=== PATIENT | female | born 1955 | race Caucasian/White ===

== ENCOUNTER 2017-01-15 14:34 | Inpatient (IN) | payer BC ==
[2017-01-15 17:03] VITALS: BMI 29.0
[2017-01-15 17:04] LABS: Glucose,Whole Blood 103 mg/dL (75-99)
[2017-01-15] MEDS ORDERED: ALBUTEROL INHALER 60 PUFF/8 GM INHALER INHALATION PRN (18:15)
[2017-01-15] MEDS ORDERED: IV VANCOMYCIN PER PHARMACY 1 EACH MISC MISCELLANE PRN (18:24)
[2017-01-15] MEDS ORDERED: traMADol 50 MG TAB PO PRN (18:25)
[2017-01-15] MEDS ORDERED: ACETAMINOPHEN TAB 325 MG TAB PO PRN (18:26)
[2017-01-15] MEDS ORDERED: ONDANSETRON 4 MG/2 ML VIAL IVP PRN (18:26)
[2017-01-15 19:26] LABS: Basophils # (A) 0.1 k/uL (0-0.2); Basophils % (A) 1 %; CH 28.9; CHCM 33.4; Eosinophils # (A) 0.3 k/uL (0-0.7); Eosinophils % (A) 2 %; HCT 36.1 % (34.0-46.0); HDW 2.37; HGB 12.5 gm/dL (11.4-16.0); Luc # (Auto) 0.25; Luc % (Auto) 2; Lymphocytes # (A) 2.3 k/uL (1.0-4.8); Lymphocytes % (A) 13 %; MCHC 34.6 g/dL (31.0-37.0); MCV 86.9 fL (80.0-100.0); Mean Platelet Volume 6.7; Monocytes # (A) 0.9 k/uL (0-1.0); Monocytes % (A) 5 %; Neutrophils # (A) 13.4 k/uL (1.3-7.7); Neutrophils % (A) 78 %; RBC 4.15 m/uL (3.80-5.40); RDW 14.3 % (11.5-15.5); WBC 17.2 k/uL (3.8-10.6); WBC (Perox) 16.71
[2017-01-15 19:43] LABS: Calcium 9.7 mg/dL (8.4-10.2); Potassium 3.2 mmol/L (3.5-5.1)
[2017-01-15] MEDS: SODIUM CHLORIDE 0.9% 1,000 ML IV SCH (19:53)
[2017-01-15] MEDS ORDERED: ALPRAZolam 0.5 MG TAB PO STA (20:19)
[2017-01-15] MEDS: PANTOPRAZOLE 40 MG/10 ML VIAL IVP SCH (20:28)
[2017-01-15] MEDS: IPRATROPIUM-ALBUTEROL 3 ML NEB INHALATION SCH (20:50)
[2017-01-15 21:03] LABS: Glucose,Whole Blood 87 mg/dL (75-99)
[2017-01-15] MEDS: MELOXICAM 7.5 MG TAB PO SCH (21:40)
[2017-01-15] MEDS: OXYBUTYNIN XL 5 MG TAB.ER.24 PO SCH (21:41)
[2017-01-15] MEDS: ALPRAZolam 0.5 MG TAB PO SCH (21:41)
[2017-01-15] MEDS: ATORVASTATIN 20 MG TAB PO SCH (21:41)
[2017-01-15] MEDS: PHENYTOIN SODIUM EXTENDED 100 MG CAP PO SCH (21:41)
[2017-01-15] MEDS: QUEtiapine 400 MG TAB PO SCH (21:41)
[2017-01-15] MEDS: lamoTRIgine 100 MG TAB PO SCH (21:41)
[2017-01-15] MEDS: MECLIZINE 25 MG TAB PO SCH (21:41)
[2017-01-15] MEDS: PIPERACILLIN-TAZOBACTAM 3.375 GM in DEXTROSE/WATER 1 50ML.BAG IVPB SCH (23:36)
[2017-01-15] MEDS ORDERED: LORATADINE 10 MG TAB PO PRN (23:43)
[2017-01-15] MEDS ORDERED: HYDROcodone/APAP 5-325MG 1 EACH TAB PO PRN (23:43)
[2017-01-16] MEDS ORDERED: PIPERACILLIN-TAZOBACTAM 3.375 GM in DEXTROSE/WATER 1 50ML.BAG IVPB SCH
--- NOTE | 2017-01-16 00:17 | XR ---
EXAM: XR Chest, 1 View CLINICAL HISTORY: Reason: SOB TECHNIQUE: Frontal view of the chest. COMPARISON: Chest radiograph 01/09/2017 FINDINGS: Lungs: Left lower lobe infiltrate demonstrating mild improvement since 01/09/2017. Lungs are otherwise clear. Pleural space: No evidence of pneumothorax or pleural effusion. Heart: Heart size is within normal limits. Mediastinum: Mediastinal structures are unremarkable. Bones/joints: Imaged bony thorax is unremarkable. Fixation site projects to lower cervical spine. IMPRESSION: Left lower lobe infiltrate suggestive of pneumonia demonstrating mild interval improvement since 01/09/2017. Short-term Radiograph follow-up recommended to confirm clearing.
[2017-01-16] MEDS: IPRATROPIUM-ALBUTEROL 3 ML NEB INHALATION PRN ×2 (01:17→23:15)
[2017-01-16] MEDS: LEVOTHYROXINE 50 MCG TAB PO SCH (06:19)
[2017-01-16 07:21] LABS: Basophils # (A) 0.1 k/uL (0-0.2); Basophils % (A) 0 %; CH 28.9; CHCM 33.4; Eosinophils # (A) 0.3 k/uL (0-0.7); Eosinophils % (A) 2 %; HDW 2.37; HGB 12.1 gm/dL (11.4-16.0); Luc % (Auto) 1; Lymphocytes # (A) 2.2 k/uL (1.0-4.8); Lymphocytes % (A) 15 %; MCH 29.3 pg (25.0-35.0); MCHC 33.7 g/dL (31.0-37.0); MCV 87.1 fL (80.0-100.0); Mean Platelet Volume 6.7; Monocytes % (A) 7 %; Neutrophils # (A) 10.5 k/uL (1.3-7.7); Neutrophils % (A) 74 %; RBC 4.14 m/uL (3.80-5.40); RDW 14.4 % (11.5-15.5); WBC 14.1 k/uL (3.8-10.6)
[2017-01-16 07:32] LABS: Calcium 9.4 mg/dL (8.4-10.2); Potassium 3.5 mmol/L (3.5-5.1)
[2017-01-16 07:47] LABS: Glucose,Whole Blood 100 mg/dL (75-99)
[2017-01-16] MEDS: VANCOMYCIN 1,500 MG in SODIUM CHLORIDE 0.9% 250 ML IVPB SCH (08:35)
[2017-01-16] MEDS: POTASSIUM CHLORIDE ER 20 MEQ TAB.ER PO SCH (08:37)
[2017-01-16] MEDS: PANTOPRAZOLE 40 MG/10 ML VIAL IVP SCH (08:38)
[2017-01-16] MEDS: DULoxetine HCL 60 MG CAPSULE.DR PO SCH (08:38)
[2017-01-16] MEDS: lamoTRIgine 100 MG TAB PO SCH ×2 (08:38→21:44)
[2017-01-16] MEDS: HEPARIN SODIUM,PORCINE 5,000 UNIT/ML 1 ML VIAL SQ SCH ×2 (08:38→21:41)
[2017-01-16] MEDS: QUEtiapine 400 MG TAB PO SCH ×2 (08:39→21:44)
[2017-01-16] MEDS: MECLIZINE 25 MG TAB PO SCH ×3 (08:39→21:44)
[2017-01-16] MEDS: CYCLOBENZAPRINE 10 MG TAB PO SCH (08:39)
[2017-01-16] MEDS: MONTELUKAST 10 MG TAB PO SCH (08:40)
[2017-01-16] MEDS: SPIRONOLACTONE-HCTZ 25-25MG 1 EACH TAB PO SCH (08:40)
[2017-01-16] MEDS: ALPRAZolam 0.5 MG TAB PO SCH ×4 (08:48→21:44)
[2017-01-16] MEDS: AZELASTINE 137MCG/SPRAY INTRANASAL SCH ×2 (08:53→21:42)
[2017-01-16] MEDS: SYMBICORT 160-4.5 MCG INHALER INHALATION SCH ×2 (08:55→20:40)
[2017-01-16] MEDS: IPRATROPIUM-ALBUTEROL 3 ML NEB INHALATION SCH ×4 (08:55→20:40)
[2017-01-16 11:47] LABS: Glucose,Whole Blood 119 mg/dL (75-99)
[2017-01-16] MEDS: PIPERACILLIN-TAZOBACTAM 3.375 GM in DEXTROSE/WATER 1 50ML.BAG IVPB SCH ×2 (12:25→17:45)
[2017-01-16] MEDS: SODIUM CHLORIDE 0.9% 1,000 ML IV SCH (12:27)
--- NOTE | 2017-01-16 13:36 | P.CNPUL ---
History of Present Illness Consult date: 01/16/17 Requesting physician: Nanci Pendleton Reason for consult: pneumonia Chief complaint: Nausea and vomiting History of present illness: This is a 61-year-old female with history of multiple medical problems including COPD, depression, chronic pain syndrome, patient was recently seen in my office for symptoms of COPD exacerbation and left lower lobe pneumonia. Chest x-ray in my office showed an infiltrate in the left lower lobe, hence the patient was placed on antibiotics in the form of Levaquin, and she was also placed on a course of prednisone burst and taper. Advised to continue her bronchodilators including DuoNeb and Symbicort. Patient developed significant GI symptoms including nausea and vomiting, and she could not hold anything down. Hence she was seen in an outside hospital were in patient had a CT of the chest, and it showed a masslike consolidation in the left lower lobe. Hence arrangements were made for the patient to transfer to [facility]. Since admission, her GI symptoms have significantly improved, patient was hydrated, placed on IV antibiotics, and her follow-up chest x-ray actually shows improvement compared to the last chest x-ray done on 01/09/2017. Patient denies any further episodes of GI symptoms at present, no nausea no vomiting no abdominal pain no melena no hematemesis. Denies any headaches no blurred vision no dizziness. Denies any cough wheezing or shortness of breath. Denies any dysuria frequency or urgency. Review of Systems 14 point review of systems were obtained, please refer to pertinent positives and negatives in HPI. Past Medical History Past Medical History: COPD, CVA/TIA, Diabetes Mellitus, Fibromyalgia, GERD/ Reflux, Hyperlipidemia, Hypertension, Osteoarthritis (OA), Pneumonia, Seizure Disorder, Thyroid Disorder Additional Past Medical History / Comment(s): 1996 HAD BRAIN ABCESS, BRAIN BLEED , THUS SEIZURES, DIZZINESS. LEFT SIDED WEAKNESS (USES A WALKER). LAST SEIZURE IN 2014. WHOOPING COUGH. ALLERGIES, NASAL CONGESTION, COUGH. CARPAL TUNNEL. History of Any Multi-Drug Resistant Organisms: None Reported Past Surgical History: Adenoidectomy, Back Surgery, Breast Surgery, Section, Cholecystectomy, Hysterectomy, Tonsillectomy Additional Past Surgical History / Comment(s): RIGHT BLEED FROM BREAST. CERVICAL FUSION. SINUS SURGERY. RIGHT EYELID. Past Anesthesia/Blood Transfusion Reactions: Motion Sickness, Postoperative Nausea & Vomiting (PONV) Additional Past Anesthesia/Blood Transfusion Reaction / Comment(s): TAKES ANIVERT FOR CHRONIC DIZZINESS. Past Psychological History: Anxiety, Bipolar, Panic Disorder Smoking Status: Never smoker - Past Family History Mother Family Medical History: CVA/TIA, Deep Vein Thrombosis (DVT), Myocardial Infarction ([place]) Father Family Medical History: Cancer, Myocardial Infarction ([place]) Medications and Allergies Home Medications Medication Instructions Recorded Confirmed Type ALPRAZolam [Xanax] 1 mg PO QID 01/22/16 01/15/17 History Albuterol Inhaler [Ventolin Hfa 1 puff INHALATION RT-Q4H PRN 01/22/16 01/15/17 History Inhaler] Albuterol Nebulized [Ventolin 2.5 mg INHALATION RT-QID 01/22/16 01/15/17 History Nebulized] Azelastine HCl [Astepro] 2 puff INHALATION RT-BID 01/22/16 01/15/17 History Cetirizine HCl [Zyrtec] 10 mg PO DAILY PRN 01/22/16 01/15/17 History DULoxetine HCL [Cymbalta] 120 mg PO QAM 01/22/16 01/15/17 History Darifenacin Hydrobromide [Enablex] 15 mg PO HS 01/22/16 01/15/17 History Fluticasone/Salmeterol [Advair 1 puff INHALATION RT-BID 01/22/16 01/15/17 History 500-50 Diskus] Levothyroxine Sodium [Synthroid] 50 mcg PO QAM 01/22/16 01/15/17 History Meclizine [Antivert] 25 mg PO TID 01/22/16 01/15/17 History Meloxicam [Mobic] 15 mg PO HS 01/22/16 01/15/17 History Metaxalone [Skelaxin] 800 mg PO QAM 01/22/16 01/15/17 History Montelukast [Singulair] 10 mg PO QAM 01/22/16 01/15/17 History Pantoprazole Sodium [Protonix] 40 mg PO AC-BRKFST 01/22/16 01/15/17 History Phenytoin Sodium Extended 200 mg PO BID 01/22/16 01/15/17 History [Dilantin] Potassium Chloride ER [K-Dur 20] 20 meq PO QAM 01/22/16 01/15/17 History QUEtiapine [SEROquel] 400 mg PO BID 01/22/16 01/15/17 History Ramelteon [Rozerem] 8 mg PO HS PRN 01/22/16 01/15/17 History Simvastatin [Zocor] 40 mg PO HS 01/22/16 01/15/17 History Spironolactone-Hctz 25-25Mg 1 tab PO QAM 01/22/16 01/15/17 History [Aldactazide 25-25 MG] lamoTRIgine [LaMICtal] 100 mg PO QAM 01/22/16 01/15/17 History lamoTRIgine [LaMICtal] 200 mg PO HS 01/22/16 01/15/17 History metFORMIN HCL [Glucophage] 1,000 mg PO BID 01/22/16 01/15/17 History Levofloxacin [Levaquin] 1 tab PO DAILY 01/15/17 01/15/17 History Allergies Allergy/AdvReac Type Severity Reaction Status Date / Time clarithromycin [From Biaxin] Allergy SEIZURES Verified 01/15/17 18:58 Physical Exam Vitals: Vital Signs Temp Pulse Pulse Pulse Resp BP Pulse Ox 01/16/17 12:27 88 01/16/17 12:14 80 01/16/17 09:10 88 01/16/17 08:56 88 93 L 01/16/17 08:00 80 96 20 01/16/17 07:00 97.9 F 80 20 111/71 93 L 01/16/17 01:25 84 01/16/17 01:17 80 01/15/17 22:45 98.6 F 96 20 135/69 93 L 01/15/17 21:03 90 01/15/17 20:50 90 01/15/17 17:46 18 Intake and Output 01/15/17 01/16/17 01/16/17 22:59 06:59 14:59 Intake Total 240 770 Balance 240 770 Intake: IV 530 Piperacillin-Tazobactam 3 50 .375 gm In Dextrose/Water 1 50ml.bag @ 12.5 mls/hr IVPB Q6HR [facility] Rx#: [id number] Sodium Chloride 0.9% 1, 480 000 ml @ 60 mls/hr IV . [id number] [facility] Rx#:[id number] Oral 240 240 Other: Voiding Method Toilet Toilet # Voids 2 2 Weight 76.884 kg Physical Exam: Revealed a 61-year-old female in no distress. HEENT:[Neck is supple.] [No neck masses.] [No thyromegaly.] [No JVD.] Chest: [Diminished breath sounds at the bases, no crackles or rhonchi or wheezes ] Cardiac Exam: [Normal S1 and S2, no S3 gallop, no murmur.] Abdomen: [Soft, nontender, no megaly, no rebound, no guarding, normal bowel sounds.] Extremities: [No clubbing, no edema, no cyanosis.] Neurological Exam: [No focal neurologic deficit.] Results - Laboratory Findings CBC and BMP: 01/16/17 06:57 01/16/17 06:57 Abnormal lab findings: Abnormal Labs 01/15/17 01/15/17 01/15/17 16:54 19:08 19:08 WBC 17.2 H Plt Count Neutrophils # 13.4 H Potassium 3.2 L BUN 29 H Creatinine 1.16 H Glucose 131 H POC Glucose (mg/dL) 103 H 01/16/17 01/16/17 01/16/17 06:57 06:57 07:44 WBC 14.1 H Plt Count 483 H Neutrophils # 10.5 H Potassium BUN 26 H Creatinine 1.22 H Glucose 102 H POC Glucose (mg/dL) 100 H 01/16/17 11:43 WBC Plt Count Neutrophils # Potassium BUN Creatinine Glucose POC Glucose (mg/dL) 119 H - Diagnostic Findings Chest x-ray: image reviewed CT scan - chest: image reviewed (Masslike consolidation in the left lower lobe was noted, differential diagnoses includes pneumonia and or bronchogenic carcinoma.) Assessment and Plan Plan: Impression: 1 acute left lower lobe pneumonia, possibility of malignancy is not entirely ruled out but felt to be less likely. Patient will likely need to have repeat chest x-ray and possibly a CT of the chest in 4 weeks post discharge. No need for bronchoscopy at this point. Patient is clinically improving, and her chest x-ray is actually improving compared to the chest x-ray dated 01/09/2017. 2 history of severe COPD, presently under control. 3 acute dehydration and symptoms of gastritis which have resolved since admission. Patient is presently asymptomatic and she has no active GI symptoms. 4 multiple comorbidities including history of hypothyroidism, chronic pain syndrome, osteoarthritis, history of brain abscess, history of seizure disorder. Recommendation: Continue present treatment plan, consider switching the patient to oral antibiotics in the next couple of days, and discharge the patient home with plans to have outpatient follow-up. Continue bronchodilators and continue steroids. Continued antibiotics. Follow. Time with Patient: Greater than 30
--- NOTE | 2017-01-16 14:30 | XR ---
EXAMINATION TYPE: XR chest 2V DATE OF EXAM: 01/16/2017 COMPARISON: 01/15/2017 TECHNIQUE: PA and lateral views submitted. HISTORY: Shortness of breath FINDINGS: Subsegmental changes involving the left lung are stable. Right lung clear. No pneumothorax. Interstit ium somewhat coarsened. Postsurgical change overlying the cervical spine. IMPRESSION: 1. Left-sided consolidation may represent pneumonia. Follow resolution to exclude underlying neoplasm .
[2017-01-16 17:40] LABS: Glucose,Whole Blood 103 mg/dL (75-99)
[2017-01-16] MEDS: methylPREDNISolone SOD SUCCI 40 MG/ML 1 ML VIAL IV SCH (17:46)
[2017-01-16 21:10] LABS: Glucose,Whole Blood 131 mg/dL (75-99)
[2017-01-16] MEDS: ATORVASTATIN 20 MG TAB PO SCH (21:42)
[2017-01-16] MEDS: MELOXICAM 7.5 MG TAB PO SCH (21:42)
[2017-01-16] MEDS: OXYBUTYNIN XL 5 MG TAB.ER.24 PO SCH (21:44)
[2017-01-16] MEDS: PHENYTOIN SODIUM EXTENDED 100 MG CAP PO SCH (21:49)
[2017-01-17] MEDS: methylPREDNISolone SOD SUCCI 40 MG/ML 1 ML VIAL IV SCH ×4 (00:05→23:27)
[2017-01-17] MEDS: PIPERACILLIN-TAZOBACTAM 3.375 GM in DEXTROSE/WATER 1 50ML.BAG IVPB SCH ×4 (00:05→19:39)
[2017-01-17] MEDS: LEVOTHYROXINE 50 MCG TAB PO SCH (05:58)
[2017-01-17 06:58] LABS: Basophils # (A) 0.1 k/uL (0-0.2); Basophils % (A) 0 %; CH 28.6; CHCM 32.9; Eosinophils # (A) 0.1 k/uL (0-0.7); Eosinophils % (A) 1 %; HCT 37.5 % (34.0-46.0); HGB 12.4 gm/dL (11.4-16.0); Luc # (Auto) 0.23; Luc % (Auto) 2; Lymphocytes % (A) 14 %; MCH 28.9 pg (25.0-35.0); MCHC 33.1 g/dL (31.0-37.0); MCV 87.4 fL (80.0-100.0); Mean Platelet Volume 6.4; Monocytes # (A) 0.7 k/uL (0-1.0); Monocytes % (A) 5 %; Neutrophils # (A) 11.4 k/uL (1.3-7.7); Neutrophils % (A) 79 %; RBC 4.28 m/uL (3.80-5.40); RDW 14.3 % (11.5-15.5); WBC 14.5 k/uL (3.8-10.6); WBC (Perox) 13.59
[2017-01-17] MEDS: SYMBICORT 160-4.5 MCG INHALER INHALATION SCH ×2 (07:04→20:03)
[2017-01-17] MEDS: IPRATROPIUM-ALBUTEROL 3 ML NEB INHALATION SCH ×4 (07:04→20:04)
[2017-01-17 07:17] LABS: Calcium 9.9 mg/dL (8.4-10.2); Potassium 3.8 mmol/L (3.5-5.1)
[2017-01-17 07:34] LABS: Glucose,Whole Blood 118 mg/dL (75-99)
[2017-01-17] MEDS: SODIUM CHLORIDE 0.9% 1,000 ML IV SCH (08:39)
[2017-01-17] MEDS: VANCOMYCIN 1,500 MG in SODIUM CHLORIDE 0.9% 250 ML IVPB SCH ×2 (08:43→23:26)
[2017-01-17] MEDS: ALPRAZolam 0.5 MG TAB PO SCH ×4 (08:43→20:13)
[2017-01-17] MEDS: lamoTRIgine 100 MG TAB PO SCH ×2 (08:45→20:11)
[2017-01-17] MEDS: MECLIZINE 25 MG TAB PO SCH ×3 (08:45→20:10)
[2017-01-17] MEDS: POTASSIUM CHLORIDE ER 20 MEQ TAB.ER PO SCH (08:46)
[2017-01-17] MEDS: AZELASTINE 137MCG/SPRAY INTRANASAL SCH ×2 (08:46→20:09)
[2017-01-17] MEDS: DULoxetine HCL 60 MG CAPSULE.DR PO SCH (08:46)
[2017-01-17] MEDS: PANTOPRAZOLE 40 MG TABLET PO SCH (08:47)
[2017-01-17] MEDS: QUEtiapine 400 MG TAB PO SCH ×2 (08:48→20:09)
[2017-01-17] MEDS: MONTELUKAST 10 MG TAB PO SCH (08:48)
[2017-01-17] MEDS: SPIRONOLACTONE-HCTZ 25-25MG 1 EACH TAB PO SCH (08:48)
[2017-01-17] MEDS: CYCLOBENZAPRINE 10 MG TAB PO SCH (08:56)
[2017-01-17] MEDS: HEPARIN SODIUM,PORCINE 5,000 UNIT/ML 1 ML VIAL SQ SCH ×2 (08:56→20:11)
--- NOTE | 2017-01-17 11:07 | P.PN ---
Subjective This is a 61-year-old female with history of multiple medical problems including COPD, depression, chronic pain syndrome, patient was recently seen in my office for symptoms of COPD exacerbation and left lower lobe pneumonia. Chest x-ray in my office showed an infiltrate in the left lower lobe, hence the patient was placed on antibiotics in the form of Levaquin, and she was also placed on a course of prednisone burst and taper. Advised to continue her bronchodilators including DuoNeb and Symbicort. Patient developed significant GI symptoms including nausea and vomiting, and she could not hold anything down. Hence she was seen in an outside hospital were in patient had a CT of the chest, and it showed a masslike consolidation in the left lower lobe. Hence arrangements were made for the patient to transfer to [facility]. Since admission, her GI symptoms have significantly improved, patient was hydrated, placed on IV antibiotics, and her follow-up chest x-ray actually shows improvement compared to the last chest x-ray done on 01/09/2017. Patient denies any further episodes of GI symptoms at present, no nausea no vomiting no abdominal pain no melena no hematemesis. Denies any headaches no blurred vision no dizziness. Denies any cough wheezing or shortness of breath. Denies any dysuria frequency or urgency. The patient is seen again today 01/17/2017 in follow-up on the regular medical floor. She is awake and alert in no acute distress. She is breathing easier today as compared to yesterday. She still has some congested cough and green mucus. Not quite back to her baseline. She is maintaining good O2 saturations in the mid 90s on room air. She's been afebrile. Hemodynamically stable. She remains on vancomycin and Zosyn. Her left-sided consolidation did improve compared to previous. Objective - Vital Signs Vital signs: Vital Signs Temp 97.4 F L 01/17/17 07:00 Pulse 80 01/17/17 07:19 Resp 20 01/17/17 07:00 BP 118/70 01/17/17 07:00 Pulse Ox 94 L 01/17/17 07:00 Intake & Output 01/16/17 01/17/17 01/17/17 18:59 06:59 18:59 Intake Total 720 Balance 720 Weight 76.884 kg Intake: IV 480 Sodium Chloride 0.9% 1, 480 000 ml @ 60 mls/hr IV . [id number] [facility] Rx#:[id number] Oral 240 Other: Voiding Method Toilet Toilet # Voids 3 2 - Exam GENERAL EXAM: Alert, active, comfortable in no apparent distress. HEAD: Normocephalic. EYES: Normal reaction of pupils, equal size. NOSE: Clear with pink turbinates. THROAT: No erythema or exudates. NECK: No masses, no JVD. CHEST: No chest wall deformity. LUNGS: Equal air entry with crackles in the left lung base. CVS: S1 and S2 normal with no audible murmurs, regular rhythm. ABDOMEN: No hepatosplenomegaly, normal bowel sounds, no guarding or rigidity. SPINE: No scoliosis or deformity SKIN: No rashes CENTRAL NERVOUS SYSTEM: No focal deficits, tone is normal in all 4 extremities. Extremities: There is no significant peripheral edema. No clubbing, no cyanosis. Peripheral pulses are intact. - Labs CBC & Chem 7: 01/17/17 06:37 01/17/17 06:37 Labs: Abnormal Lab Results - Last 24 Hours (Table) 01/16/17 01/16/17 01/16/17 Range/Units 11:43 17:38 21:09 WBC (3.8-10.6) k/uL Plt Count (150-450) k/uL Neutrophils # (1.3-7.7) k/uL Sodium (137-145) mmol/L BUN (7-17) mg/dL Creatinine (0.52-1.04) mg/dL Glucose (74-99) mg/dL POC Glucose (mg/dL) 119 H 103 H 131 H (75-99) mg/dL 01/17/17 01/17/17 01/17/17 Range/Units 06:37 06:37 07:22 WBC 14.5 H (3.8-10.6) k/uL Plt Count 513 H (150-450) k/uL Neutrophils # 11.4 H (1.3-7.7) k/uL Sodium 146 H (137-145) mmol/L BUN 25 H (7-17) mg/dL Creatinine 1.19 H (0.52-1.04) mg/dL Glucose 133 H (74-99) mg/dL POC Glucose (mg/dL) 118 H (75-99) mg/dL Assessment and Plan Plan: Impression: #1 Acute left lower lobe pneumonia. The possibility of malignancy is not entirely excluded and the patient will have a repeat chest x-ray and possibly computed tomography scan in 4 weeks post discharge. #2 Acute exacerbation of chronic obstructive pulmonary disease secondary to acute left lower lobe pneumonia. #3 Acute dehydration secondary to gastritis with nausea and vomiting. Improved. #4 Hypothyroidism. #5 Chronic pain syndrome. #6 Osteoarthritis. #7 History of brain abscess. #8 History of seizure disorder. Plan: The patient was seen and evaluated by Dr. Millan. We'll continue with her current medications. We'll repeat a chest x-ray in the a.m. Plan for possible discharge in the next 24-48 hours. We'll continue to follow.
[2017-01-17] MEDS: guaiFENesin SYRUP 100MG/5ML 200 MG/10 ML CUP PO PRN ×2 (12:02→20:26)
[2017-01-17] MEDS: AZITHROMYCIN 500 MG in SODIUM CHLORIDE 0.9% 250 ML IVPB SCH (12:10)
[2017-01-17 12:38] LABS: Glucose,Whole Blood 116 mg/dL (75-99)
[2017-01-17 17:15] LABS: Glucose,Whole Blood 97 mg/dL (75-99)
[2017-01-17] MEDS: INSULIN LISPRO (humaLOG) 300 UNIT/3 ML VIAL SQ SCH ×2 (17:22→20:25)
[2017-01-17] MEDS: OXYBUTYNIN XL 5 MG TAB.ER.24 PO SCH (20:10)
[2017-01-17] MEDS: PHENYTOIN SODIUM EXTENDED 100 MG CAP PO SCH (20:10)
[2017-01-17] MEDS: MELOXICAM 7.5 MG TAB PO SCH (20:11)
[2017-01-17] MEDS: ATORVASTATIN 20 MG TAB PO SCH (20:12)
[2017-01-17 20:22] LABS: Glucose,Whole Blood 133 mg/dL (75-99)
[2017-01-18] MEDS ORDERED: VANCOMYCIN 1,500 MG in SODIUM CHLORIDE 0.9% 250 ML IVPB SCH ×2
[2017-01-18] MEDS: guaiFENesin SYRUP 100MG/5ML 200 MG/10 ML CUP PO PRN ×4 (01:50→21:40)
[2017-01-18] MEDS: SODIUM CHLORIDE 0.9% 1,000 ML IV SCH ×2 (03:05→13:24)
[2017-01-18] MEDS: PIPERACILLIN-TAZOBACTAM 3.375 GM in DEXTROSE/WATER 1 50ML.BAG IVPB SCH ×3 (03:48→19:39)
[2017-01-18] MEDS: LEVOTHYROXINE 50 MCG TAB PO SCH (05:50)
[2017-01-18 06:37] LABS: Basophils # (A) 0.1 k/uL (0-0.2); Basophils % (A) 1 %; CH 28.4; CHCM 32.3; Eosinophils # (A) 0.3 k/uL (0-0.7); Eosinophils % (A) 2 %; HCT 36.3 % (34.0-46.0); HGB 11.9 gm/dL (11.4-16.0); Luc # (Auto) 0.27; Luc % (Auto) 2; Lymphocytes % (A) 22 %; MCH 28.9 pg (25.0-35.0); MCHC 32.8 g/dL (31.0-37.0); MCV 88.2 fL (80.0-100.0); Mean Platelet Volume 6.4; Monocytes # (A) 0.8 k/uL (0-1.0); Monocytes % (A) 6 %; Neutrophils # (A) 9.3 k/uL (1.3-7.7); Neutrophils % (A) 68 %; RBC 4.12 m/uL (3.80-5.40); RDW 14.3 % (11.5-15.5); WBC 13.8 k/uL (3.8-10.6); WBC (Perox) 14.48
[2017-01-18 06:53] LABS: Calcium 9.4 mg/dL (8.4-10.2); Potassium 3.5 mmol/L (3.5-5.1)
[2017-01-18] MEDS: PANTOPRAZOLE 40 MG TABLET PO SCH (08:01)
[2017-01-18] MEDS: methylPREDNISolone SOD SUCCI 40 MG/ML 1 ML VIAL IV SCH ×3 (08:01→23:52)
[2017-01-18 08:10] LABS: Glucose,Whole Blood 117 mg/dL (75-99)
[2017-01-18] MEDS: INSULIN LISPRO (humaLOG) 300 UNIT/3 ML VIAL SQ SCH ×4 (08:19→21:11)
--- NOTE | 2017-01-18 08:25 | XR ---
EXAMINATION TYPE: XR chest 2V DATE OF EXAM: 01/18/2017 COMPARISON: 01/16/2017 INDICATION: Left lower lobe pneumonia, short of breath TECHNIQUE: Frontal and lateral views of the chest are obtained. FINDINGS: The heart size is normal. The pulmonary vasculature is normal. There is improving infiltrate at the left base. This has minimal residual.. IMPRESSION: 1. Minimal residual left lower lobe infiltrate.
[2017-01-18] MEDS: SYMBICORT 160-4.5 MCG INHALER INHALATION SCH ×2 (08:38→20:55)
[2017-01-18] MEDS: IPRATROPIUM-ALBUTEROL 3 ML NEB INHALATION SCH ×4 (08:38→20:55)
[2017-01-18 09:00] LABS: Hemoglobin A1C 5.9 % (4.2-6.1)
[2017-01-18] MEDS: POTASSIUM CHLORIDE ER 20 MEQ TAB.ER PO SCH (10:09)
[2017-01-18] MEDS: MONTELUKAST 10 MG TAB PO SCH (10:09)
[2017-01-18] MEDS: MECLIZINE 25 MG TAB PO SCH ×3 (10:09→21:10)
[2017-01-18] MEDS: SPIRONOLACTONE-HCTZ 25-25MG 1 EACH TAB PO SCH (10:09)
[2017-01-18] MEDS: DULoxetine HCL 60 MG CAPSULE.DR PO SCH (10:10)
[2017-01-18] MEDS: HEPARIN SODIUM,PORCINE 5,000 UNIT/ML 1 ML VIAL SQ SCH ×2 (10:10→21:11)
[2017-01-18] MEDS: CYCLOBENZAPRINE 10 MG TAB PO SCH (10:10)
[2017-01-18] MEDS: QUEtiapine 400 MG TAB PO SCH ×2 (10:10→21:08)
[2017-01-18] MEDS: ALPRAZolam 0.5 MG TAB PO SCH ×4 (10:10→21:10)
[2017-01-18] MEDS: lamoTRIgine 100 MG TAB PO SCH ×2 (10:10→21:10)
[2017-01-18] MEDS: AZELASTINE 137MCG/SPRAY INTRANASAL SCH ×2 (10:11→21:10)
[2017-01-18] MEDS: AZITHROMYCIN 500 MG in SODIUM CHLORIDE 0.9% 250 ML IVPB SCH (11:12)
[2017-01-18 11:36] LABS: Glucose,Whole Blood 123 mg/dL (75-99)
--- NOTE | 2017-01-18 13:31 | P.PN ---
Subjective This is a 61-year-old female with history of multiple medical problems including COPD, depression, chronic pain syndrome, patient was recently seen in my office for symptoms of COPD exacerbation and left lower lobe pneumonia. Chest x-ray in my office showed an infiltrate in the left lower lobe, hence the patient was placed on antibiotics in the form of Levaquin, and she was also placed on a course of prednisone burst and taper. Advised to continue her bronchodilators including DuoNeb and Symbicort. Patient developed significant GI symptoms including nausea and vomiting, and she could not hold anything down. Hence she was seen in an outside hospital were in patient had a CT of the chest, and it showed a masslike consolidation in the left lower lobe. Hence arrangements were made for the patient to transfer to [facility]. Since admission, her GI symptoms have significantly improved, patient was hydrated, placed on IV antibiotics, and her follow-up chest x-ray actually shows improvement compared to the last chest x-ray done on 01/09/2017. Patient denies any further episodes of GI symptoms at present, no nausea no vomiting no abdominal pain no melena no hematemesis. Denies any headaches no blurred vision no dizziness. Denies any cough wheezing or shortness of breath. Denies any dysuria frequency or urgency. The patient is seen again today 01/17/2017 in follow-up on the regular medical floor. She is awake and alert in no acute distress. She is breathing easier today as compared to yesterday. She still has some congested cough and green mucus. Not quite back to her baseline. She is maintaining good O2 saturations in the mid 90s on room air. She's been afebrile. Hemodynamically stable. She remains on vancomycin and Zosyn. Her left-sided consolidation did improve compared to previous. The patient is seen again today 01/18/2017 in follow-up on the regular medical floor. She is currently sitting up in bed. She is awake and alert in no acute distress. Her cough has subsided. She denies any worsening shortness breath. No chills or night sweats. White count has improved to 13.8. She is afebrile. Maintain O2 saturations in the mid 90s on room air. Her chest x-ray shows minimal residual left lower lobe infiltrate. Hemodynamically stable. Renal function stable at 1.25. Objective - Vital Signs Vital signs: Vital Signs Temp 97.5 F L 01/18/17 07:00 Pulse 80 01/18/17 11:30 Resp 18 01/18/17 08:00 BP 120/68 01/18/17 07:00 Pulse Ox 94 L 01/18/17 07:00 Intake & Output 01/17/17 01/18/17 01/18/17 18:59 06:59 18:59 Intake Total 500 Balance 500 Weight 76.884 kg 76.884 kg Intake: Oral 500 Other: Voiding Method Toilet Toilet Toilet # Voids 1 - Exam GENERAL EXAM: Alert, active, comfortable in no apparent distress. HEAD: Normocephalic. EYES: Normal reaction of pupils, equal size. NOSE: Clear with pink turbinates. THROAT: No erythema or exudates. NECK: No masses, no JVD. CHEST: No chest wall deformity. LUNGS: Equal air entry with faint crackle in the left lung base. CVS: S1 and S2 normal with no audible murmurs, regular rhythm. ABDOMEN: No hepatosplenomegaly, normal bowel sounds, no guarding or rigidity. SPINE: No scoliosis or deformity SKIN: No rashes CENTRAL NERVOUS SYSTEM: No focal deficits, tone is normal in all 4 extremities. Extremities: There is no significant peripheral edema. No clubbing, no cyanosis. Peripheral pulses are intact. - Labs CBC & Chem 7: 01/18/17 05:53 01/18/17 05:53 Labs: Abnormal Lab Results - Last 24 Hours (Table) 01/17/17 01/18/17 01/18/17 Range/Units 20:03 05:53 05:53 WBC 13.8 H (3.8-10.6) k/uL Plt Count 484 H (150-450) k/uL Neutrophils # 9.3 H (1.3-7.7) k/uL BUN 28 H (7-17) mg/dL Creatinine 1.25 H (0.52-1.04) mg/dL POC Glucose (mg/dL) 133 H (75-99) mg/dL 01/18/17 01/18/17 Range/Units 08:09 11:34 WBC (3.8-10.6) k/uL Plt Count (150-450) k/uL Neutrophils # (1.3-7.7) k/uL BUN (7-17) mg/dL Creatinine (0.52-1.04) mg/dL POC Glucose (mg/dL) 117 H 123 H (75-99) mg/dL Assessment and Plan Plan: Impression: #1 Acute left lower lobe pneumonia. The possibility of malignancy is not entirely excluded and today's chest x-ray shows sister residual left lower lobe infiltrate. #2 Acute exacerbation of chronic obstructive pulmonary disease secondary to acute left lower lobe pneumonia. #3 Acute dehydration secondary to gastritis with nausea and vomiting. Improved. #4 Hypothyroidism. #5 Chronic pain syndrome. #6 Osteoarthritis. #7 History of brain abscess. #8 History of seizure disorder. Plan: The patient was seen and evaluated by Dr. Millan. Her chest x-ray and labs were reviewed. The patient is cleared for discharge from the pulmonary standpoint. She'll need to go home on Augmentin. She should follow-up in our office in 3 weeks' time. We'll repeat a chest x-ray then. She is however encouraged to call sooner if any recurrence of symptoms or other questions or concerns.
[2017-01-18 17:15] LABS: Glucose,Whole Blood 113 mg/dL (75-99)
[2017-01-18] MEDS: VANCOMYCIN 1,500 MG in SODIUM CHLORIDE 0.9% 250 ML IVPB SCH (17:22)
[2017-01-18 20:09] LABS: Glucose,Whole Blood 141 mg/dL (75-99)
[2017-01-18] MEDS: MELOXICAM 7.5 MG TAB PO SCH (21:09)
[2017-01-18] MEDS: PHENYTOIN SODIUM EXTENDED 100 MG CAP PO SCH (21:10)
[2017-01-18] MEDS: OXYBUTYNIN XL 5 MG TAB.ER.24 PO SCH (21:10)
[2017-01-18] MEDS: ATORVASTATIN 20 MG TAB PO SCH (21:10)
[2017-01-19] MEDS: PIPERACILLIN-TAZOBACTAM 3.375 GM in DEXTROSE/WATER 1 50ML.BAG IVPB SCH ×2 (04:56→11:45)
[2017-01-19] MEDS: LEVOTHYROXINE 50 MCG TAB PO SCH (06:04)
[2017-01-19] MEDS ORDERED: VANCOMYCIN TROUGH DUE 1 EACH MISC MISCELLANE ONE (07:00)
[2017-01-19] MEDS: SYMBICORT 160-4.5 MCG INHALER INHALATION SCH (07:14)
[2017-01-19] MEDS: IPRATROPIUM-ALBUTEROL 3 ML NEB INHALATION SCH ×2 (07:14→11:33)
[2017-01-19 07:18] LABS: Glucose,Whole Blood 144 mg/dL (75-99)
[2017-01-19 07:22] LABS: Basophils # (A) 0.1 k/uL (0-0.2); Basophils % (A) 1 %; CH 28.5; CHCM 32.7; Eosinophils # (A) 0.1 k/uL (0-0.7); Eosinophils % (A) 1 %; HDW 2.39; HGB 12.4 gm/dL (11.4-16.0); Luc # (Auto) 0.15; Luc % (Auto) 1; Lymphocytes # (A) 2.9 k/uL (1.0-4.8); Lymphocytes % (A) 18 %; MCH 28.7 pg (25.0-35.0); MCHC 32.8 g/dL (31.0-37.0); MCV 87.6 fL (80.0-100.0); Monocytes # (A) 0.7 k/uL (0-1.0); Monocytes % (A) 5 %; Neutrophils # (A) 11.9 k/uL (1.3-7.7); Neutrophils % (A) 76 %; RBC 4.33 m/uL (3.80-5.40); RDW 14.4 % (11.5-15.5); WBC 15.8 k/uL (3.8-10.6)
[2017-01-19] MEDS: methylPREDNISolone SOD SUCCI 40 MG/ML 1 ML VIAL IV SCH (07:35)
[2017-01-19] MEDS: PANTOPRAZOLE 40 MG TABLET PO SCH (07:35)
[2017-01-19 07:36] LABS: Calcium 9.6 mg/dL (8.4-10.2); Potassium 4.2 mmol/L (3.5-5.1)
[2017-01-19] MEDS: INSULIN LISPRO (humaLOG) 300 UNIT/3 ML VIAL SQ SCH ×2 (07:36→12:07)
[2017-01-19] MEDS: SODIUM CHLORIDE 0.9% 1,000 ML IV SCH (07:49)
[2017-01-19 07:56] VITALS: BP 118/72; RESP 18; TEMP 97
[2017-01-19] MEDS: guaiFENesin SYRUP 100MG/5ML 200 MG/10 ML CUP PO PRN (08:44)
[2017-01-19] MEDS: ALPRAZolam 0.5 MG TAB PO SCH ×2 (08:45→13:23)
[2017-01-19] MEDS: MECLIZINE 25 MG TAB PO SCH (08:45)
[2017-01-19] MEDS: SPIRONOLACTONE-HCTZ 25-25MG 1 EACH TAB PO SCH (08:45)
[2017-01-19] MEDS: DULoxetine HCL 60 MG CAPSULE.DR PO SCH (08:45)
[2017-01-19] MEDS: QUEtiapine 400 MG TAB PO SCH (08:45)
[2017-01-19] MEDS: lamoTRIgine 100 MG TAB PO SCH (08:46)
[2017-01-19] MEDS: AZELASTINE 137MCG/SPRAY INTRANASAL SCH (08:46)
[2017-01-19] MEDS: CYCLOBENZAPRINE 10 MG TAB PO SCH (08:46)
[2017-01-19] MEDS: POTASSIUM CHLORIDE ER 20 MEQ TAB.ER PO SCH (08:46)
[2017-01-19] MEDS: MONTELUKAST 10 MG TAB PO SCH (08:46)
[2017-01-19] MEDS: HEPARIN SODIUM,PORCINE 5,000 UNIT/ML 1 ML VIAL SQ SCH (08:48)
[2017-01-19] MEDS: VANCOMYCIN 1,500 MG in SODIUM CHLORIDE 0.9% 250 ML IVPB SCH (09:45)
--- NOTE | 2017-01-19 10:05 | P.PN ---
Subjective Principal diagnosis: Acute left lower lobe pneumonia This is a 61-year-old female with history of multiple medical problems including COPD, depression, chronic pain syndrome, patient was recently seen in my office for symptoms of COPD exacerbation and left lower lobe pneumonia. Chest x-ray in my office showed an infiltrate in the left lower lobe, hence the patient was placed on antibiotics in the form of Levaquin, and she was also placed on a course of prednisone burst and taper. Advised to continue her bronchodilators including DuoNeb and Symbicort. Patient developed significant GI symptoms including nausea and vomiting, and she could not hold anything down. Hence she was seen in an outside hospital were in patient had a CT of the chest, and it showed a masslike consolidation in the left lower lobe. Hence arrangements were made for the patient to transfer to [facility]. Since admission, her GI symptoms have significantly improved, patient was hydrated, placed on IV antibiotics, and her follow-up chest x-ray actually shows improvement compared to the last chest x-ray done on 01/09/2017. Patient denies any further episodes of GI symptoms at present, no nausea no vomiting no abdominal pain no melena no hematemesis. Denies any headaches no blurred vision no dizziness. Denies any cough wheezing or shortness of breath. Denies any dysuria frequency or urgency. The patient is seen again today 01/17/2017 in follow-up on the regular medical floor. She is awake and alert in no acute distress. She is breathing easier today as compared to yesterday. She still has some congested cough and green mucus. Not quite back to her baseline. She is maintaining good O2 saturations in the mid 90s on room air. She's been afebrile. Hemodynamically stable. She remains on vancomycin and Zosyn. Her left-sided consolidation did improve compared to previous. The patient is seen again today 01/18/2017 in follow-up on the regular medical floor. She is currently sitting up in bed. She is awake and alert in no acute distress. Her cough has subsided. She denies any worsening shortness breath. No chills or night sweats. White count has improved to 13.8. She is afebrile. Maintain O2 saturations in the mid 90s on room air. Her chest x-ray shows minimal residual left lower lobe infiltrate. Hemodynamically stable. Renal function stable at 1.25. Patient was reevaluated today on 01/19/2017, she continues to do well, no nausea no vomiting no abdominal pain, no cough no wheezing no shortness of breath. Reviewed chest x-ray from yesterday, showed significant improvement and very minimal residual infiltrate in the left lower lobe. Hence the patient was cleared for discharge today, she could be discharged home on Augmentin, and her usual bronchodilators. Patient will need to have follow-up in my office in 2-3 weeks, and we'll repeat her chest x-ray then. If the pneumonia is not completely cleared then there would be an indication for bronchoscopy. Clinically today the patient is feeling much better. Labs were reviewed, electrodes are normal, WBC count is 15.8. Objective - Vital Signs Vital signs: Vital Signs Temp 97.0 F L 01/19/17 07:00 Pulse 81 01/19/17 09:29 Resp 18 01/19/17 09:29 BP 118/72 01/19/17 07:00 Pulse Ox 95 01/19/17 07:15 Intake & Output 01/18/17 01/19/17 01/19/17 18:59 06:59 18:59 Intake Total 1075 Balance 1075 Weight 76.884 kg Intake: IV 420 Sodium Chloride 0.9% 1, 420 000 ml @ 60 mls/hr IV . [id number] RON Rx#:[id number] Intake, IV Titration 175 Amount Azithromycin 500 mg In 125 Sodium Chloride 0.9% 250 ml @ 125 mls/hr IVPB DAILY@1200 RON Rx#: [id number] Piperacillin-Tazobactam 3 50 .375 gm In Dextrose/Water 1 50ml.bag @ 12.5 mls/hr IVPB Q8H RON Rx#: [id number] Oral 480 Other: Voiding Method Toilet Toilet # Voids 1 1 # Bowel Movements 1 - Exam GENERAL EXAM: Alert, active, comfortable in no apparent distress. HEAD: Normocephalic. EYES: Normal reaction of pupils, equal size. NOSE: Clear with pink turbinates. THROAT: No erythema or exudates. NECK: No masses, no JVD. CHEST: No chest wall deformity. LUNGS: Equal air entry with faint crackle in the left lung base. CVS: S1 and S2 normal with no audible murmurs, regular rhythm. ABDOMEN: No hepatosplenomegaly, normal bowel sounds, no guarding or rigidity. SPINE: No scoliosis or deformity SKIN: No rashes CENTRAL NERVOUS SYSTEM: No focal deficits, tone is normal in all 4 extremities. Extremities: There is no significant peripheral edema. No clubbing, no cyanosis. Peripheral pulses are intact. - Labs CBC & Chem 7: 01/19/17 06:53 01/19/17 06:53 Labs: Abnormal Lab Results - Last 24 Hours (Table) 01/18/17 01/18/17 01/18/17 Range/Units 11:34 17:13 20:08 WBC (3.8-10.6) k/uL Plt Count (150-450) k/uL Neutrophils # (1.3-7.7) k/uL Sodium (137-145) mmol/L Chloride (98-107) mmol/L BUN (7-17) mg/dL Creatinine (0.52-1.04) mg/dL Glucose (74-99) mg/dL POC Glucose (mg/dL) 123 H 113 H 141 H (75-99) mg/dL 01/19/17 01/19/17 01/19/17 Range/Units 06:53 06:53 07:06 WBC 15.8 H (3.8-10.6) k/uL Plt Count 526 H (150-450) k/uL Neutrophils # 11.9 H (1.3-7.7) k/uL Sodium 146 H (137-145) mmol/L Chloride 108 H (98-107) mmol/L BUN 29 H (7-17) mg/dL Creatinine 1.18 H (0.52-1.04) mg/dL Glucose 122 H (74-99) mg/dL POC Glucose (mg/dL) 144 H (75-99) mg/dL Assessment and Plan Plan: Impression: #1 Acute left lower lobe pneumonia. The possibility of malignancy is not entirely excluded and today's chest x-ray shows sister residual left lower lobe infiltrate. #2 Acute exacerbation of chronic obstructive pulmonary disease secondary to acute left lower lobe pneumonia. #3 Acute dehydration secondary to gastritis with nausea and vomiting. Improved. #4 Hypothyroidism. #5 Chronic pain syndrome. #6 Osteoarthritis. #7 History of brain abscess. #8 History of seizure disorder. Recommendation: Consider discharge planning today, patient could be discharged home on Augmentin and her usual bronchodilators, seen in the office in 3 weeks. Time with Patient: Less than 30
[2017-01-19 11:13] LABS: Glucose,Whole Blood 113 mg/dL (75-99)
[2017-01-19 11:37] VITALS: PULSE 80
[2017-01-19] MEDS ORDERED: AZITHROMYCIN 500 MG TAB PO SCH (12:00)
--- NOTE | 2017-01-19 22:32 | HP ---
DATE OF SERVICE: 01/15/2017 CHIEF COMPLAINTS: Shortness of breath and cough. HISTORY OF PRESENT ILLNESS: This 61-year-old woman with a past medical history of multiple medical problems, including COPD, CVA, diabetes, fibromyalgia, GERD , hypertension, hyperlipidemia, seizure disorder, has had a cough with sputum for the past several months, according to her. Recently the patient saw Dr. Millan for possible pneumonia. The patient was started on p.o. antibiotics; however, because of increased symptoms of cough and shortness of breath, the patient went to [facility]. A CT scan was done showing a suspicious mass lesion in the right lower lobe. The patient was directly transferred to [facility] for further evaluation and treatment. Dr. Millan's evaluation is in progress. There is no history of any fever, rigor or chills. No history of headache, loss of consciousness, seizure. PAST MEDICAL HISTORY: 1. COPD. 2. Diabetes mellitus. 3. Fibromyalgia. 4. Hypertension. 5. Hyperlipidemia. 6. Multiple medical problems. HOME MEDICATIONS: 1. Metformin 1000 mg p.o. b.i.d. 2. Lamictal 200 mg at bedtime; 100 mg in the morning. 3. Aldactazide 25/20 one p.o. in the morning. 4. Zocor 40 mg at bedtime. 5. Rozerem 8 mg at bedtime p.r.n. 6. Seroquel 400 mg p.o. b.i.d. 7. K-Dur 20 mEq p.o. in the morning. 8. Dilantin 200 mg p.o. b.i.d. 9. Protonix 40 mg with breakfast. 10. Singulair 10 mg in the morning. 11. Skelaxin 800 mg in the morning. 12. Mobic 15 mg at bedtime. 13. Antivert 25 mg t.i.d. 14. Synthroid 50 mcg p.o. in the morning. 15. Levaquin 1 tablet p.o. daily. 16. Advair 100/50 one puff b.i.d. 17. Enablex 15 mg at bedtime. 18. Cymbalta 120 mg in the morning. 19. Zyrtec 10 mg daily p.r.n. 20. Astepro 2 puffs b.i.d. 21. Xanax 1 mg p.o. q.i.d. 22. Prednisone 10 mg ALLERGIES: BIAXIN. FAMILY HISTORY: History of CVA, TIA in the family. SOCIAL HISTORY: No history of smoking. No history of alcohol. REVIEW OF SYSTEMS: ENT: No diminished hearing. No diminished vision. CARDIOVASCULAR SYSTEM: No angina. RESPIRATORY SYSTEM: As mentioned earlier. GI: No nausea, vomiting. : No dysuria, retention. NERVOUS SYSTEM: No numbness, weakness. ALLERGY/IMMUNOLOGY: No asthma, hayfever. MUSCULOSKELETAL: As mentioned earlier. HEMATOLOGY/ONCOLOGY: No history of anemia. ENDOCRINE: As mentioned earlier. CONSTITUTIONAL: As mentioned earlier. DERMATOLOGIC: Negative. RHEUMATOLOGIC: Negative. PSYCHIATRY: As mentioned earlier. PHYSICAL EXAMINATION: Patient is alert and oriented x3. Pulse is 96, blood pressure 135/69, respirations 20, temperature 98.6, pulse ox 93% on 2 L. HEENT: Conjunctivae normal. NECK: No jugular venous congestion. CARDIAC: S1, S2 muffled. RESPIRATORY: Breath sounds diminished at the bases. Bilateral scattered rhonchi and crackles, left more than the right. ABDOMEN: Soft. Non-tender. Obese. No mass palpable. LEGS: No edema. No swelling. NERVOUS SYSTEM: Higher functions as mentioned earlier. Moves all 4 limbs. No focal motor or sensory deficit. LYMPHATICS: No lymph node palpable in neck, axillae or groin. SKIN: No ulcer, rash or bleeding. LABS: WBC 17.2. Sodium 141, potassium 3.2. Creatinine 1.16. ASSESSMENT: 1. Acute left lower lobe pneumonia with failure of outpatient treatment. 2. Chronic obstructive pulmonary disease, acute exacerbation. 3. Dehydration. 4. Multiple comorbidities. 5. Hypothyroidism. 6. Degenerative joint disease. 7. History of brain abscess. 8. Seizure disorder. RECOMMENDATIONS AND DISCUSSION: In this 61-year-old woman who presented with multiple complex medical issues, we will monitor the patient closely, continue the current medications, continue symptomatic treatment, broad-spectrum antibiotics, continue with the bronchodilators, continue the rest of the medications. Will consult Dr. Millan. The CT scan is of concern. The patient might require further evaluation, including a bronchoscopy or a lung biopsy. Will continue to monitor. Further recommendations to follow. See orders for further details. Discussed with the patient. PRANAV
[2017-01-20] MEDS ORDERED: VANCOMYCIN 1,500 MG in SODIUM CHLORIDE 0.9% 250 ML IVPB SCH (06:00)
--- NOTE | 2017-01-20 07:55 | PN ---
DATE OF SERVICE: 01/17/2017 This 61-year-old woman who was admitted with left sided pneumonia and COPD acute exacerbation has been closely monitored. The patient had incessant cough also. No chest pain or palpitation. No fever. On exam, alert and oriented x3. Pulse is 79, blood pressure 118/70, respirations 20, temperature 97.4, pulse ox 94% on room air. HEENT: Conjunctivae normal. NECK: No jugular venous distention. CARDIOVASCULAR: S1 and S2, muffled. RESPIRATORY: Breath sounds diminished at the bases. A few scattered rhonchi and crackles. ABDOMEN: Soft, nontender. LEGS: No edema, no swelling. NERVOUS SYSTEM: No focal deficits. Labs are reviewed. ASSESSMENT: 1. Acute left lower lobe pneumonia, possibly gram negative. 2. Chronic obstructive pulmonary disease acute exacerbation. 3. Increased WBC. 4. Increased creatinine with mild acute renal failure. RECOMMENDATIONS AND DISCUSSION: Recommend to continue current medications. Continue with monitoring and symptomatic treatment, bronchodilators. Symptomatic treatment of her cough. Guarded prognosis. Further recommendations to follow. [facility]
--- NOTE | 2017-01-20 08:06 | PN ---
DATE OF SERVICE: 01/18/2017 This 61-year-old woman who was admitted with left sided pneumonia, also had COPD. The patient also had significant cough. Also, Dr. Millan is following the patient closely. Bronchoscopy has been deferred at this time. No chest pain or palpitation. No fever. On exam, alert and oriented x3. The pulse is 74, blood pressure is 120/60, respirations 18, temperature 97.4, pulse ox 94% on room air. HEENT: Conjunctivae normal. NECK: No jugular venous distention. CARDIOVASCULAR: S1 and S2 muffled. RESPIRATORY: Breath sounds diminished at bases. Bilateral scattered rhonchi and crackles. Expiratory wheezing also present. ABDOMEN: Soft, nontender. No mass palpable. LEGS: No edema. No swelling. NERVOUS SYSTEM: No focal deficits. LABS: WBC 14.1, hemoglobin 12.1. Creatinine is 1.2. ASSESSMENT: 1. Acute left lower lobe pneumonia, possibly gram negative with chronic obstructive pulmonary disease acute exacerbation. 2. Increased WBC. 3. Increased creatinine with mild acute renal failure, possibly prerenal failure. 4. History of chronic obstructive pulmonary disease. 5. History of cerebrovascular accident. 6. History of diabetes mellitus type 2. 7. History of multiple complex medical issues. RECOMMENDATIONS AND DISCUSSION: Recommend to continue the current medications. Continue with antibiotics. Continue with bronchodilators. Closely follow with Dr. Millan. Further recommendations to follow. MTDD
--- NOTE | 2017-01-20 08:07 | PN ---
DATE OF SERVICE: 01/16/2017 This is a 61-year-old woman who was admitted with features of pneumonia with no improvement in the outpatient setting, is being closely monitored. No chest pain or palpitation, no fever. Dr. Millan is following the patient closely. On exam, alert and oriented x3. The pulse is 80, blood pressure 111/71, respirations 20, temperature is 97.9, pulse ox 92% on room air. HEENT: Conjunctivae normal. NECK: No jugular venous distension. CARDIOVASCULAR SYSTEM: S1, S2, muffled. RESPIRATORY: Breath sounds diminished at the bases, a few scattered rhonchi, no crackles. ABDOMEN: Soft, nontender. LEGS: No edema, no swelling. NERVOUS SYSTEM: No focal deficits. LABS: WBC is 14.1, creatinine 1.22. ASSESSMENT: 1. Acute left lobe pneumonia, possibly gram negative. 2. Chronic obstructive pulmonary disease acute exacerbation. 3. Increased WBC. 4. Increased creatinine. RECOMMENDATION: Recommend to continue with the current medication. Continue with the symptomatic treatment. Continue with the bronchodilators. Guarded prognosis because of multiple complex medical issues. Further recommendations to follow. MTDD
--- NOTE | 2017-01-21 14:59 | DS ---
DATE OF SERVICE: 01/19/2017 FINAL DIAGNOSES: 1. Chronic obstructive pulmonary disease acute exacerbation with acute left lower lobe pneumonia possibly Gram-negative. 2. Diabetes type 2. 3. Gastroesophageal reflux disease. 4. Cerebrovascular accident, transient ischemic attack. 5. Chronic obstructive pulmonary disease.. 6. Acute renal failure, possibly prerenal renal failure. 7. Multiple complex medical issues. HISTORY OF PRESENT ILLNESS: This 61-year-old woman with past medical history of multiple medical problems admitted with pneumonia on the left side. The patient was treated with antibiotics. Dr. Morales saw the patient. The patient was ( ) CT scan abnormality showing concerns for ( ), but Dr. Millan thought it was pneumonia and will need more antibiotics. On exam, vitals are stable. CARDIOVASCULAR: S1, S2. RESPIRATORY: Breath sounds diminished. A few scattered rhonchi. ABDOMEN: Soft. DISCHARGE ADVICE: 1. Diet is cardiac. 2. Activity is limited until follow up. 3. Follow up with Dr. Cordova in 2 to 3 days. 4. Follow with Dr. Millan as advised. The medications will be as follows: 1. Albuterol updrafts q.i.d. and p.r.n. 2. Xanax 1 mg q.i.d. p.r.n. 3. Astepro 2 puffs b.i.d. 4. Zithromax 500 mg p.o. daily for one week. 5. Ceftin 500 mg p.o. b.i.d. for one week. 6. Zyrtec 120 mg p.o. daily. 7. ( ) 15 mg p.o. q.h.s. 8. Cymbalta 120 mg q.a.m. 9. Advair 1 puff b.i.d. 10. Guaifenesin p.r.n. 11. Albuterol and DuoNeb updrafts q.i.d. and p.r.n. 12. Lamictal 100 mg p.o. q.a.m. 13. Lamictal 200 mg p.o. q.h.s. 14. Levaquin 500 mg p.o. daily for 5 days. 15. Levothyroxine 50 mcg q.a.m. 16. Antivert 25 mg p.o. t.i.d. 17. Mobic 15 mg p.o. q.8. 18. Skelaxin 800 mg p.o. q.a.m. 19. Glucophage 1000 mg p.o. b.i.d. 20. Singulair 10 mg q.a.m. 21. Protonix 40 mg daily. 22. Dilantin 200 mg p.o. b.i.d. 23. K-Dur 20 mEq p.o. q.a.m. 24. Prednisone taper that will be 40 mg daily for 3 days, 30 for 3 days, 20 for 3 days, 10 for 3 days, and then stop. 25. Seroquel 400 mg p.o. b.i.d. 26. Remeron 8 mg q.h.s. p.r.n. 27. Zocor 40 mg q.h.s. 28. Aldactazide 20/( ) q.a.m. Once again, the patient is being discharged in stable condition with guarded prognosis. MTDD
== END 2017-01-19 13:51 | disposition home or self-care (01) | DRG 190 ==
LOC: 5MS5E 16:36
PROVIDERS: ADMIT Hospitalist; ATTEND Hospitalist
DX: J44.0 Chronic obstructive pulmonary disease with (acute) lower respiratory infection (principal); J15.6 Pneumonia due to other Gram-negative bacteria; N17.9 Acute kidney failure, unspecified; J44.1 Chronic obstructive pulmonary disease with (acute) exacerbation; E03.9 Hypothyroidism, unspecified; E11.9 Type 2 diabetes mellitus without complications; E78.5 Hyperlipidemia, unspecified; E86.0 Dehydration; F41.0 Panic disorder [episodic paroxysmal anxiety]; G40.909 Epilepsy, unspecified, not intractable, without status epilepticus; G89.4 Chronic pain syndrome; I10 Essential (primary) hypertension; K21.9 Gastro-esophageal reflux disease without esophagitis; K29.70 Gastritis, unspecified, without bleeding; M19.90 Unspecified osteoarthritis, unspecified site; M79.7 Fibromyalgia; F32.9 Major depressive disorder, single episode, unspecified; F41.9 Anxiety disorder, unspecified; Z79.84 Long term (current) use of oral hypoglycemic drugs; Z79.899 Other long term (current) drug therapy; Z88.1 Allergy status to other antibiotic agents; Z82.49 Family history of ischemic heart disease and other diseases of the circulatory system
CPT/HCPCS: 71010; 71020; 80048; 80202; 83036; 85025; 94640; 94760

== ENCOUNTER 2017-01-30 10:35 | Day surgery (SDC) | payer BC ==
[~2017-01-30 10:35] MED LIST: ALBUTEROL NEB (CONC) 2.5 MG/0.5 ML INHALATION ONE; DEXAMETHASONE SOD PHOSPHATE 10 MG/ML 1 ML VIAL IV ONE; HYDROmorphone 1 MG/ML 1 ML SYRINGE IVP PRN; LACTATED RINGERS 1,000 ML IV ONE; LACTATED RINGERS 1,000 ML IV SCH; LIDOCAINE 1% 20 ML VIAL (10MG/ML) FOR IV START INTRADERMA PRN; LIDOCAINE 2% (PF) 20 MG/ML 10ML INHALATION ONE; ONDANSETRON 4 MG/2 ML VIAL IVP ONE; SCOPOLAMINE 1.5MG/72HR PATCH TRANSDERM ONE
[2017-01-30 12:25] LABS: Glucose,Whole Blood 94 mg/dL (75-99)
--- NOTE | 2017-01-30 13:00 | CT ---
EXAMINATION TYPE: CT Chest wo con Veran Protocol DATE OF EXAM: 01/30/2017 COMPARISON: Outside chest CT from January 15, 2017 HISTORY: Nonresolving left lower lobe pneumonia. CT DLP: 561 mGycm Automated exposure control for dose reduction was used. CT scan of chest is performed without contras t under the Veran protocol. FINDINGS: Exam is not for diagnostic purposes but for bronchoscopy planning. Chronic consolidation in the left lower lobe extending to posterior inferior pleura is redemonstrated. There is background mild fibrosi s in both lung bases. Heterogeneous slightly prominent right thyroid gland is redemonstrated. Cholecy stectomy clips are noted. IMPRESSION: ABOVE
[2017-01-30] MEDS ORDERED: MIDAZOLAM 2 MG/2 ML VIAL ONE (13:56)
[2017-01-30] MEDS ORDERED: LIDOCAINE 1% INJ 10MG/ML (20 ML MDV) ONE (13:56)
[2017-01-30] MEDS ORDERED: NEOSTIGMINE 1 MG/ML 10 ML VIAL ONE (13:56)
[2017-01-30] MEDS ORDERED: GLYCOPYRROLATE 0.2 MG/ML 2 ML VIAL ONE (13:56)
[2017-01-30] MEDS ORDERED: fentaNYL (PF) 50 MCG/ML 2 ML AMP ONE (13:56)
[2017-01-30] MEDS ORDERED: SUCCINYLCHOLINE CHLORIDE 100 MG/5 ML SYR IV ONE (13:56)
[2017-01-30] MEDS ORDERED: ROCURONIUM BROMIDE 10 MG/ML 10 ML VIAL IV ONE (13:56)
[2017-01-30] MEDS ORDERED: PROPOFOL 10 MG/ML 20 ML VIAL IV ONE (13:56)
[2017-01-30] MEDS ORDERED: IV FLUID CONTINUATION 1,000 ML IV ONE (14:20)
--- NOTE | 2017-01-30 14:43 | P.PCN ---
Date of Procedure: 01/30/17 Preoperative Diagnosis: LLL nodular consolidation Postoperative Diagnosis: LLL nodular consolidation Procedure(s) Performed: Navigational bronchoscopy, left lower lobe bronchioloalveolar lavage, left lower lobe transbronchial biopsy, left lower lobe transbronchial brushings Implants: Anesthesia: JORGEA Surgeon: Mabel Rutherford Data Report Analyst #1: Arlene Varela Estimated Blood Loss (ml): 5 Pathology: other Condition: stable Disposition: same day Indications for Procedure: Persistent cough, shortness of breath and a nodular left lower lobe pulmonary consolidation/infiltrate Operative Findings: This procedure was done and operating room. This patient was having persistent cough and shortness of breath and she has been having no other pulmonary consolidation of the left lower lobe since October 2016. Based on that, we proceeded with a navigational bronchoscopy, and biopsy of the left lower lobe. The appropriate V pads were applied over the anterior chest. The patient underwent a planning CAT scan of the chest. The CT images were uploaded into the [employer] and area of interest was identified, marked and the navigational path was mapped. Following that, the Plan was uploaded into the main working station. The patient was brought into the operating room. The patient was induced and following that intubated and placed on a mechanical ventilator. This was done by [employer]ON SIGN ERECTOR. Following that, the flexible bronchoscope was inserted into the oral tracheal tube and the procedure was done as the patient was being oxygenated and ventilated. The tip of the aortic and she was seen about 3 cm above the donato. A quick airway inspection was done and the visualized airways included the distal trachea, main donato, bilateral mainstem bronchi, right upper lobe bronchus, right middle lobe bronchus, right lower lobe bronchus, left upper lobe bronchus and left lower lobe bronchus lungs various segments and subsegments. Examination of the right side showed some mild to moderate amount of rest or secretions. However, there was copious amounts of purulent respiratory secretions occupying the left mainstem bronchus and all of these purulent material was emanating and originating from the left lower lobe posterior segment and anterior segments. Therapeutic airway suctioning was done and the secretions were suctioned out. Following that, a bronchial lavage of the left lower lobe was done with a total of 80 mL of fluid was infused in 30 mL was suctioned back. At the end of this, airway inspection was completed and the left lower lobe segments were free of any endobronchial tumor or lesions. There was no evidence of any anatomic distortion. The same was on the right where there was no foreign bodies, endobronchial tumors or polyps or lesions identified. At this point the bronchus was brought back to the main donato and the appropriate calibration using the main donato and the secondary donato on the left as the reference points. Using the navigational guidance, the bronchoscope was directed left lower lobe and transbronchial biopsies of left lower lobe was done and multiple passes were taken. No bleeding was encountered and tomos amount of bleeding was less than 5 mL. Following that, and the bronchial brushings of the left lower lobe was done on the navigational guidance. At the end of the procedure, the airway was cleared again from residual secretions and the bronchoscope was removed. The patient was extubated and she was chest to recovery in stable condition. The chest x-ray will be done to rule out pneumothorax. The samples will be sent for microbial culture and pathology evaluation. Description of Procedure:
[2017-01-30 14:58] VITALS: RESP 16; TEMP 98.8
[2017-01-30 15:05] LABS: Glucose,Whole Blood 116 mg/dL (75-99)
[2017-01-30 15:27] VITALS: PULSE 86
--- NOTE | 2017-01-30 15:35 | XR ---
EXAMINATION TYPE: XR chest 1V portable DATE OF EXAM: 01/30/2017 COMPARISON: Chest CT earlier today HISTORY: Left-sided bronchoscopy. TECHNIQUE: Single AP portable frontal upright view of the chest is obtained. FINDINGS: Overlying monitors are noted. There is chronic parenchymal change with bibasilar atelectasi s and/or fibrosis greater in left lung base where there is additional opacity seen. No sizable pneumo thorax is evident after left sided bronchoscopy with sampling. Cardiac silhouette size is within norm al limits. Anterior fusion plate lower cervical spine is redemonstrated. IMPRESSION: No evidence of sizable pneumothorax after bronchoscopy with left lung sampling.
[2017-01-30 15:44] VITALS: BP 112/69
[2017-01-30 18:29] LABS: RBC, Body Fluid 9300 /uL
== END 2017-01-30 15:54 | disposition home or self-care (01) ==
LOC: ORWHC2ENDO 10:35
PROVIDERS: ATTEND Internal Medicine Critical Care Medicine
DX: J18.1 Lobar pneumonia, unspecified organism (principal); R91.8 Other nonspecific abnormal finding of lung field; E11.9 Type 2 diabetes mellitus without complications; I11.9 Hypertensive heart disease without heart failure; J44.9 Chronic obstructive pulmonary disease, unspecified; M79.7 Fibromyalgia; E07.9 Disorder of thyroid, unspecified; I69.354 Hemiplegia and hemiparesis following cerebral infarction affecting left non-dominant side; K21.9 Gastro-esophageal reflux disease without esophagitis; Z79.84 Long term (current) use of oral hypoglycemic drugs; Z79.51 Long term (current) use of inhaled steroids; Z79.52 Long term (current) use of systemic steroids; Z79.899 Other long term (current) drug therapy; Z88.1 Allergy status to other antibiotic agents
CPT/HCPCS: 87798 ×4; 87496; 87498; 87529 ×2; 88104; 88108; 88305; 89050; 87252; 87502 ×2; 87070; 87205; 87116; 87102; 87077; 87186; 87206; 71010; 71250; 31628; 31623; 31624; 31627; J2250; J1100; J2710; J2405; J2001; J3010; J0330; J2704; 31625

== ENCOUNTER → 2018-03-06 | Outpatient (CLI) | payer BC ==
[2018-03-06 14:50] LABS: HCT 42.6 % (34.0-46.0); HGB 13.1 gm/dL (11.4-16.0); MCH 27.7 pg (25.0-35.0); MCHC 30.7 g/dL (31.0-37.0); MCV 90.2 fL (80.0-100.0); Mean Platelet Volume 6.5; Platelet Count 420 k/uL (150-450); RBC 4.72 m/uL (3.80-5.40); RDW 14.2 % (11.5-15.5); WBC 14.6 k/uL (3.8-10.6)
[2018-03-06 14:58] LABS: Prothrombin Time 10.1 sec (9.0-12.0)
[2018-03-06 14:59] LABS: Albumin 4.5 g/dL (3.5-5.0); Calcium 10.4 mg/dL (8.4-10.2); Magnesium 1.8 mg/dL (1.6-2.3); Phosphorus 5.5 mg/dL (2.5-4.5); Potassium 4.4 mmol/L (3.5-5.1); Total Bilirubin 0.3 mg/dL (0.2-1.3); Total Protein 7.8 g/dL (6.3-8.2)
[2018-03-06 19:09] LABS: Iron Saturation 14.24 (12.00-45.00)
[2018-03-06 19:21] LABS: Vitamin D 25 Hydroxy 16.2 ng/mL (30.0-100.0)
[2018-03-06 19:22] LABS: Folate, Serum >24.0 ng/mL
[2018-03-06 19:40] LABS: Parathyroid Hormone Intact 44.6 pg/mL (14.0-72.0)
[2018-03-06 21:37] LABS: Hemoglobin A1C 5.3 % (4.0-6.0)
[2018-03-07 14:55] LABS: Zinc, Serum 78 ug/dL (60-130)
[2018-03-08 07:44] LABS: Vitamin B1 91 ug/L (38-122)
== END | disposition home or self-care (01) ==
LOC: LABWHC1 14:15
PROVIDERS: ATTEND Surgery Plastic and Reconstructive Surgery
DX: E66.01 Morbid (severe) obesity due to excess calories (principal); E21.1 Secondary hyperparathyroidism, not elsewhere classified; E89.1 Postprocedural hypoinsulinemia; D50.8 Other iron deficiency anemias; K90.89 Other intestinal malabsorption; E55.9 Vitamin D deficiency, unspecified; K74.1 Hepatic sclerosis; N19 Unspecified kidney failure; K50.90 Crohn's disease, unspecified, without complications
CPT/HCPCS: 36415; 80053; 80061; 82306; 82525; 82607; 82728; 82746; 83036; 83540; 83550; 83735; 83970; 84100; 84134; 84255; 84425; 84443; 84590; 84630; 85027; 85610; 85730

== ENCOUNTER 2019-03-27 11:14 | Day surgery (SDC) | payer BC ==
[2019-03-25 15:34] VITALS: BMI 27.4
[~2019-03-27 11:14] MED LIST changes: -DEXAMETHASONE SOD PHOSPHATE 10 MG/ML 1 ML VIAL IV ONE; -HYDROmorphone 1 MG/ML 1 ML SYRINGE IVP PRN; -LACTATED RINGERS 1,000 ML IV ONE; -LACTATED RINGERS 1,000 ML IV SCH; -LIDOCAINE 1% 20 ML VIAL (10MG/ML) FOR IV START INTRADERMA PRN; -LIDOCAINE 2% (PF) 20 MG/ML 10ML INHALATION ONE; +LIDOCAINE 2% (PF) 20 MG/ML 5 ML VIAL INHALATION ONE; +LIDOCAINE VISCOUS 300 MG/15 ML CUP MUCOUS MEM ONE; -ONDANSETRON 4 MG/2 ML VIAL IVP ONE; -SCOPOLAMINE 1.5MG/72HR PATCH TRANSDERM ONE; +SODIUM CHLORIDE 0.9% 1,000 ML IV SCH
[2019-03-27 11:42] VITALS: TEMP 98.7
[2019-03-27] MEDS ORDERED: LACTATED RINGERS 1,000 ML IV ONE (12:01)
[2019-03-27] MEDS ORDERED: LIDOCAINE 1% 20 ML VIAL (10MG/ML) FOR IV START INTRADERMA ONE (12:01)
[2019-03-27] MEDS ORDERED: ONDANSETRON 4 MG/2 ML VIAL IVP ONE (12:24)
[2019-03-27] MEDS ORDERED: HYDROmorphone (PF) 1 MG/ML ONE (12:37)
[2019-03-27] MEDS ORDERED: PROPOFOL 10 MG/ML 20 ML VIAL IV ONE (12:37)
[2019-03-27] MEDS ORDERED: GLYCOPYRROLATE 0.2 MG/ML 2 ML VIAL ONE (12:37)
[2019-03-27] MEDS ORDERED: LIDOCAINE 1% INJ 10MG/ML (20 ML MDV) ONE (12:37)
[2019-03-27] MEDS ORDERED: MIDAZOLAM 2 MG/2 ML VIAL ONE (12:37)
[2019-03-27] MEDS ORDERED: DEXAMETHASONE SOD PHOSPHATE 10 MG/ML 1 ML VIAL IV ONE (13:32)
[2019-03-27 13:38] VITALS: RESP 18
[2019-03-27] MEDS ORDERED: METOCLOPRAMIDE 5 MG/ML 2 ML VIAL IVP ONE (13:52)
[2019-03-27 13:56] VITALS: BP 128/73; PULSE 84
[2019-03-27 16:02] LABS: Appearance,BF Cloudy; Color,BF Pink; Nucleated Cells, Body Fluid 3200 /uL; RBC, Body Fluid 25900 /uL
[2019-03-27 16:15] LABS: Mononuclear WBC,Body Fluid 5 %; Polynuclear WBC,Body Fluid 95 %; Total Cells Counted,Body Fluid 100
--- NOTE | 2019-03-27 23:01 | OP ---
OPERATIVE REPORT OPERATIVE PROCEDURE: Bronchoscopy and bronchoalveolar lavage of the left lower lobe. PREOPERATIVE DIAGNOSIS: Left lower lobe pneumonia and atypical mycobacterial infection. POSTOPERATIVE DIAGNOSIS: Left lower lobe pneumonia and atypical mycobacterial infection. ANESTHESIA USED: IV conscious sedation. PROCEDURE DESCRIPTION: The patient was prepared according to the bronchoscopy protocol. Oxygen was applied via Ventimask over her mouth. We monitored her oxygen saturation continuously. Blood pressure was intermittently monitored and cardiac rhythm was continuously monitored. After adequate IV conscious sedation, the bronchoscope was inserted through the right naris and advanced into the area of the vocal cords. Purulent secretions were noted on the vocal cords. These were suctioned. Lidocaine was applied over the vocal cords. The bronchoscope was advanced further down to the trachea. Thorough examination was done of the trachea, donato, right upper lobe, right middle lobe, right lower lobe, left upper lobe, lingula and left lower lobe. There was evidence of significant purulent secretions noted mostly in the right lower lobe and more so in the left lower lobe. The right lower lobe secretions were suctioned easily. Then the bronchoscope was wedged in the left lower lobe bronchus and bronchoalveolar lavage of the left lower lobe was done until all purulent secretions were cleared. The procedure was well tolerated; no evidence of any immediate complication. Fluid was sent from the lavage for different diagnostic studies. MMODL / IJN: [id number] /
== END 2019-03-27 14:15 | disposition home or self-care (01) ==
LOC: ORWHC2ENDO 11:14
PROVIDERS: ATTEND Internal Medicine
DX: J18.1 Lobar pneumonia, unspecified organism (principal); A31.0 Pulmonary mycobacterial infection; J44.9 Chronic obstructive pulmonary disease, unspecified; I10 Essential (primary) hypertension; M79.7 Fibromyalgia; H35.30 Unspecified macular degeneration; J20.9 Acute bronchitis, unspecified; E11.9 Type 2 diabetes mellitus without complications; E78.5 Hyperlipidemia, unspecified; E07.9 Disorder of thyroid, unspecified; K21.9 Gastro-esophageal reflux disease without esophagitis; I27.9 Pulmonary heart disease, unspecified; Z88.1 Allergy status to other antibiotic agents; Z79.1 Long term (current) use of non-steroidal anti-inflammatories (NSAID); Z79.51 Long term (current) use of inhaled steroids; Z79.890 Hormone replacement therapy; Z79.899 Other long term (current) drug therapy; Z86.73 Personal history of transient ischemic attack (TIA), and cerebral infarction without residual deficits; Z90.710 Acquired absence of both cervix and uterus; Z90.49 Acquired absence of other specified parts of digestive tract; Z90.89 Acquired absence of other organs; Z98.890 Other specified postprocedural states; Z82.49 Family history of ischemic heart disease and other diseases of the circulatory system; Z83.3 Family history of diabetes mellitus
CPT/HCPCS: 94640; 87798 ×3; 87496; 87498; 87529; 88108; 88305; 89050; 87252; 87502; 87634; 87070; 87205; 87116; 87102; 87077; 87186; 87206; 31624; J2250; J1100; J2765; J2405; J2001 ×2; J1170; J2704

== ENCOUNTER 2019-04-05 16:51 | Inpatient (IN) | payer BC ==
[2019-04-05] MEDS ORDERED: IPRATROPIUM-ALBUTEROL 3 ML NEB INHALATION STA (17:37)
[2019-04-05] MEDS ORDERED: methylPREDNISolone SOD SUCCI 125 MG/2 ML VIAL IV STA (17:37)
[2019-04-05] MEDS ORDERED: SODIUM CHLORIDE 0.9% 1,000 ML IV STA (17:37)
--- NOTE | 2019-04-05 17:43 | ED ---
SOB HPI - General Chief Complaint: Shortness of Breath Stated Complaint: Pneumonia Time Seen by Provider: 04/05/19 17:36 Source: patient, RN notes reviewed, old records reviewed Mode of arrival: ambulatory Limitations: no limitations - History of Present Illness Initial Comments: This is a 64-year-old female the ER for evaluation. Patient is history of significant lung disease and MAC. Patient sent in the ER for evaluation by Dr. Millan's group. Worsening pneumonia worsening outpatient treatment. Significant difficulty breathing increased cough and congestion and fevers. Patient states she does not feel that she sleeping all the time cannot get her energy up. MD Complaint: shortness of breath, cough -: month(s) Radiation: back Severity: mild Severity scale (1-10): 3 Quality: aching Consistency: constant Improves With: oxygen, rest Worsens With: exertion, movement Known History Of: COPD, asthma, recurrent pneumonia Context: recent URI Associated Symptoms: cough, sputum production Treatments Prior to Arrival: none - Related Data Home Medications Medication Instructions Recorded Confirmed ALPRAZolam [Xanax] 1 mg PO TID 01/22/16 04/05/19 DULoxetine HCL [Cymbalta] 120 mg PO QAM 01/22/16 04/05/19 Darifenacin Hydrobromide [Enablex] 15 mg PO HS 01/22/16 04/05/19 Fluticasone/Salmeterol [Advair 1 puff INHALATION RT-BID 01/22/16 04/05/19 500-50 Diskus] Levothyroxine Sodium [Synthroid] 50 mcg PO QAM 01/22/16 04/05/19 Meclizine [Antivert] 25 mg PO TID 01/22/16 04/05/19 Meloxicam [Mobic] 15 mg PO HS 01/22/16 04/05/19 Metaxalone [Skelaxin] 800 mg PO QAM 01/22/16 04/05/19 Montelukast [Singulair] 10 mg PO QAM 01/22/16 04/05/19 Pantoprazole Sodium [Protonix] 40 mg PO AC-BRKFST 01/22/16 04/05/19 Phenytoin Sodium Extended 200 mg PO BID 01/22/16 04/05/19 [Dilantin] Potassium Chloride ER [K-Dur 20] 20 meq PO QAM 01/22/16 04/05/19 Simvastatin [Zocor] 40 mg PO HS 01/22/16 04/05/19 Spironolactone-Hctz 25-25Mg 1 tab PO QAM 01/22/16 04/05/19 [Aldactazide 25-25 MG] lamoTRIgine [LaMICtal] 100 mg PO QAM 01/22/16 04/05/19 lamoTRIgine [LaMICtal] 200 mg PO HS 01/22/16 04/05/19 Albuterol Inhaler [Ventolin Hfa 1 - 2 puff INHALATION RT-Q6H PRN 03/21/18 04/05/19 Inhaler] Ethambutol [Myambutol] 1,200 mg PO DAILY 03/21/18 04/05/19 Moxifloxacin HCl [Avelox] 400 mg PO DAILY 03/21/18 04/05/19 Ondansetron [Zofran] 4 mg PO Q8HR PRN 03/21/18 04/05/19 Rifampin [Rifadin] 600 mg PO DAILY 03/21/18 04/05/19 Multivitamin/Iron/Folic Acid 1 tab PO DAILY 10/03/18 04/05/19 [Centrum Complete Multivit Tab] Vit C/E/Zn/Coppr/Lutein/Zeaxan 2 cap PO DAILY 10/03/18 04/05/19 [Preservision Areds 2 Softgel] Astelin Nasal [place] 2 sprays EA NOSTRIL BID 03/25/19 04/05/19 QUEtiapine FUMARATE [SEROquel XR] 400 mg PO BID@1600,2200 03/25/19 04/05/19 Cefuroxime Axetil [Ceftin] 500 mg PO BID 04/05/19 04/05/19 Ciprofloxacin HCl [Cipro] 500 mg PO BID 04/05/19 04/05/19 Previous Rx's Medication Instructions Recorded Ipratropium-Albuterol Nebulize 3 ml INHALATION RT-QID #120 neb 01/19/17 [Duoneb 0.5 mg-3 mg/3 ml Soln] Allergies Allergy/AdvReac Type Severity Reaction Status Date / Time clarithromycin [From Biaxin] AdvReac SEIZURES Verified 04/05/19 17:57 Review of Systems ROS Statement: Those systems with pertinent positive or pertinent negative responses have been documented in the HPI. ROS Other: All systems not noted in ROS Statement are negative. 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 DEGENERATION LT EYE. 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 LEFT SIDED WEAKNESS (USES A WALKER) Unsteady on feet due to dizziness. Current problems with nausea, vomiting and increased heart rate, LAST SEIZURE IN 2014. WHOOPING COUGH - Multiple times. ALLERGIES, NASAL CONGESTION, COUGH. CARPAL TUNNEL. States had pneumonia on and off from Mar 2016 to Oct 2016. States balance nerves in ears damaged, so does not have good balance. Emphysema. ON DIET CONTROL FOR DIABETES AT THIS TIME History of Any Multi-Drug Resistant Organisms: Other MDRO Past Surgical History: Adenoidectomy, Breast Surgery, Section, Cholecystectomy, Hysterectomy, Tonsillectomy Additional Past Surgical History / Comment(s): bronchoscopy,BRONCHIAL KATRINA 01/30/17 RIGHT BLEED FROM BREAST. CERVICAL FUSION. SINUS SURGERY. RIGHT EYELID., EGD Past Anesthesia/Blood Transfusion Reactions: Motion Sickness, Postoperative Nausea & Vomiting (PONV) Additional Past Anesthesia/Blood Transfusion Reaction / Comment(s): TAKES ANTIVERT FOR CHRONIC DIZZINESS. States takes a lot to knock her out and she's slow to wake up. Past Psychological History: Anxiety, Bipolar, Panic Disorder Smoking Status: Never smoker Past Alcohol Use History: None Reported Past Drug Use History: None Reported - Past Family History Mother Family Medical History: Cancer, CVA/TIA, Deep Vein Thrombosis (DVT), Myocardial Infarction ([place]) Additional Family Medical History / Comment(s): Breast and colon cancer Father Family Medical History: Cancer, Myocardial Infarction ([place]) Additional Family Medical History / Comment(s): Lung cancer Sister(s) Family Medical History: Deep Vein Thrombosis (DVT) General Exam Limitations: no limitations General appearance: alert, in no apparent distress Head exam: Present: atraumatic, normocephalic, normal inspection Eye exam: Present: normal appearance, PERRL, EOMI. Absent: scleral icterus, conjunctival injection, periorbital swelling ENT exam: Present: normal exam, mucous membranes moist Neck exam: Present: normal inspection. Absent: tenderness, meningismus, lymphadenopathy Respiratory exam: Present: wheezes, accessory muscle use, decreased breath sounds, prolonged expiratory. Absent: respiratory distress, rales, rhonchi, stridor Cardiovascular Exam: Present: regular rate, normal rhythm, normal heart sounds. Absent: systolic murmur, diastolic murmur, rubs, gallop, clicks GI/Abdominal exam: Present: soft, normal bowel sounds. Absent: distended, tenderness, guarding, rebound, rigid Extremities exam: Present: normal inspection, full ROM, normal capillary refill. Absent: tenderness, pedal edema, joint swelling, calf tenderness Back exam: Present: normal inspection Neurological exam: Present: alert, oriented X3, CN II-XII intact Psychiatric exam: Present: normal affect, normal mood Skin exam: Present: warm, dry, intact, normal color. Absent: rash Course Vital Signs 04/05/19 04/05/19 04/05/19 17:10 18:08 18:28 Temperature 98.3 F Pulse Rate 88 80 82 Respiratory 20 16 19 Rate Blood Pressure 135/81 O2 Sat by Pulse 94 L Oximetry - Reevaluation(s) Reevaluation #1: 04/05/19 18:56 Medical records reviewed Reevaluation #2: 04/05/19 18:56 She'll be admitted for continued antibiotics and infectious disease consult Reevaluation #3: 04/05/19 18:57 A she is not feeling any better currently - Consultations Consultation #1: spoke with Dr Leary regarding admission he is agreeable Medical Decision Making - Medical Decision Making 64 female the ER for evaluation increasing cough and congestion worsening sym ptoms despite treatment of pneumonia. Will admit for infectious disease and pulmonology evaluation - Lab Data Result diagrams: 04/05/19 17:36 04/05/19 17:36 Lab Results 04/05/19 04/05/19 04/05/19 Range/Units 17:36 17:36 17:36 WBC 15.0 H (3.8-10.6) k/uL RBC 4.66 (3.80-5.40) m/uL Hgb 14.4 (11.4-16.0) gm/dL Hct 43.0 (34.0-46.0) % MCV 92.3 (80.0-100.0) fL MCH 30.9 (25.0-35.0) pg MCHC 33.4 (31.0-37.0) g/dL RDW 14.2 (11.5-15.5) % Plt Count 369 (150-450) k/uL Neutrophils % 70 % Lymphocytes % 17 % Monocytes % 7 % Eosinophils % 3 % Basophils % 2 % Neutrophils # 10.5 H (1.3-7.7) k/uL Lymphocytes # 2.6 (1.0-4.8) k/uL Monocytes # 1.1 H (0-1.0) k/uL Eosinophils # 0.4 (0-0.7) k/uL Basophils # 0.3 H (0-0.2) k/uL PT 10.1 (9.0-12.0) sec INR 0.9 (<1.2) APTT 24.5 (22.0-30.0) sec D-Dimer <0.17 (<0.60) mg/L FEU Sodium 142 (137-145) mmol/L Potassium 4.3 (3.5-5.1) mmol/L Chloride 104 (98-107) mmol/L Carbon Dioxide 29 (22-30) mmol/L Anion Gap 9 mmol/L BUN 41 H (7-17) mg/dL Creatinine 1.28 H (0.52-1.04) mg/dL Est GFR (CKD-EPI)AfAm 52 (>60 ml/min/1.73 sqM) Est GFR (CKD-EPI)NonAf 45 (>60 ml/min/1.73 sqM) Glucose 94 (74-99) mg/dL Plasma Lactic Acid Kirit (0.7-2.0) mmol/L Calcium 9.6 (8.4-10.2) mg/dL Magnesium 2.1 (1.6-2.3) mg/dL Total Bilirubin 0.4 (0.2-1.3) mg/dL AST 34 (14-36) U/L ALT 15 (9-52) U/L Alkaline Phosphatase 124 (38-126) U/L Creatine Kinase 54 (30-135) U/L Troponin I (0.000-0.034) ng/mL NT-Pro-B Natriuret Pep pg/mL Total Protein 7.6 (6.3-8.2) g/dL Albumin 4.2 (3.5-5.0) g/dL 04/05/19 04/05/19 04/05/19 Range/Units 17:36 17:36 17:36 WBC (3.8-10.6) k/uL RBC (3.80-5.40) m/uL Hgb (11.4-16.0) gm/dL Hct (34.0-46.0) % MCV (80.0-100.0) fL MCH (25.0-35.0) pg MCHC (31.0-37.0) g/dL RDW (11.5-15.5) % Plt Count (150-450) k/uL Neutrophils % % Lymphocytes % % Monocytes % % Eosinophils % % Basophils % % Neutrophils # (1.3-7.7) k/uL Lymphocytes # (1.0-4.8) k/uL Monocytes # (0-1.0) k/uL Eosinophils # (0-0.7) k/uL Basophils # (0-0.2) k/uL PT (9.0-12.0) sec INR (<1.2) APTT (22.0-30.0) sec D-Dimer (<0.60) mg/L FEU Sodium (137-145) mmol/L Potassium (3.5-5.1) mmol/L Chloride (98-107) mmol/L Carbon Dioxide (22-30) mmol/L Anion Gap mmol/L BUN (7-17) mg/dL Creatinine (0.52-1.04) mg/dL Est GFR (CKD-EPI)AfAm (>60 ml/min/1.73 sqM) Est GFR (CKD-EPI)NonAf (>60 ml/min/1.73 sqM) Glucose (74-99) mg/dL Plasma Lactic Acid Kirit 1.4 (0.7-2.0) mmol/L Calcium (8.4-10.2) mg/dL Magnesium (1.6-2.3) mg/dL Total Bilirubin (0.2-1.3) mg/dL AST (14-36) U/L ALT (9-52) U/L Alkaline Phosphatase (38-126) U/L Creatine Kinase (30-135) U/L Troponin I <0.012 (0.000-0.034) ng/mL NT-Pro-B Natriuret Pep 62 pg/mL Total Protein (6.3-8.2) g/dL Albumin (3.5-5.0) g/dL - EKG Data -: EKG Interpreted by Me (EKG shows NSR rate of 80 NC 166 QRS 86 QTc 449) - Radiology Data Radiology results: report reviewed (Chest x-rays positive pneumonia), image reviewed Disposition Clinical Impression: Pneumonia, Consolidation lung, Community acquired pneumonia, Failure of outpatient treatment, Weakness Disposition: ADMITTED IP TO THIS HOSP Condition: Fair Is patient prescribed a controlled substance at d/c from ED?: No Referrals: Ortiz Cordova MD [Primary Care Provider] - 1-2 days
[2019-04-05 17:56] LABS: Basophils # (A) 0.3 k/uL (0-0.2); Basophils % (A) 2 %; Eosinophils # (A) 0.4 k/uL (0-0.7); Eosinophils % (A) 3 %; HGB 14.4 gm/dL (11.4-16.0); Lymphocytes # (A) 2.6 k/uL (1.0-4.8); Lymphocytes % (A) 17 %; MCH 30.9 pg (25.0-35.0); MCHC 33.4 g/dL (31.0-37.0); MCV 92.3 fL (80.0-100.0); Mean Platelet Volume 6.5; Monocytes # (A) 1.1 k/uL (0-1.0); Monocytes % (A) 7 %; Neutrophils # (A) 10.5 k/uL (1.3-7.7); Neutrophils % (A) 70 %; Platelet Count 369 k/uL (150-450); RBC 4.66 m/uL (3.80-5.40); RDW 14.2 % (11.5-15.5)
[2019-04-05 18:05] LABS: Albumin 4.2 g/dL (3.5-5.0); Calcium 9.6 mg/dL (8.4-10.2); Magnesium 2.1 mg/dL (1.6-2.3); Total Bilirubin 0.4 mg/dL (0.2-1.3); Total Protein 7.6 g/dL (6.3-8.2)
[2019-04-05 18:07] LABS: Potassium 4.3 mmol/L (3.5-5.1)
[2019-04-05 18:09] LABS: D-Dimer <0.17 mg/L FEU (<0.60); INR 0.9 (<1.2); Partial Thromboplastin Time 24.5 sec (22.0-30.0); Prothrombin Time 10.1 sec (9.0-12.0)
[2019-04-05] MEDS ORDERED: LEVOFLOXACIN 750MG-D5W PMX 750 MG in DEXTROSE/WATER 1 150ML.BAG IVPB STA (18:58)
[2019-04-05] MEDS ORDERED: PNEUMONIA PROTOCOL UTILIZED 1 EACH MISC PO PRN (18:58)
[2019-04-05] MEDS ORDERED: PIPERACILLIN-TAZOBACTAM 3.375 GM in SODIUM CHLORIDE 0.9% 100 ML IVPB STA (18:58)
--- NOTE | 2019-04-05 19:05 | XR ---
EXAMINATION TYPE: XR chest 2V DATE OF EXAM: 04/05/2019 COMPARISON: 03/22/2019 HISTORY: Difficulty breathing TECHNIQUE: Frontal and lateral views of the chest are obtained. FINDINGS: There is coarse interstitial infiltrate in both lungs. Heart size is normal. There are no hilar masses. There is cervical spine fusion surgery. There is no pleural effusion. IMPRESSION: Pulmonary interstitial fibrosis. No obvious heart failure. There is improved aeration of the left lung base and some clearing of left lower lobe infiltrate compared to recent exam.
[2019-04-05] MEDS: IPRATROPIUM-ALBUTEROL 3 ML NEB INHALATION SCH (20:01)
[2019-04-05] MEDS ORDERED: IPRATROPIUM-ALBUTEROL 3 ML NEB INHALATION SCH (21:45)
[2019-04-05] MEDS: ALPRAZolam 1 MG TAB PO SCH (22:27)
[2019-04-05] MEDS: SODIUM CHLORIDE 0.9% 1,000 ML IV SCH (22:27)
[2019-04-05] MEDS: QUEtiapine 200 MG TAB PO SCH (22:28)
[2019-04-05] MEDS: ATORVASTATIN 20 MG TAB PO SCH (22:28)
[2019-04-05] MEDS: MECLIZINE 25 MG TAB PO SCH (22:28)
[2019-04-05] MEDS: lamoTRIgine 100 MG TAB PO SCH (22:28)
[2019-04-05] MEDS: TROSPIUM CHLORIDE 20 MG TABLET PO SCH (22:29)
[2019-04-05] MEDS: MELOXICAM 7.5 MG TAB PO SCH (22:35)
[2019-04-06] MEDS: PIPERACILLIN-TAZOBACTAM 3.375 GM in SODIUM CHLORIDE 0.9% 100 ML IVPB SCH ×3 (04:38→21:05)
[2019-04-06] MEDS: SODIUM CHLORIDE 0.9% 1,000 ML IV SCH ×2 (05:50→15:21)
[2019-04-06] MEDS: LEVOTHYROXINE 50 MCG TAB PO SCH (05:50)
--- NOTE | 2019-04-06 06:50 | XR ---
EXAMINATION TYPE: XR chest 2V DATE OF EXAM: 04/06/2019 HISTORY: pneumonia. REFERENCE: Previous study dated 04/05/2019. FINDINGS: There has been a previous ACDF of the lower cervical spine. There is a continuing left lower lobe infiltrate. The right lung is clear. The heart is not enlarged. There is some blunting of the left CP angle. UV difficult to exclude a small effusion. IMPRESSION: 1. CONTINUING LEFT LOWER LOBE INFILTRATE. 2. I CANNOT EXCLUDE A SMALL LEFT-SIDED EFFUSION.
[2019-04-06 07:16] LABS: Glucose,Whole Blood 80 mg/dL (75-99)
[2019-04-06] MEDS: ENOXAPARIN 40 MG/0.4 ML SYRINGE SQ SCH (08:37)
[2019-04-06] MEDS: AZELASTINE 137MCG/SPRAY NASAL SCH ×2 (08:37→21:08)
[2019-04-06] MEDS: DULoxetine HCL 60 MG CAPSULE.DR PO SCH (08:38)
[2019-04-06] MEDS: PANTOPRAZOLE 40 MG TABLET PO SCH (08:38)
[2019-04-06] MEDS: RIFAMPIN 300 MG CAP PO SCH (08:39)
[2019-04-06] MEDS: ALPRAZolam 1 MG TAB PO SCH ×3 (08:39→21:07)
[2019-04-06] MEDS: lamoTRIgine 100 MG TAB PO SCH ×2 (08:39→21:09)
[2019-04-06] MEDS: VIT A,C & E-LUTEIN-MINERALS 1 EACH TAB PO SCH (08:39)
[2019-04-06] MEDS: MECLIZINE 25 MG TAB PO SCH ×3 (08:39→21:08)
[2019-04-06] MEDS: MULTIVITAMINS, THERA 1 EACH TAB PO SCH (08:39)
[2019-04-06] MEDS: CYCLOBENZAPRINE 10 MG TAB PO SCH (08:40)
[2019-04-06] MEDS: TROSPIUM CHLORIDE 20 MG TABLET PO SCH ×2 (08:40→21:09)
[2019-04-06] MEDS: PHENYTOIN SODIUM EXTENDED 100 MG CAP PO SCH ×2 (08:40→21:08)
[2019-04-06] MEDS: ETHAMBUTOL 1200 MG PO SCH (08:47)
[2019-04-06] MEDS: IPRATROPIUM-ALBUTEROL 3 ML NEB INHALATION SCH ×4 (08:53→20:54)
--- NOTE | 2019-04-06 08:58 | P.CNPUL ---
History of Present Illness Consult date: 04/06/19 Requesting physician: Nanci Pendleton Reason for consult: dyspnea, cough Chief complaint: Shortness of breath, cough congestion, failed outpatient treatment History of present illness: This is a very pleasant 64-year-old female patient who follows with Dr. Cordova as her primary care physician. He is a history of macular degeneration, hypertension, fibromyalgia, diabetes, CVA, previous pulmonary Mycobacterium avium complex infection. Previous pulmonary E. coli infections. She follows with Dr. Millan in our office for the same. She has had a history of nodular left lower lobe pulmonary consolidation application of bronchoscopy and biopsies were taken there were negative for malignancy. Her most recent bronchoscopy was 03/27/2019 which was positive for pseudomonas aeruginosa and E. coli. She is a colonizer. She has been on her [place] antibiotics including ethambutol, rifampin and Avelox for almost 2 years now. She follows with Dr. Crarera for the same. She is also been treated recently with Bactrim, Ceftin and Cipro without much improvement. She was in our office yesterday. She is quite frustrated crying and emotional due to her ongoing complex coronary issues. She was still having significant cough and congestion. Positive chills. She was referred for here for IV antibiotics and ID consult. He is seen today in consultation on the regular medical floor. She is doing a bit better. Awake and alert in no acute distress. She is maintaining O2 saturations in the high 90s on 2 L/m per nasal cannula. She's been afebrile. Hemodynamically stable. She has been initiated on Zosyn and Levaquin. Chest x-ray reveals continued left lower lobe infiltrate and small left-sided effusion. White count 15.0. Hemoglobin 14.4. Creatinine 1.28. Review of Systems REVIEW OF SYSTEMS: CONSTITUTIONAL: Denies any recent significant weight loss or weight gain. EYES: Denies change in vision. EARS, NOSE, MOUTH, THROAT: Denies headaches, denies sore throat. CARDIOVASCULAR: Denies chest pain, palpitations or syncopal episodes. RESPIRATORY: Positive for shortness of breath, cough, congestion no hemoptysis. GASTROINTESTINAL: Denies change in appetite, denies abdominal pain GENITOURINARY: Denies hematuria, denies infections. MUSKULOSKELETAL: Generalized weakness. Denies pain, denies swelling. INTEGUMENTARY: Denies rash, denies eczema. NEUROLOGICAL: Denies recent memory loss, no recent seizure activity. PSYCHIATRIC: Positive anxiety and depression HEMATOLOGIC/LYMPHATIC: Denies anemia, denies enlarged lymph nodes. Past Medical History Past Medical History: COPD, CVA/TIA, Diabetes Mellitus, Eye Disorder, Fibromyalgia, GERD/Reflux, Hyperlipidemia, Hypertension, Memory Impairment, Osteoarthritis (OA), Pneumonia, Seizure Disorder, Thyroid Disorder Additional Past Medical History / Comment(s): Bronchoscopy 03/27/2019 revealed Pseudomonas and E. coli. 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 DEGENERATION LT EYE. 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 LEFT SIDED WEAKNESS (USES A WALKER) Unsteady on feet due to dizziness. Current problems with nausea, vomiting and increased heart rate, LAST SEIZURE IN 2014. WHOOPING COUGH - Multiple times. ALLERGIES, NASAL CONGESTION, COUGH. CARPAL TUNNEL. States had pneumonia on and off from Mar 2016 to Oct 2016. States balance nerves in ears damaged, so does not have good balance. Emphysema. ON DIET CONTROL FOR DIABETES AT THIS TIME History of Any Multi-Drug Resistant Organisms: Other MDRO Past Surgical History: Adenoidectomy, Breast Surgery, Section, Cholecystectomy, Hysterectomy, Tonsillectomy Additional Past Surgical History / Comment(s): bronchoscopy,BRONCHIAL KATRINA 01/30/17 RIGHT BLEED FROM BREAST. CERVICAL FUSION. SINUS SURGERY. RIGHT EYELID., EGD Past Anesthesia/Blood Transfusion Reactions: Motion Sickness, Postoperative Nausea & Vomiting (PONV) Additional Past Anesthesia/Blood Transfusion Reaction / Comment(s): TAKES ANTIVERT FOR CHRONIC DIZZINESS. States takes a lot to knock her out and she's slow to wake up. Past Psychological History: Anxiety, Bipolar, Panic Disorder Smoking Status: Never smoker Past Alcohol Use History: None Reported Additional Past Alcohol Use History / Comment(s): COPD (EXPOSURE FROM FATHER'S SMOKING). Past Drug Use History: None Reported - Past Family History Mother Family Medical History: Cancer, CVA/TIA, Deep Vein Thrombosis (DVT), Myocardial Infarction ([place]) Additional Family Medical History / Comment(s): Breast and colon cancer Father Family Medical History: Cancer, Myocardial Infarction ([place]) Additional Family Medical History / Comment(s): Lung cancer Sister(s) Family Medical History: Deep Vein Thrombosis (DVT) Medications and Allergies Home Medications Medication Instructions Recorded Confirmed Type ALPRAZolam [Xanax] 1 mg PO TID 01/22/16 04/05/19 History DULoxetine HCL [Cymbalta] 120 mg PO QAM 01/22/16 04/05/19 History Darifenacin Hydrobromide [Enablex] 15 mg PO HS 01/22/16 04/05/19 History Fluticasone/Salmeterol [Advair 1 puff INHALATION RT-BID 01/22/16 04/05/19 History 500-50 Diskus] Levothyroxine Sodium [Synthroid] 50 mcg PO QAM 01/22/16 04/05/19 History Meclizine [Antivert] 25 mg PO TID 01/22/16 04/05/19 History Meloxicam [Mobic] 15 mg PO HS 01/22/16 04/05/19 History Metaxalone [Skelaxin] 800 mg PO QAM 01/22/16 04/05/19 History Montelukast [Singulair] 10 mg PO QAM 01/22/16 04/05/19 History Pantoprazole Sodium [Protonix] 40 mg PO AC-BRKFST 01/22/16 04/05/19 History Phenytoin Sodium Extended 200 mg PO BID 01/22/16 04/05/19 History [Dilantin] Potassium Chloride ER [K-Dur 20] 20 meq PO QAM 01/22/16 04/05/19 History Simvastatin [Zocor] 40 mg PO HS 01/22/16 04/05/19 History Spironolactone-Hctz 25-25Mg 1 tab PO QAM 01/22/16 04/05/19 History [Aldactazide 25-25 MG] lamoTRIgine [LaMICtal] 100 mg PO QAM 01/22/16 04/05/19 History lamoTRIgine [LaMICtal] 200 mg PO HS 01/22/16 04/05/19 History Ipratropium-Albuterol Nebulize 3 ml INHALATION RT-QID #120 neb 01/19/17 04/05/19 Rx [Duoneb 0.5 mg-3 mg/3 ml Soln] Albuterol Inhaler [Ventolin Hfa 1 - 2 puff INHALATION RT-Q6H PRN 03/21/18 04/05/19 History Inhaler] Ethambutol [Myambutol] 1,200 mg PO DAILY 03/21/18 04/05/19 History Moxifloxacin HCl [Avelox] 400 mg PO DAILY 03/21/18 04/05/19 History Ondansetron [Zofran] 4 mg PO Q8HR PRN 03/21/18 04/05/19 History Rifampin [Rifadin] 600 mg PO DAILY 03/21/18 04/05/19 History Multivitamin/Iron/Folic Acid 1 tab PO DAILY 10/03/18 04/05/19 History [Centrum Complete Multivit Tab] Vit C/E/Zn/Coppr/Lutein/Zeaxan 2 cap PO DAILY 10/03/18 04/05/19 History [Preservision Areds 2 Softgel] Astelin Nasal [place] 2 sprays EA NOSTRIL BID 03/25/19 04/05/19 History QUEtiapine FUMARATE [SEROquel XR] 400 mg PO BID@1600,2200 03/25/19 04/05/19 History Cefuroxime Axetil [Ceftin] 500 mg PO BID 04/05/19 04/05/19 History Ciprofloxacin HCl [Cipro] 500 mg PO BID 04/05/19 04/05/19 History Fluticasone/Salmeterol [Advair 1 puff 04/05/19 History 500-50 Diskus] Allergies Allergy/AdvReac Type Severity Reaction Status Date / Time clarithromycin [From Biaxin] AdvReac SEIZURES Verified 04/05/19 17:57 Physical Exam Vitals: Vital Signs Temp Pulse Pulse Resp BP BP Pulse Ox 04/06/19 07:30 98.2 F 69 18 130/76 97 04/06/19 04:40 15 04/06/19 02:35 97.6 F 75 16 117/70 99 04/06/19 00:15 14 04/05/19 19:37 98.7 F 98 18 140/67 98 04/05/19 19:28 97.8 F 82 18 128/76 96 04/05/19 18:28 82 19 04/05/19 18:08 80 16 04/05/19 17:10 98.3 F 88 20 135/81 94 L Intake and Output 04/05/19 04/06/19 04/06/19 22:59 06:59 14:59 Intake Total 420 1140 Balance 420 1140 Intake: Intake, IV Titration 150 1000 Amount Levofloxacin 750Mg-D5w 150 Pmx 750 mg In Dextrose/ Water 1 150ml.bag @ 100 mls/hr IVPB Q48H RON Rx#: [id number] Piperacillin-Tazobactam 3 100 .375 gm In Sodium Chloride 0.9% 100 ml @ 25 mls/hr IVPB Q8H RON Rx#: [id number] Sodium Chloride 0.9% 1, 900 000 ml @ 100 mls/hr IV . Q10H RON Rx#:[id number] Oral 270 140 Other: Voiding Method Toilet # Voids 1 2 Weight 75.296 kg GENERAL EXAM: Alert, active, comfortable in no apparent distress. 2 L nasal cannula. HEAD: Normocephalic. EYES: Normal reaction of pupils, equal size. NOSE: Clear with pink turbinates. THROAT: No erythema or exudates. NECK: No masses, no JVD. CHEST: No chest wall deformity. LUNGS: Equal air entry with bilateral scattered rhonchi, crackles in the left posterior base. CVS: S1 and S2 normal with no audible murmur, regular rhythm. ABDOMEN: No hepatosplenomegaly, normal bowel sounds, no guarding or rigidity. SPINE: No scoliosis or deformity SKIN: No rashes CENTRAL NERVOUS SYSTEM: No focal deficits, tone is normal in all 4 extremities. EXTREMITIES: There is no peripheral edema. No clubbing, no cyanosis. Peripheral pulses are intact. Results - Laboratory Findings CBC and BMP: 04/05/19 17:36 04/05/19 17:36 PT/INR, D-dimer PT 10.1 sec (9.0-12.0) 04/05/19 17:36 INR 0.9 (<1.2) 04/05/19 17:36 D-Dimer <0.17 mg/L FEU (<0.60) 04/05/19 17:36 Abnormal lab findings: Abnormal Labs 04/05/19 04/05/19 17:36 17:36 WBC 15.0 H Neutrophils # 10.5 H Monocytes # 1.1 H Basophils # 0.3 H BUN 41 H Creatinine 1.28 H - Diagnostic Findings Chest x-ray: image reviewed Assessment and Plan Assessment: Impression: #1 Acute pneumonia more so on the left lower lobe positive for pseudomonas aeruginosa and E. coli on recent bronchoscopy 03/27/2019. #2 Acute hypoxic respiratory failure secondary to above. Currently on 2 L/m per nasal cannula. #3 Previous Pseudomonas pulmonary infections in September 2018. 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 Has been on ethambutol, rifampin and Avelox for almost 2 years now. #5 Fibromyalgia. #6 Macular degeneration. #7 Anxiety/depression. #8 History of chronic obstructive pulmonary disease. #9 Hypothyroidism. #10 Chronic pain syndrome. #11 History of brain abscess. #12 History of seizures. Plan: The patient was seen and evaluated by Dr. Mcelroy. We'll continue with IV Zosyn. Discontinue the Levaquin. Await input from infectious disease. Continue bronchodilators. We will continue to follow and make further recommendations based on her clinical status. I, the cosigning physician, performed a history & physical examination of the patient. Lungs sounds crackles in left base. Maintaining good O2 saturations in the 90s on 2 L/m per nasal cannula. I discussed the assessment and plan of care with my nurse practitioner, Arlene Varela. I attest to the above note as dictated by her.
[2019-04-06] MEDS ORDERED: MONTELUKAST 10 MG TAB PO SCH (09:00)
[2019-04-06 11:52] LABS: Glucose,Whole Blood 67 mg/dL (75-99)
--- NOTE | 2019-04-06 13:19 | P.HPIM ---
History of Present Illness H&P Date: 04/06/19 Chief Complaint: Shortness of breath, cough congestion 64-year-old female patient who follows with Dr. Cordova as her primary care physician. He is a history of macular degeneration, hypertension, fibromyalgia, diabetes, CVA, previous pulmonary Mycobacterium avium complex infection. Previous pulmonary E. coli infections. She follows with Dr. Millan in our office for the same. She has had a history of nodular left lower lobe pulmonary consolidation application of bronchoscopy and biopsies were taken there were negative for malignancy. Her most recent bronchoscopy was 03/27/2019 which was positive for pseudomonas aeruginosa and E. coli. She is a colonizer. She has been on her [facility] antibiotics including ethambutol, rifampin and Avelox for almost 2 years now. She follows with Dr. Carrera for the same. She is also been treated recently with Bactrim, Ceftin and Cipro without much improvement. She was in our office yesterday. She is quite frustrated crying and emotional due to her ongoing complex coronary issues. She was still having significant cough and congestion. Positive chills. She was referred for here for IV antibiotics and ID consult. He is seen today in consultation on the regular medical floor. She is doing a bit better. Awake and alert in no acute distress. She is maintaining O2 saturations in the high 90s on 2 L/m per nasal cannula. She's been afebrile. Hemodynamically stable. She has been initiated on Zosyn and Levaquin. Chest x-ray reveals continued left lower lobe infiltrate and small left-sided effusion. White count 15.0. Hemoglobin 14.4. Creatinine 1.28. Review of Systems CONSTITUTIONAL: Denies any recent significant weight loss or weight gain. EYES: Denies change in vision. EARS, NOSE, MOUTH, THROAT: Denies headaches, denies sore throat. CARDIOVASCULAR: Denies chest pain, palpitations or syncopal episodes. RESPIRATORY: Positive for shortness of breath, cough, congestion no hemoptysis. GASTROINTESTINAL: Denies change in appetite, denies abdominal pain GENITOURINARY: Denies hematuria, denies infections. MUSKULOSKELETAL: Generalized weakness. Denies pain, denies swelling. INTEGUMENTARY: Denies rash, denies eczema. NEUROLOGICAL: Denies recent memory loss, no recent seizure activity. PSYCHIATRIC: Positive anxiety and depression HEMATOLOGIC/LYMPHATIC: Denies anemia, denies enlarged lymph nodes. Past Medical History Past Medical History: COPD, CVA/TIA, Diabetes Mellitus, Eye Disorder, Fibromyalgia, GERD/Reflux, Hyperlipidemia, Hypertension, Memory Impairment, Osteoarthritis (OA), Pneumonia, Seizure Disorder, Thyroid Disorder Additional Past Medical History / Comment(s): Bronchoscopy 03/27/2019 revealed Pseudomonas and E. coli. 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 DEGENERATION LT EYE. 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 LEFT SIDED WEAKNESS (USES A WALKER) Unsteady on feet due to dizziness. Current problems with nausea, vomiting and increased heart rate, LAST SEIZURE IN 2014. WHOOPING COUGH - Multiple times. ALLERGIES, NASAL CONGESTION, COUGH. CARPAL TUNNEL. States had pneumonia on and off from Mar 2016 to Oct 2016. States balance nerves in ears damaged, so does not have good balance. Emphysema. ON DIET CONTROL FOR DIABETES AT THIS TIME History of Any Multi-Drug Resistant Organisms: Other MDRO Past Surgical History: Adenoidectomy, Breast Surgery, Section, Cholecystectomy, Hysterectomy, Tonsillectomy Additional Past Surgical History / Comment(s): bronchoscopy,BRONCHIAL KATRINA 7 RIGHT BLEED FROM BREAST. CERVICAL FUSION. SINUS SURGERY. RIGHT EYELID., EGD Past Anesthesia/Blood Transfusion Reactions: Motion Sickness, Postoperative Nausea & Vomiting (PONV) Additional Past Anesthesia/Blood Transfusion Reaction / Comment(s): TAKES ANTIVERT FOR CHRONIC DIZZINESS. States takes a lot to knock her out and she's slow to wake up. Past Psychological History: Anxiety, Bipolar, Panic Disorder Smoking Status: Never smoker Past Alcohol Use History: None Reported Additional Past Alcohol Use History / Comment(s): COPD (EXPOSURE FROM FATHER'S SMOKING). Past Drug Use History: None Reported - Past Family History Mother Family Medical History: Cancer, CVA/TIA, Deep Vein Thrombosis (DVT), Myocardial Infarction ([place]) Additional Family Medical History / Comment(s): Breast and colon cancer Father Family Medical History: Cancer, Myocardial Infarction ([place]) Additional Family Medical History / Comment(s): Lung cancer Sister(s) Family Medical History: Deep Vein Thrombosis (DVT) Medications and Allergies Home Medications Medication Instructions Recorded Confirmed Type ALPRAZolam [Xanax] 1 mg PO TID 01/22/16 04/05/19 History DULoxetine HCL [Cymbalta] 120 mg PO QAM 01/22/16 04/05/19 History Darifenacin Hydrobromide [Enablex] 15 mg PO HS 01/22/16 04/05/19 History Fluticasone/Salmeterol [Advair 1 puff INHALATION RT-BID 01/22/16 04/05/19 History 500-50 Diskus] Levothyroxine Sodium [Synthroid] 50 mcg PO QAM 01/22/16 04/05/19 History Meclizine [Antivert] 25 mg PO TID 01/22/16 04/05/19 History Meloxicam [Mobic] 15 mg PO HS 01/22/16 04/05/19 History Metaxalone [Skelaxin] 800 mg PO QAM 01/22/16 04/05/19 History Montelukast [Singulair] 10 mg PO QAM 01/22/16 04/05/19 History Pantoprazole Sodium [Protonix] 40 mg PO AC-BRKFST 01/22/16 04/05/19 History Phenytoin Sodium Extended 200 mg PO BID 01/22/16 04/05/19 History [Dilantin] Potassium Chloride ER [K-Dur 20] 20 meq PO QAM 01/22/16 04/05/19 History Simvastatin [Zocor] 40 mg PO HS 01/22/16 04/05/19 History Spironolactone-Hctz 25-25Mg 1 tab PO QAM 01/22/16 04/05/19 History [Aldactazide 25-25 MG] lamoTRIgine [LaMICtal] 100 mg PO QAM 01/22/16 04/05/19 History lamoTRIgine [LaMICtal] 200 mg PO HS 01/22/16 04/05/19 History Ipratropium-Albuterol Nebulize 3 ml INHALATION RT-QID #120 neb 01/19/17 04/05/19 Rx [Duoneb 0.5 mg-3 mg/3 ml Soln] Albuterol Inhaler [Ventolin Hfa 1 - 2 puff INHALATION RT-Q6H PRN 03/21/18 04/05/19 History Inhaler] Ethambutol [Myambutol] 1,200 mg PO DAILY 03/21/18 04/05/19 History Moxifloxacin HCl [Avelox] 400 mg PO DAILY 03/21/18 04/05/19 History Ondansetron [Zofran] 4 mg PO Q8HR PRN 03/21/18 04/05/19 History Rifampin [Rifadin] 600 mg PO DAILY 03/21/18 04/05/19 History Multivitamin/Iron/Folic Acid 1 tab PO DAILY 10/03/18 04/05/19 History [Centrum Complete Multivit Tab] Vit C/E/Zn/Coppr/Lutein/Zeaxan 2 cap PO DAILY 10/03/18 04/05/19 History [Preservision Areds 2 Softgel] Astelin Nasal [place] 2 sprays EA NOSTRIL BID 03/25/19 04/05/19 History QUEtiapine FUMARATE [SEROquel XR] 400 mg PO BID@1600,2200 03/25/19 04/05/19 History Cefuroxime Axetil [Ceftin] 500 mg PO BID 04/05/19 04/05/19 History Ciprofloxacin HCl [Cipro] 500 mg PO BID 04/05/19 04/05/19 History Fluticasone/Salmeterol [Advair 1 puff 04/05/19 History 500-50 Diskus] Allergies Allergy/AdvReac Type Severity Reaction Status Date / Time clarithromycin [From Biaxin] AdvReac SEIZURES Verified 04/05/19 17:57 Physical Exam Vitals: Vital Signs Temp Pulse Pulse Resp BP BP Pulse Ox 04/06/19 09:03 68 04/06/19 08:53 68 99 04/06/19 07:30 98.2 F 69 18 130/76 97 04/06/19 04:40 15 04/06/19 02:35 97.6 F 75 16 117/70 99 04/06/19 00:15 14 04/05/19 19:37 98.7 F 98 18 140/67 98 04/05/19 19:28 97.8 F 82 18 128/76 96 04/05/19 18:28 82 19 04/05/19 18:08 80 16 04/05/19 17:10 98.3 F 88 20 135/81 94 L Intake and Output 04/05/19 04/06/19 04/06/19 22:59 06:59 14:59 Intake Total 420 1140 236 Balance 420 1140 236 Intake: Intake, IV Titration 150 1000 Amount Levofloxacin 750Mg-D5w 150 Pmx 750 mg In Dextrose/ Water 1 150ml.bag @ 100 mls/hr IVPB Q48H RON Rx#: [id number] Piperacillin-Tazobactam 3 100 .375 gm In Sodium Chloride 0.9% 100 ml @ 25 mls/hr IVPB Q8H RON Rx#: [id number] Sodium Chloride 0.9% 1, 900 000 ml @ 100 mls/hr IV . Q10H RON Rx#:[id number] Oral 270 140 236 Other: Voiding Method Toilet # Voids 1 2 Weight 75.296 kg GENERAL EXAM: Alert, active, comfortable in no apparent distress. 2 L nasal cannula. HEAD: Normocephalic. EYES: Normal reaction of pupils, equal size. NOSE: Clear with pink turbinates. THROAT: No erythema or exudates. NECK: No masses, no JVD. CHEST: No chest wall deformity. LUNGS: Equal air entry with bilateral scattered rhonchi, crackles in the left posterior base. CVS: S1 and S2 normal with no audible murmur, regular rhythm. ABDOMEN: No hepatosplenomegaly, normal bowel sounds, no guarding or rigidity. SPINE: No scoliosis or deformity SKIN: No rashes CENTRAL NERVOUS SYSTEM: No focal deficits, tone is normal in all 4 extremities. EXTREMITIES: There is no peripheral edema. No clubbing, no cyanosis. Peripheral pulses are intact. Results CBC & Chem 7: 04/05/19 17:36 04/05/19 17:36 Labs: Abnormal Lab Results - Last 24 Hours (Table) 04/05/19 04/05/19 Range/Units 17:36 17:36 WBC 15.0 H (3.8-10.6) k/uL Neutrophils # 10.5 H (1.3-7.7) k/uL Monocytes # 1.1 H (0-1.0) k/uL Basophils # 0.3 H (0-0.2) k/uL BUN 41 H (7-17) mg/dL Creatinine 1.28 H (0.52-1.04) mg/dL Thrombosis Risk Factor Assmnt - Choose All That Apply Any of the Below Risk Factors Present?: Yes Each Factor Represents 1 point: Age 41-60 years Thrombosis Risk Factor Assessment Total Risk Factor Score: 1 Thrombosis Risk Factor Assessment Level: Low Risk Assessment and Plan Assessment: 1. Acute left lower lobe pneumonia - Patient has a decent bronchoscopy done on 03/27/2019 growing Pseudomonas aeruginosa and E. coli - Continue antibiotic treatment with Levaquin 750 mg IV every 48 hours along with IV Zosyn - Pulmonary is following and we appreciate their input in patient management 2. Acute hypoxic respiratory failure secondary to 1; as above; patient remains on 2 L O2 per nasal cannula 3. Previous MAC pulmonary infection; patient has been on ethambutol, rifampin and Avelox 4. COPD; not in exacerbation 5. Hypothyroidism; levothyroxine 50 MCG daily 6. Seizure disorder; continue with Dilantin 200 mg twice a day and Lamictal 7. Hyperlipidemia; continue home statin therapy 8. DVT prophylaxis; subcu Lovenox CODE STATUS; full code Time with Patient: Greater than 30
--- NOTE | 2019-04-06 15:09 | P.CONS ---
History of Present Illness - Reason for Consult Consult date: 04/06/19 - Chief Complaint Shortness of breath - History of Present Illness 64-year-old woman presents to Hospital with increasing shortness of breath cough weakness malaise and feeling overwhelmed. She has many underlying medical illnesses and has chronic urinary infection with mycobacterial i nfection. On March 27 she underwent bronchoscopy as a follow-up from her prior mycobacterial infection. Goal was to determine End of therapy if she continued to have negative cultures for Mycobacterium. She however started to have increasing amounts of cough shortness of breath sputum production fever and malaise and consequently she was seen by her ceramic plater. Bronchoscopy was performed and this cultures are now come back, she was placed on oral antibiotics but failed and became more short of breath more anxious and felt very ill in counseling has been admitted. No intravenous antibiotic therapy has been instituted and she is feeling slightly better. With oxygen, respiratory tr eatments and antibiotics she is most less anxious. She at this time is denying high-grade fever or chills although felt like she was having some fever at home. Her appetite has been somewhat poor but she's been able to eat without nausea or emesis and denies other new acute symptoms. She over with her illnesses been feeling weak and relates that she's had a fall, however her dog knocked her over. Review of Systems HEENT:Denies headache or acute visual change. Denies sinus or mouth discomforts. Denies neck stiffness or pain. Denies significant oral cavity pain. Denies difficulty on swallowing. Lungs: As per the HPI stubbing and shortness of breath cough sputum production but no hemoptysis Cardiovascular: Denies chest pain, chest wall pain, or syncope. However she does have dyspnea with exertion and orthopnea. Gastrointestinal:Denies nausea, vomiting, diarrhea, constipation, hematemesis, melena, hematochezia. No no significant change of bowel habit noticed. Musculoskeletal: denies significant myalgias or arthralgias. No new joint swelling. Denies new back pain. Skin: Denies new rash or lesions. No new ulcers or wounds are related.. Neuro: Denies headache or visual change. Denies any new onset weakness or difficulty with ambulation. Denies falls or seizures. Psychiatric significant anxiety but no significant depression Endocrine: Severe fatigue and malaise weight has started to decrease over time Past Medical History Past Medical History: COPD, CVA/TIA, Diabetes Mellitus, Eye Disorder, Fibromyalgia, GERD/Reflux, Hyperlipidemia, Hypertension, Memory Impairment, Osteoarthritis (OA), Pneumonia, Seizure Disorder, Thyroid Disorder Additional Past Medical History / Comment(s): Bronchoscopy 03/27/2019 revealed Pseudomonas and E. coli. 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 DEGENERATION LT EYE. 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 LEFT SIDED WEAKNESS (USES A WALKER) Unsteady on feet due to dizziness. Current problems with nausea, vomiting and increased heart rate, LAST SEIZURE IN 2014. WHOOPING COUGH - Multiple times. ALLERGIES, NASAL CONGESTION, COUGH. CARPAL TUNNEL. States had pneumonia on and off from Mar 2016 to Oct 2016. States balance nerves in ears damaged, so does not have good balance. Emphysema. ON DIET CONTROL FOR DIABETES AT THIS TIME History of Any Multi-Drug Resistant Organisms: Other MDRO Past Surgical History: Adenoidectomy, Breast Surgery, Section, Ch olecystectomy, Hysterectomy, Tonsillectomy Additional Past Surgical History / Comment(s): bronchoscopy,BRONCHIAL KATRINA 01/30/17 RIGHT BLEED FROM BREAST. CERVICAL FUSION. SINUS SURGERY. RIGHT EYELID., EGD Past Anesthesia/Blood Transfusion Reactions: Motion Sickness, Postoperative Nausea & Vomiting (PONV) Additional Past Anesthesia/Blood Transfusion Reaction / Comm: TAKES ANTIVERT FOR CHRONIC DIZZINESS. States takes a lot to knock her out and she's slow to wake up. Past Psychological History: Anxiety, Bipolar, Panic Disorder Additional Psychological History / Comment(s): and lives in the family home with her . She does not work outside of the home. They have pet dogs. She has no international travel. She has no experience. She has extensive exposure to tobacco smoking through her youth from her father who was a 4 pack per day smoker, she relates that her sister who was a smoker of lung disease 10 years ago. Smoking Status: Never smoker Past Alcohol Use History: None Reported Additional Past Alcohol Use History / Comment(s): COPD (EXPOSURE FROM FATHER'S SMOKING). Past Drug Use History: None Reported - Past Family History Mother Family Medical History: Cancer, CVA/TIA, Deep Vein Thrombosis (DVT), Myocardial Infarction ([place]) Additional Family Medical History / Comment(s): Breast and colon cancer Father Family Medical History: Cancer, Myocardial Infarction ([place]) Additional Family Medical History / Comment(s): Lung cancer Sister(s) Family Medical History: Deep Vein Thrombosis (DVT) Medications and Allergies Home Medications and Allergies Comment(s): Current Medications Albuterol/Ipratropium (Duoneb 0.5 Mg-3 Mg/3 Ml Soln) 3 ml INHALATION RT-QID [facility] Last Admin: 04/06/19 15:02 Dose: 3 ml Documented by: Alprazolam (Xanax) 1 mg PO TID [facility] Last Admin: 04/06/19 08:39 Dose: 1 mg Documented by: Atorvastatin Calcium (Lipitor) 20 mg PO [facility] Last Admin: 04/05/19 22:28 Dose: 20 mg Documented by: Azelastine HCl (Astepro) 2 spray NASAL BID [facility] Last Admin: 04/06/19 08:37 Dose: 2 spray Documented by: Cyclobenzaprine [facility] (Flexeril) [facility] [place] Admin: 04/06/19 08:40 Dose: 10 mg Documented by: Duloxetine HCl (Cymbalta) 120 [facility] [place] Admin: 04/06/19 08:38 Dose: 120 mg Documented by: Enoxaparin Sodium (Lovenox) 40 mg SQ DAILY [facility] Last Admin: 04/06/19 08:37 Dose: 40 mg Documented by: Sodium Chloride (Saline 0.9%) 1,000 mls @ 100 mls/hr IV .Q10H [facility] Last Admin: 04/06/19 05:50 Dose: 100 mls/hr Documented by: Levofloxacin 750 mg/ IV (Solution) 150 mls @ 100 mls/hr IVPB Q48H [facility] Stop: 04/18/19 20:01 Piperacillin Sod/Tazobactam (Sod 3.375 gm/ Sodium Chloride) 100 mls @ 25 mls/hr IVPB Q8H [facility] Stop: 04/16/19 04:01 Last Admin: 04/06/19 12:29 Dose: 25 mls/hr Documented by: Lamotrigine (Lamictal) 100 [facility] [place] Admin: 04/06/19 08:39 Dose: 100 mg Documented by: Lamotrigine (Lamictal) 200 mg PO [facility] Last Admin: 04/05/19 22:28 Dose: 200 mg Documented by: Levothyroxine Sodium (Synthroid) 50 mcg PO QAM@0630 [facility] Last Admin: 04/06/19 05:50 Dose: 50 mcg Documented by: Meclizine HCl (Antivert) 25 mg PO TID [facility] Last Admin: 04/06/19 08:39 Dose: 25 mg Documented by: Meloxicam (Mobic) 15 mg PO [facility] Last Admin: 04/05/19 22:35 Dose: 15 mg Documented by: Miscellaneous Information (Pneumonia Protocol Utilized) 1 each PO ONCE PRN PRN Reason: Per Protocol Montelukast Sodium (Singulair) 10 mg PO [facility] Multivitamins (Theragran) 1 each PO DAILY [facility] Last Admin: 04/06/19 08:39 Dose: 1 each Documented by: Multivitamins/Minerals (Ivite) 1 each PO DAILY [facility] Last Admin: 04/06/19 08:39 Dose: 1 each Documented by: Non-Formulary Medication (Ethambutol) 1,200 mg PO DAILY [facility] Last Admin: 04/06/19 08:47 Dose: Not Given Documented by: Pantoprazole Sodium (Protonix) 40 mg PO AC-BRKFST [facility] Last Admin: 04/06/19 08:38 Dose: 40 mg Documented by: Phenytoin Sodium (Dilantin) 200 mg PO BID [facility] Last Admin: 04/06/19 08:40 Dose: 200 mg Documented by: Quetiapine Fumarate (Seroquel) 400 mg PO BID@1600,2200 [facility] Last Admin: 04/05/19 22:28 Dose: 400 mg Documented by: Rifampin (Rifadin) 600 mg PO DAILY [facility] Last Admin: 04/06/19 08:39 Dose: 600 mg Documented by: Trospium (Sanctura) 15 mg PO BID [facility] Last Admin: 04/06/19 08:40 Dose: 15 mg Documented by: Home Medications Medication Instructions Recorded Confirmed Type ALPRAZolam [Xanax] 1 mg PO TID 01/22/16 04/05/19 History DULoxetine HCL [Cymbalta] 120 mg PO QA 01/22/16 04/05/19 History Darifenacin Hydrobromide [Enablex] 15 mg PO 01/22/16 04/05/19 History Fluticasone/Salmeterol [Advair 1 puff INHALATION RT-BID 01/22/16 04/05/19 History 500-50 Diskus] Levothyroxine Sodium [Synthroid] 50 mcg PO QAM 01/22/16 04/05/19 History Meclizine [Antivert] 25 mg PO TID 01/22/16 04/05/19 History Meloxicam [Mobic] 15 mg PO HS 01/22/16 04/05/19 History Metaxalone [Skelaxin] 800 mg PO QAM 01/22/16 04/05/19 History Montelukast [Singulair] 10 mg PO QAM 01/22/16 04/05/19 History Pantoprazole Sodium [Protonix] 40 mg PO AC-BRKFST 01/22/16 04/05/19 History Phenytoin Sodium Extended 200 mg PO BID 01/22/16 04/05/19 History [Dilantin] Potassium Chloride ER [K-Dur 20] 20 meq PO QAM 01/22/16 04/05/19 History Simvastatin [Zocor] 40 mg PO HS 01/22/16 04/05/19 History Spironolactone-Hctz 25-25Mg 1 tab PO QAM 01/22/16 04/05/19 History [Aldactazide 25-25 MG] lamoTRIgine [LaMICtal] 100 mg PO QAM 01/22/16 04/05/19 History lamoTRIgine [LaMICtal] 200 mg PO HS 01/22/16 04/05/19 History Ipratropium-Albuterol Nebulize 3 ml INHALATION RT-QID #120 neb 01/19/17 04/05/19 Rx [Duoneb 0.5 mg-3 mg/3 ml Soln] Albuterol Inhaler [Ventolin Hfa 1 - 2 puff INHALATION RT-Q6H PRN 03/21/18 04/05/19 History Inhaler] Ethambutol [Myambutol] 1,200 mg PO DAILY 03/21/18 04/05/19 History Moxifloxacin HCl [Avelox] 400 mg PO DAILY 03/21/18 04/05/19 History Ondansetron [Zofran] 4 mg PO Q8HR PRN 03/21/18 04/05/19 History Rifampin [Rifadin] 600 mg PO DAILY 03/21/18 04/05/19 History Multivitamin/Iron/Folic Acid 1 tab PO DAILY 10/03/18 04/05/19 History [Centrum Complete Multivit Tab] Vit C/E/Zn/Coppr/Lutein/Zeaxan 2 cap PO DAILY 10/03/18 04/05/19 History [Preservision Areds 2 Softgel] Astelin Nasal [place] 2 sprays EA NOSTRIL BID 03/25/19 04/05/19 History QUEtiapine FUMARATE [SEROquel XR] 400 mg PO BID@1600,2200 03/25/19 04/05/19 History Cefuroxime Axetil [Ceftin] 500 mg PO BID 04/05/19 04/05/19 History Ciprofloxacin HCl [Cipro] 500 mg PO BID 04/05/19 04/05/19 History Fluticasone/Salmeterol [Advair 1 puff 04/05/19 History 500-50 Diskus] Allergies Allergy/AdvReac Type Severity Reaction Status Date / Time clarithromycin [From Biaxin] AdvReac SEIZURES Verified 04/05/19 17:57 Physical Exam Vitals: Vital Signs Temp Pulse Pulse Resp BP BP Pulse Ox 04/06/19 12:16 72 04/06/19 12:05 70 04/06/19 09:03 68 04/06/19 08:53 68 99 04/06/19 07:30 98.2 F 69 18 130/76 97 04/06/19 04:40 15 04/06/19 02:35 97.6 F 75 16 117/70 99 04/06/19 00:15 14 04/05/19 19:37 98.7 F 98 18 140/67 98 04/05/19 19:28 97.8 F 82 18 128/76 96 04/05/19 18:28 82 19 04/05/19 18:08 80 16 04/05/19 17:10 98.3 F 88 20 135/81 94 L Intake and Output 04/05/19 04/06/19 04/06/19 22:59 06:59 14:59 Intake Total 420 1140 236 Balance 420 1140 236 Intake: Intake, IV Titration 150 1000 Amount Levofloxacin 750Mg-D5w 150 Pmx 750 mg In Dextrose/ Water 1 150ml.bag @ 100 mls/hr IVPB Q48H [facility] Rx#: [id number] Piperacillin-Tazobactam 3 100 .375 gm In Sodium Chloride 0.9% 100 ml @ 25 mls/hr IVPB Q8H [facility] Rx#: [id number] Sodium Chloride 0.9% 1, 900 000 ml @ 100 mls/hr IV . Q10H [facility] Rx#:[id number] Oral 270 140 236 Other: Voiding Method Toilet Toilet # Voids 1 2 2 Weight 75.296 kg HEENT: Anicteric conjunctiva are pink and moist nasal mucosa grossly intact without significant lesions, there is no thrush. Neck: The neck is supple without significant lymphadenopathy or thyromegaly. Lungs: Symmetrical air entry is noted she has is alert crackles few expiratory wheezes no bronchial sounds no dullness or egophony Heart: Regular rate and rhythm with an audible S1-S2, no S3 no S4. There is no significant murmur click or rub, PMI was nondisplaced. Abdomen: Positive bowel sounds soft and nontender without palpable masses or organomegaly. There was no guarding or rebound. Extremities: The upper extremities have excellent pulses they are symmetric, no significant petechiae or telangiectasia. No splinter hemorrhages were noted. The lower extremities are free from significant edema. The peripheral pulses were 2+ and symmetric. Neuro: Awake alert oriented to person place and time. There are no acute new gross focal sensory motor deficits. Results CBC & Chem 7: 04/05/19 17:36 04/05/19 17:36 Labs: Abnormal Lab Results - Last 24 Hours (Table) 04/05/19 04/05/19 04/06/19 Range/Units 17:36 17:36 11:50 WBC 15.0 H (3.8-10.6) k/uL Neutrophils # 10.5 H (1.3-7.7) k/uL Monocytes # 1.1 H (0-1.0) k/uL Basophils # 0.3 H (0-0.2) k/uL BUN 41 H (7-17) mg/dL Creatinine 1.28 H (0.52-1.04) mg/dL POC Glucose (mg/dL) 67 L (75-99) mg/dL Laboratory Results WBC 15.0 k/uL (3.8-10.6) H 04/05/19 17:36 RBC 4.66 m/uL (3.80-5.40) 04/05/19 17:36 Hgb 14.4 gm/dL (11.4-16.0) 04/05/19 17:36 Hct 43.0 % (34.0-46.0) 04/05/19 17:36 MCV 92.3 fL (80.0-100.0) 04/05/19 17:36 MCH 30.9 pg (25.0-35.0) 04/05/19 17:36 MCHC 33.4 g/dL (31.0-37.0) 04/05/19 17:36 RDW 14.2 % (11.5-15.5) 04/05/19 17:36 Plt Count 369 k/uL (150-450) 04/05/19 17:36 Neutrophils % 70 % 04/05/19 17:36 Lymphocytes % 17 % 04/05/19 17:36 Monocytes % 7 % 04/05/19 17:36 Eosinophils % 3 % 04/05/19 17:36 Basophils % 2 % 04/05/19 17:36 Neutrophils # 10.5 k/uL (1.3-7.7) H 04/05/19 17:36 Lymphocytes # 2.6 k/uL (1.0-4.8) 04/05/19 17:36 Monocytes # 1.1 k/uL (0-1.0) H 04/05/19 17:36 Eosinophils # 0.4 k/uL (0-0.7) 04/05/19 17:36 Basophils # 0.3 k/uL (0-0.2) H 04/05/19 17:36 PT 10.1 sec (9.0-12.0) 04/05/19 17:36 INR 0.9 (<1.2) 04/05/19 17:36 APTT 24.5 sec (22.0-30.0) 04/05/19 17:36 D-Dimer <0.17 mg/L FEU (<0.60) 04/05/19 17:36 Sodium 142 mmol/L (137-145) 04/05/19 17:36 Potassium 4.3 mmol/L (3.5-5.1) 04/05/19 17:36 Chloride 104 mmol/L (98-107) 04/05/19 17:36 Carbon Dioxide 29 mmol/L (22-30) 04/05/19 17:36 Anion Gap 9 mmol/L 04/05/19 17:36 BUN 41 mg/dL (7-17) H 04/05/19 17:36 Creatinine 1.28 mg/dL (0.52-1.04) H 04/05/19 17:36 Est GFR (CKD-EPI)AfAm 52 (>60 ml/min/1.73 sqM) 04/05/19 17:36 Est GFR (CKD-EPI)NonAf 45 (>60 ml/min/1.73 sqM) 04/05/19 17:36 Glucose 94 mg/dL (74-99) 04/05/19 17:36 POC Glucose (mg/dL) 67 mg/dL (75-99) L 04/06/19 11:50 POC Glu Commercial Director ID Francoise Shelton 04/06/19 11:50 Plasma Lactic Acid Kirit 1.4 mmol/L (0.7-2.0) 04/05/19 17:36 Calcium 9.6 mg/dL (8.4-10.2) 04/05/19 17:36 Magnesium 2.1 mg/dL (1.6-2.3) 04/05/19 17:36 Total Bilirubin 0.4 mg/dL (0.2-1.3) 04/05/19 17:36 AST 34 U/L (14-36) 04/05/19 17:36 ALT 15 U/L (9-52) 04/05/19 17:36 Alkaline Phosphatase 124 U/L (38-126) 04/05/19 17:36 Creatine Kinase 54 U/L (30-135) 04/05/19 17:36 Troponin I <0.012 ng/mL (0.000-0.034) 04/05/19 17:36 NT-Pro-B Natriuret Pep 62 pg/mL 04/05/19 17:36 Total Protein 7.6 g/dL (6.3-8.2) 04/05/19 17:36 Albumin 4.2 g/dL (3.5-5.0) 04/05/19 17:36 Assessment and Plan (1) Failure of outpatient treatment Narrative/Plan: 64-year-old female who is without the outpatient clinic some time regarding her significant underlying lung disease. 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 She has now been treated for nearly 2 years with an active regiment for her MAC. The cultures from 6 months prior from the bronchoscopy were negative. The current bronchoscopy culture also was negative at this point in time for acid-fast baci lli and the culture is in process. The recent bronchoscopy however did reveal evidence of pseudomonas aeruginosa as well as a Escherichia coli from the bronchoscopy specimens. Antimicrobial therapy at this point in time will be added with piperacillin tazobactam for which the to pathogens have been noted to be susceptible. The patient did fail outpatient therapy and likely will require outpatient intravenous antibiotic therapy. Zosyn is utilized it would be possible to do this in the home because she may require her completion of therapy at the rehab facility. There she will receive her antibiotics, physical therapy to improve her strength especially in having some recent falls. She would also be able to be evaluated for the possibility of home oxygen therapy if needed. Once the cultures are available regarding the Mycobacterium infection the anti- infectives will be discontinued within the next few weeks. Current Visit: Yes Status: Acute Code(s): Z78.9 - OTHER SPECIFIED HEALTH STATUS SNOMED Code(s): 480450540 (2) Atypical mycobacterial infection of lung Current Visit: Yes Status: Acute Code(s): A31.0 - PULMONARY MYCOBACTERIAL INFECTION SNOMED Code(s): 4367389310074
[2019-04-06] MEDS: QUEtiapine 200 MG TAB PO SCH ×2 (15:20→21:08)
[2019-04-06 17:24] LABS: Glucose,Whole Blood 96 mg/dL (75-99)
[2019-04-06] MEDS: ATORVASTATIN 20 MG TAB PO SCH (21:07)
[2019-04-06] MEDS: MELOXICAM 7.5 MG TAB PO SCH (21:07)
[2019-04-06] MEDS: MONTELUKAST 10 MG TAB PO SCH (21:07)
[2019-04-07] MEDS: SODIUM CHLORIDE 0.9% 1,000 ML IV SCH ×3 (00:40→20:56)
[2019-04-07] MEDS: PIPERACILLIN-TAZOBACTAM 3.375 GM in SODIUM CHLORIDE 0.9% 100 ML IVPB SCH ×4 (03:37→22:17)
[2019-04-07] MEDS: LEVOTHYROXINE 50 MCG TAB PO SCH (05:07)
[2019-04-07 07:18] LABS: Basophils # (A) 0.1 k/uL (0-0.2); Basophils % (A) 1 %; Eosinophils # (A) 0.4 k/uL (0-0.7); Eosinophils % (A) 5 %; HCT 38.8 % (34.0-46.0); HGB 12.7 gm/dL (11.4-16.0); Lymphocytes # (A) 2.2 k/uL (1.0-4.8); Lymphocytes % (A) 23 %; MCHC 32.6 g/dL (31.0-37.0); Mean Platelet Volume 6.6; Monocytes # (A) 0.7 k/uL (0-1.0); Monocytes % (A) 7 %; Neutrophils # (A) 5.9 k/uL (1.3-7.7); Neutrophils % (A) 62 %; Platelet Count 286 k/uL (150-450); RBC 4.08 m/uL (3.80-5.40); RDW 14.2 % (11.5-15.5); WBC 9.5 k/uL (3.8-10.6)
[2019-04-07 07:23] LABS: Calcium 8.7 mg/dL (8.4-10.2); Potassium 4.3 mmol/L (3.5-5.1)
[2019-04-07] MEDS: ETHAMBUTOL 1200 MG PO SCH (08:56)
[2019-04-07] MEDS: IPRATROPIUM-ALBUTEROL 3 ML NEB INHALATION SCH ×4 (09:00→20:56)
[2019-04-07] MEDS: PHENYTOIN SODIUM EXTENDED 100 MG CAP PO SCH ×2 (09:04→20:52)
[2019-04-07] MEDS: AZELASTINE 137MCG/SPRAY NASAL SCH ×2 (09:04→20:51)
[2019-04-07] MEDS: DULoxetine HCL 60 MG CAPSULE.DR PO SCH (09:04)
[2019-04-07] MEDS: ENOXAPARIN 40 MG/0.4 ML SYRINGE SQ SCH (09:04)
[2019-04-07] MEDS: RIFAMPIN 300 MG CAP PO SCH (09:05)
[2019-04-07] MEDS: VIT A,C & E-LUTEIN-MINERALS 1 EACH TAB PO SCH (09:05)
[2019-04-07] MEDS: MULTIVITAMINS, THERA 1 EACH TAB PO SCH (09:05)
[2019-04-07] MEDS: MECLIZINE 25 MG TAB PO SCH ×3 (09:05→20:51)
[2019-04-07] MEDS: PANTOPRAZOLE 40 MG TABLET PO SCH (09:05)
[2019-04-07] MEDS: CYCLOBENZAPRINE 10 MG TAB PO SCH (09:05)
[2019-04-07] MEDS: TROSPIUM CHLORIDE 20 MG TABLET PO SCH ×2 (09:05→20:53)
[2019-04-07] MEDS: ALPRAZolam 1 MG TAB PO SCH ×3 (09:06→20:52)
[2019-04-07] MEDS: lamoTRIgine 100 MG TAB PO SCH ×2 (09:06→20:51)
--- NOTE | 2019-04-07 12:29 | P.PN ---
Subjective Progress Note Date: 04/07/19 Principal diagnosis: Acute left lower lobe pneumonia MAC pulmonary infection Acute hypoxic respiratory failure 64-year-old female patient who follows with Dr. Cordova as her primary care physician. He is a history of macular degeneration, hypertension, fibromyalgia, diabetes, CVA, previous pulmonary Mycobacterium avium complex infection. Previous pulmonary E. coli infections. She follows with Dr. Millan in our office for the same. She has had a history of nodular left lower lobe pulmonary consolidation application of bronchoscopy and biopsies were taken there were negative for malignancy. Her most recent bronchoscopy was 03/27/2019 which was positive for pseudomonas aeruginosa and E. coli. She is a colonizer. She has been on her [place] antibiotics including ethambutol, rifampin and Avelox for almost 2 years now. She follows with Dr. Carrera for the same. She is also been treated recently with Bactrim, Ceftin and Cipro without much improvement. She was in our office yesterday. She is quite frustrated crying and emotional due to her ongoing complex coronary issues. She was still having significant cough and congestion. Positive chills. 04/07/2019; Patient is seen and evaluated in room sitting up in bed; she is in no acute di stress; voices no specific complaints Vital signs are reviewed and stable at temperature of 98.1, pulse 84, respirations 16 and blood pressure 144/73 with SpO2 of 96% on 2 L Labs are stable with a white blood count of 3.5, hemoglobin 12.7 and platelet count of 286; sodium 144, potassium 4.3, BUN/creatinine has improved from 41/1.28 yesterday down to 25/1.14 today Patient has been seen by ID and IV antibiotics have been transitioned to IV Zosyn due to presence of Pseudomonas in previous cultures; patient had 2 years of active regimen for MAC; IDs recommending to follow-up on repeat cultures and discontinue anti-infective agents if cultures are negative Objective - Vital Signs Vital signs: Vital Signs Temp 98.1 F 04/07/19 08:23 Pulse 72 04/07/19 09:10 Resp 16 04/07/19 08:23 BP 144/73 04/07/19 08:23 Pulse Ox 98 04/07/19 09:00 Intake & Output 04/06/19 04/07/19 04/07/19 18:59 06:59 18:59 Intake Total 532 1076 Balance 532 1076 Intake: Oral 532 1076 Other: Voiding Method Toilet Toilet # Voids 2 2 - Exam HEENT: Anicteric conjunctiva are pink and moist nasal mucosa grossly intact without significant lesions, there is no thrush. Neck: The neck is supple without significant lymphadenopathy or thyromegaly. Lungs: Symmetrical air entry is noted she has is alert crackles few expiratory wheezes no bronchial sounds no dullness or egophony Heart: Regular rate and rhythm with an audible S1-S2, no S3 no S4. There is no significant murmur click or rub, PMI was nondisplaced. Abdomen: Positive bowel sounds soft and nontender without palpable masses or organomegaly. There was no guarding or rebound. Extremities: The upper extremities have excellent pulses they are symmetric, no significant petechiae or telangiectasia. No splinter hemorrhages were noted. The lower extremities are free from significant edema. The peripheral pulses were 2+ and symmetric. Neuro: Awake alert oriented to person place and time. There are no acute new gross focal sensory motor deficits. - Labs CBC & Chem 7: 04/07/19 06:17 04/07/19 06:17 Labs: Abnormal Lab Results - Last 24 Hours (Table) 04/06/19 04/07/19 Range/Units 11:50 06:17 Chloride 111 H (98-107) mmol/L BUN 25 H (7-17) mg/dL Creatinine 1.14 H (0.52-1.04) mg/dL POC Glucose (mg/dL) 67 L (75-99) mg/dL Microbiology - Last 24 Hours (Table) 04/05/19 17:36 Blood Culture - Preliminary Blood No Growth after 24 hours Assessment and Plan Assessment: 1. Acute left lower lobe pneumonia - Patient has a decent bronchoscopy done on 03/27/2019 growing Pseudomonas aeruginosa and E. coli - Continue antibiotic treatment with Levaquin 750 mg IV every 48 hours along with IV Zosyn - Pulmonary is following and we appreciate their input in patient management 2. Acute hypoxic respiratory failure secondary to 1; as above; patient remains on 2 L O2 per nasal cannula 3. Previous MAC pulmonary infection; patient has been on ethambutol, rifampin and Avelox 4. COPD; not in exacerbation 5. Hypothyroidism; levothyroxine 50 MCG daily 6. Seizure disorder; continue with Dilantin 200 mg twice a day and Lamictal 7. Hyperlipidemia; continue home statin therapy 8. DVT prophylaxis; subcu Lovenox CODE STATUS; full code Time with Patient: Greater than 30
--- NOTE | 2019-04-07 12:44 | PN ---
PROGRESS NOTE This is a 64-year-old female seen by our nurse practitioner in the clinic on Monday and sent to the hospital for admission. She apparently has a history of acute pneumonia, mostly involving the left lung. She apparently was also positive for both Pseudomonas aeruginosa and E coli on recent bronchoscopy on March 27. She apparently was not improving at home despite multiple antibiotics and for that reason, she was admitted to the hospital. Clinically, she looks rather well. She did see the Infectious Disease doctor who recommended a PICC line or midline with home antibiotics. She may even benefit from a long-term acute care facility where she could get her IV antibiotics. Interestingly, she does have a history of previous Pseudomonas pulmonary infection back in September 2018 and also apparently has a history of atypical mycobacterial infections. She has been on ethambutol, Rifampin and Avelox for almost 2 years now. In addition, she has a history of fibromyalgia, macular degeneration, anxiety/depression, COPD, hypothyroidism, chronic pain syndrome, brain abscess, and seizures. Again, she is sitting up in bed. She is looking quite good. She is not requiring any supplemental oxygen. She is not appear to have any respiratory distress. She is not coughing or wheezing. She does not have any audible wheezing. There is no use of accessory muscles or conversational dyspnea. PHYSICAL EXAMINATION: VITAL SIGNS: Current vital signs reviewed. Temperature 98.1, heart rate 70, respiratory rate 16, blood pressure 144/73, mean 96, 2 L saturation 98%, room air saturation 96%. GENERAL: She appears in no acute distress. HEENT examination is grossly unremarkable. Mucous membranes are moist. NECK: Neck is supple. Full range of motion. No adenopathy. Neck veins are flat. CARDIOVASCULAR examination reveals regular rhythm and rate. Heart rate 72. Heart sounds are distant. S1, S2 normal. No distinct murmur. LUNGS reveal relatively clear breath sounds. A normal respiratory effort. When she forcibly exhales, adventitious lung sounds become much more prominent. She coughs and she wheezes. There is diffuse coarse rhonchi on forced maneuver. Breath sounds equal bilaterally. ABDOMEN is soft. Bowel sounds are heard. EXTREMITIES are intact. No cyanosis, clubbing, or edema. SKIN: Without rash. NEUROLOGIC examination is brief but nonfocal. BLOOD WORK: Cultures blood are negative. White count 9.5, hemoglobin 12.7, hematocrit 38.8, platelet count 386,000. Sodium 144, potassium 4.3, chloride 111, CO2 is 26, anion gap 7, BUN and creatinine were 25 and 1.14. The rest of the comprehensive metabolic profile is normal. Currently her medications include her atypical mycobacterial antibiotics. She is also on updrafts. She is currently getting Levaquin and Zosyn as per Infectious Diseases. X-RAY: Chest x-ray shows a left lower lobe infiltrate and a small left-sided effusion. ASSESSMENT: 1. Left lower lobe pneumonia, likely secondary to both Pseudomonas aeruginosa and E coli with recent bronchoscopy on March 27. 2. History of acute hypoxemic respiratory failure. 3. Previous pulmonary Pseudomonas infection, September 2018. 4. History of mycobacterium avium complex pulmonary infection, currently on antibiotic therapy with Ethambutol, Rifampin and Avelox for almost 2 years. 5. Fibromyalgia. 6. Macular degeneration. 7. Anxiety/depression. 8. History of chronic obstructive pulmonary disease. 9. Hypothyroidism. 10.Chronic pain syndrome. 11.History of brain abscess. 12.History of seizures. PLAN: The patient is on appropriate medications. She has been seen by Dr. Carrera. She remains on Levaquin and Zosyn. Dr. Carrera talked to her about the possibility of the either PICC line or midline and home antibiotics. Alternatively, he mentioned to her that she might need to go to a long-term acute care where she can receive IV antibiotics. A lot will depend on insurance. From the pulmonary standpoint, she seems to be doing reasonably well. Even off oxygen, her saturations are excellent. We will continue to follow. No additional recommendations are made. Prognosis is guarded. MMODL / IJN: [id number] / PRANAV
[2019-04-07] MEDS: QUEtiapine 200 MG TAB PO SCH ×2 (16:16→20:51)
[2019-04-07] MEDS: LEVOFLOXACIN 750MG-D5W PMX 750 MG in DEXTROSE/WATER 1 150ML.BAG IVPB SCH (20:51)
[2019-04-07] MEDS: MONTELUKAST 10 MG TAB PO SCH (20:52)
[2019-04-07] MEDS: MELOXICAM 7.5 MG TAB PO SCH (20:52)
[2019-04-07] MEDS: ATORVASTATIN 20 MG TAB PO SCH (20:52)
[2019-04-08] MEDS: PIPERACILLIN-TAZOBACTAM 3.375 GM in SODIUM CHLORIDE 0.9% 100 ML IVPB SCH ×3 (04:13→20:34)
[2019-04-08] MEDS: LEVOTHYROXINE 50 MCG TAB PO SCH (05:06)
[2019-04-08] MEDS: ETHAMBUTOL 1200 MG PO SCH (07:42)
[2019-04-08] MEDS: DULoxetine HCL 60 MG CAPSULE.DR PO SCH (07:47)
[2019-04-08] MEDS: PANTOPRAZOLE 40 MG TABLET PO SCH (07:47)
[2019-04-08] MEDS: lamoTRIgine 100 MG TAB PO SCH ×2 (07:47→20:35)
[2019-04-08] MEDS: ALPRAZolam 1 MG TAB PO SCH ×3 (07:47→21:26)
[2019-04-08] MEDS: AZELASTINE 137MCG/SPRAY NASAL SCH ×2 (07:47→20:35)
[2019-04-08] MEDS: MECLIZINE 25 MG TAB PO SCH ×3 (07:47→21:26)
[2019-04-08] MEDS: MULTIVITAMINS, THERA 1 EACH TAB PO SCH (07:47)
[2019-04-08] MEDS: CYCLOBENZAPRINE 10 MG TAB PO SCH (07:47)
[2019-04-08] MEDS: ENOXAPARIN 40 MG/0.4 ML SYRINGE SQ SCH (07:48)
[2019-04-08] MEDS: RIFAMPIN 300 MG CAP PO SCH (07:49)
[2019-04-08] MEDS: PHENYTOIN SODIUM EXTENDED 100 MG CAP PO SCH ×2 (07:49→20:36)
[2019-04-08] MEDS: TROSPIUM CHLORIDE 20 MG TABLET PO SCH ×2 (07:50→20:38)
[2019-04-08] MEDS: VIT A,C & E-LUTEIN-MINERALS 1 EACH TAB PO SCH (07:50)
[2019-04-08 07:52] LABS: Basophils # (A) 0.1 k/uL (0-0.2); Basophils % (A) 1 %; Eosinophils # (A) 0.5 k/uL (0-0.7); Eosinophils % (A) 5 %; HCT 38.3 % (34.0-46.0); HGB 12.5 gm/dL (11.4-16.0); Lymphocytes # (A) 2.2 k/uL (1.0-4.8); Lymphocytes % (A) 23 %; MCH 30.8 pg (25.0-35.0); MCHC 32.7 g/dL (31.0-37.0); MCV 94.2 fL (80.0-100.0); Mean Platelet Volume 6.8; Monocytes # (A) 0.8 k/uL (0-1.0); Monocytes % (A) 8 %; Neutrophils # (A) 5.9 k/uL (1.3-7.7); Neutrophils % (A) 61 %; Platelet Count 266 k/uL (150-450); RBC 4.07 m/uL (3.80-5.40); RDW 15.7 % (11.5-15.5); WBC 9.6 k/uL (3.8-10.6)
[2019-04-08] MEDS: SODIUM CHLORIDE 0.9% 1,000 ML IV SCH ×2 (07:55→15:08)
[2019-04-08 08:02] LABS: Calcium 8.8 mg/dL (8.4-10.2)
[2019-04-08] MEDS: IPRATROPIUM-ALBUTEROL 3 ML NEB INHALATION SCH ×4 (08:38→19:37)
[2019-04-08] MEDS: QUEtiapine 200 MG TAB PO SCH ×2 (15:08→21:26)
--- NOTE | 2019-04-08 15:35 | P.PN ---
Subjective Progress Note Date: 04/08/19 Principal diagnosis: 64-year-old female patient who follows with Dr. Cordova as her primary care physician. He is a history of macular degeneration, hypertension, fibromyalgia, diabetes, CVA, previous pulmonary Mycobacterium avium complex infection. Previous pulmonary E. coli infections. She follows with Dr. Millan in our office for the same. She has had a history of nodular left lower lobe pulmonary consolidation application of bronchoscopy and biopsies were taken there were negative for malignancy. Her most recent bronchoscopy was 03/27/2019 which was positive for pseudomonas aeruginosa and E. coli. She is a colonizer. She has been on her Mavik antibiotics including ethambutol, rifampin and Avelox for almost 2 years now. She follows with Dr. Carrera for the same. She is also been treated recently with Bactrim, Ceftin and Cipro without much improvement. She w as in our office yesterday. She is quite frustrated crying and emotional due to her ongoing complex coronary issues. She was still having significant cough and congestion. Positive chills. 04/07/2019; Patient is seen and evaluated in room sitting up in bed; she is in no acute distress; voices no specific complaints Vital signs are reviewed and stable at temperature of 98.1, pulse 84, respirations 16 and blood pressure 144/73 with SpO2 of 96% on 2 L Labs are stable with a white blood count of 3.5, hemoglobin 12.7 and platelet count of 286; sodium 144, potassium 4.3, BUN/creatinine has improved from 41/1.28 yesterday down to 25/1.14 today Patient has been seen by ID and IV antibiotics have been transitioned to IV Zosyn due to presence of Pseudomonas in previous cultures; patient had 2 years of active regimen for MAC; IDs recommending to follow-up on repeat cultures and discontinue anti-infective agents if cultures are negative 04/08/2019 Patient is sitting up in bed in no acute distress. Infectious disease is following. Patient is currently on IV antibiotics in the form of Zosyn and Levaquin and will continue. Thus far sputum and blood cultures have been negative. Creatinine is trending down and is currently 1.09 today. Patient denies any chest pain, shortness of breath, or palpitations at this time. Patient does have a cough and states that she is producing a moderate amount of greenish phlegm. Patient denies any nausea or vomiting and has been tolerating diet. Patient is afebrile. When speaking to the patient today about possible discharge plans patient states that she would like to go to [facility] upon discharge if she will be receiving IV antibiotic therapy. Awaiting infectious disease recommendations. Will continue to monitor closely. Pulmonary is following as well. Her to prognosis. Objective - Vital Signs Vital signs: Vital Signs Temp 98.3 F 04/08/19 06:45 Pulse 78 04/08/19 13:05 Resp 17 04/08/19 06:45 BP 133/69 04/08/19 06:45 Pulse Ox 99 04/08/19 06:45 Intake & Output 04/07/19 04/08/19 04/08/19 18:59 06:59 18:59 Intake Total 296 1256 Balance 296 1256 Intake: Oral 296 1256 Other: Voiding Method Toilet Toilet # Voids 3 1 1 - Exam Gen: This is a 64-year-old female sitting up in bed in no acute distress. Vital signs are stable. Temp is 98F, pulse is 100, respirations are 16, blood pressure is 143/75, sex is 96% on room air. HEENT: Head is atraumatic, normocephalic. Pupils equal, round. Sclerae is anicteric. NECK: Supple. No JVD. No lymphadenopathy. No thyromegaly. LUNGS: Diminished breath sounds at the bases with a few crackles noted. Expiratory wheezing also noted on exam. No intercostal retractions. HEART: S1 and S2 are muffled. Regular rate and rhythm. No murmur. ABDOMEN: Soft. Bowel sounds are present. No masses. No tenderness. EXTREMITIES: No pedal edema. No calf tenderness. NEUROLOGICAL: Patient is awake, alert and oriented x3. Cranial nerves 2 through 12 are grossly intact. - Labs CBC & Chem 7: 04/08/19 07:17 04/08/19 07:17 Labs: Abnormal Lab Results - Last 24 Hours (Table) 04/08/19 04/08/19 Range/Units 07:17 07:17 RDW 15.7 H (11.5-15.5) % Chloride 113 H (98-107) mmol/L BUN 28 H (7-17) mg/dL Creatinine 1.09 H (0.52-1.04) mg/dL Microbiology - Last 24 Hours (Table) 04/07/19 Unknown Gram Stain - Preliminary Sputum 04/05/19 17:36 Blood Culture - Preliminary Blood No Growth after 48 hours Assessment and Plan Assessment: 1. Acute left lower lobe pneumonia - Patient has a recent bronchoscopy done on 03/27/2019 growing Pseudomonas aeruginosa and E. coli - Continue antibiotic treatment with Levaquin 750 mg IV every 48 hours along with IV Zosyn - Pulmonary is following and we appreciate their input in patient management 2. Acute hypoxic respiratory failure secondary to 1; as above; patient remains on 2 L O2 per nasal cannula 3. Previous MAC pulmonary infection; patient has been on ethambutol, rifampin and Avelox 4. COPD; not in exacerbation 5. Hypothyroidism; levothyroxine 50 MCG daily 6. Seizure disorder; continue with Dilantin 200 mg twice a day and Lamictal 7. Hyperlipidemia; continue home statin therapy 8. DVT prophylaxis; subq Lovenox CODE STATUS; full code Recommendations and discussion: Recommend continue current medications, management, and symptomatically treatmen t. Will continue to monitor closely. Infectious disease is following as well as pulmonary. Case management and social work are following as patient may need rehab for continued IV antibiotic therapy. Patient is currently on IV Zosyn as well as Levaquin. Patient is looking into [facility] and an authorization with her insurance may be needed. Guarded prognosis. Further rec ommendations to follow. Possible discharge in 24-48 hours.
--- NOTE | 2019-04-08 15:41 | P.PN ---
Subjective Progress Note Date: 04/08/19 Principal diagnosis: Shortness of breath, cough and congestion failed outpatient treatment This is a very pleasant 64-year-old female patient who follows with Dr. Cordova as her primary care physician. He is a history of macular degeneration, hypertension, fibromyalgia, diabetes, CVA, previous pulmonary Mycobacterium avium complex infection. Previous pulmonary E. coli infections. She follows with Dr. Millan in our office for the same. She has had a history of nodular left lower lobe pulmonary consolidation application of bronchoscopy and biopsies were taken there were negative for malignancy. Her most recent bronchoscopy was 03/27/2019 which was positive for pseudomonas aeruginosa and E. coli. She is a colonizer. She has been on her Mavik antibiotics including ethambutol, rifampin and Avelox for almost 2 years now. She follows with Dr. Carrera for the same. She is also been treated recently with Bactrim, Ceftin and Cipro without much improvement. She was in our office yesterday. She is quite frustrated crying and emotional due to her ongoing complex coronary issues. She was still having significant cough and congestion. Positive chills. She was referred for here for IV antibiotics and ID consult. He is seen today in consultation on the regular medical floor. She is doing a bit better. Awake and alert in no acute distress. She is maintaining O2 saturations in the high 90s on 2 L/m per nasal cannula. She's been afebrile. Hemodynamically stable. She has been initiated on Zosyn and Levaquin. Chest x-ray reveals continued left lower lobe infiltrate and small left-sided effusion. White count 15.0. Hemoglobin 14.4. Creatinine 1.28. On 04/08/2019 patient seen in follow-up on medical surgical floor. She is awake and alert, no acute distress, pulse ox is 96%, she is afebrile, respirations are nonlabored, patient still has a congested cough, some expiratory wheezes. Blood culture was negative, sputum culture is pending, preliminary Gram stain showed no organisms. No fever or chills, no hemoptysis, no chest pain, today's labs gutierrez ve been reviewed, no leukocytosis, hemoglobin is 12.5, renal profile is improving, patient continues on antibiotics in the form of Zosyn, Levaquin and rifampin Objective - Vital Signs Vital signs: Vital Signs Temp 98 F 04/08/19 15:00 Pulse 100 04/08/19 15:00 Resp 16 04/08/19 15:00 BP 143/75 04/08/19 15:00 Pulse Ox 96 04/08/19 15:00 Intake & Output 04/07/19 04/08/19 04/08/19 18:59 06:59 18:59 Intake Total 296 1256 296 Balance 296 1256 296 Intake: Oral 296 1256 296 Other: Voiding Method Toilet Toilet # Voids 3 1 1 - Exam GENERAL EXAM: Alert, pleasant, 64-year-old white female on room air with pulse ox of 96% comfortable in no apparent distress. HEAD: Normocephalic/atraumatic. EYES: Normal reaction of pupils, equal size. Conjunctiva pink, sclera white. NOSE: Clear with pink turbinates. THROAT: No erythema or exudates. NECK: No masses, no JVD, no thyroid enlargement, no adenopathy. CHEST: No chest wall deformity. Symmetrical expansion. LUNGS: Equal air entry with expiratory wheezing, congested cough CVS: Regular rate and rhythm, normal S1 and S2, no gallops, no murmurs, no rubs ABDOMEN: Soft, nontender. No hepatosplenomegaly, normal bowel sounds, no guarding or rigidity. EXTREMITIES: No clubbing, no edema, no cyanosis, 2+ pulses and upper and lower extremities. MUSCULOSKELETAL: Muscle strength and tone normal. SPINE: No scoliosis or deformity SKIN: No rashes CENTRAL NERVOUS SYSTEM: Alert and oriented -3. No focal deficits, tone is normal in all 4 extremities. PSYCHIATRIC: Alert and oriented -3. Appropriate affect. Intact judgment and insight. - Labs CBC & Chem 7: 04/08/19 07:17 04/08/19 07:17 Labs: Abnormal Lab Results - Last 24 Hours (Table) 04/08/19 04/08/19 Range/Units 07:17 07:17 RDW 15.7 H (11.5-15.5) % Chloride 113 H (98-107) mmol/L BUN 28 H (7-17) mg/dL Creatinine 1.09 H (0.52-1.04) mg/dL Microbiology - Last 24 Hours (Table) 04/07/19 Unknown Gram Stain - Preliminary Sputum 04/05/19 17:36 Blood Culture - Preliminary Blood No Growth after 48 hours Assessment and Plan Plan: Assessment: #1 Acute pneumonia more so on the left lower lobe positive for pseudomonas aeruginosa and E. coli on recent bronchoscopy 03/27/2019. #2 Acute hypoxic respiratory failure secondary to above. Currently on 2 L/m per nasal cannula. #3 Previous Pseudomonas pulmonary infections in September 2018. 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 Has been on ethambutol, rifampin and Avelox for almost 2 years now. #5 Fibromyalgia. #6 Macular degeneration. #7 Anxiety/depression. #8 History of chronic obstructive pulmonary disease. #9 Hypothyroidism. #10 Chronic pain syndrome. #11 History of brain abscess. #12 History of seizures. Plan: Continue current antibiotic coverage, Zosyn, Levaquin and rifampin, and ethambutol awaiting final cultures of the sputum. Patient is afebrile, continue with nebulized bronchodilators, no fever no chills, patient is feeling somewhat better, but still remains congested and bronchospastic, we'll continue to follow. I performed a history & physical examination of the patient and discussed their management with my nurse practitioner, Winnie Buitrago. I reviewed the nurse practitioner's note and agree with the documented findings and plan of care. Lung sounds are positive for expiratory wheezes throughout the lung lamb. The findings and the impression was discussed with the patient. I attest to the documentation by the nurse practitioner. Time with Patient: Less than 30
[2019-04-08] MEDS: ATORVASTATIN 20 MG TAB PO SCH (20:34)
[2019-04-08] MEDS: MELOXICAM 7.5 MG TAB PO SCH (20:35)
[2019-04-08] MEDS: MONTELUKAST 10 MG TAB PO SCH (20:36)
--- NOTE | 2019-04-08 23:56 | P.PN ---
Subjective Progress Note Date: 04/08/19 64-year-old woman presents to Hospital with increasing shortness of breath cough weakness malaise and feeling overwhelmed. She has many underlying medical illnesses and has chronic urinary infection with mycobacterial infection. On March 27 she underwent bronchoscopy as a follow-up from her prior mycobacterial infection. Goal was to determine End of therapy if she continued to have negative cultures for Mycobacterium. She however started to have increasing amounts of cough shortness of breath sputum production fever and malaise and consequently she was seen by her automotive sales manager. Bronchoscopy was performed and this cultures are now come back, she was placed on oral antibiotics but failed and became more short of breath more anxious and felt very ill in counseling has been admitted. No intravenous antibiotic therapy has been instituted and she is feeling slightly better. With oxygen, respiratory treatments and antibiotics she is most less anxious. She at this time is denying high-grade fever or chills although felt like she was having some fever at home. Her appetite has been somewhat poor but she's been able to eat without nausea or emesis and denies other new acute symptoms. She over with her illnesses been feeling weak and relates that she's had a fall, however her dog knocked her over. 04/08/2019 the patient is to feel somewhat better. She does relate that she's had a good response to current antibiotic therapy. She was not responding to outpatient antibiotic therapy. She is having no difficulties such as nausea or emesis. Fever has improved. Shortness of breath is improved. Mood is improving. Objective - Vital Signs Vital signs: Vital Signs Temp 99.3 F 04/08/19 18:52 Pulse 80 04/08/19 19:49 Resp 18 04/08/19 18:52 BP 135/76 04/08/19 18:52 Pulse Ox 96 04/08/19 18:52 Intake & Output 04/08/19 04/08/19 04/09/19 06:59 18:59 06:59 Intake Total 1256 592 Balance 1256 592 Intake: Oral 1256 592 Other: Voiding Method Toilet Toilet # Voids 1 1 1 # Bowel Movements 1 - Exam HEENT: Anicteric conjunctiva are pink and moist nasal mucosa grossly intact without significant lesions, there is no thrush. Neck: The neck is supple without significant lymphadenopathy or thyromegaly. Lungs: Symmetrical air entry is noted improved crackles few expiratory wheezes no bronchial sounds no dullness or egophony, improved air exchange Heart: Regular rate and rhythm with an audible S1-S2, no S3 no S4. There is no significant murmur click or rub, PMI was nondisplaced. Abdomen: Positive bowel sounds soft and nontender without palpable masses or organomegaly. There was no guarding or rebound. Extremities: The upper extremities have excellent pulses they are symmetric, no significant petechiae or telangiectasia. No splinter hemorrhages were noted. The lower extremities are free from significant edema. The peripheral pulses were 2+ and symmetric. Neuro: Awake alert oriented to person place and time. There are no acute new gross focal sensory motor deficits. - Labs CBC & Chem 7: 04/08/19 07:17 04/08/19 07:17 Labs: Abnormal Lab Results - Last 24 Hours (Table) 04/08/19 04/08/19 Range/Units 07:17 07:17 RDW 15.7 H (11.5-15.5) % Chloride 113 H (98-107) mmol/L BUN 28 H (7-17) mg/dL Creatinine 1.09 H (0.52-1.04) mg/dL Microbiology - Last 24 Hours (Table) 04/05/19 17:36 Blood Culture - Preliminary Blood No Growth after 72 hours 04/07/19 Unknown Gram Stain - Preliminary Sputum Laboratory Results WBC 9.6 k/uL (3.8-10.6) 04/08/19 07:17 RBC 4.07 m/uL (3.80-5.40) 04/08/19 07:17 Hgb 12.5 gm/dL (11.4-16.0) 04/08/19 07:17 Hct 38.3 % (34.0-46.0) 04/08/19 07:17 MCV 94.2 fL (80.0-100.0) 04/08/19 07:17 MCH 30.8 pg (25.0-35.0) 04/08/19 07:17 MCHC 32.7 g/dL (31.0-37.0) 04/08/19 07:17 RDW 15.7 % (11.5-15.5) H 04/08/19 07:17 Plt Count 266 k/uL (150-450) 04/08/19 07:17 Neutrophils % 61 % 04/08/19 07:17 Lymphocytes % 23 % 04/08/19 07:17 Monocytes % 8 % 04/08/19 07:17 Eosinophils % 5 % 04/08/19 07:17 Basophils % 1 % 04/08/19 07:17 Neutrophils # 5.9 k/uL (1.3-7.7) 04/08/19 07:17 Lymphocytes # 2.2 k/uL (1.0-4.8) 04/08/19 07:17 Monocytes # 0.8 k/uL (0-1.0) 04/08/19 07:17 Eosinophils # 0.5 k/uL (0-0.7) 04/08/19 07:17 Basophils # 0.1 k/uL (0-0.2) 04/08/19 07:17 PT 10.1 sec (9.0-12.0) 04/05/19 17:36 INR 0.9 (<1.2) 04/05/19 17:36 APTT 24.5 sec (22.0-30.0) 04/05/19 17:36 D-Dimer <0.17 mg/L FEU (<0.60) 04/05/19 17:36 Sodium 144 mmol/L (137-145) 04/08/19 07:17 Potassium 4.0 mmol/L (3.5-5.1) 04/08/19 07:17 Chloride 113 mmol/L (98-107) H 04/08/19 07:17 Carbon Dioxide 26 mmol/L (22-30) 04/08/19 07:17 Anion Gap 5 mmol/L 04/08/19 07:17 BUN 28 mg/dL (7-17) H 04/08/19 07:17 Creatinine 1.09 mg/dL (0.52-1.04) H 04/08/19 07:17 Est GFR (CKD-EPI)AfAm 63 (>60 ml/min/1.73 sqM) 04/08/19 07:17 Est GFR (CKD-EPI)NonAf 55 (>60 ml/min/1.73 sqM) 04/08/19 07:17 Glucose 83 mg/dL (74-99) 04/08/19 07:17 POC Glucose (mg/dL) 96 mg/dL (75-99) 04/06/19 17:23 POC Glu [employer] Supervisor ID Francoise Shelton 04/06/19 17:23 Plasma Lactic Acid Kirit 1.4 mmol/L (0.7-2.0) 04/05/19 17:36 Calcium 8.8 mg/dL (8.4-10.2) 04/08/19 07:17 Magnesium 2.1 mg/dL (1.6-2.3) 04/05/19 17:36 Total Bilirubin 0.4 mg/dL (0.2-1.3) 04/05/19 17:36 AST 34 U/L (14-36) 04/05/19 17:36 ALT 15 U/L (9-52) 04/05/19 17:36 Alkaline Phosphatase 124 U/L (38-126) 04/05/19 17:36 Creatine Kinase 54 U/L (30-135) 04/05/19 17:36 Troponin I <0.012 ng/mL (0.000-0.034) 04/05/19 17:36 NT-Pro-B Natriuret Pep 62 pg/mL 04/05/19 17:36 Total Protein 7.6 g/dL (6.3-8.2) 04/05/19 17:36 Albumin Microbiology 04/05/19 17:36 Blood Blood Culture - Preliminary No Growth after 72 hours 04/07/19 Unknown Sputum Gram Stain - Preliminary 4.2 g/dL (3.5-5.0) 04/05/19 17:36 Microbiology 04/05/19 17:36 Blood Blood Culture - Preliminary No Growth after 72 hours 04/07/19 Unknown Sputum Gram Stain - Preliminary Assessment and Plan (1) Failure of outpatient treatment Narrative/Plan: 64-year-old female who is without the outpatient clinic some time regarding her significant underlying lung disease. 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 She has now been treated for nearly 2 years with an active regiment for her MAC. The cultures from 6 months prior from the bronchoscopy were negative. The current bronchoscopy culture also was negative at this point in time for acid-fast bacilli and the culture is in process. The recent bronchoscopy however did reveal evidence of pseudomonas aeruginosa as well as a Escherichia coli from the bronchoscopy specimens. Antimicrobial therapy at this point in time will be added with piperacillin tazobactam for which the to pathogens have been noted to be susceptible. The patient did fail outpatient therapy and likely will require outpatient intravenous antibiotic therapy. Zosyn is utilized it would be possible to do this in the home because she may require her completion of therapy at the rehab facility. There she will receive her antibiotics, physical therapy to improve her strength especially in having some recent falls. She would also be able to be evaluated for the possibility of home oxygen therapy if needed. Once the cultures are available regarding the Mycobacterium infection the anti- infectives will be discontinued within the next few weeks. 04/08/2019 patient is now improving with treatment of her Pseudomonas pneumonia with Zosyn. IV access is being requested with a PICC line and she'll be going to rehab to receive at least 2 weeks of intravenous antibiotic therapy with Zosyn with respiratory treatments and physical therapy to improve her strength. Current Visit: Yes Status: Acute Code(s): Z78.9 - OTHER SPECIFIED HEALTH STATUS SNOMED Code(s): 293963214 (2) Atypical mycobacterial infection of lung Current Visit: Yes Status: Acute Code(s): A31.0 - PULMONARY MYCOBACTERIAL INFECTION SNOMED Code(s): 7163172210916
[2019-04-09] MEDS: PIPERACILLIN-TAZOBACTAM 3.375 GM in SODIUM CHLORIDE 0.9% 100 ML IVPB SCH ×3 (04:41→21:39)
[2019-04-09] MEDS: SODIUM CHLORIDE 0.9% 1,000 ML IV SCH ×3 (04:45→21:36)
[2019-04-09] MEDS: LEVOTHYROXINE 50 MCG TAB PO SCH (05:22)
[2019-04-09 07:28] LABS: Basophils % (A) 1 %; Eosinophils # (A) 0.4 k/uL (0-0.7); Eosinophils % (A) 4 %; HCT 37.9 % (34.0-46.0); HGB 12.1 gm/dL (11.4-16.0); Lymphocytes % (A) 21 %; MCH 29.6 pg (25.0-35.0); MCHC 31.9 g/dL (31.0-37.0); MCV 92.7 fL (80.0-100.0); Mean Platelet Volume 6.4; Monocytes # (A) 0.8 k/uL (0-1.0); Monocytes % (A) 8 %; Neutrophils % (A) 64 %; Platelet Count 261 k/uL (150-450); RBC 4.08 m/uL (3.80-5.40); RDW 14.2 % (11.5-15.5); WBC 9.5 k/uL (3.8-10.6)
[2019-04-09 07:43] LABS: Prothrombin Time 10.5 sec (9.0-12.0)
[2019-04-09 07:47] LABS: Potassium 3.8 mmol/L (3.5-5.1)
[2019-04-09] MEDS: CYCLOBENZAPRINE 10 MG TAB PO SCH (07:50)
[2019-04-09] MEDS: lamoTRIgine 100 MG TAB PO SCH ×2 (07:50→20:08)
[2019-04-09] MEDS: PANTOPRAZOLE 40 MG TABLET PO SCH (07:50)
[2019-04-09] MEDS: MECLIZINE 25 MG TAB PO SCH ×3 (07:50→20:08)
[2019-04-09] MEDS: MULTIVITAMINS, THERA 1 EACH TAB PO SCH (07:50)
[2019-04-09] MEDS: DULoxetine HCL 60 MG CAPSULE.DR PO SCH (07:50)
[2019-04-09] MEDS: ALPRAZolam 1 MG TAB PO SCH ×3 (07:51→20:14)
[2019-04-09] MEDS: TROSPIUM CHLORIDE 20 MG TABLET PO SCH ×2 (07:51→20:08)
[2019-04-09] MEDS: ENOXAPARIN 40 MG/0.4 ML SYRINGE SQ SCH ×2 (07:51→20:46)
[2019-04-09] MEDS: AZELASTINE 137MCG/SPRAY NASAL SCH ×2 (07:51→20:07)
[2019-04-09] MEDS: RIFAMPIN 300 MG CAP PO SCH (07:52)
[2019-04-09] MEDS: VIT A,C & E-LUTEIN-MINERALS 1 EACH TAB PO SCH (07:53)
[2019-04-09] MEDS: PHENYTOIN SODIUM EXTENDED 100 MG CAP PO SCH ×2 (07:53→20:08)
[2019-04-09] MEDS: ETHAMBUTOL 1200 MG PO SCH (07:54)
[2019-04-09] MEDS: IPRATROPIUM-ALBUTEROL 3 ML NEB INHALATION SCH ×4 (08:51→20:24)
--- NOTE | 2019-04-09 12:59 | P.PN ---
Subjective Progress Note Date: 04/09/19 Principal diagnosis: Acute pneumonia secondary to Pseudomonas. This is a very pleasant 64-year-old female patient who follows with Dr. Cordova as her primary care physician. He is a history of macular degeneration, hypertension, fibromyalgia, diabetes, CVA, previous pulmonary Mycobacterium avium complex infection. Previous pulmonary E. coli infections. She follows with Dr. Millan in our office for the same. She has had a history of nodular left lower lobe pulmonary consolidation application of bronchoscopy and biopsies were taken there were negative for malignancy. Her most recent bronchoscopy was 03/27/2019 which was positive for pseudomonas aeruginosa and E. coli. She is a colonizer. She has been on her Mavik antibiotics including ethambutol, rifampin and Avelox for almost 2 years now. She follows with Dr. Carrera for the same. She is also been treated recently with Bactrim, Ceftin and Cipro without much improvement. She was in our office yesterday. She is quite frustrated crying and emotional due to her ongoing complex coronary issues. She was still having significant cough and congestion. Positive chills. She was referred for here for IV antibiotics and ID consult. He is seen today in consultation on the regular medical floor. She is doing a bit better. Awake and alert in no acute distress. She is maintaining O2 saturations in the high 90s on 2 L/m per nasal cannula. She's been afebrile. Hemodynamically stable. She has been initiated on Zosyn and Levaquin. Chest x-ray reveals continued left lower lobe infiltrate and small left-sided effusion. White count 15.0. Hemoglobin 14.4. Creatinine 1.28. The patient is seen today 04/09/2019 in follow-up on the regular medical floor. She is currently resting comfortably in bed. She is awake and alert in no acute distress. She is breathing a bit easier today as compared to yesterday. Still with a loose congested cough. No fever, chills or night sweats. she is maintaining good O2 saturations in the 90s on room air. She's been afebrile. Sputum cultures positive for pseudomonas species. Final culture pending. Blood culture reveals no growth. White count 9.5. Hemoglobin 12.1. Creatinine 1.17. She remains on bronchodilators. Antibiotics in the form of Zosyn and Levaquin. ID is on the case. Objective - Vital Signs Vital signs: Vital Signs Temp 98.6 F 04/09/19 07:13 Pulse 79 04/09/19 12:19 Resp 18 04/09/19 07:13 BP 151/79 04/09/19 07:13 Pulse Ox 97 04/09/19 07:13 Intake & Output 04/08/19 04/09/19 04/09/19 18:59 06:59 18:59 Intake Total 592 680 Balance 592 680 Intake: Intake, IV Titration 200 Amount Piperacillin-Tazobactam 3 100 .375 gm In Sodium Chloride 0.9% 100 ml @ 25 mls/hr IVPB Q8H [facility] Rx#: [id number] Sodium Chloride 0.9% 1, 100 000 ml @ 100 mls/hr IV . Q10H [facility] Rx#:[id number] Oral 592 480 Other: Voiding Method Toilet Toilet # Voids 1 1 1 # Bowel Movements 1 - Exam GENERAL EXAM: Alert, pleasant 64-year-old female patient, active, comfortable in no apparent distress. On room air. HEAD: Normocephalic. EYES: Normal reaction of pupils, equal size. NOSE: Clear with pink turbinates. THROAT: No erythema or exudates. NECK: No masses, no JVD. CHEST: No chest wall deformity. LUNGS: Equal air entry with bilateral scattered rhonchi, crackles in the left posterior base. CVS: S1 and S2 normal with no audible murmur, regular rhythm. ABDOMEN: No hepatosplenomegaly, normal bowel sounds, no guarding or rigidity. SPINE: No scoliosis or deformity SKIN: No rashes CENTRAL NERVOUS SYSTEM: No focal deficits, tone is normal in all 4 extremities. EXTREMITIES: There is no peripheral edema. No clubbing, no cyanosis. Pe ripheral pulses are intact. - Labs CBC & Chem 7: 04/09/19 06:43 04/09/19 06:43 Labs: Abnormal Lab Results - Last 24 Hours (Table) 04/09/19 Range/Units 06:43 Chloride 112 H (98-107) mmol/L BUN 24 H (7-17) mg/dL Creatinine 1.17 H (0.52-1.04) mg/dL Microbiology - Last 24 Hours (Table) 09/22/19 Unknown Gram Stain - Preliminary Sputum Sputum Culture - Preliminary Pseudomonas spec 04/05/19 17:36 Blood Culture - Preliminary Blood No Growth after 72 hours Assessment and Plan Assessment: Impression: #1 Acute pneumonia more so on the left lower lobe positive for pseudomonas aeruginosa and E. coli on recent bronchoscopy 03/27/2019. sputum culture this admission is revealing Pseudomonas species. She is currently on IV Zosyn and Levaquin. #2 Acute hypoxic respiratory failure secondary to above. Currently on 2 L/m per nasal cannula. #3 Previous Pseudomonas pulmonary infections in September 2018. 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 Has been on ethambutol, rifampin and Avelox for almost 2 years now. #5 Fibromyalgia. #6 Macular degeneration. #7 Anxiety/depression. #8 History of chronic obstructive pulmonary disease. #9 Hypothyroidism. #10 Chronic pain syndrome. #11 History of brain abscess. #12 History of seizures. Plan: The patient was seen and evaluated by Dr. Rutherford. Cultures reviewed. ID is on the case. The plan is for 2 weeks of IV Zosyn. Plan is for PICC line placement today. Continue her MAC treatment for now. Possible subacute rehabilitation for IV antibiotics and physical therapy. I, the cosigning physician, performed a history & physical examination of the patient. Lungs sounds crackles in left base. Maintaining good O2 saturations in the 90s on room air. I discussed the assessment and plan of care with my nurse practitioner, Arlene Varela. I attest to the above note as dictated by her.
[2019-04-09] MEDS: QUEtiapine 200 MG TAB PO SCH ×2 (15:15→20:07)
--- NOTE | 2019-04-09 16:36 | P.PN ---
Subjective Progress Note Date: 04/09/19 Principal diagnosis: 64-year-old female patient who follows with Dr. Cordova as her primary care physician. He is a history of macular degeneration, hypertension, fibromyalgia, diabetes, CVA, previous pulmonary Mycobacterium avium complex infection. Previous pulmonary E. coli infections. She follows with Dr. Millan in our office for the same. She has had a history of nodular left lower lobe pulmonary consolidation application of bronchoscopy and biopsies were taken there were negative for malignancy. Her most recent bronchoscopy was 03/27/2019 which was positive for pseudomonas aeruginosa and E. coli. She is a colonizer. She has been on her Mavik antibiotics including ethambutol, rifampin and Avelox for almost 2 years now. She follows with Dr. Carrera for the same. She is also been treated recently with Bactrim, Ceftin and Cipro without much improvement. She w as in our office yesterday. She is quite frustrated crying and emotional due to her ongoing complex coronary issues. She was still having significant cough and congestion. Positive chills. 04/07/2019; Patient is seen and evaluated in room sitting up in bed; she is in no acute distress; voices no specific complaints Vital signs are reviewed and stable at temperature of 98.1, pulse 84, respirations 16 and blood pressure 144/73 with SpO2 of 96% on 2 L Labs are stable with a white blood count of 3.5, hemoglobin 12.7 and platelet count of 286; sodium 144, potassium 4.3, BUN/creatinine has improved from 41/1.28 yesterday down to 25/1.14 today Patient has been seen by ID and IV antibiotics have been transitioned to IV Zosyn due to presence of Pseudomonas in previous cultures; patient had 2 years of active regimen for MAC; IDs recommending to follow-up on repeat cultures and discontinue anti-infective agents if cultures are negative 04/08/2019 Patient is sitting up in bed in no acute distress. Infectious disease is following. Patient is currently on IV antibiotics in the form of Zosyn and Levaquin and will continue. Thus far sputum and blood cultures have been negative. Creatinine is trending down and is currently 1.09 today. Patient denies any chest pain, shortness of breath, or palpitations at this time. Patient does have a cough and states that she is producing a moderate amount of greenish phlegm. Patient denies any nausea or vomiting and has been tolerating diet. Patient is afebrile. When speaking to the patient today about possible discharge plans patient states that she would like to go to [facility] upon discharge if she will be receiving IV antibiotic therapy. Awaiting infectious disease recommendations. Will continue to monitor closely. Pulmonary is following as well. Her to prognosis. 04/09/2019 Patient is sitting up in no acute distress and being closely monitored. Patient is awaiting to have a PICC line placed today for continued IV antibiotic therapy per infectious disease recommendations. Sputum cultures show Pseudomonas and awaiting finalization. Blood cultures of been negative thus far. Awaiting authorization for [facility] for continued rehab with PT/OT as well as IV therapy. Case management and social work are following closely. Patient denies any shortness of breath, chest pain, or palpitations at this time. Patient still continues to have a cough with phlegm production. Patient denies any nausea or vomiting and is tolerating diet. Patient is afebrile. Will continue to monitor closely. Objective - Vital Signs Vital signs: Vital Signs Temp 98.4 F 04/09/19 13:12 Pulse 80 04/09/19 16:28 Resp 18 04/09/19 13:12 BP 142/79 04/09/19 13:12 Pulse Ox 97 04/09/19 13:12 Intake & Output 04/08/19 04/09/19 04/09/19 18:59 06:59 18:59 Intake Total 592 680 Balance 592 680 Intake: Intake, IV Titration 200 Amount Piperacillin-Tazobactam 3 100 .375 gm In Sodium Chloride 0.9% 100 ml @ 25 mls/hr IVPB Q8H [facility] Rx#: [id number] Sodium Chloride 0.9% 1, 100 000 ml @ 100 mls/hr IV . Q10H [facility] Rx#:[id number] Oral 592 480 Other: Voiding Method Toilet Toilet # Voids 1 1 1 # Bowel Movements 1 - Exam Gen: This is a 64-year-old female sitting up in bed in no acute distress. Vital signs are stable. Temp is 98.4F, pulse is 82, respirations are 18, blood pressure is 142/79, sex is 97 % on room air. HEENT: Head is atraumatic, normocephalic. Pupils equal, round. Sclerae is anicteric. NECK: Supple. No JVD. No lymphadenopathy. No thyromegaly. LUNGS: Diminished breath sounds at the bases with a few crackles noted. Expiratory wheezing also noted on exam. No intercostal retractions. HEART: S1 and S2 are muffled. Regular rate and rhythm. No murmur. ABDOMEN: Soft. Bowel sounds are present. No masses. No tenderness. EXTREMITIES: No pedal edema. No calf tenderness. NEUROLOGICAL: Patient is awake, alert and oriented x3. Cranial nerves 2 through 12 are grossly intact. - Labs CBC & Chem 7: 04/09/19 06:43 04/09/19 06:43 Labs: Abnormal Lab Results - Last 24 Hours (Table) 04/09/19 Range/Units 06:43 Chloride 112 H (98-107) mmol/L BUN 24 H (7-17) mg/dL Creatinine 1.17 H (0.52-1.04) mg/dL Microbiology - Last 24 Hours (Table) 04/07/19 Unknown Gram Stain - Preliminary Sputum Sputum Culture - Preliminary Pseudomonas spec 04/05/19 17:36 Blood Culture - Preliminary Blood No Growth after 72 hours Assessment and Plan Assessment: 1. Acute left lower lobe pneumonia - Patient has a recent bronchoscopy done on 03/27/2019 growing Pseudomonas aeruginosa and E. coli - Continue antibiotic treatment with Levaquin 750 mg IV every 48 hours along with IV Zosyn - Pulmonary is following and we appreciate their input in patient management 2. Acute hypoxic respiratory failure secondary to 1; as above; patient remains on 2 L O2 per nasal cannula 3. Previous MAC pulmonary infection; patient has been on ethambutol, rifampin and Avelox 4. COPD; not in exacerbation 5. Hypothyroidism; levothyroxine 50 MCG daily 6. Seizure disorder; continue with Dilantin 200 mg twice a day and Lamictal 7. Hyperlipidemia; continue home statin therapy 8. DVT prophylaxis; subq Lovenox CODE STATUS; full code Recommendations and discussion: Recommend continue current medications, management, and symptomatically treatment. Will continue to monitor closely. Infectious disease is following as well as pulmonary. Case management and social work are following. Awaiting authorization from her insurance for [facility]. Patient is scheduled to have a PICC line placed today for continued IV antibiotic therapy upon discharge. Patient is currently on IV Zosyn as well as Levaquin. Guarded prognosis. Further recommendations to follow. Possible discharge in 24 hours once authorization is obtained.
[2019-04-09] MEDS: LEVOFLOXACIN 750MG-D5W PMX 750 MG in DEXTROSE/WATER 1 150ML.BAG IVPB SCH (20:07)
[2019-04-09] MEDS: ATORVASTATIN 20 MG TAB PO SCH (20:08)
[2019-04-09] MEDS: MONTELUKAST 10 MG TAB PO SCH (20:08)
[2019-04-09] MEDS: MELOXICAM 7.5 MG TAB PO SCH (20:08)
--- NOTE | 2019-04-09 23:26 | P.PN ---
Subjective Progress Note Date: 04/09/19 64-year-old woman presents to Hospital with increasing shortness of breath cough weakness malaise and feeling overwhelmed. She has many underlying medical illnesses and has chronic urinary infection with mycobacterial infection. On March 27 she underwent bronchoscopy as a follow-up from her prior mycobacterial infection. Goal was to determine End of therapy if she continued to have negative cultures for Mycobacterium. She however started to have increasing amounts of cough shortness of breath sputum production fever and malaise and consequently she was seen by her cigarette lighter repairer. Bronchoscopy was performed and this cultures are now come back, she was placed on oral antibiotics but failed and became more short of breath more anxious and felt very ill in counseling has been admitted. No intravenous antibiotic therapy has been instituted and she is feeling slightly better. With oxygen, respiratory treatments and antibiotics she is most less anxious. She at this time is denying high-grade fever or chills although felt like she was having some fever at home. Her appetite has been somewhat poor but she's been able to eat without nausea or emesis and denies other new acute symptoms. She over with her illnesses been feeling weak and relates that she's had a fall, however her dog knocked her over. 04/08/2019 the patient is to feel somewhat better. She does relate that she's had a good response to current antibiotic therapy. She was not responding to outpatient antibiotic therapy. She is having no difficulties such as nausea or emesis. Fever has improved. Shortness of breath is improved. Mood is improving. 04/09/2019 the patient has had further improvement. Her acute exacerbation of COPD is improving and she is no longer requiring oxygen therapy. She is t olerating the current antibiotic therapy while is having clinical improvement. Objective - Vital Signs Vital signs: Vital Signs Temp 98.9 F 04/09/19 19:21 Pulse 88 04/09/19 20:36 Resp 18 04/09/19 19:21 BP 158/81 04/09/19 19:21 Pulse Ox 97 04/09/19 19:21 Intake & Output 04/09/19 04/09/19 04/10/19 06:59 18:59 06:59 Intake Total 680 Balance 680 Intake: Intake, IV Titration 200 Amount Piperacillin-Tazobactam 3 100 .375 gm In Sodium Chloride 0.9% 100 ml @ 25 mls/hr IVPB Q8H [facility] Rx#: [id number] Sodium Chloride 0.9% 1, 100 000 ml @ 100 mls/hr IV . Q10H [facility] Rx#:[id number] Oral 480 Other: Voiding Method Toilet # Voids 1 1 # Bowel Movements 1 - Exam HEENT: Anicteric conjunctiva are pink and moist nasal mucosa grossly intact without significant lesions, there is no thrush. Neck: The neck is supple without significant lymphadenopathy or thyromegaly. Lungs: Symmetrical air entry is noted improved crackles few expiratory wheezes no bronchial sounds no dullness or egophony, improved air exchange Heart: Regular rate and rhythm with an audible S1-S2, no S3 no S4. There is no significant murmur click or rub, PMI was nondisplaced. Abdomen: Positive bowel sounds soft and nontender without palpable masses or organomegaly. There was no guarding or rebound. Extremities: The upper extremities have excellent pulses they are symmetric, no significant petechiae or telangiectasia. No splinter hemorrhages were noted. The lower extremities are free from significant edema. The peripheral pulses were 2+ and symmetric. Neuro: Awake alert oriented to person place and time. There are no acute new gross focal sensory motor deficits. - Labs CBC & Chem 7: 04/09/19 06:43 04/09/19 06:43 Labs: Abnormal Lab Results - Last 24 Hours (Table) 04/09/19 Range/Units 06:43 Chloride 112 H (98-107) mmol/L BUN 24 H (7-17) mg/dL Creatinine 1.17 H (0.52-1.04) mg/dL Microbiology - Last 24 Hours (Table) 04/05/19 17:36 Blood Culture - Preliminary Blood No Growth after 96 hours 04/07/19 Unknown Gram Stain - Preliminary Sputum Sputum Culture - Preliminary Pseudomonas spec Laboratory Results WBC 9.5 k/uL (3.8-10.6) 04/09/19 06:43 RBC 4.08 m/uL (3.80-5.40) 04/09/19 06:43 Hgb 12.1 gm/dL (11.4-16.0) 04/09/19 06:43 Hct 37.9 % (34.0-46.0) 04/09/19 06:43 MCV 92.7 fL (80.0-100.0) 04/09/19 06:43 MCH 29.6 pg (25.0-35.0) 04/09/19 06:43 MCHC 31.9 g/dL (31.0-37.0) 04/09/19 06:43 RDW 14.2 % (11.5-15.5) 04/09/19 06:43 Plt Count 261 k/uL (150-450) 04/09/19 06:43 Neutrophils % 64 % 04/09/19 06:43 Lymphocytes % 21 % 04/09/19 06:43 Monocytes % 8 % 04/09/19 06:43 Eosinophils % 4 % 04/09/19 06:43 Basophils % 1 % 04/09/19 06:43 Neutrophils # 6.0 k/uL (1.3-7.7) 04/09/19 06:43 Lymphocytes # 2.0 k/uL (1.0-4.8) 04/09/19 06:43 Monocytes # 0.8 k/uL (0-1.0) 04/09/19 06:43 Eosinophils # 0.4 k/uL (0-0.7) 04/09/19 06:43 Basophils # 0.0 k/uL (0-0.2) 04/09/19 06:43 PT 10.5 sec (9.0-12.0) 04/09/19 07:22 INR 1.0 (<1.2) 04/09/19 07:22 APTT 24.5 sec (22.0-30.0) 04/05/19 17:36 D-Dimer <0.17 mg/L FEU (<0.60) 04/05/19 17:36 Sodium 144 mmol/L (137-145) 04/09/19 06:43 Potassium 3.8 mmol/L (3.5-5.1) 04/09/19 06:43 Chloride 112 mmol/L (98-107) H 04/09/19 06:43 Carbon Dioxide 23 mmol/L (22-30) 04/09/19 06:43 Anion Gap 9 mmol/L 04/09/19 06:43 BUN 24 mg/dL (7-17) H 04/09/19 06:43 Creatinine 1.17 mg/dL (0.52-1.04) H 04/09/19 06:43 Est GFR (CKD-EPI)AfAm 58 (>60 ml/min/1.73 sqM) 04/09/19 06:43 Est GFR (CKD-EPI)NonAf 50 (>60 ml/min/1.73 sqM) 04/09/19 06:43 Glucose 90 mg/dL (74-99) 04/09/19 06:43 POC Glucose (mg/dL) 96 mg/dL (75-99) 04/06/19 17:23 POC Glu Launching Pad Mechanic ID Francoise Shelton 04/06/19 17:23 Plasma Lactic Acid Kirit 1.4 mmol/L (0.7-2.0) 04/05/19 17:36 Calcium 9.0 mg/dL (8.4-10.2) 04/09/19 06:43 Magnesium 2.1 mg/dL (1.6-2.3) 04/05/19 17:36 Total Bilirubin 0.4 mg/dL (0.2-1.3) 04/05/19 17:36 AST 34 U/L (14-36) 04/05/19 17:36 ALT 15 U/L (9-52) 04/05/19 17:36 Alkaline Phosphatase 124 U/L (38-126) 04/05/19 17:36 Creatine Kinase 54 U/L (30-135) 04/05/19 17:36 Troponin I <0.012 ng/mL (0.000-0.034) 04/05/19 17:36 NT-Pro-B Natriuret Pep 62 pg/mL 04/05/19 17:36 Total Protein 7.6 g/dL (6.3-8.2) 04/05/19 17:36 Albumin 4.2 g/dL (3.5-5.0) 04/05/19 17:36 Microbiology 04/05/19 17:36 Blood Blood Culture - Preliminary No Growth after 96 hours 04/07/19 Unknown Sputum Gram Stain - Preliminary 04/07/19 Unknown Sputum Sputum Culture - Preliminary Pseudomonas spec Assessment and Plan (1) Failure of outpatient treatment Narrative/Plan: 64-year-old female who is without the outpatient clinic some time regarding her significant underlying lung disease. 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 She has now been treated for nearly 2 years with an active regiment for her MAC. The cultures from 6 months prior from the bronchoscopy were negative. The current bronchoscopy culture also was negative at this point in time for acid-fast bacilli and the culture is in process. The recent bronchoscopy however did reveal evidence of pseudomonas aeruginosa as well as a Escherichia coli from the bronchoscopy specimens. Antimicrobial therapy at this point in time will be added with piperacillin tazobactam for which the to pathogens have been noted to be susceptible. The patient did fail outpatient therapy and likely will require outpatient intravenous antibiotic th erapy. Zosyn is utilized it would be possible to do this in the home because she may require her completion of therapy at the rehab facility. There she will receive her antibiotics, physical therapy to improve her strength especially in having some recent falls. She would also be able to be evaluated for the possibility of home oxygen therapy if needed. Once the cultures are available regarding the Mycobacterium infection the anti- infectives will be discontinued within the next few weeks. 04/08/2019 patient is now improving with treatment of her Pseudomonas pneumonia with Zosyn. IV access is being requested with a PICC line and she'll be going to rehab to receive at least 2 weeks of intravenous antibiotic therapy with Zosyn with respiratory treatments and physical therapy to improve her strength. 04/09/2019 the patient has started to improve with the intravenous antibiotic therapy directed against the pathogen of her restrictive track of Pseudomonas that was causing persistent symptoms in progressive decline of her status. She did have a bronchoscopy on 03/27/2019. Once the AFB cultures come back and are confirmed to be negative she will then be able to discontinue her mycobacterial treatments. She will follow the office at the completion of her intravenous antibiotic therapy. Current Visit: Yes Status: Acute Code(s): Z78.9 - OTHER SPECIFIED HEALTH STATUS SNOMED Code(s): 850977245 (2) Atypical mycobacterial infection of lung Current Visit: Yes Status: Acute Code(s): A31.0 - PULMONARY MYCOBACTERIAL INFECTION SNOMED Code(s): 9993342509180
[2019-04-10] MEDS: LEVOTHYROXINE 50 MCG TAB PO SCH (05:30)
[2019-04-10] MEDS: PIPERACILLIN-TAZOBACTAM 3.375 GM in SODIUM CHLORIDE 0.9% 100 ML IVPB SCH ×3 (05:30→20:02)
[2019-04-10] MEDS: VIT A,C & E-LUTEIN-MINERALS 1 EACH TAB PO SCH (08:44)
[2019-04-10] MEDS: PHENYTOIN SODIUM EXTENDED 100 MG CAP PO SCH (08:44)
[2019-04-10] MEDS: AZELASTINE 137MCG/SPRAY NASAL SCH ×2 (08:45→20:03)
[2019-04-10] MEDS: RIFAMPIN 300 MG CAP PO SCH (08:45)
[2019-04-10] MEDS: ETHAMBUTOL 1200 MG PO SCH (08:45)
[2019-04-10] MEDS: lamoTRIgine 100 MG TAB PO SCH ×2 (08:45→20:02)
[2019-04-10] MEDS: DULoxetine HCL 60 MG CAPSULE.DR PO SCH (08:45)
[2019-04-10] MEDS: ALPRAZolam 1 MG TAB PO SCH ×3 (08:45→20:02)
[2019-04-10] MEDS: CYCLOBENZAPRINE 10 MG TAB PO SCH (08:45)
[2019-04-10] MEDS: PANTOPRAZOLE 40 MG TABLET PO SCH (08:45)
[2019-04-10] MEDS: MECLIZINE 25 MG TAB PO SCH ×3 (08:45→20:03)
[2019-04-10] MEDS: MULTIVITAMINS, THERA 1 EACH TAB PO SCH (08:46)
[2019-04-10] MEDS: IPRATROPIUM-ALBUTEROL 3 ML NEB INHALATION SCH ×4 (09:04→20:16)
[2019-04-10] MEDS: TROSPIUM CHLORIDE 20 MG TABLET PO SCH ×2 (09:53→20:03)
[2019-04-10] MEDS: SODIUM CHLORIDE 0.9% 1,000 ML IV SCH ×2 (10:35→18:57)
--- NOTE | 2019-04-10 15:38 | P.PN ---
Subjective Progress Note Date: 04/10/19 Principal diagnosis: Shortness of breath, cough and congestion failed outpatient treatment This is a very pleasant 64-year-old female patient who follows with Dr. Cordova as her primary care physician. He is a history of macular degeneration, hypertension, fibromyalgia, diabetes, CVA, previous pulmonary Mycobacterium avium complex infection. Previous pulmonary E. coli infections. She follows with Dr. Millan in our office for the same. She has had a history of nodular left lower lobe pulmonary consolidation application of bronchoscopy and biopsies were taken there were negative for malignancy. Her most recent bronchoscopy was 03/27/2019 which was positive for pseudomonas aeruginosa and E. coli. She is a colonizer. She has been on her Mavik antibiotics including ethambutol, rifampin and Avelox for almost 2 years now. She follows with Dr. Carrera for the same. She is also been treated recently with Bactrim, Ceftin and Cipro without much improvement. She was in our office yesterday. She is quite frustrated crying and emotional due to her ongoing complex coronary issues. She was still having significant cough and congestion. Positive chills. She was referred for here for IV antibiotics and ID consult. He is seen today in consultation on the regular medical floor. She is doing a bit better. Awake and alert in no acute distress. She is maintaining O2 saturations in the high 90s on 2 L/m per nasal cannula. She's been afebrile. Hemodynamically stable. She has been initiated on Zosyn and Levaquin. Chest x-ray reveals continued left lower lobe infiltrate and small left-sided effusion. White count 15.0. Hemoglobin 14.4. Creatinine 1.28. On 04/08/2019 patient seen in follow-up on medical surgical floor. She is awake and alert, no acute distress, pulse ox is 96%, she is afebrile, respirations are nonlabored, patient still has a congested cough, some expiratory wheezes. Blood culture was negative, sputum culture is pending, preliminary Gram stain showed no organisms. No fever or chills, no hemoptysis, no chest pain, today's labs gutierrez ve been reviewed, no leukocytosis, hemoglobin is 12.5, renal profile is improving, patient continues on antibiotics in the form of Zosyn, Levaquin and rifampin On 04/10/2019 patient is seen in follow-up on medical surgical floor. She is awake and alert, she is feeling and breathing much better, lung sounds are still slightly congested, with scattered rhonchi, but no significant wheezing, she is on room air. No complex of chest pain, no hemoptysis, she's been afebrile. On his CBC is, blood cultures show no growth. Patient is on Levaquin, Zosyn and rifampin. Doing well. Objective - Vital Signs Vital signs: Vital Signs Temp 98.6 F 04/10/19 07:00 Pulse 72 04/10/19 12:52 Resp 16 04/10/19 07:00 BP 147/48 04/10/19 07:00 Pulse Ox 96 04/10/19 07:00 Intake & Output 04/09/19 04/10/19 04/10/19 18:59 06:59 18:59 Intake Total 540 540 Balance 540 540 Intake: Oral 540 540 Other: Voiding Method Toilet # Voids 1 1 3 # Bowel Movements 1 - Exam GENERAL EXAM: Alert, pleasant, 64-year-old white female on room air with pulse ox of 96% comfortable in no apparent distress. HEAD: Normocephalic/atraumatic. EYES: Normal reaction of pupils, equal size. Conjunctiva pink, sclera white. NOSE: Clear with pink turbinates. THROAT: No erythema or exudates. NECK: No masses, no JVD, no thyroid enlargement, no adenopathy. CHEST: No chest wall deformity. Symmetrical expansion. LUNGS: Equal air entry with expiratory wheezing, congested cough CVS: Regular rate and rhythm, normal S1 and S2, no gallops, no murmurs, no rubs ABDOMEN: Soft, nontender. No hepatosplenomegaly, normal bowel sounds, no guarding or rigidity. EXTREMITIES: No clubbing, no edema, no cyanosis, 2+ pulses and upper and lower extremities. MUSCULOSKELETAL: Muscle strength and tone normal. SPINE: No scoliosis or deformity SKIN: No rashes CENTRAL NERVOUS SYSTEM: Alert and oriented -3. No focal deficits, tone is normal in all 4 extremities. PSYCHIATRIC: Alert and oriented -3. Appropriate affect. Intact judgment and insight. - Labs CBC & Chem 7: 04/09/19 06:43 04/09/19 06:43 Labs: Microbiology - Last 24 Hours (Table) 04/05/19 17:36 Blood Culture - Preliminary Blood No Growth after 96 hours Assessment and Plan Plan: Assessment: #1 Acute pneumonia more so on the left lower lobe positive for pseudomonas aeruginosa and E. coli on recent bronchoscopy 03/27/2019. #2 Acute hypoxic respiratory failure secondary to above. Currently on 2 L/m per nasal cannula. #3 Previous Pseudomonas pulmonary infections in September 2018. 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 Has been on ethambutol, rifampin and Avelox for almost 2 years now. #5 Fibromyalgia. #6 Macular degeneration. #7 Anxiety/depression. #8 History of chronic obstructive pulmonary disease. #9 Hypothyroidism. #10 Chronic pain syndrome. #11 History of brain abscess. #12 History of seizures. Plan: Continue current medical treatment, patient is clinically improving, no fever chills, still some residual slight congestion, but overall doing better, discharge planning is in progress for discharge to the [facility] on IV antibiotics, possibly tomorrow. Continue nebulized bronchodilators, GI and DVT prophylaxis, we'll follow I performed a history & physical examination of the patient and discussed their management with my nurse practitioner, Winnie Buitrago. I reviewed the nurse practitioner's note and agree with the documented findings and plan of care. Lung sounds are positive for expiratory wheezes throughout the lung lamb. The findings and the impression was discussed with the patient. I attest to the documentation by the nurse practitioner. Time with Patient: Less than 30
--- NOTE | 2019-04-10 15:39 | P.PN ---
Subjective Progress Note Date: 04/10/19 Principal diagnosis: 64-year-old female patient who follows with Dr. Cordova as her primary care physician. He is a history of macular degeneration, hypertension, fibromyalgia, diabetes, CVA, previous pulmonary Mycobacterium avium complex infection. Previous pulmonary E. coli infections. She follows with Dr. Millan in our office for the same. She has had a history of nodular left lower lobe pulmonary consolidation application of bronchoscopy and biopsies were taken there were negative for malignancy. Her most recent bronchoscopy was 03/27/2019 which was positive for pseudomonas aeruginosa and E. coli. She is a colonizer. She has been on her Mavik antibiotics including ethambutol, rifampin and Avelox for almost 2 years now. She follows with Dr. Carrera for the same. She is also been treated recently with Bactrim, Ceftin and Cipro without much improvement. She w as in our office yesterday. She is quite frustrated crying and emotional due to her ongoing complex coronary issues. She was still having significant cough and congestion. Positive chills. 04/07/2019; Patient is seen and evaluated in room sitting up in bed; she is in no acute distress; voices no specific complaints Vital signs are reviewed and stable at temperature of 98.1, pulse 84, respirations 16 and blood pressure 144/73 with SpO2 of 96% on 2 L Labs are stable with a white blood count of 3.5, hemoglobin 12.7 and platelet count of 286; sodium 144, potassium 4.3, BUN/creatinine has improved from 41/1.28 yesterday down to 25/1.14 today Patient has been seen by ID and IV antibiotics have been transitioned to IV Zosyn due to presence of Pseudomonas in previous cultures; patient had 2 years of active regimen for MAC; IDs recommending to follow-up on repeat cultures and discontinue anti-infective agents if cultures are negative 04/08/2019 Patient is sitting up in bed in no acute distress. Infectious disease is following. Patient is currently on IV antibiotics in the form of Zosyn and Levaquin and will continue. Thus far sputum and blood cultures have been negative. Creatinine is trending down and is currently 1.09 today. Patient denies any chest pain, shortness of breath, or palpitations at this time. Patient does have a cough and states that she is producing a moderate amount of greenish phlegm. Patient denies any nausea or vomiting and has been tolerating diet. Patient is afebrile. When speaking to the patient today about possible discharge plans patient states that she would like to go to [facility] upon discharge if she will be receiving IV antibiotic therapy. Awaiting infectious disease recommendations. Will continue to monitor closely. Pulmonary is following as well. Her to prognosis. 04/09/2019 Patient is sitting up in no acute distress and being closely monitored. Patient is awaiting to have a PICC line placed today for continued IV antibiotic therapy per infectious disease recommendations. Sputum cultures show Pseudomonas and awaiting finalization. Blood cultures of been negative thus far. Awaiting authorization for [facility] for continued rehab with PT/OT as well as IV therapy. Case management and social work are following closely. Patient denies any shortness of breath, chest pain, or palpitations at this time. Patient still continues to have a cough with phlegm production. Patient denies any nausea or vomiting and is tolerating diet. Patient is afebrile. Will continue to monitor closely. 04/10/2019 Patient is sitting up in no acute distress. Patient is currently awaiting authorization for [facility] for continued IV antibiotic t herapy per infectious disease recommendations. Patient did receive a midline today she will be requiring approximately 2 weeks of IV antibiotic therapy. Patient is in much better spirits today and more talkative. Patient denies any chest pains or palpitations at this time. She is currently on room air and states that her shortness of breath has improved. Patient still has an occasional cough with phlegm production but states is getting better. Patient is afebrile. Patient denies any nausea or vomiting and is tolerating diet. Patient continues to use her incentive spirometer and discussed with her today about using it at least 10 times an hour while awake. Patient verbalized understanding. Patient states that she was achieving 2000 on the incentive spirometer today. No acute issues overnight. Patient states that she has some mild swelling of the bilateral lower extremities as she has been off her diuretics due to increased creatinine. Patient has albino wraps applied to bilater al lower extremities with Dr. Carrera to help minimize swelling. Will repeat a.m. labs. Objective - Vital Signs Vital signs: Vital Signs Temp 98.6 F 04/10/19 07:00 Pulse 72 04/10/19 12:52 Resp 16 04/10/19 07:00 BP 147/48 04/10/19 07:00 Pulse Ox 96 04/10/19 07:00 Intake & Output 04/09/19 04/10/19 04/10/19 18:59 06:59 18:59 Intake Total 540 540 Balance 540 540 Intake: Oral 540 540 Other: Voiding Method Toilet # Voids 1 1 3 # Bowel Movements 1 - Exam Gen: This is a 64-year-old female sitting up in bed in no acute distress. Vital signs are stable. Temp is 98.6F, pulse is 75, respirations are 16, blood pressure is 147/48, sex is 96 % on room air. HEENT: Head is atraumatic, normocephalic. Pupils equal, round. Sclerae is ani cteric. NECK: Supple. No JVD. No lymphadenopathy. No thyromegaly. LUNGS: Diminished breath sounds at the bases with a few crackles noted. Expiratory wheezing also noted on exam. Slightly improved. No intercostal retractions. HEART: S1 and S2 are muffled. Regular rate and rhythm. No murmur. ABDOMEN: Soft. Bowel sounds are present. No masses. No tenderness. EXTREMITIES: No pedal edema. No calf tenderness. Albino wraps noted to bilateral lower extremities NEUROLOGICAL: Patient is awake, alert and oriented x3. Cranial nerves 2 through 12 are grossly intact. - Labs CBC & Chem 7: 04/09/19 06:43 04/09/19 06:43 Labs: Microbiology - Last 24 Hours (Table) 04/05/19 17:36 Blood Culture - Preliminary Blood No Growth after 96 hours Assessment and Plan Assessment: 1. Acute left lower lobe pneumonia - Patient has a recent bronchoscopy done on 03/27/2019 growing Pseudomonas aeruginosa and E. coli - Continue antibiotic treatment with Levaquin 750 mg IV every 48 hours along with IV Zosyn - Pulmonary is following and we appreciate their input in patient management 2. Acute hypoxic respiratory failure secondary to 1; as above; patient is currently on room air and tolerating well 3. Previous MAC pulmonary infection; patient has been on ethambutol, rifampin and Avelox 4. COPD; not in exacerbation 5. Hypothyroidism; levothyroxine 50 MCG daily 6. Seizure disorder; continue with Dilantin 200 mg twice a day and Lamictal 7. Hyperlipidemia; continue home statin therapy 8. DVT prophylaxis; subq Lovenox CODE STATUS; full code Recommendations and discussion: Recommend continue current medications, management, and symptomatic treatment. Will continue to monitor closely. Will check a.m. labs. Infectious disease is following as well as pulmonary. Case management and social work are following. Awaiting authorization from her insurance for [facility]. Patient received a midline today for continued IV antibiotic therapy upon di brown. Patient is currently on IV Zosyn as well as Levaquin. Guarded prognosis. Further recommendations to follow. Possible discharge in 24 hours once authorization is obtained.
[2019-04-10] MEDS: QUEtiapine 200 MG TAB PO SCH ×2 (16:55→20:02)
[2019-04-10] MEDS ORDERED: ACETAMINOPHEN TAB 325 MG TAB PO PRN (17:09)
[2019-04-10] MEDS: MELOXICAM 7.5 MG TAB PO SCH (20:03)
[2019-04-10] MEDS: MONTELUKAST 10 MG TAB PO SCH (20:03)
[2019-04-10] MEDS: ATORVASTATIN 20 MG TAB PO SCH (20:03)
[2019-04-11] MEDS: PIPERACILLIN-TAZOBACTAM 3.375 GM in SODIUM CHLORIDE 0.9% 100 ML IVPB SCH (05:09)
[2019-04-11] MEDS: LEVOTHYROXINE 50 MCG TAB PO SCH (05:09)
[2019-04-11] MEDS: SODIUM CHLORIDE 0.9% 1,000 ML IV SCH (05:11)
[2019-04-11 07:24] LABS: Basophils # (A) 0.1 k/uL (0-0.2); Basophils % (A) 1 %; Eosinophils # (A) 0.5 k/uL (0-0.7); Eosinophils % (A) 7 %; HGB 12.7 gm/dL (11.4-16.0); Lymphocytes # (A) 2.2 k/uL (1.0-4.8); Lymphocytes % (A) 27 %; MCH 29.9 pg (25.0-35.0); MCHC 31.9 g/dL (31.0-37.0); MCV 93.9 fL (80.0-100.0); Mean Platelet Volume 6.7; Monocytes # (A) 0.6 k/uL (0-1.0); Monocytes % (A) 8 %; Neutrophils # (A) 4.5 k/uL (1.3-7.7); Neutrophils % (A) 55 %; Platelet Count 264 k/uL (150-450); RBC 4.26 m/uL (3.80-5.40); RDW 14.3 % (11.5-15.5); WBC 8.1 k/uL (3.8-10.6)
[2019-04-11 07:31] LABS: Calcium 9.2 mg/dL (8.4-10.2); Potassium 3.9 mmol/L (3.5-5.1)
[2019-04-11 07:59] VITALS: BP 145/78; RESP 16; TEMP 98.9
[2019-04-11] MEDS: PANTOPRAZOLE 40 MG TABLET PO SCH (08:27)
[2019-04-11] MEDS: ALPRAZolam 1 MG TAB PO SCH (08:27)
[2019-04-11] MEDS: AZELASTINE 137MCG/SPRAY NASAL SCH (08:27)
[2019-04-11] MEDS: DULoxetine HCL 60 MG CAPSULE.DR PO SCH (08:28)
[2019-04-11] MEDS: ETHAMBUTOL 1200 MG PO SCH (08:28)
[2019-04-11] MEDS: CYCLOBENZAPRINE 10 MG TAB PO SCH (08:28)
[2019-04-11] MEDS: ENOXAPARIN 40 MG/0.4 ML SYRINGE SQ SCH (08:28)
[2019-04-11] MEDS: lamoTRIgine 100 MG TAB PO SCH (08:28)
[2019-04-11] MEDS: PHENYTOIN SODIUM EXTENDED 100 MG CAP PO SCH (08:29)
[2019-04-11] MEDS: MULTIVITAMINS, THERA 1 EACH TAB PO SCH (08:29)
[2019-04-11] MEDS: MECLIZINE 25 MG TAB PO SCH (08:29)
[2019-04-11] MEDS: RIFAMPIN 300 MG CAP PO SCH (08:30)
[2019-04-11] MEDS: TROSPIUM CHLORIDE 20 MG TABLET PO SCH (08:30)
[2019-04-11] MEDS: VIT A,C & E-LUTEIN-MINERALS 1 EACH TAB PO SCH (08:31)
[2019-04-11] MEDS: IPRATROPIUM-ALBUTEROL 3 ML NEB INHALATION SCH ×2 (09:20→12:35)
--- NOTE | 2019-04-11 10:25 | P.DS ---
Providers Date of admission: 04/05/19 18:58 Expected date of discharge: 04/11/19 Attending physician: Nanci Pendleton Consults: 04/05/19 18:58 Consult Physician Routine Consulting Provider: Elaine Millan Consult Reason/Comments: known Do you want consulting provider notified?: Yes 04/05/19 18:59 Consult Physician Routine Consulting Provider: Jin Carrera Consult Reason/Comments: known Do you want consulting provider notified?: Yes Primary care physician: Ortiz Hansen [facility] Course: Final Diagnosis Acute left lower lobe pneumonia Acute hypoxic respiratory failure secondary to acute left lower lobe pneumonia Previous MAC pulmonary infection COPD Hypothyroidism Seizure disorder Hyperlipidemia DVT prophylaxis Full code Discharge disposition Patient is being discharged in a stable condition with guarded prognosis to [facility] for continued IV antibiotic therapy. Infectious disease are arranging for IV antibiotics upon discharge. Total time taken is 35 minutes. History of present illness This is a 64-year-old female who was recently admitted for failed outpatient therapy of pneumonia of the left lower lobe and is being closely monitored. Patient had a recent bronchoscopy done on which was positive for pseudomonas aeruginosa and E. coli and was on oral antibiotics with no improvement. Patient was having increased shortness of breath and initially was requiring oxygen. Currently patient is off oxygen and breathing much better. Patient is on IV antibiotics in the form of Levaquin and Zosyn and will continue with the Zosyn per infectious disease recommendations. Patient will have about 2 weeks of continued IV antibiotic therapy. Patient is sitting up at the bedside and walking around the room in no acute distress. Patient denies any chest pain or palpitations at this time. Patient is afebrile. Patient denies any nausea or vomiting and is tolerating diet. Patient continues to have a cough with phlegm production but states it is improving. Patient denies any shortness of breath at this time. Patient's condition is stable with much improvement in authorization was obtained for [facility]. Guarded prognosis. Exam vital signs are stable. Temp is 98.9F, pulse is 76, respirations are 16, blood pressure is 145/78, oxygen saturation is 96% on room air. Cardio S1 and S2 are heard. Respiratory system shows expiratory wheezing. Abdomen is soft and nontender. Nervous system shows no focal deficits and gait is steady. Please refer to medication reconciliation sheet for a list of medications. Patient Condition at Discharge: Fair Plan - Discharge Summary Discharge Rx Participant: Yes New Discharge Prescriptions: New Acetaminophen Tab [Tylenol] 650 mg PO Q4HR PRN tab PRN Reason: Fever And/ Or Pain Continue Potassium Chloride ER [K-Dur 20] 20 meq PO QAM Fluticasone/Salmeterol [Advair 500-50 Diskus] 1 puff INHALATION RT-BID Darifenacin Hydrobromide [Enablex] 15 mg PO HS Meclizine [Antivert] 25 mg PO TID Levothyroxine Sodium [Synthroid] 50 mcg PO QAM Montelukast [Singulair] 10 mg PO QAM Metaxalone [Skelaxin] 800 mg PO QAM Meloxicam [Mobic] 15 mg PO HS DULoxetine HCL [Cymbalta] 120 mg PO QAM Phenytoin Sodium Extended [Dilantin] 200 mg PO BID Pantoprazole Sodium [Protonix] 40 mg PO AC-BRKFST Spironolactone-Hctz 25-25Mg [Aldactazide 25-25 MG] 1 tab PO QAM Simvastatin [Zocor] 40 mg PO HS lamoTRIgine [LaMICtal] 200 mg PO HS lamoTRIgine [LaMICtal] 100 mg PO QAM Ipratropium-Albuterol Nebulize [Duoneb 0.5 mg-3 mg/3 ml Soln] 3 ml INHALATION RT-QID #120 neb Rifampin [Rifadin] 600 mg PO DAILY Ondansetron [Zofran] 4 mg PO Q8HR PRN PRN Reason: Nausea Ethambutol [Myambutol] 1,200 mg PO DAILY Albuterol Inhaler [Ventolin Hfa Inhaler] 1 - 2 puff INHALATION RT-Q6H PRN PRN Reason: Shortness Of Breath Moxifloxacin HCl [Avelox] 400 mg PO DAILY Multivitamin/Iron/Folic Acid [Centrum Complete Multivit Tab] 1 tab PO DAILY Vit C/E/Zn/Coppr/Lutein/Zeaxan [Preservision Areds 2 Softgel] 2 cap PO DAILY QUEtiapine FUMARATE [SEROquel XR] 400 mg PO BID@1600,2200 Astelin Nasal [place] 2 sprays EA NOSTRIL BID Fluticasone/Salmeterol [Advair 500-50 Diskus] 1 puff ALPRAZolam [Xanax] 1 mg PO TID #6 tab Discontinued Ciprofloxacin HCl [Cipro] 500 mg PO BID Cefuroxime Axetil [Ceftin] 500 mg PO BID Discharge Medication List DULoxetine HCL [Cymbalta] 120 mg PO QAM 01/22/16 [History] Darifenacin Hydrobromide [Enablex] 15 mg PO HS 01/22/16 [History] Fluticasone/Salmeterol [Advair 500-50 Diskus] 1 puff INHALATION RT-BID 01/22/16 [History] Levothyroxine Sodium [Synthroid] 50 mcg PO QAM 01/22/16 [History] Meclizine [Antivert] 25 mg PO TID 01/22/16 [History] Meloxicam [Mobic] 15 mg PO HS 01/22/16 [History] Metaxalone [Skelaxin] 800 mg PO QAM 01/22/16 [History] Montelukast [Singulair] 10 mg PO QAM 01/22/16 [History] Pantoprazole Sodium [Protonix] 40 mg PO AC-BRKFST 01/22/16 [History] Phenytoin Sodium Extended [Dilantin] 200 mg PO BID 01/22/16 [History] Potassium Chloride ER [K-Dur 20] 20 meq PO QAM 01/22/16 [History] Simvastatin [Zocor] 40 mg PO HS 01/22/16 [History] Spironolactone-Hctz 25-25Mg [Aldactazide 25-25 MG] 1 tab PO QAM 01/22/16 [History] lamoTRIgine [LaMICtal] 100 mg PO QAM 01/22/16 [History] lamoTRIgine [LaMICtal] 200 mg PO HS 01/22/16 [History] Ipratropium-Albuterol Nebulize [Duoneb 0.5 mg-3 mg/3 ml Soln] 3 ml INHALATION RT-QID #120 neb 01/19/17 [Rx] Albuterol Inhaler [Ventolin Hfa Inhaler] 1 - 2 puff INHALATION RT-Q6H PRN 03/21/18 [History] Ethambutol [Myambutol] 1,200 mg PO DAILY 03/21/18 [History] Moxifloxacin HCl [Avelox] 400 mg PO DAILY 03/21/18 [History] Ondansetron [Zofran] 4 mg PO Q8HR PRN 03/21/18 [History] Rifampin [Rifadin] 600 mg PO DAILY 03/21/18 [History] Multivitamin/Iron/Folic Acid [Centrum Complete Multivit Tab] 1 tab PO DAILY 10/03/18 [History] Vit C/E/Zn/Coppr/Lutein/Zeaxan [Preservision Areds 2 Softgel] 2 cap PO DAILY 10/03/18 [History] Astelin Nasal [place] 2 sprays EA NOSTRIL BID 03/25/19 [History] QUEtiapine FUMARATE [SEROquel XR] 400 mg PO BID@1600,2200 03/25/19 [History] Fluticasone/Salmeterol [Advair 500-50 Diskus] 1 puff 04/05/19 [History] ALPRAZolam [Xanax] 1 mg PO TID #6 tab 04/11/19 [Rx] Acetaminophen Tab [Tylenol] 650 mg PO Q4HR PRN tab 04/11/19 [Rx] Follow up Appointment(s)/Referral(s): Ortiz Cordova MD [Primary Care Provider] - 1-2 days [facility], [NON-STAFF] - As Needed Ambulatory/Diagnostic Orders: Basic Metabolic Panel [LAB.AMB] Time Frame: 3 Days, Location: None Selected Complete Blood Count w/diff [LAB.AMB] Time Frame: 3 Days, Location: None Selected Patient Instructions/Handouts: Meal Planning with Diabetes Exchanges (DC), Meal Planning with Diabetes Exchanges (GEN) Activity/Diet/Wound Care/Special Instructions: Patient will be going to [facility] activity as tolerated continue IV antibiotic therapy per ID recommendations continue current diet follow up with pcp upon discharge repeat labs in 2-3 days continue using incentive spirometer 10 times every hour while awake Discharge Disposition: TRANSFER TO SNF/ECF
[2019-04-11 12:49] VITALS: PULSE 84
[2019-04-11] MEDS ORDERED: LEVOFLOXACIN 750 MG TAB PO SCH (20:00)
== END 2019-04-11 13:20 | DRG 177 ==
LOC: EC 16:51 → 4SSUR 18:58
PROVIDERS: ADMIT Hospitalist; ATTEND Hospitalist
PROC: 05HF33Z Insertion of Infusion Device into Left Cephalic Vein, Percutaneous Approach (ICD-10-PCS; principal; 2019-04-10 09:00)
DX: J15.1 Pneumonia due to Pseudomonas (principal); J96.01 Acute respiratory failure with hypoxia; I69.951 Hemiplegia and hemiparesis following unspecified cerebrovascular disease affecting right dominant side; A31.0 Pulmonary mycobacterial infection; J43.9 Emphysema, unspecified; R40.2142 Coma scale, eyes open, spontaneous, at arrival to emergency department; R40.2362 Coma scale, best motor response, obeys commands, at arrival to emergency department; R40.2252 Coma scale, best verbal response, oriented, at arrival to emergency department; E11.9 Type 2 diabetes mellitus without complications; G40.909 Epilepsy, unspecified, not intractable, without status epilepticus; F41.0 Panic disorder [episodic paroxysmal anxiety]; F31.9 Bipolar disorder, unspecified; E03.9 Hypothyroidism, unspecified; G89.4 Chronic pain syndrome; E78.5 Hyperlipidemia, unspecified; I10 Essential (primary) hypertension; M79.7 Fibromyalgia; R29.6 Repeated falls; K21.9 Gastro-esophageal reflux disease without esophagitis; H35.30 Unspecified macular degeneration; M19.90 Unspecified osteoarthritis, unspecified site; Z79.2 Long term (current) use of antibiotics; Z79.1 Long term (current) use of non-steroidal anti-inflammatories (NSAID); Z79.890 Hormone replacement therapy; Z79.51 Long term (current) use of inhaled steroids; Z79.899 Other long term (current) drug therapy; Z87.01 Personal history of pneumonia (recurrent); Z86.61 Personal history of infections of the central nervous system; Z90.710 Acquired absence of both cervix and uterus; Z90.49 Acquired absence of other specified parts of digestive tract; Z98.891 History of uterine scar from previous surgery; Z87.09 Personal history of other diseases of the respiratory system; Z98.1 Arthrodesis status; Z98.890 Other specified postprocedural states; Z77.22 Contact with and (suspected) exposure to environmental tobacco smoke (acute) (chronic); Z88.1 Allergy status to other antibiotic agents; Z81.2 Family history of tobacco abuse and dependence; Z82.49 Family history of ischemic heart disease and other diseases of the circulatory system; Z80.0 Family history of malignant neoplasm of digestive organs; Z80.1 Family history of malignant neoplasm of trachea, bronchus and lung; Z80.3 Family history of malignant neoplasm of breast; Z82.3 Family history of stroke; Z83.2 Family history of diseases of the blood and blood-forming organs and certain disorders involving the immune mechanism; W18.39XA Other fall on same level, initial encounter
CPT/HCPCS: 36410; 36415; 71046; 76937; 80048; 80053; 82550; 83605; 83735; 83880; 84484; 85025; 85379; 85610; 85730; 87040; 87070; 87077; 87186; 87205; 93005; 94640; 94760; 96361; 96365; 96375; 99285

== ENCOUNTER → 2019-06-28 | Outpatient (CLI) | payer BC ==
[2019-06-28 16:06] LABS: Basophils # (A) 0.1 k/uL (0-0.2); Basophils % (A) 1 %; Eosinophils # (A) 0.6 k/uL (0-0.7); Eosinophils % (A) 5 %; HCT 45.4 % (34.0-46.0); HGB 14.6 gm/dL (11.4-16.0); Lymphocytes # (A) 2.2 k/uL (1.0-4.8); Lymphocytes % (A) 19 %; MCHC 32.1 g/dL (31.0-37.0); MCV 90.2 fL (80.0-100.0); Monocytes # (A) 0.9 k/uL (0-1.0); Monocytes % (A) 8 %; Neutrophils # (A) 7.7 k/uL (1.3-7.7); Neutrophils % (A) 65 %; Platelet Count 345 k/uL (150-450); RBC 5.03 m/uL (3.80-5.40); RDW 14.2 % (11.5-15.5); WBC 11.8 k/uL (3.8-10.6)
[2019-06-28 16:14] LABS: African American GFR (CKD) 61 (>60 ml/min/1.73 sqM); Anion Gap 10 mmol/L; Blood Urea Nitrogen 32 mg/dL (7-17); Calcium 9.7 mg/dL (8.4-10.2); Carbon Dioxide 27 mmol/L (22-30); Chloride 105 mmol/L (98-107); Glucose 120 mg/dL (74-99); Non-African American GFR(CKD) 53 (>60 ml/min/1.73 sqM); Potassium 3.8 mmol/L (3.5-5.1); Sodium 142 mmol/L (137-145)
== END | disposition home or self-care (01) ==
LOC: LABWHC1 15:44
PROVIDERS: ATTEND Internal Medicine
DX: R06.09 Other forms of dyspnea (principal)
CPT/HCPCS: 36415; 80048; 85025; 85379

== ENCOUNTER → 2020-06-19 | Outpatient (CLI) | payer BC ==
[2020-06-19 12:56] VITALS: BP 143/78; PULSE 93; RESP 18; TEMP 98.2
--- NOTE | 2020-06-19 14:14 | P.GSHP ---
History of Present Illness H&P Date: 06/19/20 Chief Complaint: Abnormal right breast mammogram Vitaliy is a 65-year-old white female who underwent a screening mammogram recently on 05/06/2020 which recommended diagnostic radiograph of the right breast. This was performed on and revealed an area of increasing microcalcifications in the upper aspect of the right breast and surgical consultation for stereotactic core biopsy was recommended. She was seen in consultation for Dr. Cordova regarding this. She did have bilateral mastitis in the past when she was nursing twins approximately 35 years ago. The patient does not feel any lumps masses or nodules of concern in her breast. She is not complaining of any nipple discharge or skin changes. She had a right breast duct exploration for bloody discharge in 1991, no cancer. Has not had any further nipple discharge of concern. She has not had any recent trauma or infection in the breast. Caffeine: none Nicotine: Negative; her father was a 4 pack per day smoker for many years and patient has subsequently developed COPD Theophylline: weekly Hormones: Hormones Family History: mother: breast cancer at 72 Hormonal History: menarche: 15 , breast fed: yes, age at first : 24 menopause: hysterectomy 45, left ovaries, done for endometriosis BCP: none Surgical history: 1. Hysterectomy 2. tonsil and adenoids 3. right eye/eyelid droop 4.gallbladder 5. sinus surgery twice Medical History: 1. 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 hypothyroid 3. seizure disorder 4. HTN 5. high cholesterol 6. anxiety disorder 7. bipolar 8. mitral valve regurg 9. Whooping cough 5 times in 8 years/ dystroyed the balance nerves in her ureters 10. GERD 11. arthritis History: Nicotine: Secondhand smoke exposure as a child patient has never smoked Alcohol:none drugs: none Social History: - Constitutional Comment: mycobacterium avium complex = MAC Constitutional: Reports sweats, Denies chills - EENT Comment: macular degeneration Ears: bilateral: decreased hearing Ears, nose, mouth and throat: Reports headache, Denies sore throat - Breasts Breasts: bilateral: as per HPI - Cardiovascular Comment: mitral valve regurgitation - Respiratory Comment: COPD/emphysema/oxygen-dependent Respiratory: Reports as per HPI, Denies cough - Gastrointestinal Comment: GERD - Genitourinary (Female) Genitourinary: Reports kidney stones, Denies dysuria, Denies hematuria - Menstruation Comment: endometriosis Menstruation: Reports post hysterectomy - Musculoskeletal Comment: arthritis - Integumentary Comment: echymosis easily Integumentary: Denies pruritus, Denies rash - Neurological Comment: CVA in the past, decreased memory - Psychiatric Psychiatric: Reports anxiety - Endocrine Comment: hypothyroid, diabetes - Hematologic/Lymphatic Hematologic/Lymphatic: Reports easy bruising Past Medical History Past Medical History: COPD, CVA/TIA, Diabetes Mellitus, Eye Disorder, Fibromyalgia, GERD/Reflux, Hyperlipidemia, Hypertension, Memory Impairment, Osteoarthritis (OA), Pneumonia, Seizure Disorder, Thyroid Disorder Additional Past Medical History / Comment(s): Bronchoscopy 03/27/2019 revealed Pseudomonas and E. coli. 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 DEGENERATION LT EYE. 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 LEFT SIDED WEAKNESS (USES A WALKER) Unsteady on feet due to dizziness. Current problems with nausea, vomiting and increased heart rate, LAST SEIZURE IN 2014. WHOOPING COUGH - Multiple times. ALLERGIES, NASAL CONGESTION, COUGH. CARPAL TUNNEL. States had pneumonia on and off from Mar 2016 to Oct 2016. States balance nerves in ears damaged, so does not have good balance. Emphysema. ON DIET CONTROL FOR DIABETES AT THIS TIME History of Any Multi-Drug Resistant Organisms: Other MDRO Past Surgical History: Adenoidectomy, Breast Surgery, Section, Cholecystectomy, Hysterectomy, Tonsillectomy Additional Past Surgical History / Comment(s): bronchoscopy,BRONCHIAL KATRINA 01/30/17 RIGHT BLEED FROM BREAST. CERVICAL FUSION. SINUS SURGERY. RIGHT EYELID., EGD Past Anesthesia/Blood Transfusion Reactions: Motion Sickness, Postoperative Nausea & Vomiting (PONV) Additional Past Anesthesia/Blood Transfusion Reaction / Comment(s): TAKES ANTIVERT FOR CHRONIC DIZZINESS. States takes a lot to knock her out and she's slow to wake up. Past Psychological History: Anxiety, Bipolar, Panic Disorder Additional Psychological History / Comment(s): and lives in the family home with her . She does not work outside of the home. They have pet dogs. She has no international travel. She has no experience. She has extensive exposure to tobacco smoking through her youth from her father who was a 4 pack per day smoker, she relates that her sister who was a smoker of lung disease 10 years ago. Smoking Status: Never smoker Past Alcohol Use History: None Reported Additional Past Alcohol Use History / Comment(s): COPD (EXPOSURE FROM FATHER'S SMOKING). Past Drug Use History: None Reported - Past Family History Mother Family Medical History: Cancer, CVA/TIA, Deep Vein Thrombosis (DVT), Myocardial Infarction ([place]) Additional Family Medical History / Comment(s): Breast and colon cancer Father Family Medical History: Cancer, Myocardial Infarction ([place]) Additional Family Medical History / Comment(s): Lung cancer Sister(s) Family Medical History: Deep Vein Thrombosis (DVT) Medications and Allergies Home Medications Medication Instructions Recorded Confirmed Type DULoxetine HCL [Cymbalta] 120 mg PO QAM 01/22/16 06/19/20 History Fluticasone/Salmeterol [Advair 1 puff INHALATION RT-BID 01/22/16 06/19/20 History 500-50 Diskus] Meclizine [Antivert] 25 mg PO TID 01/22/16 06/19/20 History Meloxicam [Mobic] 15 mg PO HS 01/22/16 06/19/20 History Metaxalone [Skelaxin] 800 mg PO QAM 01/22/16 06/19/20 History Montelukast [Singulair] 10 mg PO QAM 01/22/16 06/19/20 History Pantoprazole Sodium [Protonix] 40 mg PO AC-BRKFST 01/22/16 06/19/20 History Phenytoin Sodium Extended 200 mg PO BID 01/22/16 06/19/20 History [Dilantin] Simvastatin [Zocor] 40 mg PO HS 01/22/16 06/19/20 History Spironolactone-Hctz 25-25Mg 1 tab PO QAM 01/22/16 06/19/20 History [Aldactazide 25-25 MG] lamoTRIgine [LaMICtal] 100 mg PO QAM 01/22/16 06/19/20 History lamoTRIgine [LaMICtal] 200 mg PO HS 01/22/16 06/19/20 History Ipratropium-Albuterol Nebulize 3 ml INHALATION RT-QID #120 neb 01/19/17 06/19/20 Rx [Duoneb 0.5 mg-3 mg/3 ml Soln] Albuterol Inhaler (Mhu) [Ventolin 1 - 2 puff INHALATION RT-Q6H PRN 03/21/18 06/19/20 History Hfa Inhaler (Mhu)] Multivitamin/Iron/Folic Acid 1 tab PO DAILY 10/03/18 06/19/20 History [Centrum Complete Multivit Tab] Vit C/E/Zn/Coppr/Lutein/Zeaxan 2 cap PO DAILY 10/03/18 06/19/20 History [Preservision Areds 2 Softgel] Astelin Nasal [place] 2 sprays EA NOSTRIL BID 03/25/19 06/19/20 History QUEtiapine FUMARATE [SEROquel XR] 400 mg PO BID@1600,2200 03/25/19 06/19/20 History ALPRAZolam [Xanax] 1 mg PO TID #6 tab 04/11/19 06/19/20 Rx Tolterodine ER [Detrol LA] 2 mg PO DAILY 05/29/20 06/19/20 History Cetirizine HCl [Zyrtec] 10 mg PO DAILY 06/19/20 06/19/20 History Levothyroxine Sodium [Levoxyl] 50 mcg PO DAILY 06/19/20 06/19/20 History Potassium Chloride [Klor-Con 20] 20 meq PO DAILY 06/19/20 06/19/20 History Allergies Allergy/AdvReac Type Severity Reaction Status Date / Time clarithromycin [From Biaxin] AdvReac SEIZURES Verified 06/19/20 12:51 Surgical - Exam Vital Signs Temp Pulse Resp BP Pulse Ox 98.2 F 93 18 143/78 98 06/19/20 12:52 06/19/20 12:52 06/19/20 12:52 06/19/20 12:52 06/19/20 12:52 BMI 34 - General moderate distress - Eyes normal ocular movement - ENT normal pinna, normal nares - Neck trachea midline - Respiratory decreased breath sounds at the bases normal expansion - Cardiovascular Rhythm: regular - Abdomen protuberant, no guarding or rebound Abdomen: soft - Integumentary Ecchymosis - Neurologic no disoriented, no combative Breast exam: BRA: 42D inspection: grade 3 ptosis bilateral palpation: Right breast: Multiple positional exam fibrocystic changes, no dominant masses or nodules of concern Right axilla: No adenopathy of concern Left breast: Multi-positional exam fibrocystic changes no dominant masses or nodules of concern Left axilla: No adenopathy of concern Results mammogram screening and diagnostic results reviewed Assessment and Plan Assessment: Impression: 1. 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 hypothyroid 3. seizure disorder 4. HTN 5. high cholesterol 6. anxiety disorder 7. bipolar 8. mitral valve regurg 9. Whooping cough 5 times in 8 years/ dystroyed the balance nerves in her ureters 10. GERD 11. Arthritis 12. Microcalcifications of concern right breast 13. family history of breast cancer Plan: 1. Medical management of medical conditions 2. No aspirin or aspirin products for 1 week prior to procedure 3. Stereotactic core biopsy of the right breast 4. Ativan 30 minutes prior to procedure Benefits of the procedure have been discussed with the patient. Radiographs of been reviewed with the radiologist. The lesion appears to be in the upper inner quadrant of the breast at 1:00 and there was some concern that the patient will be able to lay on the table for the procedure. She's been given the option of having an a placed area done at [facility] however like to try and do it here if possible and if not possible she will go to [facility]. This concluded but are not limited to bleeding, infection, reaction to the anesthetic. She and her understand and they wish to proceed. CC: Dr. Cordova encounter: 40 minutes> 50% of time in planning and counselling
== END | disposition home or self-care (01) ==
LOC: WWCWWP 12:36
PROVIDERS: ATTEND Surgery
DX: Z53.9 Procedure and treatment not carried out, unspecified reason (principal)

== ENCOUNTER → 2020-06-26 | Day surgery (SDC) | payer BC ==
[2020-06-26 07:24] VITALS: BP 105/74; PULSE 92; RESP 18; TEMP 98.5
--- NOTE | 2020-06-26 08:57 | P.PN ---
Progress Note - Text Progress Note Date: 06/26/20 Vitaliy is a 65-year-old white female who was noted to have a right breast radiographic abnormality. Stereotactic core biopsy was recommended. She was scheduled for stereo biopsy today however when the web ui designer film was obtained it was noted that there were a complex of vessels in the area such that it was not felt these could be avoided. After review with radiology it was recommended that needle localization and excision in the operating room be performed. The lesion was felt to be a BIRAD 4A and alternatively watchful waiting with repeat mammogram in 3 months could be considered. This was discussed with the patient she is anxious concerning the results and wishes for needle localization with open biopsy to be performed. In order for open biopsy to be performed she would need to have medical clearance as she has oxygen-dependent COPD. She understands the risks and benefits of the procedure which include but are not limited to bleeding, infection, reaction to the anesthetic. She also understands that it is possible that we would be unable to localize the lesion or that the needle may slip and we would not get the lesion at the biopsy. Despite this she wishes to proceed. Impression: 1. 65-year-old white female with BIRADS 4A radiographic abnormality right breast 2. Oxygen dependent COPD 3. Inability to sample this via stereotactic core biopsy secondary to blood vessels in the area 4. Hypertension 5. Anxiety 6. Bipolar 7. Mitral valve regurg 8. Arthritis 9. Seizure disorder Plan: 1. Needle localization and excision of lesion in OR if medical clearance can be obtained Cc: Dr. Cordova, Dr. Maki Patient understands the risks and benefits and wishes to proceed. Encounter 15 minutes, > 50% of time in planning and counselling
--- NOTE | 2020-06-27 17:28 | MM ---
EXAMINATION TYPE: MG discontinued stereo core RT DATE OF EXAM: 06/26/2020 COMPARISON: 05/18/2020 mammogram CLINICAL HISTORY: Abnormal mammogram, calcifications TECHNIQUE: Patient was scheduled for a stereotactic core biopsy. On placing the patient on the table, the calcifications were adjacent to a couple of large caliber vascular structures and cannot be safe ly distanced for stereotactic biopsy. The case was discussed with the referring surgeon. Localization with wire localization and excision is recommended. IMPRESSION: 1. Stereotactic core biopsy not performed at this time. Recommendations: 1. Wire localization for surgical excision.
--- NOTE | 2020-07-02 14:24 | P.PN ---
Subjective Progress Note Date: 07/02/20 Principal diagnosis: Abnormal right breast mammogram Vitaliy is a 65-year-old white female who underwent a screening mammogram recently on 05/06/2020 which recommended diagnostic radiograph of the right breast. This was performed on and revealed an area of increasing microcalcifications in the upper aspect of the right breast and surgical consultation for stereotactic core biopsy was recommended. She was seen in consultation for Dr. Cordova regarding this. She did have bilateral mastitis in the past when she was nursing twins approximately 35 years ago. The patient does not feel any lumps masses or nodules of concern in her breast. She is not complaining of any nipple discharge or skin changes. She had a right breast duct exploration for bloody discharge in 1991, no cancer. Has not had any further nipple discharge of concern. She has not had any recent trauma or infection in the breast. Caffeine: none Nicotine: Negative; her father was a 4 pack per day smoker for many years and patient has subsequently developed COPD Theophylline: weekly Hormones: Hormones Family History: mother: breast cancer at 72 Hormonal History: menarche: 15 , breast fed: yes, age at first : 24 menopause: hysterectomy 45, left ovaries, done for endometriosis BCP: none Surgical history: 1. Hysterectomy 2. tonsil and adenoids 3. right eye/eyelid droop 4.gallbladder 5. sinus surgery twice Medical History: 1. 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 hypothyroid 3. seizure disorder 4. HTN 5. high cholesterol 6. anxiety disorder 7. bipolar 8. mitral valve regurg 9. Whooping cough 5 times in 8 years/ dystroyed the balance nerves in her ureters 10. GERD 11. arthritis History: Nicotine: Secondhand smoke exposure as a child patient has never smoked Alcohol:none drugs: none Social History: - Constitutional Comment: mycobacterium avium complex = MAC Constitutional: Reports sweats, Denies chills - EENT Comment: macular degeneration Ears: bilateral: decreased hearing Ears, nose, mouth and throat: Reports headache, Denies sore throat - Breasts Breasts: bilateral: as per HPI - Cardiovascular Comment: mitral valve regurgitation - Respiratory Comment: COPD/emphysema/oxygen-dependent Respiratory: Reports as per HPI, Denies cough - Gastrointestinal Comment: GERD - Genitourinary (Female) Genitourinary: Reports kidney stones, Denies dysuria, Denies hematuria - Menstruation Comment: endometriosis Menstruation: Reports post hysterectomy - Musculoskeletal Comment: arthritis - Integumentary Comment: echymosis easily Integumentary: Denies pruritus, Denies rash - Neurological Comment: CVA in the past, decreased memory - Psychiatric Psychiatric: Reports anxiety - Endocrine Comment: hypothyroid, diabetes - Hematologic/Lymphatic Hematologic/Lymphatic: Reports easy bruising Objective - Vital Signs Vital signs: Vital Signs Temp 98.5 F 06/26/20 07:19 Pulse 92 06/26/20 07:19 Resp 18 06/26/20 07:19 BP 105/74 06/26/20 07:19 Pulse Ox - Constitutional General appearance: Present: average body habitus, mild distress - EENT Eyes: Present: EOMI - Neck Neck: Present: normal ROM - Respiratory Respiratory: bilateral: diminished (at the bases) - Cardiovascular Rhythm: regular Heart sounds: normal: S1, S2 - Gastrointestinal General gastrointestinal: Present: normal bowel sounds, soft - Integumentary Integumentary Comment(s): echymosis Integumentary: Present: normal turgor - Musculoskeletal Musculoskeletal: Present: gait normal - Psychiatric Psychiatric: Present: A&O x's 3 - Additional findings Additional findings: BRA 42D inspection grade 3 ptosis bilateral Palpation: Right breast: Multi-positional exam fibrocystic changes, no dominant masses or nodules of concern Right axilla: No adenopathy of concern Left breast: Multiple positional exam fibrocystic changes to dominant masses or nodules of concern Left axilla: No adenopathy of concern Assessment and Plan Assessment: Impression: 1. 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 Hypothyroid 3. Seizure disorder 4. Hypertension 5. Cholesterol 6. Anxiety disorder 7. Bipolar 8. Mitral valve regurg 9. Whooping cough 5 times in 8 years 10. GERD 11. Arthritis 12. Microcalcifications of concern right breast 13. Family history of breast cancer Plan: 1. Medical management of medical conditions 2. No aspirin or aspirin products for 1 week prior to procedure 3. Failed stereo biopsy attempt secondary to vessels in the region therefore recommended needle local excisional lumpectomy if patient can have medical clearance This and benefits of the procedure were discussed with the patient she understands and wished to proceed. Risks include but are not limited to bleeding, infection, reaction to the aesthetic. She understands and wishes to proceed.
== END ==
LOC: RADMAMWWP 07:04
PROVIDERS: ATTEND Surgery
DX: R92.8 Other abnormal and inconclusive findings on diagnostic imaging of breast (principal); Z99.81 Dependence on supplemental oxygen; Z53.8 Procedure and treatment not carried out for other reasons; J44.9 Chronic obstructive pulmonary disease, unspecified; I10 Essential (primary) hypertension; F41.9 Anxiety disorder, unspecified; I34.0 Nonrheumatic mitral (valve) insufficiency; M19.90 Unspecified osteoarthritis, unspecified site; G40.909 Epilepsy, unspecified, not intractable, without status epilepticus

== ENCOUNTER → 2020-08-13 | Outpatient (CLI) | payer BC ==
[2020-08-13 10:37] VITALS: BP 122/71; PULSE 100; RESP 20
--- NOTE | 2020-08-13 10:47 | P.PN ---
Subjective Progress Note Date: 08/13/20 Principal diagnosis: right breast microclacifications of concern Abnormal right breast mammogram Vitaliy is a 65-year-old white female who underwent a screening mammogram recently on 05/06/2020 which recommended diagnostic radiograph of the right breast. This was performed on and revealed an area of increasing microcalcifications in the upper aspect of the right breast and surgical consultation for stereotactic core biopsy was recommended. She was seen in consultation for Dr. Cordova regarding this. She did have bilateral mastitis in the past when she was nursing twins approximately 35 years ago. The patient does not feel any lumps masses or nodules of concern in her breast. She is not complaining of any nipple discharge or skin changes. She had a right breast duct exploration for bloody discharge in 1991, no cancer. Has not had any further nipple discharge of concern. She has not had any recent trauma or infection in the breast. On an attempt at stereo biopsy was performed. However we were unable to do this secondary to a confluence of vessels in the area and it was felt this could not be avoided. This was after review with radiology it was then recommended needle localization and excision in the operating room be performed. The lesion was felt to be a BIRADS 4 and alternatively watchful waiting with repeat mammogram in 3 months could be considered. This was discussed at the time with the patient but she was anxious concerning the results and wished for needle localization and open biopsy to be performed. Prior to this medical clearance has been obtained as she has oxygen-dependent COPD. Her procedure was originally scheduled for 07-07-20 however the Vitaliy developed pneumonia and the procedure was canceled. She has been rescheduled now and again cleared by pulmonary. Caffeine: none Nicotine: Negative; her father was a 4 pack per day smoker for many years and patient has subsequently developed COPD Theophylline: weekly Hormones: Hormones Family History: mother: breast cancer at 72 Hormonal History: menarche: 15 , breast fed: yes, age at first : 24 menopause: hysterectomy 45, left ovaries, done for endometriosis BCP: none Surgical history: 1. Hysterectomy 2. tonsil and adenoids 3. right eye/eyelid droop 4.gallbladder 5. sinus surgery twice Medical History: 1. 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 hypothyroid 3. seizure disorder 4. HTN 5. high cholesterol 6. anxiety disorder 7. bipolar 8. mitral valve regurg 9. Whooping cough 5 times in 8 years/ dystroyed the balance nerves in her ureters 10. GERD 11. arthritis History: Nicotine: Secondhand smoke exposure as a child patient has never smoked Alcohol:none drugs: none Social History: - Constitutional Comment: mycobacterium avium complex = MAC Constitutional: Reports sweats, Denies chills - EENT Comment: macular degeneration Ears: bilateral: decreased hearing Ears, nose, mouth and throat: Reports headache, Denies sore throat - Breasts Breasts: bilateral: as per HPI - Cardiovascular Comment: mitral valve regurgitation - Respiratory Comment: COPD/emphysema/oxygen-dependent Respiratory: Reports as per HPI, Denies cough - Gastrointestinal Comment: GERD - Genitourinary (Female) Genitourinary: Reports kidney stones, Denies dysuria, Denies hematuria - Menstruation Comment: endometriosis Menstruation: Reports post hysterectomy - Musculoskeletal Comment: arthritis - Integumentary Comment: echymosis easily Integumentary: Denies pruritus, Denies rash - Neurological Comment: CVA in the past, decreased memory - Psychiatric Psychiatric: Reports anxiety - Endocrine Comment: hypothyroid, diabetes - Hematologic/Lymphatic Hematologic/Lymphatic: Reports easy bruising Objective - Exam BMI 32.6 - Constitutional General appearance: Present: cooperative - EENT Eyes: Present: EOMI ENT: Present: hearing grossly normal - Neck Neck: Present: normal ROM - Respiratory Details: oxygen dependant COPD, - Cardiovascular Heart sounds: normal: S1, S2 - Gastrointestinal General gastrointestinal: Present: soft - Integumentary Integumentary Comment(s): skin easy bruising - Musculoskeletal Musculoskeletal Comment(s): uses a waker - Psychiatric Psychiatric: Present: A&O x's 3 - Additional findings Additional findings: breast exam: BRA: 42D inspection: grade 3 ptosis bilateral palpation: Right breast: Multi-positional exam fibrocystic changes no dominant masses or nodules of concern Right axilla: No adenopathy of concern Left breast: Multi-positional exam fibrocystic changes no dominant masses or nodules of concern Left axilla: No adenopathy of concern Assessment and Plan Assessment: Impression: 1. 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 Hypothyroid 3. Seizure disorder 4. Hypertension 5. High cholesterol 6. Anxiety disorder 7. Bipolar 8. Mitral valve regurg 9. Mammographic abnormality right breast 10. GERD 11. Arthritis Plan: 1. Clearance from pulmonary prior to operative intervention 2. No aspirin or aspirin products for 1 week prior to procedure 3. Needle localization excisional biopsy in the operating room of right breast lesion 4. Medical clearance from primary care physician The patient is a 65-year-old white female and she and her understand the risks and benefits of the procedure. We have attempted to do a stereotactic core biopsy which was unsuccessful secondary to vascularity in the vicinity of the lesion. She was been given the option of watchful waiting however she is anxious and wishes to have this performed now. She understands the risks include not only surgical risk the risk of the anesthesia. Surgical risks include but are not limited to bleeding, infection, reaction to the anesthetic. Additionally there is possibility that the needle could slip in the area of co ncern not be adequately sampled and this would need to be repeated in the future. She understands and wishes to proceed. Cc: Dr. Cordova, Dr. Millan encounter 20 minutes time spent in reviewing medical records, examination, and counselling
== END | disposition home or self-care (01) ==
LOC: WWCWWP 10:17
PROVIDERS: ATTEND Surgery
DX: Z53.9 Procedure and treatment not carried out, unspecified reason (principal)

== ENCOUNTER 2020-08-18 08:50 | Day surgery (SDC) | payer BC ==
[2020-08-14 13:33] VITALS: BMI 32.9
[~2020-08-18 08:50] MED LIST changes: -ALBUTEROL NEB (CONC) 2.5 MG/0.5 ML INHALATION ONE; +ALPRAZolam 0.25 MG TAB PO PRN; +DEXAMETHASONE SOD PHOSPHATE 4 MG/ML 1 ML VIAL IV ONE; +HEPARIN SODIUM,PORCINE 5,000 UNIT/ML 1 ML VIAL SQ PRN; +HYDROmorphone 0.5 MG/0.5 ML SYRINGE IVP PRN; +LACTATED RINGERS 1,000 ML IV SCH; -LIDOCAINE 2% (PF) 20 MG/ML 5 ML VIAL INHALATION ONE; -LIDOCAINE VISCOUS 300 MG/15 ML CUP MUCOUS MEM ONE; +ONDANSETRON 4 MG/2 ML VIAL IVP ONE; +Pre Op ABX Message 1 EACH MISC MISCELLANE ONE; -SODIUM CHLORIDE 0.9% 1,000 ML IV SCH
[2020-08-18 09:38] LABS: Glucose,Whole Blood 129 mg/dL (75-99)
[2020-08-18] MEDS ORDERED: LIDOCAINE 1% INJ 10MG/ML (20 ML MDV) IV ONE (10:16)
[2020-08-18] MEDS ORDERED: MIDAZOLAM 2 MG/2 ML VIAL IV ONE (11:21)
[2020-08-18] MEDS ORDERED: SUCCINYLCHOLINE CHLORIDE 100 MG/5 ML SYR IV ONE (12:17)
[2020-08-18] MEDS ORDERED: PROPOFOL 10 MG/ML 20 ML VIAL IV ONE (12:17)
[2020-08-18] MEDS ORDERED: LIDOCAINE 1% INJ 10MG/ML (20 ML MDV) ONE (12:17)
[2020-08-18] MEDS ORDERED: fentaNYL (PF) 50 MCG/ML 2 ML AMP ONE (12:17)
[2020-08-18] MEDS ORDERED: MIDAZOLAM 2 MG/2 ML VIAL ONE (12:17)
[2020-08-18] MEDS ORDERED: LACTATED RINGERS 1,000 ML IV ONE (12:30)
[2020-08-18] MEDS ORDERED: LIDOCAINE 1% INJ 10MG/ML (20 ML MDV) SQ ONE ×2 (13:11→14:04)
--- NOTE | 2020-08-18 14:12 | P.OP ---
Date of Procedure: 08/18/20 Preoperative Diagnosis: Suspicious microcalcifications right breast Postoperative Diagnosis: Same Procedure(s) Performed: Needle localization excisional lumpectomy lesion right breast Anesthesia: JORGEA Surgeon: Zoila Ordonez Estimated Blood Loss (ml): 15 IV fluids (ml): 400 Pathology: other (Breast tissue with microcalcifications present in specimen) Condition: stable Disposition: same day Indications for Procedure: Microcalcifications of concern right breast. Attempt at stereotactic core biopsy revealed a large number of blood vessels in the vicinity and therefore was recommended. Local excisional biopsy be performed Operative Findings: Fibrofatty breast tissue with a large number of vessels in the vicinity of the lesion of concern Description of Procedure: The patient is a 65-year-old white female who was noted to have an area of microcalcification of concern in the right breast. Attempted stereo biopsy was put performed however the patient was noted to have a large number of vessels of concern in the vicinity and therefore was determined that the needle local excision in the operating room be performed. Following needle localization the patient was brought to the operative suite. Following induction of anesthesia the right breast was prepped and draped in a sterile fashion. An incision was made and carried down to the shaft of the needle. Surrounding tissue was exci sed. A plethora of blood vessels were present in the area and it was necessary that these be cauterized and/or controlled with the Harmonic scalpel. The specimen was removed and painted for orientation. Following this the specimen was sent to radiology. The lesion of concern was not fully excised. There was a small calcification at the tip of the needle but the remainder of the lesion was not excised. Additional tissue was therefore removed surrounding the entire cavity was fed had been excised. The specimen was sent for radiograph and the medial section the calcifications of concern. The wound was evaluated for hemostasis. The wound was irrigated. Hemostasis was attained using electrocautery device and harmonic scalpel. After we assured that hemostasis was attained the deep tissues were closed using 3-0 Vicryl suture. Surgicel in powder form was applied. This was followed by closure of the skin with 3-0 Vicryl subcutaneous suture and a 4-0 Monocryl. A nylon skin suture was placed. A pressure dressing was applied. The patient tolerated the procedure in stable condition all instrument and sponge counts were correct at the end of the case.
--- NOTE | 2020-08-18 14:15 | P.DS ---
Providers Attending physician: Zoila Ordonez Primary care physician: Ortiz Cordova Plan - Discharge Summary Discharge Rx Participant: No New Discharge Prescriptions: No Action Fluticasone/Salmeterol [Advair 500-50 Diskus] 1 puff INHALATION RT-BID Meclizine [Antivert] 25 mg PO TID Montelukast [Singulair] 10 mg PO QAM Metaxalone [Skelaxin] 800 mg PO QAM Meloxicam [Mobic] 15 mg PO HS DULoxetine HCL [Cymbalta] 120 mg PO QAM Phenytoin Sodium Extended [Dilantin] 200 mg PO BID Pantoprazole Sodium [Protonix] 40 mg PO AC-BRKFST Spironolactone-Hctz 25-25Mg [Aldactazide 25-25 MG] 1 tab PO QAM Simvastatin [Zocor] 40 mg PO HS lamoTRIgine [LaMICtal] 200 mg PO HS lamoTRIgine [LaMICtal] 100 mg PO QAM Ipratropium-Albuterol Nebulize [Duoneb 0.5 mg-3 mg/3 ml Soln] 3 ml INHALATION RT-QID #120 neb Albuterol Inhaler (Mhu) [Ventolin Hfa Inhaler (Mhu)] 1 - 2 puff INHALATION RT-Q6H PRN PRN Reason: Shortness Of Breath Multivitamin/Iron/Folic Acid [Centrum Complete Multivit Tab] 1 tab PO DAILY Vit C/E/Zn/Coppr/Lutein/Zeaxan [Preservision Areds 2 Softgel] 2 cap PO DAILY QUEtiapine FUMARATE [SEROquel XR] 400 mg PO BID@1600,2200 Astelin Nasal [place] 2 sprays EA NOSTRIL BID ALPRAZolam [Xanax] 1 mg PO TID #6 tab Tolterodine ER [Detrol LA] 2 mg PO AC-SUPPER Cetirizine HCl [Zyrtec] 10 mg PO DAILY Levothyroxine Sodium [Levoxyl] 50 mcg PO QAM Potassium Chloride [Klor-Con 20] 20 meq PO QAM predniSONE 2.5 mg PO DAILY Discharge Medication List DULoxetine HCL [Cymbalta] 120 mg PO QAM 01/22/16 [History] Fluticasone/Salmeterol [Advair 500-50 Diskus] 1 puff INHALATION RT-BID 01/22/16 [History] Meclizine [Antivert] 25 mg PO TID 01/22/16 [History] Meloxicam [Mobic] 15 mg PO HS 01/22/16 [History] Metaxalone [Skelaxin] 800 mg PO QAM 01/22/16 [History] Montelukast [Singulair] 10 mg PO QAM 01/22/16 [History] Pantoprazole Sodium [Protonix] 40 mg PO AC-BRKFST 01/22/16 [History] Phenytoin Sodium Extended [Dilantin] 200 mg PO BID 01/22/16 [History] Simvastatin [Zocor] 40 mg PO HS 01/22/16 [History] Spironolactone-Hctz 25-25Mg [Aldactazide 25-25 MG] 1 tab PO QAM 01/22/16 [History] lamoTRIgine [LaMICtal] 100 mg PO QAM 01/22/16 [History] lamoTRIgine [LaMICtal] 200 mg PO HS 01/22/16 [History] Ipratropium-Albuterol Nebulize [Duoneb 0.5 mg-3 mg/3 ml Soln] 3 ml INHALATION RT-QID #120 neb 01/19/17 [Rx] Albuterol Inhaler (Mhu) [Ventolin Hfa Inhaler (Mhu)] 1 - 2 puff INHALATION RT- Q6H PRN 03/21/18 [History] Multivitamin/Iron/Folic Acid [Centrum Complete Multivit Tab] 1 tab PO DAILY 10/03/18 [History] Vit C/E/Zn/Coppr/Lutein/Zeaxan [Preservision Areds 2 Softgel] 2 cap PO DAILY 10/03/18 [History] Astelin Nasal [place] 2 sprays EA NOSTRIL BID 03/25/19 [History] QUEtiapine FUMARATE [SEROquel XR] 400 mg PO BID@1600,2200 03/25/19 [History] ALPRAZolam [Xanax] 1 mg PO TID #6 tab 04/11/19 [Rx] Tolterodine ER [Detrol LA] 2 mg PO AC-SUPPER 05/29/20 [History] Cetirizine HCl [Zyrtec] 10 mg PO DAILY 06/19/20 [History] Levothyroxine Sodium [Levoxyl] 50 mcg PO QAM 06/19/20 [History] Potassium Chloride [Klor-Con 20] 20 meq PO QAM 06/19/20 [History] predniSONE 2.5 mg PO DAILY 08/13/20 [History] Follow up Appointment(s)/Referral(s): Zoila Ordonez MD [STAFF PHYSICIAN] - 3 Days Activity/Diet/Wound Care/Special Instructions: do not drive for 24 hours or if taking narcotic pain medication may shower after 48 hours wear bra at all times
[2020-08-18 14:20] VITALS: TEMP 98.6
[2020-08-18 14:31] VITALS: RESP 16
--- NOTE | 2020-08-18 14:36 | MM ---
EXAMINATION TYPE: MG pre op needle loc RT, MG surgical specimen RT DATE OF EXAM: 08/18/2020 10:45 AM COMPARISON: NONE HISTORY: Microcalcifications Informed consent was obtained and all the patient's questions were answered. The lesion in question was localized mammographically. The standard sterile technique was utilized, as well as appropriate local anesthesia with 1% Lidocaine and bicarbonate. Localization needle followed by placement of a guidewire was performed under mammographic guidance. Verification images demonstrate appropriate deployment of the guidewire. The patient tolerated the procedure well and left the department in stable condition. Specimen radiograph demonstrates the microcalcifications in question to reside within the specimen. IMPRESSION: Successful needle localization and open biopsy right breast with pathology results pending . Pathology Results: Benign A. RIGHT BREAST, NEEDLE LOCALIZATION EXCISION: Benign breast with fibrocystic changes. B. RIGHT BREAST, ADDITIONAL TISSUE EXCISION: Benign breast with calcified fat necrosis and fibrocystic changes. Recommendation Follow up mammogram of the right breast in 6 months. PRANAV
[2020-08-18] MEDS ORDERED: ONDANSETRON 4 MG/2 ML VIAL ONE (15:32)
[2020-08-18] MEDS ORDERED: ONDANSETRON 4 MG/2 ML VIAL IVP ONE (15:39)
[2020-08-18 16:05] VITALS: BP 146/69; PULSE 85
[2020-08-18] MEDS ORDERED: HYDROcodone/APAP 5-325MG 1 EACH TAB ONE (16:09)
[2020-08-18] MEDS ORDERED: HYDROcodone/APAP 5-325MG 1 EACH TAB PO ONE (16:11)
== END 2020-08-18 16:41 | disposition home or self-care (01) ==
LOC: OR 08:50
PROVIDERS: ATTEND Surgery
DX: N64.1 Fat necrosis of breast (principal); R92.0 Mammographic microcalcification found on diagnostic imaging of breast; J44.9 Chronic obstructive pulmonary disease, unspecified; I34.0 Nonrheumatic mitral (valve) insufficiency; Z99.81 Dependence on supplemental oxygen; Z77.22 Contact with and (suspected) exposure to environmental tobacco smoke (acute) (chronic); E03.9 Hypothyroidism, unspecified; G40.909 Epilepsy, unspecified, not intractable, without status epilepticus; I10 Essential (primary) hypertension; E78.00 Pure hypercholesterolemia, unspecified; F41.9 Anxiety disorder, unspecified; F31.9 Bipolar disorder, unspecified; M19.90 Unspecified osteoarthritis, unspecified site; Z90.710 Acquired absence of both cervix and uterus; Z90.89 Acquired absence of other organs; Z98.890 Other specified postprocedural states; Z80.3 Family history of malignant neoplasm of breast; Z87.442 Personal history of urinary calculi; I69.311 Memory deficit following cerebral infarction; E11.9 Type 2 diabetes mellitus without complications; E78.5 Hyperlipidemia, unspecified; I69.354 Hemiplegia and hemiparesis following cerebral infarction affecting left non-dominant side; Z79.1 Long term (current) use of non-steroidal anti-inflammatories (NSAID); Z79.51 Long term (current) use of inhaled steroids; Z79.52 Long term (current) use of systemic steroids; Z79.899 Other long term (current) drug therapy; M79.7 Fibromyalgia
CPT/HCPCS: 19301; 88307; 76098; J2250; J1644; J1100; J2405; J2001; J3010; J0330; J2704

== ENCOUNTER → 2020-08-21 | Outpatient (CLI) | payer BC ==
[2020-08-21 16:07] VITALS: BP 158/77; PULSE 90; RESP 18; TEMP 98
--- NOTE | 2020-08-21 16:14 | P.PN ---
Progress Note - Text Progress Note Date: 08/21/20 Vitaliy is a 65 -year-old white female status post right breast needle local excisional biopsy for area of microcalcifications. This revealed benign breast with calcified fat necrosis and fibrocystic changes. Postoperative the patient is doing well. She is complaining of some discomfort at the incision site but she states it is improving. Physical exam: Lungs: Decreased breath sounds at bases she is oxygen dependent Heart: Regular rate and rhythm Incision: Clean and dry no evidence of any hematoma Impression: Patient status post needle local excisional biopsy lesion in the right breast benign Plan: Follow up next week for suture removal Right breast mammogram in 6 months with physician exam at that time CC: Dr. Cordova
== END | disposition home or self-care (01) ==
LOC: WWCWWP 15:56
PROVIDERS: ATTEND Surgery
DX: Z53.9 Procedure and treatment not carried out, unspecified reason (principal)

== ENCOUNTER → 2020-08-28 | Outpatient (CLI) | payer BC ==
[2020-08-28 12:10] VITALS: BP 104/68; PULSE 91; RESP 22; TEMP 98.2
--- NOTE | 2020-08-28 12:35 | P.PN ---
Progress Note - Text Progress Note Date: 08/28/20 Vitaliy is a 65 -year-old white female status post right breast needle local excisional biopsy for area of microcalcifications. This revealed benign breast with calcified fat necrosis and fibrocystic changes. Postoperative the patient is doing well. She is not complaining of some discomfort at the incision site but she states it is improving. Physical exam: Lungs: Decreased breath sounds at bases she is oxygen dependent Heart: Regular rate and rhythm Incision: Clean and dry no evidence of any hematoma Impression: Patient status post needle local excisional biopsy lesion in the right breast benign sutures removed Plan: Right breast mammogram in 6 months with physician exam at that time CC: Dr. Cordova
== END | disposition home or self-care (01) ==
LOC: WWCWWP 11:51
PROVIDERS: ATTEND Surgery
DX: Z53.9 Procedure and treatment not carried out, unspecified reason (principal)

== ENCOUNTER 2021-02-17 11:15 | Day surgery (SDC) | payer BC ==
[2021-02-12 10:40] VITALS: BMI 31.7
[~2021-02-17 11:15] MED LIST changes: +ALBUTEROL NEB (CONC) 2.5 MG/0.5 ML INHALATION ONE; -ALPRAZolam 0.25 MG TAB PO PRN; -DEXAMETHASONE SOD PHOSPHATE 4 MG/ML 1 ML VIAL IV ONE; -HEPARIN SODIUM,PORCINE 5,000 UNIT/ML 1 ML VIAL SQ PRN; -HYDROmorphone 0.5 MG/0.5 ML SYRINGE IVP PRN; +LIDOCAINE 2% (PF) 20 MG/ML 5 ML VIAL INHALATION ONE; +LIDOCAINE VISCOUS 300 MG/15 ML CUP MUCOUS MEM ONE; -ONDANSETRON 4 MG/2 ML VIAL IVP ONE; -Pre Op ABX Message 1 EACH MISC MISCELLANE ONE
[2021-02-17 11:47] VITALS: TEMP 97.1
[2021-02-17 11:47] LABS: Glucose,Whole Blood 141 mg/dL (75-99)
[2021-02-17] MEDS ORDERED: LIDOCAINE 1% INJ 10MG/ML (20 ML MDV) ONE (11:59)
[2021-02-17] MEDS ORDERED: fentaNYL (PF) 50 MCG/ML 2 ML AMP ONE (11:59)
[2021-02-17] MEDS ORDERED: PROPOFOL 10 MG/ML 20 ML VIAL IV ONE (11:59)
[2021-02-17] MEDS ORDERED: ONDANSETRON 4 MG/2 ML VIAL ONE (11:59)
[2021-02-17] MEDS ORDERED: MIDAZOLAM 2 MG/2 ML VIAL ONE (11:59)
[2021-02-17] MEDS ORDERED: GLYCOPYRROLATE 0.2 MG/ML 2 ML VIAL ONE (11:59)
[2021-02-17] MEDS ORDERED: IV FLUID CONTINUATION 1,000 ML IV ONE ×2 (12:46)
[2021-02-17] MEDS ORDERED: LIDOCAINE 2% (PF) 20 MG/ML 2 ML VIAL MISCELLANE ONE (13:10)
[2021-02-17 13:37] VITALS: BP 110/53; PULSE 100; RESP 22
--- NOTE | 2021-02-17 15:43 | PCN ---
PROCEDURE NOTE OPERATIVE REPORT: Bronchoscopy and random bronchoalveolar lavage as well as lavage of the left lower lobe specifically. PREOPERATIVE DIAGNOSES: Recurrent pneumonia and history of atypical mycobacterial infection. POSTOPERATIVE DIAGNOSIS: Recurrent pneumonia and history of atypical mycobacterial infection ANESTHESIA USED: IV conscious sedation. PROCEDURE DETAILS: The patient was prepared according the bronchoscopy protocol. The patient was brought in to suite 1 bronchoscopy suite, she was placed in a supine position, we monitored her O2 saturation continuously, blood pressure was intermittently monitored, and her heart rate was continuously monitored. After adequate IV conscious sedation, lidocaine was applied into the left naris, and the bronchoscope was advanced through the left naris down to the area of the vocal cords. Significant purulent secretions were noted around the area of the vocal cords, and these were suctioned. Lidocaine was applied over the vocal cords, and the bronchoscope was advanced down further to the airways. Thorough examination was done of the trachea, donato, right upper lobe, right middle lobe, right lower lobe, left upper lobe lingula and left lower lobe. There was evidence of significant thick purulent yellow secretions noted throughout the whole airways. It was suctioned and lavaged from different areas of the lungs including right upper lobe, right middle lobe, right lower lobe, also in the left upper lobe lingula and more significantly in the left lower lobe. Lavage was done more specifically in the left lower lobe, although it was actually a random wash from the different lobes. All the purulent secretions were suctioned thoroughly, and these were sent for different diagnostic studies including checking for atypical mycobacterial infection and fungal infection. The procedure was well tolerated, no evidence of any immediate complications. MMODL / IJN: [id number] /
[2021-02-17 20:33] LABS: Color,BF Pink
[2021-02-17 20:34] LABS: Appearance,BF Cloudy; Nucleated Cells, Body Fluid 4000 /uL; RBC, Body Fluid 6200 /uL
[2021-02-17 20:37] LABS: Mononuclear WBC,Body Fluid 21 %; Polynuclear WBC,Body Fluid 79 %; Total Cells Counted,Body Fluid 100
== END 2021-02-17 13:54 | disposition home or self-care (01) ==
LOC: ORWHC2ENDO 11:15
PROVIDERS: ATTEND Internal Medicine
DX: Z87.01 Personal history of pneumonia (recurrent) (principal); E07.9 Disorder of thyroid, unspecified; M19.90 Unspecified osteoarthritis, unspecified site; R56.9 Unspecified convulsions; E78.5 Hyperlipidemia, unspecified; M79.7 Fibromyalgia
CPT/HCPCS: 31624; 88108; 88305; 89050; 87252; 87070; 87205; 87116; 87102; 87206; J2250; J2405; J2001 ×2; J3010; J2704; 87077; 87186

== ENCOUNTER → 2021-02-19 | Outpatient (CLI) | payer BC ==
--- NOTE | 2021-02-23 13:55 | MM ---
Reason for exam: follow-up at short interval from prior study. Last mammogram was performed 10 years and 1 month ago. History: Benign MG pre op needle loc RT of the right breast, August 18, 2020. MG discontinued stereo core RT of the right breast, June 26, 2020. Benign US left guided VAD of the left breast, January 13, 2011. Benign excisional biopsy of the right breast, 1991. Took estrogen for 1 year beginning at age 45. Physical Findings: Nurse did not find any significant physical abnormalities on exam. MG 3D Diag Mammo W/Cad RT CC and MLO view(s) were taken of the right breast. Prior study comparison: May 06, 2020, mammogram. February 28, 2019, mammogram. The breast tissue is heterogeneously dense. This may lower the sensitivity of mammography. No significant new findings when compared with previous films. These results were verbally communicated with the patient and result sheet given to the patient on 02/19/21. ASSESSMENT: Benign, BI-RAD 2 RECOMMENDATION: Routine screening mammogram of both breasts in 2 months. Back on schedule for April 2021.
== END | disposition home or self-care (01) ==
LOC: RADMAMWWP 10:21
PROVIDERS: ATTEND Surgery
DX: R92.2 Inconclusive mammogram (principal); Z79.818 Long term (current) use of other agents affecting estrogen receptors and estrogen levels
CPT/HCPCS: 77061; 77065

== ENCOUNTER → 2021-02-26 | Outpatient (CLI) | payer BC ==
[2021-02-26 10:40] VITALS: BP 122/71; PULSE 88; RESP 20; TEMP 98
--- NOTE | 2021-02-26 11:21 | P.PN ---
Subjective Progress Note Date: 02/26/21 Principal diagnosis: fibrocystic breast changes Vitaliy is a 65-year-old white female who underwent a screening mammogram recently on 05/06/2020 which recommended diagnostic radiograph of the right breast. This was performed on and revealed an area of increasing microcalcifications in the upper aspect of the right breast and surgical consultation for stereotactic core biopsy was recommended. She was seen in consultation for Dr. Cordova regarding this. She did have bilateral mastitis in the past when she was nursing twins approximately 35 years ago. The patient did not feel any lumps masses or nodules of concern in her breast. She was not complaining of any nipple discharge or skin changes. She had a right breast duct exploration for bloody discharge in 1991, no cancer. An attempt at stereo biopsy was performed however secondary to increased vascularity in the area this was canceled and a needle localization and excisional biopsy was scheduled. This was performed and 2220. Pathology was benign. This revealed calcified fat necrosis and fibrocystic changes. The patient on [id number] History of right breast diagnostic mammogram done which was benign BIRADS 2. Patient does not complain of any lumps masses or nodules in her breasts at this time. She is not complaining of any nipple discharge or skin changes. Caffeine: none Nicotine: Negative; her father was a 4 pack per day smoker for many years and patient has subsequently developed COPD Theophylline: weekly Hormones: Hormones Family History: mother: breast cancer at 72 Hormonal History: menarche: 15 , breast fed: yes, age at first : 24 menopause: hysterectomy 45, left ovaries, done for endometriosis BCP: none Surgical history: 1. Hysterectomy 2. tonsil and adenoids 3. right eye/eyelid droop 4.gallbladder 5. sinus surgery twice Medical History: 1. 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 hypothyroid 3. seizure disorder 4. HTN 5. high cholesterol 6. anxiety disorder 7. bipolar 8. mitral valve regurg 9. Whooping cough 5 times in 8 years/ dystroyed the balance nerves in her ureters 10. GERD 11. arthritis 12. recent pneumonia History: Nicotine: Secondhand smoke exposure as a child patient has never smoked Alcohol:none drugs: none Social History: - Constitutional Comment: mycobacterium avium complex = MAC Constitutional: Reports sweats, Denies chills - EENT Comment: macular degeneration Ears: bilateral: decreased hearing Ears, nose, mouth and throat: Reports headache, Denies sore throat - Breasts Breasts: bilateral: as per HPI - Cardiovascular Comment: mitral valve regurgitation - Respiratory Comment: COPD/emphysema/oxygen-dependent Respiratory: Reports as per HPI, Denies cough - Gastrointestinal Comment: GERD - Genitourinary (Female) Genitourinary: Reports kidney stones, Denies dysuria, Denies hematuria - Menstruation Comment: endometriosis Menstruation: Reports post hysterectomy - Musculoskeletal Comment: arthritis - Integumentary Comment: echymosis easily Integumentary: Denies pruritus, Denies rash - Neurological Comment: CVA in the past, decreased memory - Psychiatric Psychiatric: Reports anxiety - Endocrine Comment: hypothyroid, diabetes - Hematologic/Lymphatic Hematologic/Lymphatic: Reports easy bruising Objective - Vital Signs Vital signs: Vital Signs Temp 98.0 F 02/26/21 10:37 Pulse 88 02/26/21 10:37 Resp 20 02/26/21 10:37 BP 122/71 02/26/21 10:37 Pulse Ox 96 02/26/21 10:37 Intake & Output 02/25/21 02/26/21 02/26/21 18:59 06:59 18:59 Weight 79.832 kg - Constitutional General appearance: Present: cooperative - EENT Eyes: Present: EOMI ENT: Present: hearing grossly normal - Neck Neck: Present: normal ROM - Respiratory Details: on supplemental oxygen Respiratory: bilateral: CTA - Cardiovascular Heart sounds: normal: S1, S2 - Integumentary Integumentary: Present: normal turgor - Musculoskeletal Musculoskeletal Comment(s): uses a walker - Psychiatric Psychiatric: Present: A&O x's 3 - Additional findings Additional findings: Breast examination: Inspection: Bilateral grade 3 ptosis Right breast: Fibrocystic breast changes no dominant masses or nodules of concern Right axilla: No adenopathy of concern Left breast: Cystic changes no dominant masses or nodules of concern Left axilla: No adenopathy of concern Assessment and Plan Assessment: IMPRESSION: 1. 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 hypothyroid 3. seizure disorder 4. HTN 5. high cholesterol 6. anxiety disorder 7. bipolar 8. mitral valve regurg 9. Whooping cough 5 times in 8 years/ dystroyed the balance nerves in her u reters 10. GERD 11. arthritis 12. recent pneumonia/ ecoli and strept B 13. Fibrocystic breast changes Plan: 1. Medical management of medical conditions 2. Bilateral mammogram in April 17 back on scheduled follow-up at that time Cc: Dr. Liu
== END ==
LOC: WWCWWP 10:17
PROVIDERS: ATTEND Surgery
DX: N60.11 Diffuse cystic mastopathy of right breast (principal); E03.9 Hypothyroidism, unspecified; E78.00 Pure hypercholesterolemia, unspecified; F41.9 Anxiety disorder, unspecified; I10 Essential (primary) hypertension; J44.9 Chronic obstructive pulmonary disease, unspecified; M19.90 Unspecified osteoarthritis, unspecified site; K21.9 Gastro-esophageal reflux disease without esophagitis; G40.909 Epilepsy, unspecified, not intractable, without status epilepticus; J15.5 Pneumonia due to Escherichia coli; J15.3 Pneumonia due to streptococcus, group B; Z88.0 Allergy status to penicillin

== ENCOUNTER → 2021-05-10 | Outpatient (CLI) | payer BC ==
--- NOTE | 2021-05-11 14:01 | MM ---
Reason for exam: screening (asymptomatic). Last mammogram was performed 3 months ago. History: Family history of breast cancer in mother at age 72. Benign MG pre op needle loc RT of the right breast, August 18, 2020. MG discontinued stereo core RT of the right breast, June 26, 2020. Benign US left guided VAD of the left breast, January 13, 2011. Benign excisional biopsy of the right breast, 1991. Took estrogen for 1 year beginning at age 45. Physical Findings: A clinical breast exam by your physician is recommended on an annual basis and results should be correlated with mammographic findings. MG 3D Screening Mammo W/Cad Bilateral CC and MLO view(s) were taken. Prior study comparison: February 19, 2021, right breast MG 3d diag mammo w/cad RT. May 06, 2020, mammogram. February 28, 2019, mammogram. The breast tissue is heterogeneously dense. This may lower the sensitivity of mammography. Previous mammotome biopsy in the left breast. Benign oil cyst calcifications. Bilateral asymmetric densities are unchanged. ASSESSMENT: Benign, BI-RAD 2 RECOMMENDATION: Routine screening mammogram of both breasts in 1 year. Patient should continue monthly self breast exams. A negative report should not preclude additional follow up of suspicious palpable abnormalities.
== END | disposition home or self-care (01) ==
LOC: RADMAMWWP 11:05
PROVIDERS: ATTEND Surgery
DX: Z12.31 Encounter for screening mammogram for malignant neoplasm of breast (principal); Z80.3 Family history of malignant neoplasm of breast
CPT/HCPCS: 77063; 77067

== ENCOUNTER → 2021-05-20 | Outpatient (CLI) | payer BC ==
[2021-05-20 10:46] VITALS: BP 138/78; PULSE 93; RESP 20; TEMP 98.5
--- NOTE | 2021-05-20 11:06 | P.PN ---
Subjective Progress Note Date: 05/20/21 Principal diagnosis: Fibrocystic breast changes fibrocystic breast changes Vitaliy is a 65-year-old white female who underwent a screening mammogram recently on 05/06/2020 which recommended diagnostic radiograph of the right breast. This was performed on and revealed an area of increasing microcalcifications in the upper aspect of the right breast and surgical consultation for stereotactic core biopsy was recommended. She was seen in consultation for Dr. Cordova regarding this. She did have bilateral mastitis in the past when she was nursing twins approximately 35 years ago. The patient did not feel any lumps masses or nodules of concern in her breast. She was not complaining of any nipple discharge or skin changes. She had a right breast duct exploration for bloody discharge in 1991, no cancer. An attempt at stereo biopsy was performed however secondary to increased vascularity in the area this was canceled and a needle localization and excisional biopsy was scheduled. This was performed on 2220. Pathology was benign. This revealed calcified fat necrosis and fibrocystic changes. The patient on 05-10-21 had a bilateral screening mammogram which was Benign BIRAD 2. Patient does not complain of any lumps masses or nodules in her breasts at this time. She is not complaining of any nipple discharge or skin changes. Caffeine: none Nicotine: Negative; her father was a 4 pack per day smoker for many years and patient has subsequently developed COPD Theophylline: weekly Hormones: Hormones Family History: mother: breast cancer at 72 Hormonal History: menarche: 15 , breast fed: yes, age at first : 24 menopause: hysterectomy 45, left ovaries, done for endometriosis BCP: none Surgical history: 1. Hysterectomy 2. tonsil and adenoids 3. right eye/eyelid droop 4.gallbladder 5. sinus surgery twice Medical History: 1. 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 hypothyroid 3. seizure disorder 4. HTN 5. high cholesterol 6. anxiety disorder 7. bipolar 8. mitral valve regurg 9. Whooping cough 5 times in 8 years/ dystroyed the balance nerves in her ureters 10. GERD 11. arthritis 12. recent pneumonia History: Nicotine: Secondhand smoke exposure as a child patient has never smoked Alcohol:none drugs: none Social History: - Constitutional Comment: mycobacterium avium complex = MAC Constitutional: Reports sweats, Denies chills - EENT Comment: macular degeneration Ears: bilateral: decreased hearing Ears, nose, mouth and throat: Reports headache, Denies sore throat - Breasts Breasts: bilateral: as per HPI - Cardiovascular Comment: mitral valve regurgitation - Respiratory Comment: COPD/emphysema/oxygen-dependent Respiratory: Reports as per HPI, Denies cough - Gastrointestinal Comment: GERD - Genitourinary (Female) Genitourinary: Reports kidney stones, Denies dysuria, Denies hematuria - Menstruation Comment: endometriosis Menstruation: Reports post hysterectomy - Musculoskeletal Comment: arthritis - Integumentary Comment: echymosis easily Integumentary: Denies pruritus, Denies rash - Neurological Comment: CVA in the past, decreased memory - Psychiatric Psychiatric: Reports anxiety - Endocrine Comment: hypothyroid, diabetes - Hematologic/Lymphatic Hematologic/Lymphatic: Reports easy bruising Objective - Vital Signs Vital signs: Vital Signs Temp 98.5 F 05/20/21 10:44 Pulse 93 05/20/21 10:44 Resp 20 05/20/21 10:44 BP 138/78 05/20/21 10:44 Pulse Ox 98 05/20/21 10:44 Intake & Output 05/19/21 05/20/21 05/20/21 18:59 06:59 18:59 Weight 86.636 kg Assessment and Plan Assessment: Impression: 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 Hypothyroid 3. Seizure disorder 4. Hypertension 5. High cholesterol 6. Anxiety disorder 7. Bipolar 8. Mitral valve regurg 9. Whooping cough 5 times in 8 years destroying the balance nerves in her ears 10. GERD 11. Arthritis 12. Recurrent pneumonia 13. Fibrocystic breast changes 14. Recent bilateral mammogram benign BIRADS 2 Plan: 1. Repeat bilateral mammogram in 1 year with physician exam at that time 2. Medical management of medical conditions The patient had undergone a breast examination on . On that examination only fibrocystic changes were identified therefore today she is coming in simply for the results of her mammogram and has declined physical examination. Dr. Liu
== END ==
LOC: WWCWWP 10:17
PROVIDERS: ATTEND Surgery
DX: N60.11 Diffuse cystic mastopathy of right breast (principal); J43.9 Emphysema, unspecified; E03.9 Hypothyroidism, unspecified; G40.909 Epilepsy, unspecified, not intractable, without status epilepticus; I10 Essential (primary) hypertension; E78.00 Pure hypercholesterolemia, unspecified; F41.9 Anxiety disorder, unspecified; F31.9 Bipolar disorder, unspecified; K21.9 Gastro-esophageal reflux disease without esophagitis; M19.90 Unspecified osteoarthritis, unspecified site; A37.91 Whooping cough, unspecified species with pneumonia; I34.0 Nonrheumatic mitral (valve) insufficiency; Z99.81 Dependence on supplemental oxygen; Z88.1 Allergy status to other antibiotic agents; Z79.51 Long term (current) use of inhaled steroids; Z79.890 Hormone replacement therapy; Z79.899 Other long term (current) drug therapy

== ENCOUNTER → 2022-05-27 | Outpatient (CLI) | payer MEDICARE ==
[2022-05-28 04:24] LABS: Clam IgE <0.10 kU/L; Codfish IgE <0.10 kU/L; Egg White IgE <0.10 kU/L; Peanut IgE <0.10 kU/L; Scallop IgE <0.10 kU/L; Shrimp IgE <0.10 kU/L; Soybean IgE <0.10 kU/L; Walnut IgE (Food) <0.10 kU/L
[2022-05-30 11:51] LABS: Beef IgE <0.10 kU/L (<0.10); Beef IgE Class CLASS 0
[2022-05-30 20:37] LABS: Beef IgG 14.6 mcg/mL (<2.0); Chicken Meat IgG 2.5 mcg/mL (<2.0); Pork IgG 5.8 mcg/mL (<2.0)
== END | disposition home or self-care (01) ==
LOC: LABWHC1 15:22
PROVIDERS: ATTEND Otolaryngology
DX: J30.89 Other allergic rhinitis (principal)
CPT/HCPCS: 36415; 82785; 86001; 86003

== ENCOUNTER → 2022-05-27 | Outpatient (CLI) | payer BC, MEDICARE ==
--- NOTE | 2022-05-30 19:41 | MM ---
Reason for Exam: Screening (asymptomatic). Last mammogram was performed 1 year(s) and 1 month(s) ago. Patient History: Menarche at age 15. First Full-Term at age 24. Hysterectomy at age 45. Estrogen for 1 year from age 45 until age 46. 1991, Benign Excisional Biopsy on the right side. 08/18/2020, Benign Core Biopsy on the right side. 01/13/2011, Benign Core Biopsy on the left side. 06/26/2020, MG discontinued stereo core RT on the right side. Mother had breast cancer, age 72. Risk Values: Donna 5 year model risk: 4.7%. NCI Lifetime model risk: 17.0%. Prior Study Comparison: 05/06/2020 Screening Mammogram, Unknown. 02/19/2021 Right Diagnostic Mammogram, [facility]. 05/10/2021 Bilateral Screening Mammogram, [facility]. Tissue Density: The breast tissue is heterogeneously dense. This may lower the sensitivity of mammography. Findings: Analyzed By CAD. New area of distortion upper quadrant right breast middle to posterior depth warrants further evaluation. Scattered benign oil cyst calcifications on both sides. Microclip left breast from prior biopsy. Overall Assessment: Incomplete: need additional imaging evaluation, BI-RAD 0 Management: Special View Mammogram of the right breast. Diagnostic Breast Ultrasound of the right breast. Additional views right breast to include spot 3-D CC, spot 3-D MLO, and 3-D LM views. Targeted ultrasound right breast upper inner quadrant. [facility] will attempt to contact patient to return for supplemental views and ultrasound if indicated. Electronically signed and approved by: Chanel Rubin M.D. Radiologist
== END | disposition home or self-care (01) ==
LOC: RADMAMWWP 16:04
PROVIDERS: ATTEND Surgery
DX: Z12.31 Encounter for screening mammogram for malignant neoplasm of breast (principal); Z80.3 Family history of malignant neoplasm of breast; Z98.890 Other specified postprocedural states
CPT/HCPCS: 77063; 77067

== ENCOUNTER → 2022-06-10 | Outpatient (CLI) | payer MEDICARE ==
--- NOTE | 2022-06-10 14:56 | USB ---
Patient History: Menarche at age 15. First Full-Term at age 24. Hysterectomy at age 45. Estrogen for 1 year from age 45 until age 46. 1991, Benign Excisional Biopsy on the right side. 08/18/2020, Benign Core Biopsy on the right side. 01/13/2011, Benign Core Biopsy on the left side. 06/26/2020, MG discontinued stereo core RT on the right side. Mother had breast cancer, age 72. Risk Values: Donna 5 year model risk: 4.7%. NCI Lifetime model risk: 17.0%. Technique: Method: Targeted. Prior Study Comparison: 02/19/2021 Right Diagnostic Mammogram, [facility]. 05/10/2021 Bilateral Screening Mammogram, [facility]. 05/27/2022 Bilateral MG 3D screening mammo w/cad, [facility]. Findings: The upper inner quadrant of the right breast, the axilla of the right breast and the retroareolar of the right breast were scanned. Right breast upper inner quadrant from 12:00 to 3:00. Right breast 1:00 at the scar demonstrates a postsurgical changes measuring 2.0 x 1.0 cm without internal color Doppler flow with anechoic cystic changes. Posterior the nipple is suspected dilated ducts measuring up to 3.8 x 1.0 x 2.5 cm. Additional right hilum lymph nodes are seen in the axilla. No suspicious masses identified. Multiple hyperechoic lymph nodes up to 1.6 x 0.9 x 1.3 cm. Overall Assessment: Probably benign, BI-RAD 3 Management: Diagnostic Mammogram of the right breast in 6 months. A clinical breast exam by your physician is recommended on an annual basis and results should be correlated with mammographic findings. This exam should not preclude additional follow-up of suspicious palpable abnormalities. Results were given to the patient verbally at the time of exam. Electronically signed and approved by: Ortiz Lomeli DO
--- NOTE | 2022-06-10 14:57 | MM ---
Reason for Exam: Additional evaluation requested from abnormal screening. Last screening mammogram was performed less than 1 month ago. Patient History: Menarche at age 15. First Full-Term at age 24. Hysterectomy at age 45. Estrogen for 1 year from age 45 until age 46. 1991, Benign Excisional Biopsy on the right side. 08/18/2020, Benign Core Biopsy on the right side. 01/13/2011, Benign Core Biopsy on the left side. 06/26/2020, MG discontinued stereo core RT on the right side. Mother had breast cancer, age 72. Risk Values: Donna 5 year model risk: 4.7%. Donna 5 year model risk: 4.7%. NCI Lifetime model risk: 17.0%. NCI Lifetime model risk: 17.0%. Prior Study Comparison: 02/28/2019 Screening Mammogram, Unknown. 05/06/2020 Screening Mammogram, Unknown. 02/19/2021 Right Diagnostic Mammogram, [facility]. 05/10/2021 Bilateral Screening Mammogram, [facility]. 05/27/2022 Bilateral MG 3D screening mammo w/cad, [facility]. Tissue Density: Right: There are scattered fibroglandular densities. Findings: Analyzed By CAD. The right breast inner upper quadrant approximately 1:00 demonstrates postsurgical change which is correlated with ultrasound same day. No suspicious masses calcifications or distortions visualized. Findings are felt to be probably benign postsurgically related at the biopsy/lumpectomy site. Overall Assessment: Probably benign, BI-RAD 3 Management: Diagnostic Mammogram of the right breast in 6 months. Rings are favored represent postsurgical/lumpectomy changes. Short-term follow-up in 6 months recommended. A clinical breast exam by your physician is recommended on an annual basis and results should be correlated with mammographic findings. This exam should not preclude additional follow-up of suspicious palpable abnormalities. Results were given to the patient verbally at the time of exam. Electronically signed and approved by: Ortiz Lomeli DO
== END | disposition home or self-care (01) ==
LOC: RADMAMWWP 13:36
PROVIDERS: ATTEND Surgery
DX: R92.8 Other abnormal and inconclusive findings on diagnostic imaging of breast (principal); Z80.3 Family history of malignant neoplasm of breast
CPT/HCPCS: 77065; 76642; G0279; 77061

== ENCOUNTER → 2022-06-24 | Outpatient (CLI) | payer MEDICARE ==
[2022-06-25 02:59] LABS: Alternaria alternata IgE <0.10 kU/L; Aspergillus fumagatus IgE 2.43 kU/L; Birch IgE 0.13 kU/L; Cat Epith & Dander IgE <0.10 kU/L; Cladosporian herbarum IgE <0.10 kU/L; Cockroach IgE <0.10 kU/L; Dermato. farinae IgE <0.10 kU/L; Dog Dander IgE <0.10 kU/L; Maple (Box Elder) IgE 1.03 kU/L; Oak IgE <0.10 kU/L; Ragweed,Common IgE <0.10 kU/L
[2022-06-27 14:45] LABS: Johnson Grass IgE Class CLASS 0; Rhizopus nigricans IgE <0.10 kU/L (<0.10); Rhizopus nigricans IgE Class CLASS 0; Timothy Grass IgE <0.10 kU/L (<0.10); Timothy Grass IgE Class CLASS 0
[2022-06-27 14:46] LABS: Aureo. pullulans IgE <0.10 kU/L (<0.10); Aureo. pullulans IgE Class CLASS 0; Candida albicans IgE Class CLASS 0; Epicoccum purpurascens Class CLASS 0; Epicoccum purpurascens IgE <0.10 kU/L (<0.10); Mucor racemosus IgE <0.10 kU/L (<0.10); Mucor racemosus IgE Class CLASS 0; S.rostrata/Helminth Class CLASS 0; S.rostrata/Helminth IgE <0.10 kU/L (<0.10); Walnut Tree IgE 0.11 kU/L (<0.10); Walnut Tree IgE Class CLASS 0/1
[2022-06-27 14:47] LABS: Cottonwood IgE 0.11 kU/L (<0.10); Sycamore(Mpl.Lf) IgE 0.15 kU/L (<0.10); Sycamore(Mpl.Lf) IgE Class CLASS 0/1; White Ash IgE Class CLASS 0
[2022-06-27 14:48] LABS: Com. Pigweed IgE <0.10 kU/L (<0.10); Com. Pigweed IgE Class CLASS 0; English Plantain IgE Class CLASS 0; Lamb's Quarter IgE 0.15 kU/L (<0.10); Lamb's Quarter IgE Class CLASS 0/1
== END | disposition home or self-care (01) ==
LOC: LABWHC1 13:23
PROVIDERS: ATTEND Otolaryngology
DX: K76.9 Liver disease, unspecified (principal)
CPT/HCPCS: 36415; 82785; 86003

== ENCOUNTER → 2022-12-09 | Outpatient (CLI) | payer MEDICARE ==
--- NOTE | 2022-12-09 11:38 | MM ---
Reason for Exam: Follow-up at short interval from prior study. Last screening mammogram was performed 6 month(s) ago. Patient History: Menarche at age 15. First Full-Term at age 24. Hysterectomy at age 45. Postmenopausal. Patient has history of breast feeding. Estrogen for 1 year from age 45 until age 46. 1991, Benign Excisional Biopsy on the right side. 08/18/2020, Benign Core Biopsy on the right side. 01/13/2011, Benign Core Biopsy on the left side. 06/26/2020, MG discontinued stereo core RT on the right side. Mother had breast cancer, age 72. Risk Values: Donna 5 year model risk: 4.7%. NCI Lifetime model risk: 17.0%. Prior Study Comparison: 05/10/2021 Bilateral Screening Mammogram, [facility]. 05/27/2022 Bilateral MG 3D screening mammo w/cad, [facility]. 06/10/2022 Right MG 3D work up w/cad RT, [facility]. Tissue Density: Right: The breast tissue is heterogeneously dense. This may lower the sensitivity of mammography. Findings: Analyzed By CAD. A few benign-appearing round calcifications in the right breast anteriorly are redemonstrated. Stable distortion from excision change in the right breast. No suspicious new or enlarging mass or worrisome group of microcalcification. Overall Assessment: Benign, BI-RAD 2 Management: Screening Mammogram of both breasts in 6 months. Back on schedule. Results were given to the patient verbally at the time of exam. Patient should continue monthly self-breast exams. A clinical breast exam by your physician is recommended on an annual basis. This exam should not preclude additional follow-up of suspicious palpable abnormalities. Note on Donna scores and lifetime risk: 1. A Donna score greater than 3% is considered moderate risk. If this is the case, consider specialist referral to assess eligibility for a risk reducing agent. 2. If overall lifetime risk for the development of breast cancer is 20% or higher, the patient may qualify for future screening with alternating mammogram and breast MRI. Electronically signed and approved by: Vinay Rodrigez M.D.
--- NOTE | 2022-12-09 12:10 | P.PN ---
Subjective Progress Note Date: 12/09/22 Principal diagnosis: fibrocystic breast changes fibrocystic breast changes Vitaliy is a 65-year-old white female who underwent a right diagnostic mammogram on . This was considered benign BIRADS 2 and screening mammogram of both breasts in 6 months was recommended. She had undergone a bilateral mammogram on [id number] after which diagnostic breast mammogram and ultrasound were performed on 112 [id number]. The findings of these were that this was BIRADS 2 and right breast mammogram in 6 months should be performed. An attempt at stereo biopsy was performed of the right breast which was not performed secondary to vascularity in the area. She subsequently underwent a needle localization and excisional biopsy on 2220 and pathology was benign. Patient is not concerned about any lumps masses or nodules in either breast. Donna 5 year risk: 4.7% We have discussed chemoprevention and at this time she and her have declined. NCI lifetime risk: 17% Caffeine: none Nicotine: Negative; her father was a 4 pack per day smoker for many years and patient has subsequently developed COPD Theophylline: weekly Hormones: Hormones Family History: mother: breast cancer at 72 Hormonal History: menarche: 15 , breast fed: yes, age at first : 24 menopause: hysterectomy 45, left ovaries, done for endometriosis BCP: none Surgical history: 1. Hysterectomy 2. tonsil and adenoids 3. right eye/eyelid droop 4.gallbladder 5. sinus surgery twice 6. right breast biopsy Medical History: 1. 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 hypothyroid 3. seizure disorder 4. HTN 5. high cholesterol 6. anxiety disorder 7. bipolar 8. mitral valve regurg 9. Whooping cough 5 times in 8 years/ dystroyed the balance nerves in her ureters 10. GERD 11. arthritis 12> recent sinus infection History: Nicotine: Secondhand smoke exposure as a child patient has never smoked Alcohol:none drugs: none Social History: - Constitutional Comment: mycobacterium avium complex = MAC Constitutional: Reports sweats, Denies chills - EENT Comment: macular degeneration Ears: bilateral: decreased hearing Ears, nose, mouth and throat: Reports headache, Denies sore throat - Breasts Breasts: bilateral: as per HPI - Cardiovascular Comment: mitral valve regurgitation - Respiratory Comment: COPD/emphysema/oxygen-dependent Respiratory: Reports as per HPI, Denies cough - Gastrointestinal Comment: GERD - Genitourinary (Female) Genitourinary: Reports kidney stones, Denies dysuria, Denies hematuria - Menstruation Comment: endometriosis Menstruation: Reports post hysterectomy - Musculoskeletal Comment: arthritis - Integumentary Comment: echymosis easily Integumentary: Denies pruritus, Denies rash - Neurological Comment: CVA in the past, decreased memory - Psychiatric Psychiatric: Reports anxiety - Endocrine Comment: hypothyroid, diabetes - Hematologic/Lymphatic Hematologic/Lymphatic: Reports easy bruising Objective - Constitutional General appearance: Present: cooperative - EENT Eyes: Present: EOMI ENT: Present: hearing grossly normal - Neck Neck: Present: normal ROM - Respiratory Details: Oxygen dependant Respiratory: bilateral: CTA - Cardiovascular Rhythm: regular Heart sounds: normal: S1, S2 - Integumentary Integumentary: Present: normal turgor - Musculoskeletal Musculoskeletal Comment(s): uses a walker - Psychiatric Psychiatric: Present: A&O x's 3, appropriate affect, intact judgment & insight - Additional findings Additional findings: Breast Exam: BRA: 42D Inspection: bilateral grade 3 ptosis Palpation: right breast: Exam was seated no dominant masses or nodules of concern, fibrocystic changes Right axilla: No adenopathy of concern Left breast: Exam was seated no dominant masses or nodules of concern, fibrocystic changes Left axilla: No adenopathy of concern Assessment and Plan Assessment: Impression/Plan: Right breast mammogram [id number] Benign BIRADS 2 Repeat bilateral mammogram in 6 months Medical management of medical conditions Patient to follow up sooner any questions or concerns Donna Risk 4.7 % Dr. Liu
== END | disposition home or self-care (01) ==
LOC: RADMAMWWP 11:00
PROVIDERS: ATTEND Surgery
DX: R92.8 Other abnormal and inconclusive findings on diagnostic imaging of breast (principal)
CPT/HCPCS: 77065; G0279; 77061

== ENCOUNTER → 2022-12-09 | Outpatient (CLI) | payer MEDICARE ==
[2022-12-09 11:56] VITALS: BP 132/76; PULSE 79; RESP 20; TEMP 98.1
== END ==
LOC: WWCWWP 11:02
PROVIDERS: ATTEND Surgery
DX: R92.8 Other abnormal and inconclusive findings on diagnostic imaging of breast (principal); Z88.1 Allergy status to other antibiotic agents

== ENCOUNTER 2023-06-07 13:58 | Day surgery (SDC) | payer MEDICARE ==
[2023-06-05 10:35] VITALS: BMI 33.6
[~2023-06-07 13:58] MED LIST changes: -ALBUTEROL NEB (CONC) 2.5 MG/0.5 ML INHALATION ONE; +LIDOCAINE 1% (10MG/ML) FOR IV START INTRADERMA PRN; -LIDOCAINE 2% (PF) 20 MG/ML 5 ML VIAL INHALATION ONE; -LIDOCAINE VISCOUS 300 MG/15 ML CUP MUCOUS MEM ONE
[2023-06-07] MEDS ORDERED: ALBUTEROL NEBULIZED 2.5 MG/3 ML INHALATION ONE (14:30)
[2023-06-07] MEDS ORDERED: HYDROCORTISONE SUCCINATE 100 MG/2 ML VIAL IVP ONE (14:43)
[2023-06-07 14:46] LABS: Glucose,Whole Blood 168 mg/dL (70-110)
[2023-06-07] MEDS ORDERED: LIDOCAINE 1% INJ 10MG/ML (20 ML MDV) ONE (14:50)
[2023-06-07] MEDS ORDERED: PROPOFOL 10 MG/ML 20 ML VIAL IV ONE (14:50)
[2023-06-07] MEDS ORDERED: fentaNYL (PF) 50 MCG/ML 2 ML AMP ONE (14:50)
[2023-06-07] MEDS ORDERED: SUCCINYLCHOLINE CHLORIDE 200 MG/10 ML VIAL IV ONE (14:50)
[2023-06-07] MEDS ORDERED: MIDAZOLAM 2 MG/2 ML VIAL ONE (14:50)
[2023-06-07 15:27] LABS: Glucose,Whole Blood 176 mg/dL (70-110)
[2023-06-07 15:42] VITALS: TEMP 98.2
[2023-06-07 17:01] VITALS: BP 124/70; PULSE 81; RESP 18
--- NOTE | 2023-06-07 21:13 | OP ---
OPERATIVE REPORT DATE OF SERVICE : PROCEDURES PERFORMED: Bronchoscopy and bronchoalveolar lavage of the left lower lobe and bronchial washings of multiple lobes. PREOPERATIVE DIAGNOSES: Recurrent left lower lobe pneumonia and history of atypical mycobacterial infection. POSTOPERATIVE DIAGNOSES: Recurrent left lower lobe pneumonia and history of atypical mycobacterial infection. ANESTHESIA USED: The patient received general anesthesia. DESCRIPTION OF PROCEDURE: The patient was brought into the bronchoscopy suite, she was prepared according to the bronchoscopy protocol. The patient was intubated by a MAINTENANCE AND CUSTODIAN SUPERVISOR, and she was placed on mechanical ventilation with an adapter connected to the endotracheal tube. After adequate sedation, the bronchoscope was advanced through the adapter down to the endotracheal tube, the distal end of the endotracheal tube was above the donato. Thorough examination was done of the left upper lobe lingula and left lower lobe as well as the right upper lobe, right middle lobe, and right lower lobe. There was evidence of significant purulent secretions throughout the airways, more so noted in the left lower lobe and the lingula. Bronchoalveolar lavage of the left lower lobe was done, and the fluid obtained from the left lower lobe was sent for different diagnostic studies. The mucosa was noted to be extremely friable throughout the whole airways. At any rate, lavage of the left lower lobe was done, and then the lavage was sent for different diagnostic studies. Then I moved onto the different lobes, and I was able to suction all the secretions, which were purulent from the right upper lobe, right middle lobe, right lower lobe, left upper lobe, and lingula. The procedure was well tolerated, the patient tolerated the procedure well, and the fluid obtained again was sent for AFB cultures, and for different bacterial and fungal cultures. MMODL / IJN: [id number] /
[2023-06-08 04:28] LABS: Appearance,BF Cloudy (Clear); RBC, Body Fluid 19050 /UL (0-2000)
[2023-06-12 10:05] LABS: Nucleated Cells, Body Fluid 3450 /UL
== END 2023-06-07 16:42 | disposition home or self-care (01) ==
LOC: ORWHC2ENDO 13:58
PROVIDERS: ATTEND Internal Medicine
DX: J18.9 Pneumonia, unspecified organism (principal); J42 Unspecified chronic bronchitis; J20.9 Acute bronchitis, unspecified; A31.9 Mycobacterial infection, unspecified; E78.5 Hyperlipidemia, unspecified; I63.9 Cerebral infarction, unspecified; E11.22 Type 2 diabetes mellitus with diabetic chronic kidney disease; I12.9 Hypertensive chronic kidney disease with stage 1 through stage 4 chronic kidney disease, or unspecified chronic kidney disease; N18.30 Chronic kidney disease, stage 3 unspecified; E07.9 Disorder of thyroid, unspecified; F03.90 Unspecified dementia, unspecified severity, without behavioral disturbance, psychotic disturbance, mood disturbance, and anxiety; Z79.1 Long term (current) use of non-steroidal anti-inflammatories (NSAID); Z79.52 Long term (current) use of systemic steroids; Z79.51 Long term (current) use of inhaled steroids; Z79.899 Other long term (current) drug therapy; Z79.890 Hormone replacement therapy; Z98.890 Other specified postprocedural states; Z88.1 Allergy status to other antibiotic agents
CPT/HCPCS: 88108; 88305; 89050; 87070; 87205; 87116; 87102; 87077; 87186; 87206; 31624; J2250; J0330; J1720; J2001; J3010; J2704

== ENCOUNTER → 2023-06-12 | Outpatient (CLI) | payer MEDICARE ==
--- NOTE | 2023-06-13 12:15 | MM ---
Reason for Exam: Screening (asymptomatic). Last screening mammogram was performed 12 month(s) ago. Patient History: Menarche at age 15. First Full-Term at age 24. Hysterectomy at age 45. Postmenopausal. Patient has history of breast feeding. Estrogen for 1 year from age 45 until age 46. 1991, Benign Excisional Biopsy on the right side. 08/18/2020, Benign Core Biopsy on the right side. 01/13/2011, Benign Core Biopsy on the left side. 06/26/2020, MG discontinued stereo core RT on the right side. Mother had breast cancer, age 72. Risk Values: Donna 5 year model risk: 4.8%. NCI Lifetime model risk: 16.4%. Prior Study Comparison: 05/27/2022 Bilateral MG 3D screening mammo w/cad, [facility]. 06/10/2022 Right MG 3D work up w/cad RT, [facility]. 12/09/2022 Right MG 3D diag mammo w/cad RT, [facility]. Tissue Density: The breast tissue is heterogeneously dense. This may lower the sensitivity of mammography. Findings: Analyzed By CAD. There is no suspicious group of microcalcifications or new suspicious mass in either breast. Stable postoperative distortion right breast. Overall Assessment: Benign, BI-RAD 2 Management: Screening Mammogram of both breasts in 1 year. . Patient should continue monthly self-breast exams. A clinical breast exam by your physician is recommended on an annual basis. This exam should not preclude additional follow-up of suspicious palpable abnormalities. Note on Donna scores and lifetime risk: 1. A Donna score greater than 3% is considered moderate risk. If this is the case, consider specialist referral to assess eligibility for a risk reducing agent. 2. If overall lifetime risk for the development of breast cancer is 20% or higher, the patient may qualify for future screening with alternating mammogram and breast MRI. Electronically signed and approved by: Rufus Quinn M.D. Radiologis
== END | disposition home or self-care (01) ==
LOC: RADMAMWWP 09:57
PROVIDERS: ATTEND Surgery
DX: Z12.31 Encounter for screening mammogram for malignant neoplasm of breast (principal); Z78.0 Asymptomatic menopausal state; Z80.3 Family history of malignant neoplasm of breast
CPT/HCPCS: 77063; 77067

== ENCOUNTER 2023-06-19 12:45 | Inpatient (IN) | payer MEDICARE ==
[2023-06-19] MEDS ORDERED: PIPERACILLIN-TAZOBACTAM 3.375 GM in SODIUM CHLORIDE 0.9% 100 ML IVPB STA (14:20)
--- NOTE | 2023-06-19 14:21 | ED ---
General Adult HPI - General Source: patient, RN notes reviewed Mode of arrival: ambulatory Limitations: no limitations <Beka Jimenez - Last Filed: 06/19/23 14:20> <Osman Duncan - Last Filed: 06/19/23 18:07> - General Chief complaint: Shortness of Breath Stated complaint: Referal- lungs, Time Seen by Provider: 06/19/23 14:20 - History of Present Illness Initial comments: 68-year-old female presents emergency Department chief complaint shortness breath, and lung infection. Patient states that she's been dealing with this infection for several weeks states that she's been on multiple oral antibiotics. Patient had a recent bronchoscopy by Dr. Millan in which it tested positive for E. coli and pseudomonas resistant to oral antibiotics. Patient was sent in for admission. (Beka Jimenez) This is a 68-year-old female who presents emergency department with past medical history significant for COPD. Patient states she's been having a more more difficult time breathing over the last few months and eventually went and had a bronchoscopy by Dr. Millan and cultures of the bronchoscopy indicated that she needed IV antibiotics because all oral antibiotics were resistant. Patient states she continues to have difficulty breathing but it's no worse today than it was a few weeks ago. Patient denies chest pain back pain. Patient denies any abdominal pain. Patient's headache patient with numbness or weakness. (Osman Duncan) - Related Data Home Medications Medication Instructions Recorded Confirmed DULoxetine HCL [Cymbalta] 120 mg PO QAM 01/22/16 06/19/23 Fluticasone Propion/Salmeterol 1 puff INHALATION RT-BID 01/22/16 06/19/23 [Advair 500-50 Diskus] Meclizine [Antivert] 25 mg PO TID 01/22/16 06/19/23 Metaxalone [Skelaxin] 800 mg PO QAM 01/22/16 06/19/23 Montelukast [Singulair] 10 mg PO QAM 01/22/16 06/19/23 Pantoprazole Sodium [Protonix] 40 mg PO AC-BRKFST 01/22/16 06/19/23 Phenytoin Sodium Extended 200 mg PO BID 01/22/16 06/19/23 [Dilantin] Simvastatin [Zocor] 40 mg PO HS 01/22/16 06/19/23 lamoTRIgine [LaMICtal] 100 mg PO QAM 01/22/16 06/19/23 Albuterol Inhaler [Ventolin Hfa 2 puff INHALATION RT-Q6H PRN 03/21/18 06/19/23 Inhaler] Multivitamin/Iron/Folic Acid 1 tab PO DAILY 10/03/18 06/19/23 [Centrum Complete Multivit Tab] Vit C/E/Zn/Coppr/Lutein/Zeaxan 1 cap PO BID 10/03/18 06/19/23 [Preservision Areds 2 Softgel] QUEtiapine FUMARATE [SEROquel XR] 400 mg PO BID@1600,2200 03/25/19 06/19/23 Tolterodine ER [Detrol LA] 2 mg PO PC-LUNCH 05/29/20 06/19/23 Potassium Chloride [Klor-Con 20] 20 meq PO BID 06/19/20 06/19/23 Fluticasone Nasal [place] [Flonase 1 spray EA NOSTRIL DAILY 02/12/21 06/19/23 Nasal [place]] Ramelteon [Rozerem] 8 mg PO HS 02/12/21 06/19/23 Spironolactone-Hctz 25-25Mg 1 tab PO DAILY 02/12/21 06/19/23 [Aldactazide 25-25Mg] Acetaminophen Tab [Tylenol Tab] 1,000 mg PO TID 06/05/23 06/19/23 Azelastine HCl [Astelin Nasal 1 spray EA NOSTRIL BID 06/05/23 06/19/23 [place]] Losartan [Cozaar] 25 mg PO DAILY 06/05/23 06/19/23 clonazePAM [KlonoPIN] 0.5 mg PO TID 06/05/23 06/19/23 guaiFENesin [Mucinex] 1,200 mg PO BID 06/05/23 06/19/23 Levothyroxine Sodium [Synthroid] 75 mcg PO DAILY 06/19/23 06/19/23 Metoprolol Tartrate [Lopressor] 25 mg PO DAILY 06/19/23 06/19/23 lamoTRIgine [LaMICtal] 200 mg PO HS 06/19/23 06/19/23 predniSONE 10 mg PO DAILY 06/19/23 06/19/23 Previous Rx's Medication Instructions Recorded Ipratropium-Albuterol Nebulize 3 ml INHALATION RT-QID #120 neb 01/19/17 [Duoneb 0.5 mg-3 mg/3 ml Soln] Allergies Allergy/AdvReac Type Severity Reaction Status Date / Time clarithromycin [From Biaxin] AdvReac SEIZURES Verified 06/19/23 16:25 Review of Systems ROS Other: All systems not noted in ROS Statement are negative. <Beka Jimenez - Last Filed: 06/19/23 14:20> ROS Other: All systems not noted in ROS Statement are negative. <Osman Duncan - Last Filed: 06/19/23 18:07> ROS Statement: Those systems with pertinent positive or pertinent negative responses have been documented in the HPI. Past Medical History Past Medical History: Asthma, COPD, CVA/TIA, Diabetes Mellitus, Eye Disorder, Fibromyalgia, GERD/Reflux, Hyperlipidemia, Hypertension, Memory Impairment, Osteoarthritis (OA), Pneumonia, Seizure Disorder, Thyroid Disorder Additional Past Medical History / Comment(s): OXYGEN AT 2 LITERS .,Bronchoscopy 03/27/2019 revealed Pseudomonas and E. coli. 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 DEGENERATION LT EYE.has had injections . 1996 BRAIN ABCESS WITH BRAIN BLEED, SEIZURES & STROKE -LEFT SIDED WEAKNESS., DIZZINESS- POOR BALANCE , USES WALKER. LAST SEIZURE IN 2014. WHOOPING COUGH - Multiple times. ENVIRONMENTAL ALLERGIES, CHRONIC NASAL CONGESTION, COUGH. CARPAL TUNNEL. , PNEUMONIA MULTIPLE TIMES., NERVES IN EARS DAMAGED, EMPHYSEMA ., DIET CONTROLLED DIABETES., hx of mitral valve regurgitation. stage 3 kidney disease. History of Any Multi-Drug Resistant Organisms: Other MDRO Past Surgical History: Adenoidectomy, Breast Surgery, Section, Cholecystectomy, Hysterectomy, Tonsillectomy Additional Past Surgical History / Comment(s): bronchoscopy,BRONCHIAL KATRINA 01/30/17 had 2 more bronchospoys since 2017. RIGHT BLEED FROM BREAST. CERVICAL FUSION. took out c 6 and then disc above and below replaced with cadaver bone. SINUS SURGERY. RIGHT EYELID.paralyzed muscle, EGD, RIGHT PARTIAL MASTECTOMY.colonoscopy Past Anesthesia/Blood Transfusion Reactions: Motion Sickness, Postoperative Nausea & Vomiting (PONV) Additional Past Anesthesia/Blood Transfusion Reaction / Comment(s): TAKES ANTIVE RT FOR CHRONIC DIZZINESS. States takes a lot to knock her out and she's slow to wake up. Past Psychological History: Anxiety, Bipolar, Depression, Panic Disorder Smoking Status: Never smoker, Second hand smoke exposure Past Alcohol Use History: None Reported Past Drug Use History: None Reported - Past Family History Mother Family Medical History: Cancer, CVA/TIA, Deep Vein Thrombosis (DVT), Myocardial Infarction (AL) Additional Family Medical History / Comment(s): Breast and colon cancer. Father Family Medical History: Cancer, Myocardial Infarction (AL) Additional Family Medical History / Comment(s): Lung cancer. Sister(s) Family Medical History: Deep Vein Thrombosis (DVT) <Beka Jimenez - Last Filed: 06/19/23 14:20> General Exam Limitations: no limitations <Beka Jimenez - Last Filed: 06/19/23 14:20> <Osman Duncan - Last Filed: 06/19/23 18:07> - General Exam Comments Initial Comments: Visual Physical Exam Vital signs reviewed General: Well-appearing, nontoxic, no acute distress. Head: Normocephalic, atraumatic Eyes: PERRLA, EOMI ENT: Airway patent Chest: Nonlabored breathing Skin: No visual rash, normal skin tone Neuro: Alert and oriented 3 Musculoskeletal: No gross abnormalities (Beka Jimenez) GENERAL: Patient is well-developed and well-nourished. Patient is nontoxic and well- hydrated and is in mild distress. ENT: Neck is soft and supple. No significant lymphadenopathy is noted. Oropharynx is clear. Moist mucous membranes. Neck has full range of motion without eliciting any pain. EYES: The sclera were anicteric and conjunctiva were pink and moist. Extraocular movements were intact and pupils were equal round and reactive to light. Eyelids were unremarkable. PULMONARY: Expiratory wheezing. CARDIOVASCULAR: There is a regular rate and rhythm without any murmurs gallops or rubs. ABDOMEN: Soft and nontender with normal bowel sounds. SKIN: Skin is clear with no lesions or rashes and otherwise unremarkable. NEUROLOGIC: Patient is alert and oriented x3. Cranial nerves II through XII are grossly intact. Motor and sensory are also intact. Normal speech, volume and content. Symmetrical smile. MUSCULOSKELETAL: Normal extremities with adequate strength and full range of motion. LYMPHATICS: No significant lymphadenopathy is noted PSYCHIATRIC: Normal psychiatric evaluation. (Osman Duncan) Course Vital Signs 06/19/23 06/19/23 12:57 15:31 Temperature 98.3 F Pulse Rate 91 80 Respiratory 24 20 Rate Blood Pressure 144/66 118/85 O2 Sat by Pulse 94 L 96 Oximetry Medical Decision Making <Beka Jimenez - Last Filed: 06/19/23 14:20> - Lab Data Result diagrams: 06/19/23 16:09 06/19/23 16:09 <Osman Duncan - Last Filed: 06/19/23 18:07> - Medical Decision Making I completed the quick note portion of this chart signed Beka Jimenez PA-C (Beka Jimenez) EKG is read by myself. EKG shows sinus rhythm at 70 bpm WI interval 208 6 QRS is 93 Q-T intervals 370 QTC is 43. Patient's EKG shows no ST segment elevation or depression. Was pt. sent in by a medical professional or institution (BUNNY Ramirez, CMV DRIVER, urgent care, hospital, or fdc...) When possible be specific @ -Patient was sent in by Dr. Millan Did you speak to anyone other than the patient for history (EMS, parent, family, police, friend...)? What history was obtained from this source @ -No Did you review nursing and triage notes (agree or disagree)? Why? @ -I reviewed and agree with nursing and triage notes Were old charts reviewed (outside hosp., previous admission, EMS record, old EKG, old radiological studies, urgent care reports/EKG's, fdc records)? Report findings @ -I reviewed prior charts and prior lab work on this patient Differential Diagnosis (chest pain, altered mental status, abdominal pain women, abdominal pain men, vaginal bleeding, weakness, fever, dyspnea, syncope, hea dache, dizziness, GI bleed, back pain, seizure, CVA, palpatations, mental health, musculoskeletal)? @ -Differential Dyspnea: Coronary syndrome, arrhythmia, tamponade, asthma, COPD, pulmonary embolism, pneumonia, pneumothorax, pulmonary effusion, anaphylaxis, diabetic ketoacidosis, flailed chest, pulmonary contusion, diaphragmatic rupture, anemia, neuromuscular, this is not meant to be an all-inclusive list. EKG interpreted by me (3pts min.). @ -As above X-rays interpreted by me (1pt min.). @ -Shows no acute abnormality CT interpreted by me (1pt min.). @ -None done U/S interpreted by me (1pt. min.). @ -None done What testing was considered but not performed or refused? (CT, X-rays, U/S, labs)? Why? @ -None What meds were considered but not given or refused? Why? @ -None Did you discuss the management of the patient with other professionals (professionals i.e. DrLise, PA, CMV DRIVER, lab, RT, psych nurse, social media manager, airbrush painter, teacher, third officer, case management coordinator)? Give summary @ -I spoke with the [facility] hospitalist and he agreed to admit the patient Was smoking cessation discussed for >3mins.? @ -No Was critical care preformed (if so, how long)? @ -No Were there social determinants of health that impacted care today? How? (Homelessness, low income, unemployed, alcoholism, drug addiction, transport ation, low edu. Level, literacy, decrease access to med. care, long-term, rehab)? @ -No Was there de-escalation of care discussed even if they declined (Discuss DNR or withdrawal of care, Hospice)? DNR status @ -No What co-morbidities impacted this encounter? (DM, HTN, Smoking, COPD, CAD, Cancer, CVA, ARF, Chemo, Hep., AIDS, mental health diagnosis, sleep apnea, morbid obesity)? @ -None Was patient admitted / discharged? Hospital course, mention meds given and route, prescriptions, significant lab abnormalities, going to OR and other pertinent info. @ -Patient received Zosyn while in the emergency department because those are the antibiotics that the bacteria is not resistant to Undiagnosed new problem with uncertain prognosis? @ -No Drug Therapy requiring intensive monitoring for toxicity (Heparin, Nitro, Insulin, Cardizem)? @ -No Were any procedures done? @ -No Diagnosis/symptom? @ -Bronchial infection Acute, or Chronic, or Acute on Chronic? @ -Acute Uncomplicated (without systemic symptoms) or Complicated (systemic symptoms)? @ -Complicated Side effects of treatment? @ -No Exacerbation, Progression, or Severe Exacerbation? @ -No Poses a threat to life or bodily function? How? (Chest pain, [place], AL, pneumonia, PE, COPD, DKA, ARF, appy, cholecystitis, CVA, Diverticulitis, Homicidal, Suicidal, threat to staff... and all critical care pts) @ -Yes this could lead to sepsis and endocarditis function (Osman Duncan) - Lab Data Lab Results 06/19/23 06/19/23 06/19/23 Range/Units 16:09 16:09 16:09 WBC 17.7 H (3.8-10.6) k/uL RBC 4.11 (3.80-5.40) m/uL Hgb 13.1 (11.4-16.0) gm/dL Hct 40.6 (34.0-46.0) % MCV 98.8 (80.0-100.0) fL MCH 31.8 (25.0-35.0) pg MCHC 32.2 (31.0-37.0) g/dL RDW 12.8 (11.5-15.5) % Plt Count 365 (150-450) k/uL MPV 7.1 Neutrophils % 80 % Lymphocytes % 14 % Monocytes % 3 % Eosinophils % 1 % Basophils % 0 % Neutrophils # 14.2 H (1.3-7.7) k/uL Lymphocytes # 2.5 (1.0-4.8) k/uL Monocytes # 0.6 (0-1.0) k/uL Eosinophils # 0.2 (0-0.7) k/uL Basophils # 0.1 (0-0.2) k/uL PT 10.5 (10.0-12.5) sec INR 0.9 (<1.2) APTT 24.0 (22.0-30.0) sec Sodium 141 (137-145) mmol/L Potassium 4.3 (3.5-5.1) mmol/L Chloride 106 (98-107) mmol/L Carbon Dioxide 25 (22-30) mmol/L Anion Gap 10 mmol/L BUN 30 H (7-17) mg/dL Creatinine 1.09 H (0.52-1.04) mg/dL Est GFR (CKD-EPI)AfAm 61 (>60 ml/min/1.73 sqM) Est GFR (CKD-EPI)NonAf 53 (>60 ml/min/1.73 sqM) Glucose 130 H (74-99) mg/dL Plasma Lactic Acid Kirit (0.7-2.0) mmol/L Calcium 9.9 (8.4-10.2) mg/dL Total Bilirubin 0.4 (0.2-1.3) mg/dL AST 25 (14-36) U/L ALT 27 (4-34) U/L Alkaline Phosphatase 105 (38-126) U/L Troponin I (0.000-0.034) ng/mL Total Protein 7.3 (6.3-8.2) g/dL Albumin 4.1 (3.5-5.0) g/dL 06/19/23 06/19/23 Range/Units 16:09 16:09 WBC (3.8-10.6) k/uL RBC (3.80-5.40) m/uL Hgb (11.4-16.0) gm/dL Hct (34.0-46.0) % MCV (80.0-100.0) fL MCH (25.0-35.0) pg MCHC (31.0-37.0) g/dL RDW (11.5-15.5) % Plt Count (150-450) k/uL MPV Neutrophils % % Lymphocytes % % Monocytes % % Eosinophils % % Basophils % % Neutrophils # (1.3-7.7) k/uL Lymphocytes # (1.0-4.8) k/uL Monocytes # (0-1.0) k/uL Eosinophils # (0-0.7) k/uL Basophils # (0-0.2) k/uL PT (10.0-12.5) sec INR (<1.2) APTT (22.0-30.0) sec Sodium (137-145) mmol/L Potassium (3.5-5.1) mmol/L Chloride (98-107) mmol/L Carbon Dioxide (22-30) mmol/L Anion Gap mmol/L BUN (7-17) mg/dL Creatinine (0.52-1.04) mg/dL Est GFR (CKD-EPI)AfAm (>60 ml/min/1.73 sqM) Est GFR (CKD-EPI)NonAf (>60 ml/min/1.73 sqM) Glucose (74-99) mg/dL Plasma Lactic Acid Kirit 1.1 (0.7-2.0) mmol/L Calcium (8.4-10.2) mg/dL Total Bilirubin (0.2-1.3) mg/dL AST (14-36) U/L ALT (4-34) U/L Alkaline Phosphatase (38-126) U/L Troponin I <0.012 (0.000-0.034) ng/mL Total Protein (6.3-8.2) g/dL Albumin (3.5-5.0) g/dL Disposition <Beka Jimenez - Last Filed: 06/19/23 14:20> Time of Disposition: 17:37 <Osman Duncan - Last Filed: 06/19/23 18:07> Clinical Impression: Bronchial infection Disposition: ADMITTED IP TO THIS HOSP
--- NOTE | 2023-06-19 15:45 | XR ---
EXAMINATION TYPE: XR chest 2V DATE OF EXAM: 06/19/2023 COMPARISON: 04/06/2019 TECHNIQUE: PA and lateral views submitted. HISTORY: Shortness of breath FINDINGS: Postsurgical change involving the cervical spine. There is a diffuse interstitial pattern with elevat ed left hemidiaphragm. Linear changes left lung most typical scarring or atelectasis. Heart size norm al. IMPRESSION: 1. Interstitial pattern may represent chronic interstitial lung disease similar to prior exam. Mild s uperimposed interstitial pneumonitis or venous congestion not excluded.
[2023-06-19 16:22] LABS: Basophils # (A) 0.1 k/uL (0-0.2); Basophils % (A) 0 %; Eosinophils # (A) 0.2 k/uL (0-0.7); Eosinophils % (A) 1 %; HCT 40.6 % (34.0-46.0); HGB 13.1 gm/dL (11.4-16.0); Lymphocytes # (A) 2.5 k/uL (1.0-4.8); Lymphocytes % (A) 14 %; MCH 31.8 pg (25.0-35.0); MCHC 32.2 g/dL (31.0-37.0); MCV 98.8 fL (80.0-100.0); Mean Platelet Volume 7.1; Monocytes # (A) 0.6 k/uL (0-1.0); Monocytes % (A) 3 %; Neutrophils # (A) 14.2 k/uL (1.3-7.7); Neutrophils % (A) 80 %; Platelet Count 365 k/uL (150-450); RBC 4.11 m/uL (3.80-5.40); RDW 12.8 % (11.5-15.5); WBC 17.7 k/uL (3.8-10.6)
[2023-06-19 16:32] LABS: ALT 27 U/L (4-34); AST 25 U/L (14-36); African American GFR (CKD) 61 (>60 ml/min/1.73 sqM); Albumin 4.1 g/dL (3.5-5.0); Alkaline Phosphatase 105 U/L (38-126); Anion Gap 10 mmol/L; Blood Urea Nitrogen 30 mg/dL (7-17); Calcium 9.9 mg/dL (8.4-10.2); Carbon Dioxide 25 mmol/L (22-30); Chloride 106 mmol/L (98-107); Glucose 130 mg/dL (74-99); Non-African American GFR(CKD) 53 (>60 ml/min/1.73 sqM); Potassium 4.3 mmol/L (3.5-5.1); Sodium 141 mmol/L (137-145); Total Bilirubin 0.4 mg/dL (0.2-1.3); Total Protein 7.3 g/dL (6.3-8.2)
[2023-06-19 16:33] LABS: INR 0.9 (<1.2); Prothrombin Time 10.5 sec (10.0-12.5)
[2023-06-19] MEDS ORDERED: IPRATROPIUM-ALBUTEROL 3 ML NEB INHALATION PRN (17:37)
[2023-06-19] MEDS ORDERED: PNEUMONIA PROTOCOL UTILIZED 1 EACH MISC PO PRN (17:37)
[2023-06-19] MEDS ORDERED: ACETAMINOPHEN TAB 500 MG TAB PO PRN (21:25)
[2023-06-19] MEDS: TEMAZEPAM 15 MG CAP PO SCH (22:27)
[2023-06-19] MEDS: lamoTRIgine 100 MG TAB PO SCH (22:27)
[2023-06-19] MEDS: MONTELUKAST 10 MG TAB PO SCH (22:27)
[2023-06-19] MEDS: POTASSIUM CHLORIDE ER 20 MEQ TAB.ER PO SCH (22:27)
[2023-06-19] MEDS: QUEtiapine 400 MG TAB PO SCH (22:28)
[2023-06-19] MEDS: MECLIZINE 25 MG TAB PO SCH (22:28)
[2023-06-19] MEDS: guaiFENesin 600 MG TABLET.ER PO SCH (22:28)
[2023-06-19] MEDS: LOSARTAN 25 MG TAB PO SCH (22:28)
[2023-06-19] MEDS: clonazePAM 0.5 MG TAB PO PRN (22:28)
[2023-06-19] MEDS: PHENYTOIN SODIUM EXTENDED 100 MG CAP PO SCH (22:28)
[2023-06-19] MEDS: ATORVASTATIN 20 MG TAB PO SCH (22:35)
[2023-06-20] MEDS: PIPERACILLIN-TAZOBACTAM 3.375 GM in SODIUM CHLORIDE 0.9% 100 ML IVPB SCH ×4 (00:32→23:22)
--- NOTE | 2023-06-20 01:34 | P.CNPUL ---
History of Present Illness Consult date: 06/20/23 Requesting physician: Osman Duncan Reason for consult: dyspnea, cough Chief complaint: Sent in by Dr. Millan from the pulmonary office History of present illness: I am seeing this patient in consultation today 06/20/2023 after she was sent in by Dr. Millan from the pulmonary office. Patient recently had a bronchoscopy with BAL done on 06/07/2023, micro was positive for Pseudomonas and E. coli. 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 coli pulmonary infections, severe COPD, type 2 diabetes, hyperlipidemia, hypertension, CVA/TIA, fibromyalgia, among other things. Patient does follow in the pulmonary office with Dr. Millan for management of above. She is oxygen and steroid dependent at baseline. Over the last 6 months, the patient is worsening exertional shortness of breath and fatigue accompanied with green purulent sputum production and a persistent cough. States that her sputum has the consistency of "silly putty". She did follow up with Dr. Millan back on June 12, and he recommended that she come to the emergency room. Chest x-ray arrival showed interstitial pattern which may represent chronic interstitial lung disease seen on prior exam. There are chronic left basilar lung findings likely to be representing scarring or atelectasis. Patient is currently sitting at the bedside recliner. She is in no acute distress. She is on 3 L/m nasal cannula. She endorses the above- mentioned symptoms. Denies any fever, chills, chest pain, hemoptysis. CBC on arrival showed a WBC count of 17.7, hemoglobin 13.1, hematocrit 40.6, platelets 365. BMP on arrival is unremarkable. Troponin less than 0.012. Negative for influenza, RSV, COVID-19. Afebrile. She was started on Zosyn. Hemodynamically stable. Review of Systems REVIEW OF SYSTEMS: CONSTITUTIONAL: Admits recent weight gain and generalized fatigue. Denies fevers. EYES: Denies change in vision. EARS, NOSE, MOUTH, THROAT: Denies headaches, denies sore throat. CARDIOVASCULAR: Denies chest pain, palpitations or syncopal episodes. RESPIRATORY: See HPI GASTROINTESTINAL: Denies change in appetite, abdominal pain, nausea and vomiting, or diarrhea GENITOURINARY: Denies hematuria, denies infections. MUSKULOSKELETAL: Denies pain, denies swelling. INTEGUMENTARY: Denies rash, denies eczema. NEUROLOGICAL: Denies recent memory loss, no recent seizure activity. PSYCHIATRIC: Denies anxiety, denies depression. HEMATOLOGIC/LYMPHATIC: Denies anemia, denies enlarged lymph node Past Medical History Past Medical History: Asthma, COPD, CVA/TIA, Diabetes Mellitus, Eye Disorder, Fibromyalgia, GERD/Reflux, Hyperlipidemia, Hypertension, Memory Impairment, Osteoarthritis (OA), Pneumonia, Seizure Disorder, Thyroid Disorder Additional Past Medical History / Comment(s): OXYGEN AT 2 LITERS .,Bronchoscopy 03/27/2019 revealed Pseudomonas and E. coli. 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 DEGENERATION LT EYE.has had injections . 1996 BRAIN ABCESS WITH BRAIN BLEED, SEIZURES & STROKE -LEFT SIDED WEAKNESS., DIZZINESS- POOR BALANCE , USES WALKER. LAST SEIZURE IN 2014. WHOOPING COUGH - Multiple times. ENVIRONMENTAL ALLERGIES, CHRONIC NASAL CONGESTION, COUGH. CARPAL TUNNEL. , PNEUMONIA MULTIPLE TIMES., NERVES IN EARS DAMAGED, EMPHYSEMA ., DIET CONTROLLED DIABETES., hx of mitral valve regurgitation. stage 3 kidney disease. History of Any Multi-Drug Resistant Organisms: Other MDRO Past Surgical History: Adenoidectomy, Breast Surgery, Section, Cholecystectomy, Hysterectomy, Tonsillectomy Additional Past Surgical History / Comment(s): bronchoscopy,BRONCHIAL KATRINA 01/30/17 had 2 more bronchospoys since 2017. RIGHT BLEED FROM BREAST. CERVICAL FUSION. took out c 6 and then disc above and below replaced with cadaver bone. SINUS SURGERY. RIGHT EYELID.paralyzed muscle, EGD, RIGHT PARTIAL MASTECTOMY.colonoscopy Past Anesthesia/Blood Transfusion Reactions: Motion Sickness, Postoperative Nausea & Vomiting (PONV) Additional Past Anesthesia/Blood Transfusion Reaction / Comment(s): TAKES ANTIVERT FOR CHRONIC DIZZINESS. States takes a lot to knock her out and she's slow to wake up. Past Psychological History: Anxiety, Bipolar, Depression, Panic Disorder Smoking Status: Never smoker, Second hand smoke exposure Past Alcohol Use History: None Reported Past Drug Use History: None Reported - Past Family History Mother Family Medical History: Cancer, CVA/TIA, Deep Vein Thrombosis (DVT), Myocardial Infarction ([place]) Additional Family Medical History / Comment(s): Breast and colon cancer. Father Family Medical History: Cancer, Myocardial Infarction ([place]) Additional Family Medical History / Comment(s): Lung cancer. Sister(s) Family Medical History: Deep Vein Thrombosis (DVT) Medications and Allergies Home Medications Medication Instructions Recorded Confirmed Type DULoxetine HCL [Cymbalta] 120 mg PO QAM 01/22/16 06/19/23 History Fluticasone Propion/Salmeterol 1 puff INHALATION RT-BID 01/22/16 06/19/23 History [Advair 500-50 Diskus] Meclizine [Antivert] 25 mg PO TID 01/22/16 06/19/23 History Metaxalone [Skelaxin] 800 mg PO QAM 01/22/16 06/19/23 History Montelukast [Singulair] 10 mg PO QAM 01/22/16 06/19/23 History Pantoprazole Sodium [Protonix] 40 mg PO AC-BRKFST 01/22/16 06/19/23 History Phenytoin Sodium Extended 200 mg PO BID 01/22/16 06/19/23 History [Dilantin] Simvastatin [Zocor] 40 mg PO HS 01/22/16 06/19/23 History lamoTRIgine [LaMICtal] 100 mg PO QAM 01/22/16 06/19/23 History Ipratropium-Albuterol Nebulize 3 ml INHALATION RT-QID #120 neb 01/19/17 06/19/23 Rx [Duoneb 0.5 mg-3 mg/3 ml Soln] Albuterol Inhaler [Ventolin Hfa 2 puff INHALATION RT-Q6H PRN 03/21/18 06/19/23 History Inhaler] Multivitamin/Iron/Folic Acid 1 tab PO DAILY 10/03/18 06/19/23 History [Centrum Complete Multivit Tab] Vit C/E/Zn/Coppr/Lutein/Zeaxan 1 cap PO BID 10/03/18 06/19/23 History [Preservision Areds 2 Softgel] QUEtiapine FUMARATE [SEROquel XR] 400 mg PO BID@1600,2200 03/25/19 06/19/23 History Tolterodine ER [Detrol LA] 2 mg PO PC-LUNCH 05/29/20 06/19/23 History Potassium Chloride [Klor-Con 20] 20 meq PO BID 06/19/20 06/19/23 History Fluticasone Nasal [place] [Flonase 1 spray EA NOSTRIL DAILY 02/12/21 06/19/23 H istory Nasal [place]] Ramelteon [Rozerem] 8 mg PO HS 02/12/21 06/19/23 History Spironolactone-Hctz 25-25Mg 1 tab PO DAILY 02/12/21 06/19/23 History [Aldactazide 25-25Mg] Acetaminophen Tab [Tylenol Tab] 1,000 mg PO TID 06/05/23 06/19/23 History Azelastine HCl [Astelin Nasal 1 spray EA NOSTRIL BID 06/05/23 06/19/23 History [place]] Losartan [Cozaar] 25 mg PO DAILY 06/05/23 06/19/23 History clonazePAM [KlonoPIN] 0.5 mg PO TID 06/05/23 06/19/23 History guaiFENesin [Mucinex] 1,200 mg PO BID 06/05/23 06/19/23 History Levothyroxine Sodium [Synthroid] 75 mcg PO DAILY 06/19/23 06/19/23 History Metoprolol Tartrate [Lopressor] 25 mg PO DAILY 06/19/23 06/19/23 History lamoTRIgine [LaMICtal] 200 mg PO HS 06/19/23 06/19/23 History predniSONE 10 mg PO DAILY 06/19/23 06/19/23 History Allergies Allergy/AdvReac Type Severity Reaction Status Date / Time clarithromycin [From Biaxin] AdvReac SEIZURES Verified 06/19/23 16:25 Physical Exam Vitals: Vital Signs Temp Pulse Pulse Resp BP BP Pulse Ox 06/19/23 21:10 97.9 F 92 18 155/69 93 L 06/19/23 18:55 79 06/19/23 18:48 75 18 116/74 99 06/19/23 18:38 79 06/19/23 15:31 80 20 118/85 96 06/19/23 12:57 98.3 F 91 24 144/66 94 L Intake and Output 06/19/23 06/19/23 06/20/23 14:59 22:59 06:59 Other: Weight 91.172 kg GENERAL EXAM: Alert, obese 68-year-old white female appearing stated age , comfortable in no apparent distress. HEAD: Normocephalic and atraumatic EYES: Normal reaction of pupils, equal size. NOSE: Clear with pink turbinates. THROAT: No erythema or exudates. NECK: No masses, no JVD. CHEST: No chest wall deformity. LUNGS: Equal air entry with diffuse rhonchi and scattered crackles throughout. On 3 L/m nasal cannula. No conversational dyspnea or accessory muscle use while at rest.. CVS: S1 and S2 normal with no audible murmur, regular rhythm. No extra heart sounds ABDOMEN: No hepatosplenomegaly, active bowel sounds, no guarding or rigidity. SPINE: No scoliosis or deformity SKIN: No rashes CENTRAL NERVOUS SYSTEM: No focal deficits, tone is normal in all 4 extremities. EXTREMITIES: There is no peripheral edema, clubbing, or cyanosis. Peripheral pulses are intact. Results - Laboratory Findings CBC and BMP: 06/19/23 16:09 06/19/23 16:09 PT/INR, D-dimer PT 10.5 sec (10.0-12.5) 06/19/23 16:09 INR 0.9 (<1.2) 06/19/23 16:09 Abnormal lab findings: Abnormal Labs 06/19/23 06/19/23 16:09 16:09 WBC 17.7 H Neutrophils # 14.2 H BUN 30 H Creatinine 1.09 H Glucose 130 H - Diagnostic Findings Chest x-ray: image reviewed Assessment and Plan Assessment: Acquired bronchiectasis with chronic bronchopulmonary infections and colonization. Patient recently had a bronchoscopy with BAL on 06/07/2023 which identified pseudomonal and E. coli organisms. Acute exacerbation of severe steroid and oxygen dependent COPD, secondary to above Acute on chronic hypoxemic respiratory failure, secondary to above, currently on 3 L of oxygen by nasal cannula Leukocytosis History of pulmonary mycobacterium avium complex infection, resolved Type 2 diabetes mellitus Hyperlipidemia Hypertension History of CVA/TIA Obesity with a BMI of 34.5 kg/m Fibromyalgia Hypothyroidism Plan: Patient was directed to the emergency room by Dr. Millan for IV antibiotics. Patient's recent bronchoscopy with BAL was positive for Pseudomonas aeruginosa and E. coli. Both organisms sensitive to IV Zosyn. Continue supplemental oxygen. Start patient on a combination of DuoNeb's and Symbicort. Continue PO prednisone. Encourage pulmonary toileting. Negative for influenza, RSV, COVID- 19. Patient will be monitored on the general medical floor. Further recommendations are forthcoming. I have personally seen and examined the patient, performed the documentation and the assessment and plan as written. Number of minutes spent on the visit:20 this is a joint evaluation that was done along with a nurse practitioner. Evaluation was done . >30 min. I reviewed the records. The patient is known to have COPD and acquired bronchiectasis probably related to a previous mycobacterial avium infection. She has had recurrent infections with gram- negative bacteria including E. coli and Pseudomonas. A recent bronchoscopy was done confirming bolus. Patient is currently hospitalized for COPD exacerbation, and ongoing shortness of breath and the patient is currently on IV Zosyn in addition to routine bronchodilators. We'll continue treatment with IV antibiotics. Will monitor progress. She is diabetic. She has also hypertension and hyperlipidemia previous history of CVA and hypothyroidism and fibromyalgia. She is a lifetime nonsmoker. She has home O2. Time with Patient: Greater than 30
[2023-06-20] MEDS ORDERED: ALBUTEROL NEBULIZED 2.5 MG/3 ML INHALATION PRN (06:26)
[2023-06-20] MEDS: PANTOPRAZOLE 40 MG TABLET PO SCH (06:39)
[2023-06-20] MEDS: LEVOTHYROXINE 75 MCG TAB PO SCH (06:39)
[2023-06-20] MEDS ORDERED: NON FORMULARY DRUG (Fluticasone Propion/Salmeterol [Advair 500-50 Diskus] 1 EACH Blst.W.De INHALATION SCH (08:00)
--- NOTE | 2023-06-20 08:12 | XR ---
EXAMINATION TYPE: XR chest 1V portable DATE OF EXAM: 06/20/2023 COMPARISON: 06/19/2023 HISTORY: Cough TECHNIQUE: Single frontal view of the chest is obtained. FINDINGS: There is subsegmental changes at the left lung base most typical of atelectasis or scarrin g. No pleural effusion or pneumothorax. Postoperative changes overlying the cervical spine. Calcific tendinosis left shoulder suspected.. The cardiac silhouette size is within normal limits. The osse ous structures are intact. IMPRESSION: 1. Improving interstitial pattern with no overt failure today's exam. 2. Basilar atelectasis favored over pneumonia.
[2023-06-20] MEDS: SYMBICORT 160-4.5 MCG INHALER INHALATION SCH ×2 (09:17→21:48)
[2023-06-20] MEDS: IPRATROPIUM-ALBUTEROL 3 ML NEB INHALATION SCH ×4 (09:17→21:48)
[2023-06-20] MEDS: MECLIZINE 25 MG TAB PO SCH ×3 (10:34→22:07)
[2023-06-20] MEDS: POTASSIUM CHLORIDE ER 20 MEQ TAB.ER PO SCH ×2 (10:35→22:13)
[2023-06-20] MEDS: guaiFENesin 600 MG TABLET.ER PO SCH ×2 (10:35→22:09)
[2023-06-20] MEDS: MULTIVITAMINS, THERA 1 EACH TAB PO SCH (10:35)
[2023-06-20] MEDS: lamoTRIgine 100 MG TAB PO SCH ×2 (10:35→22:12)
[2023-06-20] MEDS: LOSARTAN 25 MG TAB PO SCH (10:36)
[2023-06-20] MEDS: MONTELUKAST 10 MG TAB PO SCH (10:36)
[2023-06-20] MEDS: DULoxetine HCL 60 MG CAPSULE.DR PO SCH (10:36)
[2023-06-20] MEDS: FLUTICASONE 50MCG/SPRAY NASAL 16GM EA NOSTRIL SCH (10:36)
[2023-06-20] MEDS: CYCLOBENZAPRINE 10 MG TAB PO SCH (10:36)
[2023-06-20] MEDS: METOPROLOL TARTRATE 25 MG TAB PO SCH (10:36)
[2023-06-20] MEDS: PHENYTOIN SODIUM EXTENDED 100 MG CAP PO SCH (10:38)
[2023-06-20] MEDS: SPIRONOLACTONE-HCTZ 25-25MG 1 EACH TAB PO SCH (10:39)
[2023-06-20] MEDS: predniSONE 10 MG TAB PO SCH (11:00)
[2023-06-20] MEDS: clonazePAM 0.5 MG TAB PO PRN ×3 (11:00→22:13)
[2023-06-20] MEDS: OXYBUTYNIN XL 5 MG TAB.ER.24 PO SCH (12:56)
--- NOTE | 2023-06-20 12:59 | P.HPIM ---
History of Present Illness H&P Date: 06/20/23 Chief Complaint: Shortness of breath * 68-year-old patient with past medical history significant for COPD, history of back infection, on triple antibiotic therapy, history of bronchiectasis, COPD, diabetes mellitus type 2, hyperlipidemia, fibromyalgia, hypertension, hyperlipidemia was sent in from pulmonary medicine office for shortness of breath, fatigue, and productive phlegm. Patient had a recent bronchoscopy and bronchoalveolar lavage done which showed pseudomonas and E. coli in cultures * Workup initiated at time of presentation include CBC which were WBC of 17.7 i mproving 13.1 platelet count of 365 elevated neutrophil count of 14.2, INR of 0.9, serum chemistry sodium 141 potassium 4.3B UN 30 creatinine 1.09 glucose 1:30 troponin less than 0.012 * Patient tested negative for influenza, urine Legionella was negative RSV and Covid negative * Patient was started on IV antibiotic and consultation was obtained from pulmonary medicine as well as infectious disease REVIEW OF SYSTEMS: Cough, sputum production, shortness of breath CONSTITUTIONAL: No fever, no malaise, no fatigue. HEENT: No recent visual problems or hearing problems. Denied any sore throat. CARDIOVASCULAR: No chest pain, orthopnea, PND, no palpitations, no syncope. PULMONARY: Cough, sputum production, shortness of breath GASTROINTESTINAL: No diarrhea, no nausea, no vomiting, no abdominal pain. NEUROLOGICAL: No headaches, no weakness, no numbness. HEMATOLOGICAL: Denies any bleeding or petechiae. GENITOURINARY: Denies any burning micturition, frequency, or urgency. MUSCULOSKELETAL/RHEUMATOLOGICAL: Denies any joint pain, swelling, or any muscle pain. ENDOCRINE: Denies any polyuria or polydipsia. The rest of the 14-point review of systems is negative. PHYSICAL EXAMINATION: GENERAL: The patient is alert and oriented x3 ill appearance, nasal cannula in place, HEENT: Pupils are round and equally reacting to light. EOMI. CARDIOVASCULAR: S1 and S2 present. No murmurs, rubs, or gallops. PULMONARY Decreased breath sounds bilaterally ABDOMEN: Soft, nontender, nondistended, normoactive bowel sounds. No palpable organomegaly. MUSCULOSKELETAL: No joint swelling or deformity. EXTREMITIES: No cyanosis, clubbing, or pedal edema. NEUROLOGICAL: Gross neurological examination did not reveal any focal deficits. SKIN: No rashes. Past Medical History Past Medical History: Asthma, COPD, CVA/TIA, Diabetes Mellitus, Eye Disorder, Fibromyalgia, GERD/Reflux, Hyperlipidemia, Hypertension, Memory Impairment, Osteoarthritis (OA), Pneumonia, Seizure Disorder, Thyroid Disorder Additional Past Medical History / Comment(s): OXYGEN AT 2 LITERS .,Bronchoscopy 03/27/2019 revealed Pseudomonas and E. coli. 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 DEGENERATION LT EYE.has had injections . 1996 BRAIN ABCESS WITH BRAIN BLEED, SEIZURES & STROKE -LEFT SIDED WEAKNESS., DIZZINESS- POOR BALANCE , USES WALKER. LAST SEIZURE IN 2014. WHOOPING COUGH - Multiple times. ENVIRONMENTAL ALLERGIES, CHRONIC NASAL CONGESTION, COUGH. CARPAL TUNNEL. , PNEUMONIA MULTIPLE TIMES., NERVES IN EARS DAMAGED, EMPHYSEMA ., DIET CONTROLLED DIABETES., hx of mitral valve regurgitation. stage 3 kidney disease. History of Any Multi-Drug Resistant Organisms: Other MDRO Past Surgical History: Adenoidectomy, Breast Surgery, Section, Cholecystectomy, Hysterectomy, Tonsillectomy Additional Past Surgical History / Comment(s): bronchoscopy,BRONCHIAL KATRINA 01/30/17 had 2 more bronchospoys since 2017. RIGHT BLEED FROM BREAST. CERVICAL FUSION. took out c 6 and then disc above and below replaced with cadaver bone. SINUS SURGERY. RIGHT EYELID.paralyzed muscle, EGD, RIGHT PARTIAL MASTEC SHAREE.colonoscopy Past Anesthesia/Blood Transfusion Reactions: Motion Sickness, Postoperative Nausea & Vomiting (PONV) Additional Past Anesthesia/Blood Transfusion Reaction / Comment(s): TAKES ANTIVERT FOR CHRONIC DIZZINESS. States takes a lot to knock her out and she's slow to wake up. Past Psychological History: Anxiety, Bipolar, Depression, Panic Disorder Smoking Status: Never smoker, Second hand smoke exposure Past Alcohol Use History: None Reported Past Drug Use History: None Reported - Past Family History Mother Family Medical History: Cancer, CVA/TIA, Deep Vein Thrombosis (DVT), Myocardial Infarction ([place]) Additional Family Medical History / Comment(s): Breast and colon cancer. Father Family Medical History: Cancer, Myocardial Infarction ([place]) Additional Family Medical History / Comment(s): Lung cancer. Sister(s) Family Medical History: Deep Vein Thrombosis (DVT) Medications and Allergies Home Medications Medication Instructions Recorded Confirmed Type DULoxetine HCL [Cymbalta] 120 mg PO QAM 07/08/16 12/04/23 History Fluticasone Propion/Salmeterol 1 puff INHALATION RT-BID 01/22/16 06/19/23 History [Advair 500-50 Diskus] Meclizine [Antivert] 25 mg PO TID 01/22/16 06/19/23 History Metaxalone [Skelaxin] 800 mg PO QAM 01/22/16 06/19/23 History Montelukast [Singulair] 10 mg PO QAM 01/22/16 06/19/23 History Pantoprazole Sodium [Protonix] 40 mg PO AC-BRKFST 01/22/16 06/19/23 History Phenytoin Sodium Extended 200 mg PO BID 01/22/16 06/19/23 History [Dilantin] Simvastatin [Zocor] 40 mg PO HS 01/22/16 06/19/23 History lamoTRIgine [LaMICtal] 100 mg PO QAM 01/22/16 06/19/23 History Ipratropium-Albuterol Nebulize 3 ml INHALATION RT-QID #120 neb 01/19/17 06/19/23 Rx [Duoneb 0.5 mg-3 mg/3 ml Soln] Albuterol Inhaler [Ventolin Hfa 2 puff INHALATION RT-Q6H PRN 03/21/18 06/19/23 History Inhaler] Multivitamin/Iron/Folic Acid 1 tab PO DAILY 10/03/18 06/19/23 History [Centrum Complete Multivit Tab] Vit C/E/Zn/Coppr/Lutein/Zeaxan 1 cap PO BID 10/03/18 06/19/23 History [Preservision Areds 2 Softgel] QUEtiapine FUMARATE [SEROquel XR] 400 mg PO BID@1600,2200 03/25/19 06/19/23 History Tolterodine ER [Detrol LA] 2 mg PO PC-LUNCH 05/29/20 06/19/23 History Potassium Chloride [Klor-Con 20] 20 meq PO BID 06/19/20 06/19/23 History Fluticasone Nasal [place] [Flonase 1 spray EA NOSTRIL DAILY 02/12/21 06/19/23 History Nasal [place]] Ramelteon [Rozerem] 8 mg PO HS 02/12/21 06/19/23 History Spironolactone-Hctz 25-25Mg 1 tab PO DAILY 02/12/21 06/19/23 History [Aldactazide 25-25Mg] Acetaminophen Tab [Tylenol Tab] 1,000 mg PO TID 06/05/23 06/19/23 History Azelastine HCl [Astelin Nasal 1 spray EA NOSTRIL BID 06/05/23 06/19/23 History [place]] Losartan [Cozaar] 25 mg PO DAILY 06/05/23 06/19/23 History clonazePAM [KlonoPIN] 0.5 mg PO TID 06/05/23 06/19/23 History guaiFENesin [Mucinex] 1,200 mg PO BID 06/05/23 06/19/23 History Levothyroxine Sodium [Synthroid] 75 mcg PO DAILY 06/19/23 06/19/23 History Metoprolol Tartrate [Lopressor] 25 mg PO DAILY 06/19/23 06/19/23 History lamoTRIgine [LaMICtal] 200 mg PO HS 06/19/23 06/19/23 History predniSONE 10 mg PO DAILY 06/19/23 06/19/23 History Allergies Allergy/AdvReac Type Severity Reaction Status Date / Time clarithromycin [From Biaxin] AdvReac SEIZURES Verified 06/19/23 16:25 Physical Exam Vitals: Vital Signs Temp Pulse Pulse Resp BP BP Pulse Ox 06/20/23 07:33 97.5 F L 81 17 136/79 98 06/20/23 02:11 98 F 87 18 114/57 97 06/19/23 21:30 18 06/19/23 21:10 97.9 F 92 18 155/69 93 L 06/19/23 18:55 79 06/19/23 18:48 75 18 116/74 99 06/19/23 18:38 79 06/19/23 15:31 80 20 118/85 96 06/19/23 12:57 98.3 F 91 24 144/66 94 L Intake and Output 06/19/23 06/20/23 06/20/23 22:59 06:59 14:59 Other: # Voids 2 1 Weight 91.172 kg Results CBC & Chem 7: 06/19/23 16:09 06/19/23 16:09 Labs: Abnormal Lab Results - Last 24 Hours (Table) 06/19/23 06/19/23 Range/Units 16:09 16:09 WBC 17.7 H (3.8-10.6) k/uL Neutrophils # 14.2 H (1.3-7.7) k/uL BUN 30 H (7-17) mg/dL Creatinine 1.09 H (0.52-1.04) mg/dL Glucose 130 H (74-99) mg/dL Thrombosis Risk Factor Assmnt - Choose All That Apply Any of the Below Risk Factors Present?: Yes Each Factor Represents 1 point: Abnormal pulmonary function (COPD), Obesity (BMI >25), Serious lung disease incl. pneumonia (< 1month) Each Risk Factor Represents 2 Points: Age 61-74 years Thrombosis Risk Factor Assessment Total Risk Factor Score: 5 Thrombosis Risk Factor Assessment Level: High Risk Assessment and Plan Assessment: Assessment and plan * Acute on chronic hypoxic respiratory failure * Pseudomonas, E. coli pneumonia * Severe COPD * History of seizure disorder * History of CVA/TIA * Diabetes mellitus type 2 * Hypothyroid * Fibromyalgia * History of complex MAC infection resolved * In regards to respiratory failure, etiology is underlying pneumonia, COPD, continue patient on IV Zosyn, infectious disease consulted, continue Symbicort and DuoNeb, continue prednisone, continue Mucinex * In regards to workup influenza, RSV and Covid 19 negative * In regards to hypothyroid continue Synthyroid * In regards to history of seizure disorder continue Lamictal, Dilantin * Regards to hypertension continue home regimen including losartan, metoprolol * Status is full code Time with Patient: Greater than 30
[2023-06-20] MEDS: AZELASTINE 137MCG/SPRAY EA NOSTRIL SCH ×2 (15:31→22:10)
[2023-06-20] MEDS: QUEtiapine 400 MG TAB PO SCH ×2 (15:36→23:22)
[2023-06-20] MEDS: TEMAZEPAM 15 MG CAP PO SCH (22:07)
[2023-06-20] MEDS: PHENYTOIN 100 MG PO SCH (22:07)
[2023-06-20] MEDS: ATORVASTATIN 20 MG TAB PO SCH (22:07)
[2023-06-21] MEDS: PANTOPRAZOLE 40 MG TABLET PO SCH (06:22)
[2023-06-21] MEDS: LEVOTHYROXINE 75 MCG TAB PO SCH (06:22)
[2023-06-21] MEDS: IPRATROPIUM-ALBUTEROL 3 ML NEB INHALATION SCH ×4 (08:20→21:16)
[2023-06-21] MEDS: SYMBICORT 160-4.5 MCG INHALER INHALATION SCH ×2 (08:20→21:16)
[2023-06-21] MEDS: PIPERACILLIN-TAZOBACTAM 3.375 GM in SODIUM CHLORIDE 0.9% 100 ML IVPB SCH ×2 (08:34→16:56)
[2023-06-21] MEDS: METOPROLOL TARTRATE 25 MG TAB PO SCH (08:36)
[2023-06-21] MEDS: POTASSIUM CHLORIDE ER 20 MEQ TAB.ER PO SCH ×2 (08:36→20:56)
[2023-06-21] MEDS: MONTELUKAST 10 MG TAB PO SCH (08:36)
[2023-06-21] MEDS: MECLIZINE 25 MG TAB PO SCH ×3 (08:36→20:56)
[2023-06-21] MEDS: SPIRONOLACTONE-HCTZ 25-25MG 1 EACH TAB PO SCH (08:36)
[2023-06-21] MEDS: PHENYTOIN 100 MG PO SCH ×2 (08:37→20:58)
[2023-06-21] MEDS: ENOXAPARIN 40 MG/0.4 ML SYRINGE SQ SCH (08:37)
[2023-06-21] MEDS: guaiFENesin 600 MG TABLET.ER PO SCH ×2 (08:37→20:56)
[2023-06-21] MEDS: predniSONE 10 MG TAB PO SCH (08:37)
[2023-06-21] MEDS: lamoTRIgine 100 MG TAB PO SCH ×2 (08:37→20:56)
[2023-06-21] MEDS: LOSARTAN 25 MG TAB PO SCH (08:37)
[2023-06-21] MEDS: MULTIVITAMINS, THERA 1 EACH TAB PO SCH (08:37)
[2023-06-21] MEDS: CYCLOBENZAPRINE 10 MG TAB PO SCH (08:37)
[2023-06-21] MEDS: DULoxetine HCL 60 MG CAPSULE.DR PO SCH (08:37)
[2023-06-21] MEDS: FLUTICASONE 50MCG/SPRAY NASAL 16GM EA NOSTRIL SCH (08:44)
[2023-06-21] MEDS: AZELASTINE 137MCG/SPRAY EA NOSTRIL SCH ×2 (08:44→20:57)
[2023-06-21 08:48] LABS: HGB 12.2 g/dL (12.0-15.0); MCH 31.9 pg (27.0-32.0); MCHC 31.3 g/dL (32.0-37.0); MCV 101.8 FL (80.0-97.0); Mean Platelet Volume 9.4 FL (9.5-12.2); NRBC Per 100 WBC 0 X 10*3/uL (0.00-0.01); Platelet Count 325 X 10*3/uL (140-440); RBC 3.83 X 10*6/uL (4.10-5.20); RDW 13.1 % (11.5-14.5); WBC 12.35 X 10*3/uL (4.50-10.00)
[2023-06-21 08:52] LABS: BUN/Creat Ratio 21.08 Ratio (12.00-20.00); Blood Urea Nitrogen 27.4 mg/dL (9.0-27.0); Calcium 9.4 mg/dL (8.7-10.3); Carbon Dioxide 27.4 mmol/L (21.6-31.8); Chloride 105 mmol/L (96-109); Glucose 112 mg/dL (70-110); Potassium 3.4 mmol/L (3.5-5.5); Sodium 144 mmol/L (135-145)
--- NOTE | 2023-06-21 10:33 | P.CONS ---
History of Present Illness - Reason for Consult Consult date: 06/20/23 Pseudomonas pneumonia Requesting physician: Brigette Almeida - Chief Complaint Increasing shortness of breath or cough x few days - History of Present Illness Patient is a 68-year-old female with a past medical history significant for diabetes mellitus COPD CVA TIA hypertension hyperlipidemia in this patient who did have a history of recurrent bronchitis and pneumonia, patient to follow-up with pulmonary in the outpatient setting and the patient did have bronchoscopy with BAL done on 06/07/2023 cultures came back positive for Pseudomonas and E. coli that was resistant to oral Cipro for the patient was advised to go to the hospital for IV antibiotic therapy, the patient on presentation to the hospital was afebrile has been complaining of some chills patient also complaining of cough which is moderate intensity and is bringing some greenish sputum no hemoptysis no significant pleuritic chest pain no nausea no vomiting no choking on the phone abdominal pain or any diarrhea, patient on presentation to the hospital was afebrile mildly hypoxic O2 sats of 94% she currently 95% on 3 L nasal cannula oxygen patient did have white count of 17.7 creatinine one 1.09 liver is abnormal influenza RSV and COVID testing was negative patient did have a chest x-ray interstitial pattern may represent chronic interstitial lung disease mild superimposed interstitial pneumonitis patient was started on Zosyn infectious disease was consulted for further management of antibiotic therapy Review of Systems Positive point and negatives has been mentioned in the HPI, complete review of systems was performed and all other systems are negative Past Medical History Past Medical History: Asthma, COPD, CVA/TIA, Diabetes Mellitus, Eye Disorder, Fibromyalgia, GERD/Reflux, Hyperlipidemia, Hypertension, Memory Impairment, Osteoarthritis (OA), Pneumonia, Seizure Disorder, Thyroid Disorder Additional Past Medical History / Comment(s): OXYGEN AT 2 LITERS .,Bronchoscopy 03/27/2019 revealed Pseudomonas and E. coli. 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 DEGENERATION LT EYE.has had injections . 1996 BRAIN ABCESS WITH BRAIN BLEED, SEIZURES & STROKE -LEFT SIDED WEAKNESS., DIZZINESS- POOR BALANCE , USES WALKER. LAST SEIZURE IN 2014. WHOOPING COUGH - Multiple times. ENVIRONMENTAL ALLERGIES, CHRONIC NASAL CONGESTION, COUGH. CARPAL TUNNEL. , PNEUMONIA MULTIPLE TIMES., NERVES IN EARS DAMAGED, EMPHYSEMA ., DIET CONTROLLED DIABETES., hx of mitral valve regurgitation. stage 3 kidney disease. History of Any Multi-Drug Resistant Organisms: Other MDRO Past Surgical History: Adenoidectomy, Breast Surgery, Section, Cholecystectomy, Hysterectomy, Tonsillectomy Additional Past Surgical History / Comment(s): bronchoscopy,BRONCHIAL KATRINA 01/30/17 had 2 more bronchospoys since 2017. RIGHT BLEED FROM BREAST. CERVICAL FUSION. took out c 6 and then disc above and below replaced with cadaver bone. SINUS SURGERY. RIGHT EYELID.paralyzed muscle, EGD, RIGHT PARTIAL MASTECTOMY.colonoscopy Past Anesthesia/Blood Transfusion Reactions: Motion Sickness, Postoperative Nausea & Vomiting (PONV) Additional Past Anesthesia/Blood Transfusion Reaction / Comm: TAKES ANTIVERT FOR CHRONIC DIZZINESS. States takes a lot to knock her out and she's slow to wake up. Past Psychological History: Anxiety, Bipolar, Depression, Panic Disorder Smoking Status: Never smoker, Second hand smoke exposure Past Alcohol Use History: None Reported Past Drug Use History: None Reported - Past Family History Mother Family Medical History: Cancer, CVA/TIA, Deep Vein Thrombosis (DVT), Myocardial Infarction (IA) Additional Family Medical History / Comment(s): Breast and colon cancer. Father Family Medical History: Cancer, Myocardial Infarction (IA) Additional Family Medical History / Comment(s): Lung cancer. Sister(s) Family Medical History: Deep Vein Thrombosis (DVT) Medications and Allergies Home Medications Medication Instructions Recorded Confirmed Type DULoxetine HCL [Cymbalta] 120 mg PO QAM 01/22/16 06/19/23 History Fluticasone Propion/Salmeterol 1 puff INHALATION RT-BID 01/22/16 06/19/23 History [Advair 500-50 Diskus] Meclizine [Antivert] 25 mg PO TID 01/22/16 06/19/23 History Metaxalone [Skelaxin] 800 mg PO QAM 01/22/16 06/19/23 History Montelukast [Singulair] 10 mg PO QAM 01/22/16 06/19/23 History Pantoprazole Sodium [Protonix] 40 mg PO AC-BRKFST 01/22/16 06/19/23 History Phenytoin Sodium Extended 200 mg PO BID 01/22/16 06/19/23 History [Dilantin] Simvastatin [Zocor] 40 mg PO HS 01/22/16 06/19/23 History lamoTRIgine [LaMICtal] 100 mg PO QAM 01/22/16 06/19/23 History Ipratropium-Albuterol Nebulize 3 ml INHALATION RT-QID #120 neb 01/19/17 06/19/23 Rx [Duoneb 0.5 mg-3 mg/3 ml Soln] Albuterol Inhaler [Ventolin Hfa 2 puff INHALATION RT-Q6H PRN 03/21/18 06/19/23 History Inhaler] Multivitamin/Iron/Folic Acid 1 tab PO DAILY 10/03/18 06/19/23 History [Centrum Complete Multivit Tab] Vit C/E/Zn/Coppr/Lutein/Zeaxan 1 cap PO BID 10/03/18 06/19/23 History [Preservision Areds 2 Softgel] QUEtiapine FUMARATE [SEROquel XR] 400 mg PO BID@1600,2200 03/25/19 06/19/23 History Tolterodine ER [Detrol LA] 2 mg PO PC-LUNCH 05/29/20 06/19/23 History Potassium Chloride [Klor-Con 20] 20 meq PO BID 06/19/20 06/19/23 History Fluticasone Nasal Mckenzie [Flonase 1 spray EA NOSTRIL DAILY 02/12/21 06/19/23 His tory Nasal Mckenzie] Ramelteon [Rozerem] 8 mg PO HS 02/12/21 06/19/23 History Spironolactone-Hctz 25-25Mg 1 tab PO DAILY 02/12/21 06/19/23 History [Aldactazide 25-25Mg] Acetaminophen Tab [Tylenol Tab] 1,000 mg PO TID 06/05/23 06/19/23 History Azelastine HCl [Astelin Nasal 1 spray EA NOSTRIL BID 06/05/23 06/19/23 History Mckenzie] Losartan [Cozaar] 25 mg PO DAILY 06/05/23 06/19/23 History clonazePAM [KlonoPIN] 0.5 mg PO TID 06/05/23 06/19/23 History guaiFENesin [Mucinex] 1,200 mg PO BID 06/05/23 06/19/23 History Levothyroxine Sodium [Synthroid] 75 mcg PO DAILY 06/19/23 06/19/23 History Metoprolol Tartrate [Lopressor] 25 mg PO DAILY 06/19/23 06/19/23 History lamoTRIgine [LaMICtal] 200 mg PO HS 06/19/23 06/19/23 History predniSONE 10 mg PO DAILY 06/19/23 06/19/23 History Allergies Allergy/AdvReac Type Severity Reaction Status Date / Time clarithromycin [From Biaxin] AdvReac SEIZURES Verified 06/19/23 16:25 Physical Exam Vitals: Vital Signs Temp Pulse Pulse Resp BP BP Pulse Ox 06/20/23 09:33 82 06/20/23 09:18 80 06/20/23 07:33 97.5 F L 81 17 136/79 98 06/20/23 02:11 98 F 87 18 114/57 97 06/19/23 21:30 18 06/19/23 21:10 97.9 F 92 18 155/69 93 L 06/19/23 18:55 79 06/19/23 18:48 75 18 116/74 99 06/19/23 18:38 79 06/19/23 15:31 80 20 118/85 96 06/19/23 12:57 98.3 F 91 24 144/66 94 L Intake and Output 06/19/23 06/20/23 06/20/23 22:59 06:59 14:59 Other: # Voids 2 1 Weight 91.172 kg GENERAL DESCRIPTION: Elderly female lying in bed, no distress. No tachypnea or accessory muscle of respiration use. HEENT: Shows Pallor , no scleral icterus. Oral mucous membrane is dry. No pharyngeal erythema or thrush NECK: Trachea central, no thyromegaly. LUNGS: Unlabored breathing. Coarse breath sounds bilaterally with occasional wheeze HEART: S1, S2, regular rate and rhythm. No loud murmur ABDOMEN: Soft, no tenderness , EXTREMITIES: No edema of feet. SKIN: No rash, no masses palpable. NEUROLOGICAL: The patient is awake, alert, oriented x3, mood and affect normal. Results CBC & Chem 7: 06/21/23 06:17 06/21/23 06:17 Labs: Abnormal Lab Results - Last 24 Hours (Table) 06/19/23 06/19/23 Range/Units 16:09 16:09 WBC 17.7 H (3.8-10.6) k/uL Neutrophils # 14.2 H (1.3-7.7) k/uL BUN 30 H (7-17) mg/dL Creatinine 1.09 H (0.52-1.04) mg/dL Glucose 130 H (74-99) mg/dL Assessment and Plan (1) Pseudomonas pneumonia Current Visit: Yes Status: Acute Code(s): J15.1 - PNEUMONIA DUE TO PSEUDOMONAS SNOMED Code(s): 30290742 Plan: 1patient presented to hospital with increasing shortness of breath cough with greenish sputum production increasing infiltrate on the chest x-ray patient did have elevated white count with a recent BAL culture positive for Pseudomonas aeruginosa that was resistant to oral Cipro also grew E. coli in the same specimen more likely, date of pneumonia related to this pathogen with COPD exacerbation. 2patient to continue with Zosyn 3.375 g every 8 hours. 3patient will likely need midline For outpatient IV antibiotic therapy on discharge this was discussed and explained to the patient and the We will follow on clinical condition and cultures to further adjust medication if needed Thank you for this consultation we will follow the patient along with you Dictation was produced using [email or web address] dictation software. please excuse any grammatical, word or spelling errors. Time with Patient: Greater than 30
[2023-06-21] MEDS ORDERED: POTASSIUM CHLORIDE ER 20 MEQ TAB.ER PO STA (12:38)
--- NOTE | 2023-06-21 12:42 | P.PN ---
Subjective Progress Note Date: 06/21/23 * 68-year-old patient with past medical history significant for COPD, history of back infection, on triple antibiotic therapy, history of bronchiectasis, COPD, diabetes mellitus type 2, hyperlipidemia, fibromyalgia, hypertension, hyperlipidemia was sent in from pulmonary medicine office for shortness of br eath, fatigue, and productive phlegm. Patient had a recent bronchoscopy and bronchoalveolar lavage done which showed pseudomonas and E. coli in cultures * Workup initiated at time of presentation include CBC which were WBC of 17.7 improving 13.1 platelet count of 365 elevated neutrophil count of 14.2, INR of 0.9, serum chemistry sodium 141 potassium 4.3B UN 30 creatinine 1.09 glucose 1:30 troponin less than 0.012 * Patient tested negative for influenza, urine Legionella was negative RSV and Covid negative * Patient was started on IV antibiotic and consultation was obtained from pulmonary medicine as well as infectious disease * 06/21/2023: Patient seen and evaluated bedside, patient is alert and oriented 4, does complain of cough, patient says she was not able to sleep secondary to cough. CBC reviewed WBC 12.35, hemoglobin 12 platelet count 325, serum chemistry sodium 144 potassium 3.4 BU and 27 creatinine 1.3 CRP 1.20. Patient's 3 L of oxygen through nasal cannula. Followed by infectious disease and pulmonary medicine REVIEW OF SYSTEMS: Cough, sputum production, shortness of breath CONSTITUTIONAL: No fever, no malaise, no fatigue. HEENT: No recent visual problems or hearing problems. Denied any sore throat. CARDIOVASCULAR: No chest pain, orthopnea, PND, no palpitations, no syncope. PULMONARY: Cough, sputum production, shortness of breath GASTROINTESTINAL: No diarrhea, no nausea, no vomiting, no abdominal pain. NEUROLOGICAL: No headaches, no weakness, no numbness. HEMATOLOGICAL: Denies any bleeding or petechiae. GENITOURINARY: Denies any burning micturition, frequency, or urgency. MUSCULOSKELETAL/RHEUMATOLOGICAL: Denies any joint pain, swelling, or any muscle pain. ENDOCRINE: Denies any polyuria or polydipsia. The rest of the 14-point review of systems is negative. PHYSICAL EXAMINATION: GENERAL: The patient is alert and oriented x3 ill appearance, nasal cannula in place, HEENT: Pupils are round and equally reacting to light. EOMI. CARDIOVASCULAR: S1 and S2 present. No murmurs, rubs, or gallops. PULMONARY Decreased breath sounds bilaterally ABDOMEN: Soft, nontender, nondistended, normoactive bowel sounds. No palpable organomegaly. MUSCULOSKELETAL: No joint swelling or deformity. EXTREMITIES: No cyanosis, clubbing, or pedal edema. NEUROLOGICAL: Gross neurological examination did not reveal any focal deficits. SKIN: No rashes. Objective - Vital Signs Vital signs: Vital Signs Temp 97.6 F 06/21/23 07:38 Pulse 82 06/21/23 11:45 Resp 18 06/21/23 08:35 BP 158/76 06/21/23 07:38 Pulse Ox 95 06/21/23 08:20 FiO2 Intake & Output 06/20/23 06/21/23 06/21/23 18:59 06:59 18:59 Intake Total 240 Balance 240 Intake: Oral 240 Other: # Voids 2 1 - Labs CBC & Chem 7: 06/21/23 06:17 06/21/23 06:17 Labs: Abnormal Lab Results - Last 24 Hours (Table) 06/21/23 06/21/23 Range/Units 06:17 06:17 WBC 12.35 H (4.50-10.00) X 10*3/uL RBC 3.83 L (4.10-5.20) X 10*6/uL MCV 101.8 H (80.0-97.0) FL MCHC 31.3 L (32.0-37.0) g/dL MPV 9.4 L (9.5-12.2) FL Potassium 3.4 L (3.5-5.5) mmol/L BUN 27.4 H (9.0-27.0) mg/dL Est GFR (CKD-EPI) 45 L (>=60) BUN/Creatinine Ratio 21.08 H (12.00-20.00) Ratio Glucose 112 H (70-110) mg/dL C-Reactive Protein 1.20 H (0.00-0.80) mg/dL Microbiology - Last 24 Hours (Table) 06/19/23 23:40 Gram Stain - Preliminary Sputum 06/19/23 15:45 Blood Culture - Preliminary Blood 06/19/23 16:00 Blood Culture - Preliminary Blood Assessment and Plan Assessment: Assessment and plan * Acute on chronic hypoxic respiratory failure * Pseudomonas, E. coli pneumonia * Severe COPD * History of seizure disorder * History of CVA/TIA * Diabetes mellitus type 2 * Hypothyroid * Fibromyalgia * History of complex MAC infection resolved * In regards to respiratory failure, etiology is underlying pneumonia, COPD, continue patient on IV Zosyn, infectious disease consulted and following, continue Symbicort and DuoNeb, continue prednisone, continue Mucinex * In regards to workup influenza, RSV and Covid 19 negative * In regards to hypothyroid continue Synthyroid * In regards to history of seizure disorder continue Lamictal, Dilantin * Regards to hypertension continue home regimen including losartan, metoprolol * In regards to diabetes mellitus, not on any regimen at home, most recent HbA1c was in 2018 5.8, we'll follow-up on HbA1c * Status is full code
[2023-06-21] MEDS: OXYBUTYNIN XL 5 MG TAB.ER.24 PO SCH (14:17)
[2023-06-21] MEDS: QUEtiapine 400 MG TAB PO SCH ×2 (16:56→20:56)
--- NOTE | 2023-06-21 17:42 | P.PN ---
Subjective Progress Note Date: 06/21/23 I am seeing this patient in consultation today 06/20/2023 after she was sent in by Dr. Millan from the pulmonary office. Patient recently had a bronchoscopy with BAL done on 06/07/2023, micro was positive for Pseudomonas and E. coli. 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 coli pulmonary infections, severe COPD, type 2 diabetes, hyperlipidemia, hypertension, CVA/TIA, fibromyalgia, among other things. Patient does follow in the pulmonary office with Dr. Millan for management of above. She is oxygen and steroid dependent at baseline. Over the last 6 months, the patient is worsening exertional shortness of breath and fatigue accompanied with green purulent sputum production and a persistent cough. States that her sputum has the consistency of "silly putty". She did follow up with Dr. Millan back on June 12, and he recommended that she come to the emergency room. Chest x-ray arrival showed interstitial pattern which may represent chronic interstitial lung disease seen on prior exam. There are chronic left basilar lung findings likely to be representing scarring or atelectasis. Patient is currently sitting at the bedside recliner. She is in no acute distress. She is on 3 L/m nasal cannula. She endorses the above- mentioned symptoms. Denies any fever, chills, chest pain, hemoptysis. CBC on arrival showed a WBC count of 17.7, hemoglobin 13.1, hematocrit 40.6, platelets 365. BMP on arrival is unremarkable. Troponin less than 0.012. Negative for influenza, RSV, COVID-19. Afebrile. She was started on Zosyn. Hemodynamically stable. On today's evaluation of 06/21/2023, the patient is feeling slightly better compared to yesterday. Her cough is still present. The patient is not producing much of sputum at this point in time. She is on IV Zosyn and. She'll be also given Robitussin-DM for cough and congestion and the patient will be also started on low-dose IV Solu-Medrol 40 mg every 6 hours. Her oral prednisone be discontinued for the time being. She is on 2 L of Oxymizer nasal cannula with a pulse ox of 97%. She is afebrile. The rest of the blood work sh ows edematous count 12.3 with a hemoglobin of 12.2 and a platelet count of 325. BUN is at 27 with a creatinine of 1.3 and a sodium level is at 144. Legionella urine antigen was negative. Objective - Vital Signs Vital signs: Vital Signs Temp 98.8 F 06/21/23 13:48 Pulse 84 06/21/23 13:48 Resp 18 06/21/23 13:48 BP 114/59 06/21/23 13:48 Pulse Ox 97 06/21/23 13:48 FiO2 Intake & Output 06/20/23 06/21/23 06/21/23 18:59 06:59 18:59 Intake Total 240 Balance 240 Intake: Oral 240 Other: # Voids 2 1 - Exam GENERAL EXAM: Alert, obese 68-year-old white female appearing stated age , comfortable in no apparent distress. HEAD: Normocephalic and atraumatic EYES: Normal reaction of pupils, equal size. NOSE: Clear with pink turbinates. THROAT: No erythema or exudates. NECK: No masses, no JVD. CHEST: No chest wall deformity. LUNGS: Equal air entry with diffuse rhonchi and scattered crackles throughout. On 3 L/m nasal cannula. No conversational dyspnea or accessory muscle use while at rest.. CVS: S1 and S2 normal with no audible murmur, regular rhythm. No extra heart sounds ABDOMEN: No hepatosplenomegaly, active bowel sounds, no guarding or rigidity. SPINE: No scoliosis or deformity SKIN: No rashes CENTRAL NERVOUS SYSTEM: No focal deficits, tone is normal in all 4 extremities. EXTREMITIES: There is no peripheral edema, clubbing, or cyanosis. Peripheral pulses are intact. - Labs CBC & Chem 7: 06/21/23 06:17 06/21/23 06:17 Labs: Abnormal Lab Results - Last 24 Hours (Table) 06/21/23 12 Range/Units 06:17 06:17 WBC 12.35 H (4.50-10.00) X 10*3/uL RBC 3.83 L (4.10-5.20) X 10*6/uL MCV 101.8 H (80.0-97.0) FL MCHC 31.3 L (32.0-37.0) g/dL MPV 9.4 L (9.5-12.2) FL Potassium 3.4 L (3.5-5.5) mmol/L BUN 27.4 H (9.0-27.0) mg/dL Est GFR (CKD-EPI) 45 L (>=60) BUN/Creatinine Ratio 21.08 H (12.00-20.00) Ratio Glucose 112 H (70-110) mg/dL C-Reactive Protein 1.20 H (0.00-0.80) mg/dL Microbiology - Last 24 Hours (Table) 06/19/23 23:40 Gram Stain - Preliminary Sputum Sputum Culture - Preliminary Gram Neg Bacilli 06/19/23 15:45 Blood Culture - Preliminary Blood 06/19/23 16:00 Blood Culture - Preliminary Blood Assessment and Plan Assessment: Acute exacerbation of COPD, improving Acute tracheobronchitis with gram-negative bacteria including E. coli and Pseudomonas, and recurrent process Possible bronchiectasis Acute on chronic hypoxemic respiratory failure, secondary to above, currently on 3 L of oxygen by nasal cannula Leukocytosis, improving History of pulmonary mycobacterium avium complex infection, resolved Type 2 diabetes mellitus Hyperlipidemia Hypertension History of CVA/TIA Obesity with a BMI of 34.5 kg/m Fibromyalgia Hypothyroidism Plan: Continue bronchodilators Continue steroids and the patient will be switched IV Solu-Medrol Continue IV Zosyn Clinically improving The patient is known to have COPD and acquired bronchiectasis probably related to a previous mycobacterial avium infection. She has had recurrent infections with gram-negative bacteria including E. coli and Pseudomonas. A recent bronchoscopy was done confirming bolus. Patient is currently hospitalized for COPD exacerbation, and ongoing shortness of breath and the patient is currently on IV Zosyn in addition to routine bronchodilators. We'll continue treatment wi IV antibiotics. Will monitor progress. She is diabetic. She has also hypertension and hyperlipidemia previous history of CVA and hypothyroidism and fibromyalgia. She is a lifetime nonsmoker. She has home O2.
[2023-06-21] MEDS: methylPREDNISolone SOD SUCCI 40 MG/ML 1 ML VIAL IV SCH (18:54)
[2023-06-21] MEDS: guaiFENesin-DM 100-10MG/5ML 10 ML CUP PO SCH ×2 (20:45→20:56)
[2023-06-21] MEDS: clonazePAM 0.5 MG TAB PO PRN (20:55)
[2023-06-21] MEDS: ATORVASTATIN 20 MG TAB PO SCH (20:56)
[2023-06-21] MEDS: TEMAZEPAM 15 MG CAP PO SCH (21:59)
[2023-06-22] MEDS: PIPERACILLIN-TAZOBACTAM 3.375 GM in SODIUM CHLORIDE 0.9% 100 ML IVPB SCH ×4 (00:43→23:49)
[2023-06-22] MEDS: methylPREDNISolone SOD SUCCI 40 MG/ML 1 ML VIAL IV SCH ×5 (00:43→23:49)
[2023-06-22] MEDS: LEVOTHYROXINE 75 MCG TAB PO SCH (06:30)
[2023-06-22] MEDS: PANTOPRAZOLE 40 MG TABLET PO SCH (06:30)
[2023-06-22] MEDS: guaiFENesin-DM 100-10MG/5ML 10 ML CUP PO SCH ×4 (06:33→23:49)
[2023-06-22] MEDS: IPRATROPIUM-ALBUTEROL 3 ML NEB INHALATION SCH ×4 (08:11→22:14)
[2023-06-22] MEDS: SYMBICORT 160-4.5 MCG INHALER INHALATION SCH ×2 (08:11→22:14)
[2023-06-22 09:01] LABS: African American GFR (CKD) 58 (>60 ml/min/1.73 sqM); Anion Gap 12 mmol/L; Blood Urea Nitrogen 28 mg/dL (7-17); Calcium 9.3 mg/dL (8.4-10.2); Carbon Dioxide 24 mmol/L (22-30); Chloride 106 mmol/L (98-107); Glucose 148 mg/dL (74-99); Non-African American GFR(CKD) 51 (>60 ml/min/1.73 sqM); Potassium 4.1 mmol/L (3.5-5.1); Sodium 142 mmol/L (137-145)
[2023-06-22 09:02] LABS: HCT 39.8 % (34.0-46.0); HGB 12.7 gm/dL (11.4-16.0); Hypochromasia Slight; MCH 32.3 pg (25.0-35.0); MCHC 31.9 g/dL (31.0-37.0); MCV 101.2 fL (80.0-100.0); Macrocytosis Slight; Mean Platelet Volume 7.6; Platelet Count 298 k/uL (150-450); RBC 3.93 m/uL (3.80-5.40); RDW 13.1 % (11.5-15.5); WBC 12.9 k/uL (3.8-10.6)
[2023-06-22] MEDS: MECLIZINE 25 MG TAB PO SCH ×3 (09:17→20:29)
[2023-06-22] MEDS: FLUTICASONE 50MCG/SPRAY NASAL 16GM EA NOSTRIL SCH (09:17)
[2023-06-22] MEDS: MONTELUKAST 10 MG TAB PO SCH (09:17)
[2023-06-22] MEDS: MULTIVITAMINS, THERA 1 EACH TAB PO SCH (09:17)
[2023-06-22] MEDS: lamoTRIgine 100 MG TAB PO SCH ×2 (09:18→20:28)
[2023-06-22] MEDS: CYCLOBENZAPRINE 10 MG TAB PO SCH (09:18)
[2023-06-22] MEDS: DULoxetine HCL 60 MG CAPSULE.DR PO SCH (09:18)
[2023-06-22] MEDS: POTASSIUM CHLORIDE ER 20 MEQ TAB.ER PO SCH ×2 (09:18→20:28)
[2023-06-22] MEDS: METOPROLOL TARTRATE 25 MG TAB PO SCH (09:18)
[2023-06-22] MEDS: LOSARTAN 25 MG TAB PO SCH (09:18)
[2023-06-22] MEDS: ENOXAPARIN 40 MG/0.4 ML SYRINGE SQ SCH (09:19)
[2023-06-22] MEDS: AZELASTINE 137MCG/SPRAY EA NOSTRIL SCH ×2 (09:19→20:34)
[2023-06-22] MEDS: PHENYTOIN 100 MG PO SCH ×2 (09:21→20:28)
[2023-06-22] MEDS: SPIRONOLACTONE-HCTZ 25-25MG 1 EACH TAB PO SCH (09:23)
[2023-06-22] MEDS: guaiFENesin 600 MG TABLET.ER PO SCH ×2 (09:27→20:28)
[2023-06-22] MEDS: clonazePAM 0.5 MG TAB PO PRN ×3 (09:27→20:33)
[2023-06-22] MEDS: SODIUM CHLORIDE 0.9% 1,000 ML IV SCH ×2 (10:53→20:34)
[2023-06-22] MEDS: OXYBUTYNIN XL 5 MG TAB.ER.24 PO SCH (12:54)
--- NOTE | 2023-06-22 14:13 | P.PN ---
Subjective Progress Note Date: 06/22/23 * 68-year-old patient with past medical history significant for COPD, history of back infection, on triple antibiotic therapy, history of bronchiectasis, COPD, diabetes mellitus type 2, hyperlipidemia, fibromyalgia, hypertension, hyperlipidemia was sent in from pulmonary medicine office for shortness of br eath, fatigue, and productive phlegm. Patient had a recent bronchoscopy and bronchoalveolar lavage done which showed pseudomonas and E. coli in cultures * Workup initiated at time of presentation include CBC which were WBC of 17.7 improving 13.1 platelet count of 365 elevated neutrophil count of 14.2, INR of 0.9, serum chemistry sodium 141 potassium 4.3B UN 30 creatinine 1.09 glucose 1:30 troponin less than 0.012 * Patient tested negative for influenza, urine Legionella was negative RSV and Covid negative * Patient was started on IV antibiotic and consultation was obtained from pulmonary medicine as well as infectious disease * 06/21/2023: Patient seen and evaluated bedside, patient is alert and oriented 4, does complain of cough, patient says she was not able to sleep secondary to cough. CBC reviewed WBC 12.35, hemoglobin 12 platelet count 325, serum chemistry sodium 144 potassium 3.4 BU and 27 creatinine 1.3 CRP 1.20. Patient's 3 L of oxygen through nasal cannula. Followed by infectious disease and pulmonary medicine * 06/22/2023: Patient seen and evaluated bedside, patient's her breathing is better does have productive cough. Basic metabolic panel showed creatinine of 1.14, hydrochlorothiazide/Aldactone discontinued follow-up on renal profile, continue patient on oxygen supplementation on 3 L of oxygen REVIEW OF SYSTEMS: Cough, sputum production, shortness of breath CONSTITUTIONAL: No fever, no malaise, no fatigue. HEENT: No recent visual problems or hearing problems. Denied any sore throat. CARDIOVASCULAR: No chest pain, orthopnea, PND, no palpitations, no syncope. PULMONARY: Cough, sputum production, shortness of breath GASTROINTESTINAL: No diarrhea, no nausea, no vomiting, no abdominal pain. NEUROLOGICAL: No headaches, no weakness, no numbness. HEMATOLOGICAL: Denies any bleeding or petechiae. GENITOURINARY: Denies any burning micturition, frequency, or urgency. MUSCULOSKELETAL/RHEUMATOLOGICAL: Denies any joint pain, swelling, or any muscle pain. ENDOCRINE: Denies any polyuria or polydipsia. PHYSICAL EXAMINATION: GENERAL: The patient is alert and oriented x3 ill appearance, nasal cannula in place, HEENT: Pupils are round and equally reacting to light. EOMI. CARDIOVASCULAR: S1 and S2 present. No murmurs, rubs, or gallops. PULMONARY Decreased breath sounds bilaterally ABDOMEN: Soft, nontender, nondistended, normoactive bowel sounds. No palpable organomegaly. MUSCULOSKELETAL: No joint swelling or deformity. EXTREMITIES: No cyanosis, clubbing, or pedal edema. NEUROLOGICAL: Gross neurological examination did not reveal any focal deficits. SKIN: No rashes. Objective - Vital Signs Vital signs: Vital Signs Temp 97.7 F 06/22/23 08:01 Pulse 85 06/22/23 11:33 Resp 19 06/22/23 08:01 BP 142/78 06/22/23 08:01 Pulse Ox 95 06/22/23 08:12 FiO2 Intake & Output 06/21/23 06/22/23 06/22/23 18:59 06:59 18:59 Other: # Voids 3 4 - Labs CBC & Chem 7: 06/22/23 08:03 06/22/23 08:03 Labs: Abnormal Lab Results - Last 24 Hours (Table) 06/22/23 06/22/23 Range/Units 08:03 08:03 WBC 12.9 H (3.8-10.6) k/uL MCV 101.2 H (80.0-100.0) fL BUN 28 H (7-17) mg/dL Creatinine 1.14 H (0.52-1.04) mg/dL Glucose 148 H (74-99) mg/dL Microbiology - Last 24 Hours (Table) 06/19/23 23:40 Gram Stain - Preliminary Sputum Sputum Culture - Preliminary Escherichia coli 06/19/23 15:45 Blood Culture - Preliminary Blood 06/19/23 16:00 Blood Culture - Preliminary Blood Assessment and Plan Assessment: Assessment and plan * Acute on chronic hypoxic respiratory failure * Pseudomonas, E. coli pneumonia * Severe COPD * History of seizure disorder * History of CVA/TIA * Diabetes mellitus type 2 * Hypothyroid * Fibromyalgia * History of complex MAC infection resolved * In regards to respiratory failure, etiology is underlying pneumonia, COPD, continue patient on IV Zosyn, infectious disease consulted and following, continue Symbicort and DuoNeb, continue prednisone, continue Mucinex * In regards to workup influenza, RSV and Covid 19 negative * In regards to hypothyroid continue Synthyroid * In regards to history of seizure disorder continue Lamictal, Dilantin * Regards to hypertension continue home regimen including losartan, metoprolol * In regards to diabetes mellitus, not on any regimen at home, most recent HbA1c was in 2018 5.8, we'll follow-up on HbA1c * Status is full code
--- NOTE | 2023-06-22 15:12 | P.PN ---
Subjective Progress Note Date: 06/21/23 Principal diagnosis: Reason for follow-up is Pseudomonas pneumonia Patient is a 68-year-old female with a past medical history significant for diabetes mellitus COPD CVA TIA hypertension hyperlipidemia in this patient who did have a history of recurrent bronchitis and pneumonia patient recently did have a bronchoscopy with lavage and the cultures did grew Pseudomonas that was resistant to Cipro On today's evaluation that is 06/21/2023 the patient remains to be afebrile, the patient is breathing comfortably on 3 L nasal cannula supplemental oxygen, the patient denies having any chest pain, the patient cough is decreased intensity with occasional sputum production, patient denies nausea vomiting or any diarrhea, and no abdominal pain Patient did have a white count of 12.35, creatinine 1.3, CRP 1.20 Objective - Vital Signs Vital signs: Vital Signs Temp 97.6 F 06/21/23 07:38 Pulse 82 06/21/23 11:45 Resp 18 06/21/23 08:35 BP 158/76 06/21/23 07:38 Pulse Ox 95 06/21/23 08:20 FiO2 Intake & Output 06/20/23 06/21/23 06/21/23 18:59 06:59 18:59 Intake Total 240 Balance 240 Intake: Oral 240 Other: # Voids 2 1 - Exam GENERAL DESCRIPTION: An elderly female lying in bed in no distress RESPIRATORY SYSTEM: Unlabored breathing , coarse breath sounds bilaterally HEART: S1 S2 regular rate and rhythm , ABDOMEN: Soft , no tenderness EXTREMITIES: No edema feet - Labs CBC & Chem 7: 06/22/23 08:03 06/22/23 08:03 Labs: Abnormal Lab Results - Last 24 Hours (Table) 06/21/23 06/21/23 Range/Units 06:17 06:17 WBC 12.35 H (4.50-10.00) X 10*3/uL RBC 3.83 L (4.10-5.20) X 10*6/uL MCV 101.8 H (80.0-97.0) FL MCHC 31.3 L (32.0-37.0) g/dL MPV 9.4 L (9.5-12.2) FL Potassium 3.4 L (3.5-5.5) mmol/L BUN 27.4 H (9.0-27.0) mg/dL Est GFR (CKD-EPI) 45 L (>=60) BUN/Creatinine Ratio 21.08 H (12.00-20.00) Ratio Glucose 112 H (70-110) mg/dL C-Reactive Protein 1.20 H (0.00-0.80) mg/dL Microbiology - Last 24 Hours (Table) 06/19/23 23:40 Gram Stain - Preliminary Sputum 06/19/23 15:45 Blood Culture - Preliminary Blood 06/19/23 16:00 Blood Culture - Preliminary Blood Assessment and Plan (1) Pseudomonas pneumonia Current Visit: Yes Status: Acute Code(s): J15.1 - PNEUMONIA DUE TO PSEUDOMONAS SNOMED Code(s): 43933492 Plan: 1patient presented to hospital with increasing shortness of breath cough with greenish sputum production increasing infiltrate on the chest x-ray patient did have elevated white count with a recent BAL culture positive for Pseudomonas aeruginosa that was resistant to oral Cipro also grew E. coli in the same specimen more likely, date of pneumonia related to this pathogen with COPD exacerbation. 2patient to continue with Zosyn 3.375 g every 8 hours while waiting for repeat cultures to finalize. Dictation was produced using [employer] dictation software. please excuse any grammatical, word or spelling errors. Time with Patient: Less than 30
--- NOTE | 2023-06-22 15:13 | P.PN ---
Subjective Progress Note Date: 06/22/23 Principal diagnosis: Reason for follow-up is Pseudomonas pneumonia Patient is a 68-year-old female with a past medical history significant for diabetes mellitus COPD CVA TIA hypertension hyperlipidemia in this patient who did have a history of recurrent bronchitis and pneumonia patient recently did have a bronchoscopy with lavage and the cultures did grew Pseudomonas that was resistant to Cipro On today's evaluation that is 06/22/2023, the patient continues to be afebrile and is breathing comfortably on 3 L nasal cannula oxygen, patient still complaining of shortness of breath on exertion, no chest pain or cough has decreased intensity with occasional sputum production, patient denies abdominal pain, no nausea/vomiting and no diarrhea has been reported Patient did have a white count of 12.9, creatinine 1.14 sputum is growing E. coli Objective - Vital Signs Vital signs: Vital Signs Temp 97.7 F 06/22/23 08:01 Pulse 85 06/22/23 11:33 Resp 19 06/22/23 08:01 BP 142/78 06/22/23 08:01 Pulse Ox 95 06/22/23 08:12 FiO2 Intake & Output 06/21/23 06/22/23 06/22/23 18:59 06:59 18:59 Other: # Voids 3 4 - Exam GENERAL DESCRIPTION: An elderly female lying in bed in no distress RESPIRATORY SYSTEM: Unlabored breathing , coarse breath sounds bilaterally HEART: S1 S2 regular rate and rhythm , ABDOMEN: Soft , no tenderness EXTREMITIES: No edema feet - Labs CBC & Chem 7: 06/22/23 08:03 06/22/23 08:03 Labs: Abnormal Lab Results - Last 24 Hours (Table) 06/22/23 06/22/23 Range/Units 08:03 08:03 WBC 12.9 H (3.8-10.6) k/uL MCV 101.2 H (80.0-100.0) fL BUN 28 H (7-17) mg/dL Creatinine 1.14 H (0.52-1.04) mg/dL Glucose 148 H (74-99) mg/dL Microbiology - Last 24 Hours (Table) 06/19/23 23:40 Gram Stain - Preliminary Sputum Sputum Culture - Preliminary Escherichia coli 06/19/23 15:45 Blood Culture - Preliminary Blood 06/19/23 16:00 Blood Culture - Preliminary Blood Assessment and Plan (1) Pseudomonas pneumonia Current Visit: Yes Status: Acute Code(s): J15.1 - PNEUMONIA DUE TO PSEUDOMONAS SNOMED Code(s): 73699824 Plan: 1patient presented to hospital with increasing shortness of breath cough with greenish sputum production increasing infiltrate on the chest x-ray patient did have elevated white count with a recent BAL culture positive for Pseudomonas aeruginosa that was resistant to oral Cipro also grew E. coli in the same specimen more likely, date of pneumonia related to this pathogen with COPD exacerbation. 2patient sputum is growing only E. coli during this admission patient mentioned she was supposed to get a CT of the chest we will orderit , to see the extent of this pneumonia and need for IV versus oral antibiotics for now continue with the Zosyn and monitor clinical course closely Dictation was produced using [employer] dictation software. please excuse any gramma tical, word or spelling errors. Time with Patient: Less than 30
[2023-06-22] MEDS: QUEtiapine 400 MG TAB PO SCH ×2 (15:58→20:29)
--- NOTE | 2023-06-22 16:11 | P.PN ---
Subjective Progress Note Date: 06/22/23 I am seeing this patient in consultation today 06/20/2023 after she was sent in by Dr. Millan from the pulmonary office. Patient recently had a bronchoscopy with BAL done on 06/07/2023, micro was positive for Pseudomonas and E. coli. 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 coli pulmonary infections, severe COPD, type 2 diabetes, hyperlipidemia, hypertension, CVA/TIA, fibromyalgia, among other things. Patient does follow in the pulmonary office with Dr. Millan for management of above. She is oxygen and steroid dependent at baseline. Over the last 6 months, the patient is worsening exertional shortness of breath and fatigue accompanied with green purulent sputum production and a persistent cough. States that her sputum has the consistency of "silly putty". She did follow up with Dr. Millan back on June 12, and he recommended that she come to the emergency room. Chest x-ray arrival showed interstitial pattern which may represent chronic interstitial lung disease seen on prior exam. There are chronic left basilar lung findings likely to be representing scarring or atelectasis. Patient is currently sitting at the bedside recliner. She is in no acute distress. She is on 3 L/m nasal cannula. She endorses the above- mentioned symptoms. Denies any fever, chills, chest pain, hemoptysis. CBC on arrival showed a WBC count of 17.7, hemoglobin 13.1, hematocrit 40.6, platelets 365. BMP on arrival is unremarkable. Troponin less than 0.012. Negative for influenza, RSV, COVID-19. Afebrile. She was started on Zosyn. Hemodynamically stable. On today's evaluation of 06/21/2023, the patient is feeling slightly better compared to yesterday. Her cough is still present. The patient is not producing much of sputum at this point in time. She is on IV Zosyn and. She'll be also given Robitussin-DM for cough and congestion and the patient will be also started on low-dose IV Solu-Medrol 40 mg every 6 hours. Her oral prednisone be discontinued for the time being. She is on 2 L of Oxymizer nasal cannula with a pulse ox of 97%. She is afebrile. The rest of the blood work sh ows edematous count 12.3 with a hemoglobin of 12.2 and a platelet count of 325. BUN is at 27 with a creatinine of 1.3 and a sodium level is at 144. Legionella urine antigen was negative. On today's evaluation of 06/22/2023, the patient is feeling better. The patient is less short of breath compared to yesterday. Noted the patient is on IV Zosyn. A repeat sputum sample showed presence of E. coli in his sputum. The patient had a previous thoracoscopy that showed accommodation of Pseudomonas and E. coli. The patient is on the proper antibiotics for now. Steroids were added also yesterday. She is a bit emotional as the patient lost her [id number]-[id number] who unexpectedly today. The patient otherwise doing well pH is receiving bronchodilators. She is also on Symbicort. She is on IV Zosyn. She is on IV Solu-Medrol. The cough and congestion has subsided. The white cell count is down to 12.9, hemoglobin was 12.7, BUN is at 28 with a creatinine 1.1 and sodium levels is 142. Objective - Vital Signs Vital signs: Vital Signs Temp 97.7 F 06/22/23 08:01 Pulse 85 06/22/23 11:33 Resp 19 06/22/23 08:01 BP 142/78 06/22/23 08:01 Pulse Ox 95 06/22/23 08:12 FiO2 Intake & Output 06/21/23 06/22/23 06/22/23 18:59 06:59 18:59 Other: # Voids 3 4 - Exam GENERAL EXAM: Alert, obese 68-year-old white female appearing stated age , comfortable in no apparent distress. HEAD: Normocephalic and atraumatic EYES: Normal reaction of pupils, equal size. NOSE: Clear with pink turbinates. THROAT: No erythema or exudates. NECK: No masses, no JVD. CHEST: No chest wall deformity. LUNGS: Equal air entry with diffuse rhonchi and scattered crackles throughout. On 3 L/m nasal cannula. No conversational dyspnea or accessory muscle use while at rest.. CVS: S1 and S2 normal with no audible murmur, regular rhythm. No extra heart sounds ABDOMEN: No hepatosplenomegaly, active bowel sounds, no guarding or rigidity. SPINE: No scoliosis or deformity SKIN: No rashes CENTRAL NERVOUS SYSTEM: No focal deficits, tone is normal in all 4 extremities. EXTREMITIES: There is no peripheral edema, clubbing, or cyanosis. Peripheral pulses are intact. - Labs CBC & Chem 7: 06/22/23 08:03 06/22/23 08:03 Labs: Abnormal Lab Results - Last 24 Hours (Table) 06/22/23 06/22/23 Range/Units 08:03 08:03 WBC 12.9 H (3.8-10.6) k/uL MCV 101.2 H (80.0-100.0) fL BUN 28 H (7-17) mg/dL Creatinine 1.14 H (0.52-1.04) mg/dL Glucose 148 H (74-99) mg/dL Microbiology - Last 24 Hours (Table) 06/19/23 23:40 Gram Stain - Preliminary Sputum Sputum Culture - Preliminary Escherichia coli 06/19/23 15:45 Blood Culture - Preliminary Blood 06/19/23 16:00 Blood Culture - Preliminary Blood Assessment and Plan Assessment: Acute exacerbation of COPD, improving Acute tracheobronchitis with gram-negative bacteria including E. coli and Pseudomonas, and recurrent process Possible bronchiectasis Acute on chronic hypoxemic respiratory failure, secondary to above, currently on 3 L of oxygen by nasal cannula Leukocytosis, improving History of pulmonary mycobacterium avium complex infection, resolved Type 2 diabetes mellitus Hyperlipidemia Hypertension History of CVA/TIA Obesity with a BMI of 34.5 kg/m Fibromyalgia Hypothyroidism Plan: Clinically improving and the patient is less bronchospastic and less short of breath compared to yesterday and the cough and congestion is also subsiding Continue bronchodilators Continue IV Solu-Medrol Continue IV Zosyn Clinically improving The patient is known to have COPD and acquired bronchiectasis probably related to a previous mycobacterial avium infection. She has had recurrent infections with gram-negative bacteria including E. coli and Pseudomonas. A recent bronchoscopy was done confirming diagnosis and the repeat sputum sample is showing E. coli.. Patient is currently hospitalized for COPD exacerbation, and ongoing shortness of breath and the patient is currently on IV Zosyn in addition to routine bronchodilators. We'll continue treatment with IV antibiotics. Will monitor progress. She is diabetic. She has also hypertension and hyperlipidemia previous history of CVA and hypothyroidism and fibromyalgia. She is a lifetime nonsmoker. She has home O2. May need to have a follow-up CAT scan of the later stage.
--- NOTE | 2023-06-22 20:02 | CT ---
EXAMINATION TYPE: CT chest wo con DATE OF EXAM: 06/22/2023 COMPARISON: 07/05/2011 HISTORY: Pneumonia. TECHNIQUE: CT scan of the thorax is performed without IV contrast. CT DLP: 723 mGycm. Automated Exposure Control for Dose Reduction was Utilized. FINDINGS: AIRWAYS/LUNGS: There are multifocal ill-defined areas of groundglass opacity and partial consolidatio n involving the lower, mid, and upper lung zones are. These findings can correlate with a clinical di agnosis of multifocal bronchopneumonia. This includes bibasilar peribronchial ill-defined opacity in association with bibasilar bronchial wall thickening and cylindrical bronchiectasis PLEURAL SPACES: Negative. MEDIASTINUM: There are no greater than 1 cm short axis hilar or mediastinal lymph nodes. No cardiomeg ricardo or pericardial effusion. Thyroid and esophagus are unremarkable. SKELETAL STRUCTURES: No focal destructive lesion. OTHER: Bilateral prominent breast parenchyma, particularly on the right where there is associated ski n thickening (series 201 image 46). IMPRESSION: Findings consistent with multifocal bronchopneumonia. Incidental: Bilateral breast parenchymal prominence, particularly on the right. Request palpation/darline mographic correlation.
[2023-06-22] MEDS: ATORVASTATIN 20 MG TAB PO SCH (20:28)
[2023-06-22] MEDS: TEMAZEPAM 15 MG CAP PO SCH (20:29)
[2023-06-23] MEDS: guaiFENesin-DM 100-10MG/5ML 10 ML CUP PO SCH ×4 (06:20→23:44)
[2023-06-23] MEDS: LEVOTHYROXINE 75 MCG TAB PO SCH (06:20)
[2023-06-23] MEDS: methylPREDNISolone SOD SUCCI 40 MG/ML 1 ML VIAL IV SCH ×4 (06:20→23:44)
[2023-06-23] MEDS: PANTOPRAZOLE 40 MG TABLET PO SCH (06:20)
[2023-06-23] MEDS: PIPERACILLIN-TAZOBACTAM 3.375 GM in SODIUM CHLORIDE 0.9% 100 ML IVPB SCH (08:34)
[2023-06-23] MEDS: guaiFENesin 600 MG TABLET.ER PO SCH ×2 (08:37→20:56)
[2023-06-23] MEDS: DULoxetine HCL 60 MG CAPSULE.DR PO SCH (08:37)
[2023-06-23] MEDS: LOSARTAN 25 MG TAB PO SCH (08:37)
[2023-06-23] MEDS: lamoTRIgine 100 MG TAB PO SCH ×2 (08:37→20:55)
[2023-06-23] MEDS: MECLIZINE 25 MG TAB PO SCH ×3 (08:37→20:56)
[2023-06-23] MEDS: ENOXAPARIN 40 MG/0.4 ML SYRINGE SQ SCH (08:37)
[2023-06-23] MEDS: METOPROLOL TARTRATE 25 MG TAB PO SCH (08:37)
[2023-06-23] MEDS: CYCLOBENZAPRINE 10 MG TAB PO SCH (08:37)
[2023-06-23] MEDS: FLUTICASONE 50MCG/SPRAY NASAL 16GM EA NOSTRIL SCH (08:38)
[2023-06-23] MEDS: AZELASTINE 137MCG/SPRAY EA NOSTRIL SCH ×2 (08:38→20:57)
[2023-06-23] MEDS: MONTELUKAST 10 MG TAB PO SCH (08:39)
[2023-06-23] MEDS: POTASSIUM CHLORIDE ER 20 MEQ TAB.ER PO SCH ×2 (08:39→20:56)
[2023-06-23] MEDS: MULTIVITAMINS, THERA 1 EACH TAB PO SCH (08:39)
[2023-06-23] MEDS: PHENYTOIN 100 MG PO SCH ×2 (08:39→20:57)
[2023-06-23] MEDS: clonazePAM 0.5 MG TAB PO PRN ×3 (08:42→20:56)
[2023-06-23] MEDS: IPRATROPIUM-ALBUTEROL 3 ML NEB INHALATION SCH ×4 (09:17→21:15)
[2023-06-23] MEDS: SYMBICORT 160-4.5 MCG INHALER INHALATION SCH ×2 (09:17→21:15)
[2023-06-23 11:26] LABS: HCT 39.6 % (37.2-46.3); HGB 12.3 g/dL (12.0-15.0); MCH 31.1 pg (27.0-32.0); MCHC 31.1 g/dL (32.0-37.0); MCV 100.3 FL (80.0-97.0); Mean Platelet Volume 9.5 FL (9.5-12.2); NRBC Per 100 WBC 0 X 10*3/uL (0.00-0.01); Platelet Count 333 X 10*3/uL (140-440); RBC 3.95 X 10*6/uL (4.10-5.20); RDW 12.9 % (11.5-14.5); WBC 13.68 X 10*3/uL (4.50-10.00)
[2023-06-23 11:34] LABS: BUN/Creat Ratio 22.71 Ratio (12.00-20.00); Blood Urea Nitrogen 31.8 mg/dL (9.0-27.0); Calcium 9.5 mg/dL (8.7-10.3); Carbon Dioxide 27.1 mmol/L (21.6-31.8); Chloride 106 mmol/L (96-109); Glucose 167 mg/dL (70-110); Potassium 4.2 mmol/L (3.5-5.5); Sodium 145 mmol/L (135-145)
--- NOTE | 2023-06-23 11:50 | IR ---
PICC LINE PLACEMENT: HISTORY: Infection requiring long-term antibiotic therapy PROCEDURE: Ultrasound and fluoroscopic guidance of PICC line placement. COMPLICATIONS: None ANESTHESIA: 1. 1% Lidocaine locally. FINDINGS/TECHNIQUE: The procedure was explained to the patient. The risks, complications, benefits and alternatives were discussed and any questions were answered. Informed consent was obtained. The patient was placed supine on the fluoroscopic table and prepped and draped in the usual sterile fash ion. Utilizing a 21 gauge needle and sonographic and fluoroscopic guidance, access in the left basi lic vein was achieved and there is placement of a 0.018 guidewire. The vein is patent. A 4-F sheath was placed over the guidewire. The guidewire and dilator were removed and a 4-F. PICC line was plac ed through the sheath with the tip at the level of the SVC. The sheath was removed, the catheter was flushed and sutured into position. The patient was stable throughout the procedure and remained sta ble upon discharge from the Department of Radiology. The vein puncture was patent under ultrasound. A gusman scale image was obtained to document patency of the vein punctured. All elements of the maximal barrier technique were utilized. FLUOROSCOPY TIME: DAP 0.212Gy cm2 IMPRESSION: Successful PICC line placement under ultrasound and fluoroscopic guidance.
--- NOTE | 2023-06-23 11:58 | P.PN ---
Subjective Progress Note Date: 06/23/23 * 68-year-old patient with past medical history significant for COPD, history of back infection, on triple antibiotic therapy, history of bronchiectasis, COPD, diabetes mellitus type 2, hyperlipidemia, fibromyalgia, hypertension, hyperlipidemia was sent in from pulmonary medicine office for shortness of br eath, fatigue, and productive phlegm. Patient had a recent bronchoscopy and bronchoalveolar lavage done which showed pseudomonas and E. coli in cultures * Workup initiated at time of presentation include CBC which were WBC of 17.7 improving 13.1 platelet count of 365 elevated neutrophil count of 14.2, INR of 0.9, serum chemistry sodium 141 potassium 4.3B UN 30 creatinine 1.09 glucose 1:30 troponin less than 0.012 * Patient tested negative for influenza, urine Legionella was negative RSV and Covid negative * Patient was started on IV antibiotic and consultation was obtained from pulmonary medicine as well as infectious disease * 06/21/2023: Patient seen and evaluated bedside, patient is alert and oriented 4, does complain of cough, patient says she was not able to sleep secondary to cough. CBC reviewed WBC 12.35, hemoglobin 12 platelet count 325, serum chemistry sodium 144 potassium 3.4 BU and 27 creatinine 1.3 CRP 1.20. Patient's 3 L of oxygen through nasal cannula. Followed by infectious disease and pulmonary medicine * 06/22/2023: Patient seen and evaluated bedside, patient's her breathing is better does have productive cough. Basic metabolic panel showed creatinine of 1.14, hydrochlorothiazide/Aldactone discontinued follow-up on renal profile, continue patient on oxygen supplementation on 3 L of oxygen * 06/23/2023: Patient seen and evaluated bedside, patient does complain of cough, having productive sputum production. Patient remains on 3 L of oxygen, planned to get PICC line placed, will coordinate outpatient antibiotic setup with case worker as well. WBC count 13.6, hemoglobin 12.3 platelet count within normal limits, serum chemistry reviewed pro-calcitonin 0.08 CRP improved within normal limits REVIEW OF SYSTEMS: Cough, sputum production, shortness of breath CONSTITUTIONAL: No fever, no malaise, no fatigue. HEENT: No recent visual problems or hearing problems. Denied any sore throat. CARDIOVASCULAR: No chest pain, orthopnea, PND, no palpitations, no syncope. PULMONARY: Cough, sputum production, shortness of breath GASTROINTESTINAL: No diarrhea, no nausea, no vomiting, no abdominal pain. NEUROLOGICAL: No headaches, no weakness, no numbness. HEMATOLOGICAL: Denies any bleeding or petechiae. GENITOURINARY: Denies any burning micturition, frequency, or urgency. MUSCULOSKELETAL/RHEUMATOLOGICAL: Denies any joint pain, swelling, or any muscle pain. ENDOCRINE: Denies any polyuria or polydipsia. PHYSICAL EXAMINATION: GENERAL: The patient is alert and oriented x3 ill appearance, nasal cannula in place, HEENT: Pupils are round and equally reacting to light. EOMI. CARDIOVASCULAR: S1 and S2 present. No murmurs, rubs, or gallops. PULMONARY Decreased breath sounds bilaterally ABDOMEN: Soft, nontender, nondistended, normoactive bowel sounds. No palpable organomegaly. MUSCULOSKELETAL: No joint swelling or deformity. EXTREMITIES: No cyanosis, clubbing, or pedal edema. NEUROLOGICAL: Gross neurological examination did not reveal any focal deficits. SKIN: No rashes. Objective - Vital Signs Vital signs: Vital Signs Temp 98.6 F 06/23/23 07:48 Pulse 84 06/23/23 09:35 Resp 22 06/23/23 07:48 BP 152/84 06/23/23 07:48 Pulse Ox 97 06/23/23 09:18 FiO2 Intake & Output 06/22/23 06/23/23 06/23/23 18:59 06:59 18:59 Other: # Voids 2 3 1 - Labs CBC & Chem 7: 06/23/23 06:03 06/23/23 06:03 Labs: Abnormal Lab Results - Last 24 Hours (Table) 06/22/23 06/23/23 06/23/23 Range/Units 08:03 06:03 06:03 WBC 13.68 H (4.50-10.00) X 10*3/uL RBC 3.95 L (4.10-5.20) X 10*6/uL MCV 100.3 H (80.0-97.0) FL MCHC 31.1 L (32.0-37.0) g/dL BUN 31.8 H (9.0-27.0) mg/dL Est GFR (CKD-EPI) 41 L (>=60) BUN/Creatinine Ratio 22.71 H (12.00-20.00) Ratio Glucose 167 H (70-110) mg/dL Hemoglobin A1c 6.8 H (<=6.0) % Microbiology - Last 24 Hours (Table) 06/19/23 23:40 Gram Stain - Final Sputum Sputum Culture - Final Escherichia coli Pseudomonas aeruginosa 06/19/23 15:45 Blood Culture - Preliminary Blood 06/19/23 16:00 Blood Culture - Preliminary Blood Assessment and Plan Assessment: Assessment and plan * Acute on chronic hypoxic respiratory failure * Pseudomonas, E. coli pneumonia * Severe COPD * History of seizure disorder * History of CVA/TIA * Diabetes mellitus type 2 * Hypothyroid * Fibromyalgia * History of complex MAC infection resolved * In regards to respiratory failure, etiology is underlying pneumonia, COPD, continue patient on IV Zosyn, infectious disease consulted and following, continue Symbicort and DuoNeb, continue prednisone, continue Mucinex, will need PICC line for outpatient IV antibiotic * In regards to workup influenza, RSV and Covid 19 negative * In regards to hypothyroid continue Synthyroid * In regards to history of seizure disorder continue Lamictal, Dilantin * Regards to hypertension continue home regimen including losartan, metoprolol * In regards to diabetes mellitus, not on any regimen at home, most recent HbA1c was in 2018 5.8, follow-up on HbA1c 6.8, follow-up with PCP post discharge * Code Status is full code Time with Patient: Greater than 30
[2023-06-23] MEDS: SODIUM CHLORIDE 0.9% 1,000 ML IV SCH (11:59)
[2023-06-23] MEDS: OXYBUTYNIN XL 5 MG TAB.ER.24 PO SCH (12:41)
[2023-06-23] MEDS: ACETAMINOPHEN TAB 325 MG TAB PO PRN (12:50)
[2023-06-23] MEDS: QUEtiapine 400 MG TAB PO SCH ×2 (15:19→20:56)
[2023-06-23] MEDS ORDERED: CEFEPIME 2 GM in SODIUM CHLORIDE 0.9% 100 ML IVPB SCH (16:00)
[2023-06-23] MEDS: CEFEPIME 2 GM in SODIUM CHLORIDE 0.9% 100 ML IVPB SCH (17:11)
--- NOTE | 2023-06-23 17:49 | P.PN ---
Subjective Progress Note Date: 06/23/23 I am seeing this patient in consultation today 06/20/2023 after she was sent in by Dr. Millan from the pulmonary office. Patient recently had a bronchoscopy with BAL done on 06/07/2023, micro was positive for Pseudomonas and E. coli. 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 coli pulmonary infections, severe COPD, type 2 diabetes, hyperlipidemia, hypertension, CVA/TIA, fibromyalgia, among other things. Patient does follow in the pulmonary office with Dr. Millan for management of above. She is oxygen and steroid dependent at baseline. Over the last 6 months, the patient is worsening exertional shortness of breath and fatigue accompanied with green purulent sputum production and a persistent cough. States that her sputum has the consistency of "silly putty". She did follow up with Dr. Millan back on June 12, and he recommended that she come to the emergency room. Chest x-ray arrival showed interstitial pattern which may represent chronic interstitial lung disease seen on prior exam. There are chronic left basilar lung findings likely to be representing scarring or atelectasis. Patient is currently sitting at the bedside recliner. She is in no acute distress. She is on 3 L/m nasal cannula. She endorses the above- mentioned symptoms. Denies any fever, chills, chest pain, hemoptysis. CBC on arrival showed a WBC count of 17.7, hemoglobin 13.1, hematocrit 40.6, platelets 365. BMP on arrival is unremarkable. Troponin less than 0.012. Negative for influenza, RSV, COVID-19. Afebrile. She was started on Zosyn. Hemodynamically stable. On today's evaluation of 06/21/2023, the patient is feeling slightly better compared to yesterday. Her cough is still present. The patient is not producing much of sputum at this point in time. She is on IV Zosyn and. She'll be also given Robitussin-DM for cough and congestion and the patient will be also started on low-dose IV Solu-Medrol 40 mg every 6 hours. Her oral prednisone be discontinued for the time being. She is on 2 L of Oxymizer nasal cannula with a pulse ox of 97%. She is afebrile. The rest of the blood work sh ows edematous count 12.3 with a hemoglobin of 12.2 and a platelet count of 325. BUN is at 27 with a creatinine of 1.3 and a sodium level is at 144. Legionella urine antigen was negative. On today's evaluation of 06/22/2023, the patient is feeling better. The patient is less short of breath compared to yesterday. Noted the patient is on IV Zosyn. A repeat sputum sample showed presence of E. coli in his sputum. The patient had a previous thoracoscopy that showed accommodation of Pseudomonas and E. coli. The patient is on the proper antibiotics for now. Steroids were added also yesterday. She is a bit emotional as the patient lost her [id number]-[id number] who unexpectedly today. The patient otherwise doing well pH is receiving bronchodilators. She is also on Symbicort. She is on IV Zosyn. She is on IV Solu-Medrol. The cough and congestion has subsided. The white cell count is down to 12.9, hemoglobin was 12.7, BUN is at 28 with a creatinine 1.1 and sodium levels is 142. on 06/23/2023, the patient has no specific complaints. She continues to improve. Less short of breath unless bronchus spastic and wheezing and she rremains on broad-spectrum antibiotics and the patient was placed on IV cefepime..CAT scan of the chest was done and the patient's has evidence of bila teral lower lobe bronchiectatic changes and the patient has increased bibasilar peribronchial opacities with cylindrical bronchiectasis. There is also areas of ill-defined ground glass opacities and partial consolidation of the lower lobes in the mid lobes and upper lobes bilaterally consistent with multifocal pneumonia. The patient's echoes at 15.6 with a hemoglobin 12.3. BUN is at 31 with a creatinine of 1.4. Sodium is at 145. PICC line was inserted. Pro- calcitonin level is at 0.08. Objective - Vital Signs Vital signs: Vital Signs Temp 98.6 F 06/23/23 07:48 Pulse 84 06/23/23 09:35 Resp 22 06/23/23 07:48 BP 152/84 06/23/23 07:48 Pulse Ox 97 06/23/23 09:18 FiO2 Intake & Output 06/22/23 06/23/23 06/23/23 18:59 06:59 18:59 Other: # Voids 2 3 1 - Exam GENERAL EXAM: Alert, obese 68-year-old white female appearing stated age , comf ortable in no apparent distress. HEAD: Normocephalic and atraumatic EYES: Normal reaction of pupils, equal size. NOSE: Clear with pink turbinates. THROAT: No erythema or exudates. NECK: No masses, no JVD. CHEST: No chest wall deformity. LUNGS: Equal air entry with diffuse rhonchi and scattered crackles throughout. On 3 L/m nasal cannula. No conversational dyspnea or accessory muscle use while at rest.. CVS: S1 and S2 normal with no audible murmur, regular rhythm. No extra heart sounds ABDOMEN: No hepatosplenomegaly, active bowel sounds, no guarding or rigidity. SPINE: No scoliosis or deformity SKIN: No rashes CENTRAL NERVOUS SYSTEM: No focal deficits, tone is normal in all 4 extremities. EXTREMITIES: There is no peripheral edema, clubbing, or cyanosis. Peripheral pulses are intact. - Labs CBC & Chem 7: 06/23/23 06:03 06/23/23 06:03 Labs: Abnormal Lab Results - Last 24 Hours (Table) 06/22/23 06/23/23 06/23/23 Range/Units 08:03 06:03 06:03 WBC 13.68 H (4.50-10.00) X 10*3/uL RBC 3.95 L (4.10-5.20) X 10*6/uL MCV 100.3 H (80.0-97.0) FL MCHC 31.1 L (32.0-37.0) g/dL BUN 31.8 H (9.0-27.0) mg/dL Est GFR (CKD-EPI) 41 L (>=60) BUN/Creatinine Ratio 22.71 H (12.00-20.00) Ratio Glucose 167 H (70-110) mg/dL Hemoglobin A1c 6.8 H (<=6.0) % Microbiology - Last 24 Hours (Table) 06/19/23 23:40 Gram Stain - Final Sputum Sputum Culture - Final Escherichia coli Pseudomonas aeruginosa 06/19/23 15:45 Blood Culture - Preliminary Blood 06/19/23 16:00 Blood Culture - Preliminary Blood Assessment and Plan Assessment: Acute exacerbation of chronic bronchiectasis with areas of patchy multifocal bilateral pneumonia based on CAT scan findings. Sputum was positive for E. coli. Previous stroke alveolar lavage was positive for Pseudomonas and E. coli and the patient is currently on IV cefepime. Clinically improving. bilateral lower lobe cylindrical bronchiectasis Acute on chronic hypoxemic respiratory failure, secondary to above, currently on 3 L of oxygen by nasal cannula Leukocytosis, improving History of pulmonary mycobacterium avium complex infection, resolved Type 2 diabetes mellitus Hyperlipidemia Hypertension History of CVA/TIA Obesity with a BMI of 34.5 kg/m Fibromyalgia Hypothyroidism Plan: Clinically improving Continue bronchodilators Continue IV Solu-Medrol Continue IV cefepime Clinically improving PICC line was inserted The patient is known to have COPD and acquired bronchiectasis probably related to a previous mycobacterial avium infection. She has had recurrent infections with gram-negative bacteria including E. coli and Pseudomonas. A recent bronchoscopy was done confirming diagnosis and the repeat sputum sample is showing E. coli.. patient has home O2 We'll continue to follow
[2023-06-23] MEDS: ATORVASTATIN 20 MG TAB PO SCH (20:56)
[2023-06-23] MEDS: TEMAZEPAM 15 MG CAP PO SCH (20:57)
[2023-06-24] MEDS: SODIUM CHLORIDE 0.9% 1,000 ML IV SCH ×2 (02:29→13:07)
[2023-06-24] MEDS: methylPREDNISolone SOD SUCCI 40 MG/ML 1 ML VIAL IV SCH ×2 (06:09→13:02)
[2023-06-24] MEDS: CEFEPIME 2 GM in SODIUM CHLORIDE 0.9% 100 ML IVPB SCH ×2 (06:09→18:05)
[2023-06-24] MEDS: guaiFENesin-DM 100-10MG/5ML 10 ML CUP PO SCH ×3 (06:09→18:08)
[2023-06-24] MEDS: PANTOPRAZOLE 40 MG TABLET PO SCH (06:09)
[2023-06-24] MEDS: LEVOTHYROXINE 75 MCG TAB PO SCH (06:09)
[2023-06-24] MEDS: SYMBICORT 160-4.5 MCG INHALER INHALATION SCH ×2 (07:48→20:46)
[2023-06-24] MEDS: IPRATROPIUM-ALBUTEROL 3 ML NEB INHALATION SCH ×4 (07:48→20:46)
[2023-06-24 07:52] LABS: HCT 38.8 % (34.0-46.0); HGB 12.3 gm/dL (11.4-16.0); MCH 31.9 pg (25.0-35.0); MCHC 31.6 g/dL (31.0-37.0); MCV 100.8 fL (80.0-100.0); Mean Platelet Volume 7.4; Platelet Count 312 k/uL (150-450); RBC 3.85 m/uL (3.80-5.40); RDW 12.6 % (11.5-15.5); WBC 11.8 k/uL (3.8-10.6)
[2023-06-24 07:57] LABS: African American GFR (CKD) 63 (>60 ml/min/1.73 sqM); Anion Gap 11 mmol/L; Blood Urea Nitrogen 32 mg/dL (7-17); Carbon Dioxide 25 mmol/L (22-30); Chloride 108 mmol/L (98-107); Glucose 155 mg/dL (74-99); Non-African American GFR(CKD) 55 (>60 ml/min/1.73 sqM); Potassium 4.2 mmol/L (3.5-5.1); Sodium 144 mmol/L (137-145)
[2023-06-24] MEDS: lamoTRIgine 100 MG TAB PO SCH ×2 (09:22→21:46)
[2023-06-24] MEDS: DULoxetine HCL 60 MG CAPSULE.DR PO SCH (09:22)
[2023-06-24] MEDS: LOSARTAN 25 MG TAB PO SCH (09:22)
[2023-06-24] MEDS: MULTIVITAMINS, THERA 1 EACH TAB PO SCH (09:22)
[2023-06-24] MEDS: MECLIZINE 25 MG TAB PO SCH ×3 (09:22→21:46)
[2023-06-24] MEDS: POTASSIUM CHLORIDE ER 20 MEQ TAB.ER PO SCH ×2 (09:22→21:47)
[2023-06-24] MEDS: CYCLOBENZAPRINE 10 MG TAB PO SCH (09:22)
[2023-06-24] MEDS: MONTELUKAST 10 MG TAB PO SCH (09:22)
[2023-06-24] MEDS: guaiFENesin 600 MG TABLET.ER PO SCH ×2 (09:22→21:46)
[2023-06-24] MEDS: METOPROLOL TARTRATE 25 MG TAB PO SCH (09:22)
[2023-06-24] MEDS: PHENYTOIN 100 MG PO SCH ×2 (09:24→21:45)
[2023-06-24] MEDS: ENOXAPARIN 40 MG/0.4 ML SYRINGE SQ SCH (09:25)
[2023-06-24] MEDS: FLUTICASONE 50MCG/SPRAY NASAL 16GM EA NOSTRIL SCH (09:25)
[2023-06-24] MEDS: AZELASTINE 137MCG/SPRAY EA NOSTRIL SCH ×2 (09:26→21:49)
[2023-06-24] MEDS: ACETAMINOPHEN TAB 325 MG TAB PO PRN (09:48)
[2023-06-24] MEDS: clonazePAM 0.5 MG TAB PO PRN ×2 (09:48→21:56)
[2023-06-24] MEDS: predniSONE 20 MG TAB PO SCH (13:04)
--- NOTE | 2023-06-24 15:23 | P.PN ---
Subjective Progress Note Date: 06/24/23 I am seeing this patient in consultation today 06/20/2023 after she was sent in by Dr. Millan from the pulmonary office. Patient recently had a bronchoscopy with BAL done on 06/07/2023, micro was positive for Pseudomonas and E. coli. 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 coli pulmonary infections, severe COPD, type 2 diabetes, hyperlipidemia, hypertension, CVA/TIA, fibromyalgia, among other things. Patient does follow in the pulmonary office with Dr. Millan for management of above. She is oxygen and steroid dependent at baseline. Over the last 6 months, the patient is worsening exertional shortness of breath and fatigue accompanied with green purulent sputum production and a persistent cough. States that her sputum has the consistency of "silly putty". She did follow up with Dr. Millan back on June 12, and he recommended that she come to the emergency room. Chest x-ray arrival showed interstitial pattern which may represent chronic interstitial lung disease seen on prior exam. There are chronic left basilar lung findings likely to be representing scarring or atelectasis. Patient is currently sitting at the bedside recliner. She is in no acute distress. She is on 3 L/m nasal cannula. She endorses the above- mentioned symptoms. Denies any fever, chills, chest pain, hemoptysis. CBC on arrival showed a WBC count of 17.7, hemoglobin 13.1, hematocrit 40.6, platelets 365. BMP on arrival is unremarkable. Troponin less than 0.012. Negative for influenza, RSV, COVID-19. Afebrile. She was started on Zosyn. Hemodynamically stable. On today's evaluation of 06/21/2023, the patient is feeling slightly better compared to yesterday. Her cough is still present. The patient is not producing much of sputum at this point in time. She is on IV Zosyn and. She'll be also given Robitussin-DM for cough and congestion and the patient will be also started on low-dose IV Solu-Medrol 40 mg every 6 hours. Her oral prednisone be discontinued for the time being. She is on 2 L of Oxymizer nasal cannula with a pulse ox of 97%. She is afebrile. The rest of the blood work sh ows edematous count 12.3 with a hemoglobin of 12.2 and a platelet count of 325. BUN is at 27 with a creatinine of 1.3 and a sodium level is at 144. Legionella urine antigen was negative. On today's evaluation of 06/22/2023, the patient is feeling better. The patient is less short of breath compared to yesterday. Noted the patient is on IV Zosyn. A repeat sputum sample showed presence of E. coli in his sputum. The patient had a previous thoracoscopy that showed accommodation of Pseudomonas and E. coli. The patient is on the proper antibiotics for now. Steroids were added also yesterday. She is a bit emotional as the patient lost her xozkrzn-or-kfl who unexpectedly today. The patient otherwise doing well pH is receiving bronchodilators. She is also on Symbicort. She is on IV Zosyn. She is on IV Solu-Medrol. The cough and congestion has subsided. The white cell count is down to 12.9, hemoglobin was 12.7, BUN is at 28 with a creatinine 1.1 and sodium levels is 142. on 06/23/2023, the patient has no specific complaints. She continues to improve. Less short of breath unless bronchus spastic and wheezing and she rremains on broad-spectrum antibiotics and the patient was placed on IV cefepime..CAT scan of the chest was done and the patient's has evidence of bila teral lower lobe bronchiectatic changes and the patient has increased bibasilar peribronchial opacities with cylindrical bronchiectasis. There is also areas of ill-defined ground glass opacities and partial consolidation of the lower lobes in the mid lobes and upper lobes bilaterally consistent with multifocal pneumonia. The patient's echoes at 15.6 with a hemoglobin 12.3. BUN is at 31 with a creatinine of 1.4. Sodium is at 145. PICC line was inserted. Pro- calcitonin level is at 0.08. On 06/24/2023, the patient remains on a combination of bronchodilators and steroids and antibiotics. The patient is doing well. A PICC line was inserted. Arrangements are being made for outpatient antibiotic use. The patient is otherwise doing well. Cough and congestion is gradually improving. CAT scan from chest from yesterday was noted. [id number] 11.8, hemoglobin was 12.3 and a platelet count of 312. Sodium is 144, BUN is at 32 with a creatinine of 1.07. No other complaints otherwise for now patient is only on 2 L of oxygen by nasal cannula. She is ambulating. She remains on IV Solu-Medrol. Objective - Vital Signs Vital signs: Vital Signs Temp 97.3 F L 06/24/23 08:00 Pulse 86 06/24/23 11:55 Resp 16 06/24/23 08:00 BP 145/69 06/24/23 08:00 Pulse Ox 96 06/24/23 08:00 FiO2 Intake & Output 06/23/23 06/24/23 06/24/23 18:59 06:59 18:59 Other: Voiding Method Toilet # Voids 1 5 - Exam GENERAL EXAM: Alert, obese 68-year-old white female appearing stated age , comfortable in no apparent distress. HEAD: Normocephalic and atraumatic EYES: Normal reaction of pupils, equal size. NOSE: Clear with pink turbinates. THROAT: No erythema or exudates. NECK: No masses, no JVD. CHEST: No chest wall deformity. LUNGS: Equal air entry with diffuse rhonchi and scattered crackles throughout. On 3 L/m nasal cannula. No conversational dyspnea or accessory muscle use while at rest.. CVS: S1 and S2 normal with no audible murmur, regular rhythm. No extra heart sounds ABDOMEN: No hepatosplenomegaly, active bowel sounds, no guarding or rigidity. SPINE: No scoliosis or deformity SKIN: No rashes CENTRAL NERVOUS SYSTEM: No focal deficits, tone is normal in all 4 extremities. EXTREMITIES: There is no peripheral edema, clubbing, or cyanosis. Peripheral pulses are intact. - Labs CBC & Chem 7: 06/24/23 07:30 06/24/23 07:30 Labs: Abnormal Lab Results - Last 24 Hours (Table) 06/24/23 06/24/23 Range/Units 07:30 07:30 WBC 11.8 H (3.8-10.6) k/uL MCV 100.8 H (80.0-100.0) fL Chloride 108 H (98-107) mmol/L BUN 32 H (7-17) mg/dL Creatinine 1.07 H (0.52-1.04) mg/dL Glucose 155 H (74-99) mg/dL Microbiology - Last 24 Hours (Table) 06/19/23 23:40 Gram Stain - Final Sputum Sputum Culture - Final Escherichia coli Pseudomonas aeruginosa Assessment and Plan Assessment: Acute exacerbation of chronic bronchiectasis with areas of patchy multifocal bilateral pneumonia based on CAT scan findings. Sputum was positive for E. coli. Previous stroke alveolar lavage was positive for Pseudomonas and E. coli and the patient is currently on IV cefepime. Clinically improving. bilateral lower lobe cylindrical bronchiectasis Acute on chronic hypoxemic respiratory failure, secondary to above, currently on 3 L of oxygen by nasal cannula Leukocytosis, improving History of pulmonary mycobacterium avium complex infection, resolved Type 2 diabetes mellitus Hyperlipidemia Hypertension History of CVA/TIA Obesity with a BMI of 34.5 kg/m Fibromyalgia Hypothyroidism Plan: Clinically improving Continue bronchodilators Stop the IV Solu-Medrol and start the patient on prednisone burst taper Continue IV cefepime, PICC line was inserted for outpatient antibiotic use Clinically improving White cell count is stable The patient is known to have COPD and acquired bronchiectasis probably related to a previous mycobacterial avium infection. She has had recurrent infections with gram-negative bacteria including E. coli and Pseudomonas. A recent bronchoscopy was done confirming diagnosis and the repeat sputum sample is showing E. coli.. patient has home O2 We'll continue to follow
[2023-06-24] MEDS: OXYBUTYNIN XL 5 MG TAB.ER.24 PO SCH (16:07)
[2023-06-24] MEDS: QUEtiapine 400 MG TAB PO SCH ×2 (18:05→21:46)
[2023-06-24] MEDS: ATORVASTATIN 20 MG TAB PO SCH (21:46)
[2023-06-24] MEDS: TEMAZEPAM 15 MG CAP PO SCH (21:56)
[2023-06-25] MEDS: guaiFENesin-DM 100-10MG/5ML 10 ML CUP PO SCH ×5 (00:14→22:58)
--- NOTE | 2023-06-25 05:58 | P.PN ---
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 Patient had a recent bronchoscopy and bronchoalveolar lavage done which showed pseudomonas and E. coli in cultures Workup initiated at time of presentation include CBC which were WBC of 17.7 improving 13.1 platelet count of 365 elevated neutrophil count of 14.2, INR of 0.9, serum chemistry sodium 141 potassium 4.3B UN 30 creatinine 1.09 glucose 1:30 troponin less than 0.012 Patient tested negative for influenza, urine Legionella was negative RSV and Covid negative Patient was started on IV antibiotic and consultation was obtained from pulmonary medicine as well as infectious disease 06/21/2023: Patient seen and evaluated bedside, patient is alert and oriented 4, does complain of cough, patient says she was not able to sleep secondary to cough. CBC reviewed WBC 12.35, hemoglobin 12 platelet count 325, serum chemistry sodium 144 potassium 3.4 BU and 27 creatinine 1.3 CRP 1.20. Patient's 3 L of oxygen through nasal cannula. Followed by infectious disease and pulmonary medicine 06/22/2023: Patient seen and evaluated bedside, patient's her breathing is better does have productive cough. Basic metabolic panel showed creatinine of 1.14, hydrochlorothiazide/Aldactone discontinued follow-up on renal profile, continue patient on oxygen supplementation on 3 L of oxygen 06/23/2023: Patient seen and evaluated bedside, patient does complain of cough, having productive sputum production. Patient remains on 3 L of oxygen, planned to get PICC line placed, will coordinate outpatient antibiotic setup with rifle case repairer as well. WBC count 13.6, hemoglobin 12.3 platelet count within normal limits, serum chemistry reviewed pro-calcitonin 0.08 CRP improved within normal limits 06/24/2023 Patient is seen and examined by me at bedside Patient respiratory infection is improving, she has minimal dyspnea at rest. No chest pain. Currently covered with cefepime for her multifocal pneumonia of the top of her bronchiectasis with cultures growing pseudomonas and E. coli Her COPD and wheezing improving and currently on prednisone 40 mg Also she is on gentle hydration with normal saline 75 mL/h Patient was informed about CAT scan finding of prominent bilateral breast with recommendation for mammogram, patient told me she recently had procedure and removed from her breast ,patient is aware and had mammogram recently with her PCP that she will follow up the results with him as an outpatient after discharge as she told me today She will need PICC line on outpatient IV antibiotic Objective - Vital Signs Vital signs: Vital Signs Temp 97.5 F L 06/25/23 00:41 Pulse 90 06/25/23 00:41 Resp 19 06/25/23 00:41 BP 110/53 06/25/23 00:41 Pulse Ox 95 06/25/23 00:41 FiO2 Intake & Output 06/24/23 06/24/23 06/25/23 06:59 18:59 06:59 Other: Voiding Method Toilet # Voids 5 4 2 # Bowel Movements 2 - Exam GENERAL: The patient is alert and oriented x3, not in any acute distress. Well developed, well nourished. HEENT: Pupils are round and equally reacting to light. EOMI. No scleral icterus. No conjunctival pallor. Normocephalic, atraumatic. No pharyngeal erythema. No thyromegaly. CARDIOVASCULAR: S1 and S2 present. No murmurs, rubs, or gallops. PULMONARY: Chest is clear to auscultation, no wheezing , no crackles. ABDOMEN: Soft, nontender, nondistended, normoactive bowel sounds. No palpable organomegaly. MUSCULOSKELETAL: No joint swelling or deformity. EXTREMITIES: No cyanosis, clubbing, or pedal edema. NEUROLOGICAL: Gross neurological examination did not reveal any focal deficits. SKIN: No rashes. no petechiae. - Labs CBC & Chem 7: 06/24/23 07:30 06/24/23 07:30 Labs: Abnormal Lab Results - Last 24 Hours (Table) 06/24/23 06/24/23 Range/Units 07:30 07:30 WBC 11.8 H (3.8-10.6) k/uL MCV 100.8 H (80.0-100.0) fL Chloride 108 H (98-107) mmol/L BUN 32 H (7-17) mg/dL Creatinine 1.07 H (0.52-1.04) mg/dL Glucose 155 H (74-99) mg/dL Microbiology - Last 24 Hours (Table) 06/19/23 15:45 Blood Culture - Final Blood 06/19/23 16:00 Blood Culture - Final Blood Assessment and Plan Assessment: Acute on chronic hypoxic respiratory failure Pseudomonas, E. coli pneumonia pneumonia on the top of patient of bronchiectasis, patient currently has multifocal bronchopneumonia Bilateral breast prominence, patient is aware and had mammogram recently with her PCP that she will follow up the results with him as an outpatient after discharge Severe COPD, currently stable and improving History of seizure disorder History of CVA/TIA Diabetes mellitus type 2 Hypothyroid Fibromyalgia History of complex MAC infection resolved Plan: Continue with cefepime Patient required a PICC line and outpatient IV antibiotic Continue with prednisone Continue with normal saline ID and pulmonary team on the case Labs and medication were reviewed.. Continue same treatment. Continue with s ymptomatic treatment. Resume home medication. Monitor labs and vitals. DVT and GI prophylaxis. Further recommendations as per clinical course of the patient DVT prophylaxis: Subcutaneous Lovenox GI Prophylaxis: Ppi PT/OT: Pending Prognosis is guarded
[2023-06-25] MEDS: CEFEPIME 2 GM in SODIUM CHLORIDE 0.9% 100 ML IVPB SCH ×2 (06:08→18:41)
[2023-06-25] MEDS: LEVOTHYROXINE 75 MCG TAB PO SCH (06:09)
[2023-06-25] MEDS: PANTOPRAZOLE 40 MG TABLET PO SCH (06:09)
[2023-06-25] MEDS: SODIUM CHLORIDE 0.9% 1,000 ML IV SCH ×2 (06:11→22:22)
[2023-06-25] MEDS: SYMBICORT 160-4.5 MCG INHALER INHALATION SCH ×2 (09:05→19:45)
[2023-06-25] MEDS: IPRATROPIUM-ALBUTEROL 3 ML NEB INHALATION SCH ×4 (09:05→19:45)
[2023-06-25] MEDS: MONTELUKAST 10 MG TAB PO SCH (09:41)
[2023-06-25] MEDS: guaiFENesin 600 MG TABLET.ER PO SCH ×2 (09:41→22:17)
[2023-06-25] MEDS: DULoxetine HCL 60 MG CAPSULE.DR PO SCH (09:41)
[2023-06-25] MEDS: MECLIZINE 25 MG TAB PO SCH ×3 (09:41→22:17)
[2023-06-25] MEDS: LOSARTAN 25 MG TAB PO SCH (09:42)
[2023-06-25] MEDS: PHENYTOIN 100 MG PO SCH ×2 (09:42→22:19)
[2023-06-25] MEDS: lamoTRIgine 100 MG TAB PO SCH ×2 (09:42→22:17)
[2023-06-25] MEDS: POTASSIUM CHLORIDE ER 20 MEQ TAB.ER PO SCH ×2 (09:42→22:18)
[2023-06-25] MEDS: METOPROLOL TARTRATE 25 MG TAB PO SCH (09:42)
[2023-06-25] MEDS: MULTIVITAMINS, THERA 1 EACH TAB PO SCH (09:42)
[2023-06-25] MEDS: predniSONE 20 MG TAB PO SCH (09:42)
[2023-06-25] MEDS: CYCLOBENZAPRINE 10 MG TAB PO SCH (09:42)
[2023-06-25] MEDS: AZELASTINE 137MCG/SPRAY EA NOSTRIL SCH ×2 (09:45→22:19)
[2023-06-25] MEDS: FLUTICASONE 50MCG/SPRAY NASAL 16GM EA NOSTRIL SCH (09:45)
[2023-06-25] MEDS: ENOXAPARIN 40 MG/0.4 ML SYRINGE SQ SCH (09:45)
[2023-06-25] MEDS: clonazePAM 0.5 MG TAB PO PRN ×2 (09:49→22:19)
--- NOTE | 2023-06-25 12:34 | P.PN ---
Subjective Progress Note Date: 06/25/23 I am seeing this patient in consultation today 06/20/2023 after she was sent in by Dr. Millan from the pulmonary office. Patient recently had a bronchoscopy with BAL done on 06/07/2023, micro was positive for Pseudomonas and E. coli. 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 coli pulmonary infections, severe COPD, type 2 diabetes, hyperlipidemia, hypertension, CVA/TIA, fibromyalgia, among other things. Patient does follow in the pulmonary office with Dr. Millan for management of above. She is oxygen and steroid dependent at baseline. Over the last 6 months, the patient is worsening exertional shortness of breath and fatigue accompanied with green purulent sputum production and a persistent cough. States that her sputum has the consistency of "silly putty". She did follow up with Dr. Millan back on June 12, and he recommended that she come to the emergency room. Chest x-ray arrival showed interstitial pattern which may represent chronic interstitial lung disease seen on prior exam. There are chronic left basilar lung findings likely to be representing scarring or atelectasis. Patient is currently sitting at the bedside recliner. She is in no acute distress. She is on 3 L/m nasal cannula. She endorses the above- mentioned symptoms. Denies any fever, chills, chest pain, hemoptysis. CBC on arrival showed a WBC count of 17.7, hemoglobin 13.1, hematocrit 40.6, platelets 365. BMP on arrival is unremarkable. Troponin less than 0.012. Negative for influenza, RSV, COVID-19. Afebrile. She was started on Zosyn. Hemodynamically stable. On today's evaluation of 06/21/2023, the patient is feeling slightly better compared to yesterday. Her cough is still present. The patient is not producing much of sputum at this point in time. She is on IV Zosyn and. She'll be also given Robitussin-DM for cough and congestion and the patient will be also started on low-dose IV Solu-Medrol 40 mg every 6 hours. Her oral prednisone be discontinued for the time being. She is on 2 L of Oxymizer nasal cannula with a pulse ox of 97%. She is afebrile. The rest of the blood work sh ows edematous count 12.3 with a hemoglobin of 12.2 and a platelet count of 325. BUN is at 27 with a creatinine of 1.3 and a sodium level is at 144. Legionella urine antigen was negative. On today's evaluation of 06/22/2023, the patient is feeling better. The patient is less short of breath compared to yesterday. Noted the patient is on IV Zosyn. A repeat sputum sample showed presence of E. coli in his sputum. The patient had a previous thoracoscopy that showed accommodation of Pseudomonas and E. coli. The patient is on the proper antibiotics for now. Steroids were added also yesterday. She is a bit emotional as the patient lost her [id number] who unexpectedly today. The patient otherwise doing well pH is receiving bronchodilators. She is also on Symbicort. She is on IV Zosyn. She is on IV Solu-Medrol. The cough and congestion has subsided. The white cell count is down to 12.9, hemoglobin was 12.7, BUN is at 28 with a creatinine 1.1 and sodium levels is 142. on 06/23/2023, the patient has no specific complaints. She continues to improve. Less short of breath unless bronchus spastic and wheezing and she rremains on broad-spectrum antibiotics and the patient was placed on IV cefepime..CAT scan of the chest was done and the patient's has evidence of bila teral lower lobe bronchiectatic changes and the patient has increased bibasilar peribronchial opacities with cylindrical bronchiectasis. There is also areas of ill-defined ground glass opacities and partial consolidation of the lower lobes in the mid lobes and upper lobes bilaterally consistent with multifocal pneumonia. The patient's echoes at 15.6 with a hemoglobin 12.3. BUN is at 31 with a creatinine of 1.4. Sodium is at 145. PICC line was inserted. Pro- calcitonin level is at 0.08. On 06/24/2023, the patient remains on a combination of bronchodilators and steroids and antibiotics. The patient is doing well. A PICC line was inserted. Arrangements are being made for outpatient antibiotic use. The patient is otherwise doing well. Cough and congestion is gradually improving. CAT scan from chest from yesterday was noted. Ulhi-eam-xlfzrbd 11.8, hemoglobin was 12.3 and a platelet count of 312. Sodium is 144, BUN is at 32 with a creatinine of 1.07. No other complaints otherwise for now patient is only on 2 L of oxygen by nasal cannula. She is ambulating. She remains on IV Solu-Medrol. On 06/25/2023, no new complaints. The patient remains on IV cefepime. Cough a nd congestion subsided. She is on oxygen at 2 L/m nasal cannula. She has a PICC line. She is looking forward for discharge for IV antibiotics to be treated on outpatient basis. She is on prednisone burst taper. She is on bronchodilators. Labs are all stable from yesterday. Objective - Vital Signs Vital signs: Vital Signs Temp 98.0 F 06/25/23 07:16 Pulse 85 06/25/23 09:15 Resp 19 06/25/23 07:16 BP 152/83 06/25/23 07:16 Pulse Ox 96 06/25/23 09:08 FiO2 Intake & Output 06/24/23 06/25/23 06/25/23 18:59 06:59 18:59 Other: Voiding Method Toilet Toilet # Voids 4 2 # Bowel Movements 2 - Exam GENERAL EXAM: Alert, obese 68-year-old white female appearing stated age , comfortable in no apparent distress. HEAD: Normocephalic and atraumatic EYES: Normal reaction of pupils, equal size. NOSE: Clear with pink turbinates. THROAT: No erythema or exudates. NECK: No masses, no JVD. CHEST: No chest wall deformity. LUNGS: Equal air entry with diffuse rhonchi and scattered crackles throughout. On 3 L/m nasal cannula. No conversational dyspnea or accessory muscle use while at rest.. CVS: S1 and S2 normal with no audible murmur, regular rhythm. No extra heart sounds ABDOMEN: No hepatosplenomegaly, active bowel sounds, no guarding or rigidity. SPINE: No scoliosis or deformity SKIN: No rashes CENTRAL NERVOUS SYSTEM: No focal deficits, tone is normal in all 4 extremities. EXTREMITIES: There is no peripheral edema, clubbing, or cyanosis. Peripheral pulses are intact. - Labs CBC & Chem 7: 06/24/23 07:30 06/24/23 07:30 Labs: Microbiology - Last 24 Hours (Table) 06/19/23 15:45 Blood Culture - Final Blood 06/19/23 16:00 Blood Culture - Final Blood Assessment and Plan Assessment: Acute exacerbation of chronic bronchiectasis with areas of patchy multifocal bilateral pneumonia based on CAT scan findings. Sputum was positive for E. coli. Previous stroke alveolar lavage was positive for Pseudomonas and E. coli and the patient is currently on IV cefepime. Clinically improving. bilateral lower lobe cylindrical bronchiectasis Acute on chronic hypoxemic respiratory failure, secondary to above, currently on 3 L of oxygen by nasal cannula Leukocytosis, improving History of pulmonary mycobacterium avium complex infection, resolved Type 2 diabetes mellitus Hyperlipidemia Hypertension History of CVA/TIA Obesity with a BMI of 34.5 kg/m Fibromyalgia Hypothyroidism Plan: Clinically much improved and the patient is now having any significant cough or congestion. Shortness of breath is also improved. Continue bronchodilators Continue prednisone burst taper Continue IV cefepime, PICC line was inserted for outpatient antibiotic use Clinically improving White cell count is stable The patient is known to have COPD and acquired bronchiectasis probably related to a previous mycobacterial avium infection. She has had recurrent infections with gram-negative bacteria including E. coli and Pseudomonas. A recent bronchoscopy was done confirming diagnosis and the repeat sputum sample is showing E. coli.. patient has home O2 We'll continue to follow Patient is a PICC line. We will arrange home antibiotic therapy. Planning for discharge within the next 24 hours.
[2023-06-25] MEDS: OXYBUTYNIN XL 5 MG TAB.ER.24 PO SCH (15:06)
[2023-06-25] MEDS: QUEtiapine 400 MG TAB PO SCH ×2 (15:21→22:38)
[2023-06-25] MEDS: TEMAZEPAM 15 MG CAP PO SCH (22:17)
[2023-06-25] MEDS: ACETAMINOPHEN TAB 325 MG TAB PO PRN (22:18)
[2023-06-25] MEDS: ATORVASTATIN 20 MG TAB PO SCH (22:19)
--- NOTE | 2023-06-25 23:51 | P.PN ---
Subjective 68-year-old patient with past medical history significant for COPD, history of back infection, on triple antibiotic therapy, history of bronchiectasis, COPD, diabetes mellitus type 2, hyperlipidemia, fibromyalgia, hypertension, hyperlipidemia was sent in from pulmonary medicine office for shortness of breath, fatigue, and productive phlegm. Patient had a recent bronchoscopy and bronchoalveolar lavage done which showed pseudomonas and E. coli in cultures Workup initiated at time of presentation include CBC which were WBC of 17.7 improving 13.1 platelet count of 365 elevated neutrophil count of 14.2, INR of 0.9, serum chemistry sodium 141 potassium 4.3B UN 30 creatinine 1.09 glucose 1:30 troponin less than 0.012 Patient tested negative for influenza, urine Legionella was negative RSV and Covid negative Patient was started on IV antibiotic and consultation was obtained from pulmonary medicine as well as infectious disease 06/21/2023: Patient seen and evaluated bedside, patient is alert and oriented 4, does complain of cough, patient says she was not able to sleep secondary to cough. CBC reviewed WBC 12.35, hemoglobin 12 platelet count 325, serum chemistry sodium 144 potassium 3.4 BU and 27 creatinine 1.3 CRP 1.20. Patient's 3 L of oxygen through nasal cannula. Followed by infectious disease and pulmonary medicine 06/22/2023: Patient seen and evaluated bedside, patient's her breathing is better does have productive cough. Basic metabolic panel showed creatinine of 1.14, hydrochlorothiazide/Aldactone discontinued follow-up on renal profile, continue patient on oxygen supplementation on 3 L of oxygen 06/23/2023: Patient seen and evaluated bedside, patient does complain of cough, having productive sputum production. Patient remains on 3 L of oxygen, planned to get PICC line placed, will coordinate outpatient antibiotic setup with case assistant as well. WBC count 13.6, hemoglobin 12.3 platelet count within normal limits, serum chemistry reviewed pro-calcitonin 0.08 CRP improved within normal limits 06/24/2023 Patient is seen and examined by me at bedside Patient respiratory infection is improving, she has minimal dyspnea at rest. No chest pain. Currently covered with cefepime for her multifocal pneumonia of the top of her bronchiectasis with cultures growing pseudomonas and E. coli Her COPD and wheezing improving and currently on prednisone 40 mg Also she is on gentle hydration with normal saline 75 mL/h Patient was informed about CAT scan finding of prominent bilateral breast with recommendation for mammogram, patient told me she recently had procedure and removed from her breast ,patient is aware and had mammogram recently with her PCP that she will follow up the results with him as an outpatient after discharge as she told me today She will need PICC line on outpatient IV antibiotic 06/25/2023 Patient still short of breath and wheezing She is require low dose of oxygen PICC line in place in the right arm for outpatient antibiotic Objective - Vital Signs Vital signs: Vital Signs Temp 99.2 F 06/25/23 14:23 Pulse 88 06/25/23 15:58 Resp 15 06/25/23 14:23 BP 147/78 06/25/23 14:23 Pulse Ox 96 06/25/23 14:23 FiO2 Intake & Output 06/25/23 06/25/23 06/26/23 06:59 18:59 06:59 Other: Voiding Method Toilet # Voids 2 3 - Labs CBC & Chem 7: 06/24/23 07:30 06/24/23 07:30 Labs: Microbiology - Last 24 Hours (Table) 06/19/23 15:45 Blood Culture - Final Blood 06/19/23 16:00 Blood Culture - Final Blood Assessment and Plan Assessment: Acute on chronic hypoxic respiratory failure Pseudomonas, E. coli pneumonia pneumonia on the top of patient of bronchiectasis, patient currently has multifocal bronchopneumonia Bilateral breast prominence, patient is aware and had mammogram recently with her PCP that she will follow up the results with him as an outpatient after discharge Severe COPD, currently stable and improving History of seizure disorder History of CVA/TIA Diabetes mellitus type 2 Hypothyroid Fibromyalgia History of complex MAC infection resolved Plan: Continue with cefepime Patient required a PICC line and outpatient IV antibiotic Continue with prednisone Continue with normal saline ID and pulmonary team on the case Labs and medication were reviewed.. Continue same treatment. Continue with symptomatic treatment. Resume home medication. Monitor labs and vitals. DVT and GI prophylaxis. Further recommendations as per clinical course of the patient DVT prophylaxis: Subcutaneous Lovenox GI Prophylaxis: Ppi PT/OT: Pending Prognosis is guarded
[2023-06-26] MEDS: SODIUM CHLORIDE 0.9% 1,000 ML IV SCH (06:18)
[2023-06-26] MEDS: CEFEPIME 2 GM in SODIUM CHLORIDE 0.9% 100 ML IVPB SCH ×2 (06:19→17:42)
[2023-06-26] MEDS: LEVOTHYROXINE 75 MCG TAB PO SCH (06:19)
[2023-06-26] MEDS: PANTOPRAZOLE 40 MG TABLET PO SCH (06:19)
[2023-06-26] MEDS: guaiFENesin-DM 100-10MG/5ML 10 ML CUP PO SCH ×3 (06:20→17:41)
[2023-06-26] MEDS: CYCLOBENZAPRINE 10 MG TAB PO SCH (09:23)
[2023-06-26] MEDS: guaiFENesin 600 MG TABLET.ER PO SCH ×2 (09:23→21:33)
[2023-06-26] MEDS: ENOXAPARIN 40 MG/0.4 ML SYRINGE SQ SCH (09:23)
[2023-06-26] MEDS: MULTIVITAMINS, THERA 1 EACH TAB PO SCH (09:23)
[2023-06-26] MEDS: LOSARTAN 25 MG TAB PO SCH (09:23)
[2023-06-26] MEDS: MECLIZINE 25 MG TAB PO SCH ×3 (09:23→21:18)
[2023-06-26] MEDS: DULoxetine HCL 60 MG CAPSULE.DR PO SCH (09:23)
[2023-06-26] MEDS: MONTELUKAST 10 MG TAB PO SCH (09:23)
[2023-06-26] MEDS: METOPROLOL TARTRATE 25 MG TAB PO SCH (09:23)
[2023-06-26] MEDS: lamoTRIgine 100 MG TAB PO SCH ×2 (09:24→21:17)
[2023-06-26] MEDS: POTASSIUM CHLORIDE ER 20 MEQ TAB.ER PO SCH ×2 (09:24→21:17)
[2023-06-26] MEDS: predniSONE 20 MG TAB PO SCH (09:24)
[2023-06-26] MEDS: PHENYTOIN 100 MG PO SCH ×2 (09:25→21:18)
[2023-06-26] MEDS: FLUTICASONE 50MCG/SPRAY NASAL 16GM EA NOSTRIL SCH (09:26)
[2023-06-26] MEDS: AZELASTINE 137MCG/SPRAY EA NOSTRIL SCH ×2 (09:26→21:17)
[2023-06-26] MEDS: clonazePAM 0.5 MG TAB PO PRN ×2 (09:32→16:43)
[2023-06-26] MEDS: ACETAMINOPHEN TAB 325 MG TAB PO PRN ×2 (09:35→17:41)
[2023-06-26] MEDS: SYMBICORT 160-4.5 MCG INHALER INHALATION SCH ×2 (09:48→20:35)
[2023-06-26] MEDS: IPRATROPIUM-ALBUTEROL 3 ML NEB INHALATION SCH ×4 (09:48→20:35)
--- NOTE | 2023-06-26 12:41 | P.PN ---
Subjective Progress Note Date: 06/26/23 I am seeing this patient in consultation today 06/20/2023 after she was sent in by Dr. Millan from the pulmonary office. Patient recently had a bronchoscopy with BAL done on 06/07/2023, micro was positive for Pseudomonas and E. coli. 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 coli pulmonary infections, severe COPD, type 2 diabetes, hyperlipidemia, hypertension, CVA/TIA, fibromyalgia, among other things. Patient does follow in the pulmonary office with Dr. Millan for management of above. She is oxygen and steroid dependent at baseline. Over the last 6 months, the patient is worsening exertional shortness of breath and fatigue accompanied with green purulent sputum production and a persistent cough. States that her sputum has the consistency of "silly putty". She did follow up with Dr. Millan back on June 12, and he recommended that she come to the emergency room. Chest x-ray arrival showed interstitial pattern which may represent chronic interstitial lung disease seen on prior exam. There are chronic left basilar lung findings likely to be representing scarring or atelectasis. Patient is currently sitting at the bedside recliner. She is in no acute distress. She is on 3 L/m nasal cannula. She endorses the above- mentioned symptoms. Denies any fever, chills, chest pain, hemoptysis. CBC on arrival showed a WBC count of 17.7, hemoglobin 13.1, hematocrit 40.6, platelets 365. BMP on arrival is unremarkable. Troponin less than 0.012. Negative for influenza, RSV, COVID-19. Afebrile. She was started on Zosyn. Hemodynamically stable. On today's evaluation of 06/21/2023, the patient is feeling slightly better compared to yesterday. Her cough is still present. The patient is not producing much of sputum at this point in time. She is on IV Zosyn and. She'll be also given Robitussin-DM for cough and congestion and the patient will be also started on low-dose IV Solu-Medrol 40 mg every 6 hours. Her oral prednisone be discontinued for the time being. She is on 2 L of Oxymizer nasal cannula with a pulse ox of 97%. She is afebrile. The rest of the blood work shows edematous count 12.3 with a hemoglobin of 12.2 and a platelet count of 325. BUN is at 27 with a creatinine of 1.3 and a sodium level is at 144. Legionella urine antigen was negative. On today's evaluation of 06/22/2023, the patient is feeling better. The patient is less short of breath compared to yesterday. Noted the patient is on IV Zosyn. A repeat sputum sample showed presence of E. coli in his sputum. The pa luzma had a previous thoracoscopy that showed accommodation of Pseudomonas and E. coli. The patient is on the proper antibiotics for now. Steroids were added also yesterday. She is a bit emotional as the patient lost her [id number]-[id number] who unexpectedly today. The patient otherwise doing well pH is receiving bronchodilators. She is also on Symbicort. She is on IV Zosyn. She is on IV Solu-Medrol. The cough and congestion has subsided. The white cell count is down to 12.9, hemoglobin was 12.7, BUN is at 28 with a creatinine 1.1 and sodium levels is 142. on 06/23/2023, the patient has no specific complaints. She continues to improve. Less short of breath unless bronchus spastic and wheezing and she rremains on broad-spectrum antibiotics and the patient was placed on IV cefepi me..CAT scan of the chest was done and the patient's has evidence of bilateral lower lobe bronchiectatic changes and the patient has increased bibasilar peribronchial opacities with cylindrical bronchiectasis. There is also areas of ill-defined ground glass opacities and partial consolidation of the lower lobes in the mid lobes and upper lobes bilaterally consistent with multifocal pneumonia. The patient's echoes at 15.6 with a hemoglobin 12.3. BUN is at 31 with a creatinine of 1.4. Sodium is at 145. PICC line was inserted. Pro- calcitonin level is at 0.08. On 06/24/2023, the patient remains on a combination of bronchodilators and steroids and antibiotics. The patient is doing well. A PICC line was inserted. Arrangements are being made for outpatient antibiotic use. The patient is otherwise doing well. Cough and congestion is gradually improving. CAT scan from chest from yesterday was noted. Ekac-jzo-fhdkjhg 11.8, hemoglobin was 12.3 and a platelet count of 312. Sodium is 144, BUN is at 32 with a creatinine of 1.07. No other complaints otherwise for now patient is only on 2 L of oxygen by nasal cannula. She is ambulating. She remains on IV Solu-Medrol. On 06/25/2023, no new complaints. The patient remains on IV cefepime. Cough and congestion subsided. She is on oxygen at 2 L/m nasal cannula. She has a PICC line. She is looking forward for discharge for IV antibiotics to be treated on outpatient basis. She is on prednisone burst taper. She is on b ronchodilators. Labs are all stable from yesterday. The patient is seen today 06/26/2023 in follow-up on the regular medical floor. She is currently sitting up in bed. Awake and alert in no acute distress. She is maintaining good O2 saturations in the upper 90s on 3 L/m per nasal cannula. She's been afebrile. Hemodynamically stable. His a PICC line in place. She remains on cefepime. Urine culture was positive for E. coli and pseudomonas aeruginosa. Blood cultures revealed no growth. She remains on DuoNeb inhalations, Singulair, Symbicort, prednisone taper. Lovenox for DVT prophyl axis. Objective - Vital Signs Vital signs: Vital Signs Temp 97.3 F L 06/26/23 07:42 Pulse 84 06/26/23 10:04 Resp 16 06/26/23 07:42 BP 131/73 06/26/23 07:42 Pulse Ox 97 06/26/23 09:48 FiO2 Intake & Output 06/25/23 06/26/23 06/26/23 18:59 06:59 18:59 Intake Total 898 Balance 898 Intake: Oral 898 Other: Voiding Method Toilet # Voids 3 1 1 - Exam GENERAL EXAM: Alert, obese, pleasant 68-year-old female, on 3 L nasal cannula comfortable in no apparent distress. HEAD: Normocephalic and atraumatic EYES: Normal reaction of pupils, equal size. NOSE: Clear with pink turbinates. THROAT: No erythema or exudates. NECK: No masses, no JVD. CHEST: No chest wall deformity. LUNGS: Equal air entry with rhonchi and scattered crackles throughout. No conversational dyspnea. CVS: S1 and S2 normal with no audible murmur, regular rhythm. No extra heart sounds ABDOMEN: No hepatosplenomegaly, active bowel sounds, no guarding or rigidity. SPINE: No scoliosis or deformity SKIN: No rashes CENTRAL NERVOUS SYSTEM: No focal deficits, tone is normal in all 4 extremities. EXTREMITIES: There is no peripheral edema, clubbing, or cyanosis. Peripheral pulses are intact. - Labs CBC & Chem 7: 06/24/23 07:30 06/24/23 07:30 Assessment and Plan Assessment: Acute exacerbation of chronic bronchiectasis with areas of patchy multifocal bilateral pneumonia based on CAT scan findings. Sputum from 06/19/2023 positive for Pseudomonas and E. coli and the patient is currently on IV cefepime. Clinically improving Bilateral lower lobe cylindrical bronchiectasis Acute on chronic hypoxemic respiratory failure, secondary to above, currently on 3 L of oxygen by nasal cannula Leukocytosis, improving History of pulmonary mycobacterium avium complex infection, resolved Type 2 diabetes mellitus Hyperlipidemia Hypertension History of CVA/TIA Obesity with a BMI of 34.5 kg/m Fibromyalgia Hypothyroidism Plan: The patient was seen and evaluated Medications and labs reviewed PICC line in place Remains on cefepime per ID services Continue her home oxygen, pulmonary medications post discharge This patient was seen independently by the nurse practitioner I have personally seen and examined the patient, performed the documentation and the assessment and plan as written. Number of minutes spent on the visit: 22.
[2023-06-26 13:59] VITALS: BMI 34.4
[2023-06-26] MEDS: OXYBUTYNIN XL 5 MG TAB.ER.24 PO SCH (14:07)
[2023-06-26] MEDS: QUEtiapine 400 MG TAB PO SCH ×2 (16:41→21:18)
[2023-06-26] MEDS: TEMAZEPAM 15 MG CAP PO SCH (21:17)
[2023-06-26] MEDS: ATORVASTATIN 20 MG TAB PO SCH (21:18)
[2023-06-26 22:20] VITALS: BP 142/71; PULSE 85; RESP 20; TEMP 98.1
--- NOTE | 2023-06-27 07:19 | P.DS ---
Providers Date of admission: 06/19/23 17:37 Attending physician: Nanci Pendleton Consults: 06/19/23 17:37 Consult Physician Routine Consulting Provider: Elaine Millan Consult Reason/Comments: Bronchial infection Do you want consulting provider notified?: Yes 06/20/23 06:26 Consult Physician Routine Consulting Provider: Shaniqua Booker Consult Reason/Comments: pseudomonas pneumonia Do you want consulting provider notified?: Yes Primary care physician: Jose David Liu Hospital Course: Diagnoses: Acute on chronic hypoxic respiratory failure Pseudomonas, E. coli pneumonia pneumonia on the top of patient of bronchiectasis, patient currently has multifocal bronchopneumonia Bilateral breast prominence, patient is aware and had mammogram recently with her PCP that she will follow up the results with him as an outpatient after discharge Severe COPD, currently stable and improving Chronic hypoxic respiratory failure History of seizure disorder History of CVA/TIA Diabetes mellitus type 2 Hypothyroid Fibromyalgia History of complex MAC infection resolved Hospital course: 68-year-old patient with past medical history significant for COPD, history of back infection, on triple antibiotic therapy, history of bronchiectasis, COPD, diabetes mellitus type 2, hyperlipidemia, fibromyalgia, hypertension, hyperlipidemia was sent in from pulmonary medicine office for shortness of breath, fatigue, and productive phlegm. Patient had a recent bronchoscopy and bronchoalveolar lavage done which showed pseudomonas and E. coli in cultures Patient states that she has pneumonia for almost 5 months when she came to this hospital and her doctor told her that her culture is growing E. coli and that she needs IV antibiotic. Further evaluation showed patient has multifocal bronchopneumonia and she's been evaluated by infectious disease team and pulmonary team and she was treated with IV cefepime and IV Solu-Medrol and normal saline and she showed interval improvement in her hypoxia and her pulmonary function. Her breathing is improved and currently she denies any dyspnea or chest pain. Patient on discharge she was saturating 95% on 2 L oxygen per minute which is her home dose. She's been afebrile and no other new complaints upon discharge. PICC line was placed and patient will be discharged to finish her treatment with IV antibiotics with cefepime per recommendation of infectious disease team. Today I checked with our counter caser Ms Castanon who confirms to me that everything has been set up for her to receive IV antibiotic as an outpatient. Patient also was instructed to discontinue the PICC line after finishing her course of IV antibiotics and she agrees. Patient was cleared for discharge by pulmonary team and infectious disease team. Problems and management plan were discussed with the patient and he verbalized understanding and acceptance Patient was found stable and can be discharged home in guarded prognosis however he needs follow-up as an outpatient. Patient was instructed to follow up with PCP Dr. Liu within one week and patient agrees, recommended treatment for her on 1218 and 20 a.m. and she agrees Also patient was instructed to follow up with pulmonary service patient also was started to follow up with infectious disease team Dr. ashton in 1 week after discharge and she is Physical exam Gen: patient is a AAOx3, no distress CVS: S1-S2, RRR, no murmur -Lungs: B/L CTA, no wheezing. Nasal cannula in a Place on 2 L. Abdomen: soft, no distention, no tenderness, positive bowel sounds Extremity: no leg edema or induration Time spent more than 35 minutes Patient Condition at Discharge: Good Plan - Discharge Summary Discharge Rx Participant: Yes New Discharge Prescriptions: New predniSONE 10 mg PO DIRECTED #40 tab guaiFENesin-DM 100-10MG/5ML [Robitussin DM] 10 ml PO QID PRN #100 ml PRN Reason: Cough Continue Fluticasone Propion/Salmeterol [Advair 500-50 Diskus] 1 puff INHALATION RT- BID Meclizine [Antivert] 25 mg PO TID Montelukast [Singulair] 10 mg PO QAM Metaxalone [Skelaxin] 800 mg PO QAM DULoxetine HCL [Cymbalta] 120 mg PO QAM Phenytoin Sodium Extended [Dilantin] 200 mg PO BID Pantoprazole Sodium [Protonix] 40 mg PO AC-BRKFST Simvastatin [Zocor] 40 mg PO HS lamoTRIgine [LaMICtal] 100 mg PO QAM Ipratropium-Albuterol Nebulize [Duoneb 0.5 mg-3 mg/3 ml Soln] 3 ml INHALATION RT-QID #120 neb Albuterol Inhaler [Ventolin Hfa Inhaler] 2 puff INHALATION RT-Q6H PRN PRN Reason: Shortness Of Breath Multivitamin/Iron/Folic Acid [Centrum Complete Multivit Tab] 1 tab PO DAILY Vit C/E/Zn/Coppr/Lutein/Zeaxan [Preservision Areds 2 Softgel] 1 cap PO BID QUEtiapine FUMARATE [SEROquel XR] 400 mg PO BID@1600,2200 Tolterodine ER [Detrol LA] 2 mg PO PC-LUNCH Potassium Chloride [Klor-Con 20] 20 meq PO BID Ramelteon [Rozerem] 8 mg PO HS guaiFENesin [Mucinex] 1,200 mg PO BID predniSONE 10 mg PO DAILY Fluticasone Nasal Melrose [Flonase Nasal Melrose] 1 spray EA NOSTRIL DAILY clonazePAM [KlonoPIN] 0.5 mg PO TID Azelastine HCl [Astelin Nasal Melrose] 1 spray EA NOSTRIL BID Losartan [Cozaar] 25 mg PO DAILY Acetaminophen Tab [Tylenol] 1,000 mg PO TID lamoTRIgine [LaMICtal] 200 mg PO HS Levothyroxine Sodium [Synthroid] 75 mcg PO DAILY Metoprolol Tartrate [Lopressor] 25 mg PO DAILY Discontinued Spironolactone-Hctz 25-25Mg [Aldactazide 25-25Mg] 1 tab PO DAILY Discharge Medication List DULoxetine HCL [Cymbalta] 120 mg PO QAM 01/22/16 [History] Fluticasone Propion/Salmeterol [Advair 500-50 Diskus] 1 puff INHALATION RT-BID 01/22/16 [History] Meclizine [Antivert] 25 mg PO TID 01/22/16 [History] Metaxalone [Skelaxin] 800 mg PO QAM 01/22/16 [History] Montelukast [Singulair] 10 mg PO QAM 01/22/16 [History] Pantoprazole Sodium [Protonix] 40 mg PO AC-BRKFST 01/22/16 [History] Phenytoin Sodium Extended [Dilantin] 200 mg PO BID 01/22/16 [History] Simvastatin [Zocor] 40 mg PO HS 01/22/16 [History] lamoTRIgine [LaMICtal] 100 mg PO QAM 01/22/16 [History] Ipratropium-Albuterol Nebulize [Duoneb 0.5 mg-3 mg/3 ml Soln] 3 ml INHALATION RT-QID #120 neb 01/19/17 [Rx] Albuterol Inhaler [Ventolin Hfa Inhaler] 2 puff INHALATION RT-Q6H PRN 03/21/18 [History] Multivitamin/Iron/Folic Acid [Centrum Complete Multivit Tab] 1 tab PO DAILY 10/03/18 [History] Vit C/E/Zn/Coppr/Lutein/Zeaxan [Preservision Areds 2 Softgel] 1 cap PO BID 10/03/18 [History] QUEtiapine FUMARATE [SEROquel XR] 400 mg PO BID@1600,2200 03/25/19 [History] Tolterodine ER [Detrol LA] 2 mg PO PC-LUNCH 05/29/20 [History] Potassium Chloride [Klor-Con 20] 20 meq PO BID 06/19/20 [History] Fluticasone Nasal Melrose [Flonase Nasal Melrose] 1 spray EA NOSTRIL DAILY 02/12/21 [History] Ramelteon [Rozerem] 8 mg PO HS 02/12/21 [History] Acetaminophen Tab [Tylenol] 1,000 mg PO TID 06/05/23 [History] Azelastine HCl [Astelin Nasal Melrose] 1 spray EA NOSTRIL BID 06/05/23 [History] Losartan [Cozaar] 25 mg PO DAILY 06/05/23 [History] clonazePAM [KlonoPIN] 0.5 mg PO TID 06/05/23 [History] guaiFENesin [Mucinex] 1,200 mg PO BID 06/05/23 [History] Levothyroxine Sodium [Synthroid] 75 mcg PO DAILY 06/19/23 [History] Metoprolol Tartrate [Lopressor] 25 mg PO DAILY 06/19/23 [History] lamoTRIgine [LaMICtal] 200 mg PO HS 06/19/23 [History] predniSONE 10 mg PO DAILY 06/19/23 [History] guaiFENesin-DM 100-10MG/5ML [Robitussin DM] 10 ml PO QID PRN #100 ml 06/26/23 [Rx] predniSONE 10 mg PO DIRECTED #40 tab 06/26/23 [Rx] Follow up Appointment(s)/Referral(s): [facility] [NON-STAFF] - As Needed Jose David Liu MD [Primary Care Provider] - 07/03/23 1:00 pm ([place] office) [facility], [REFERRING] - As Needed () Shaniqua Booker MD [STAFF PHYSICIAN] - 1 Week Patient Instructions/Handouts: Pneumonia (DC) Activity/Diet/Wound Care/Special Instructions: Home meds in [facility] heart healthy diet activity is restricted till you see your doctor please discontinue your picc line once you finish your course of iv antibiotics Discharge Disposition: HOME WITH HOME HEALTH SERVICES
--- NOTE | 2023-07-02 15:36 | P.PN ---
Subjective Progress Note Date: 06/23/23 Principal diagnosis: Reason for follow-up is Pseudomonas pneumonia Patient is a 68-year-old female with a past medical history significant for diabetes mellitus COPD CVA TIA hypertension hyperlipidemia in this patient who did have a history of recurrent bronchitis and pneumonia patient recently did have a bronchoscopy with lavage and the cultures did grew Pseudomonas that was resistant to Cipro On today's evaluation that is 06/23/2023, the patient remains to be afebrile and is breathing comfortably on 3 L nasal cannula oxygen, and patient denies chest pain , breathing has improved occasional cough and minimal sputum production, patient denies nausea/vomiting, denies having any diarrhea and no abdominal pain Patient did have a white count of 13.68, creatinine 1.4 sputum is growing E. coli Objective - Vital Signs Vital signs: Vital Signs Temp 98.6 F 06/23/23 07:48 Pulse 84 06/23/23 09:35 Resp 22 06/23/23 07:48 BP 152/84 06/23/23 07:48 Pulse Ox 97 06/23/23 09:18 FiO2 Intake & Output 06/22/23 06/23/23 06/23/23 18:59 06:59 18:59 Other: # Voids 2 3 1 - Exam GENERAL DESCRIPTION: An elderly female lying in bed in no distress RESPIRATORY SYSTEM: Unlabored breathing , coarse breath sounds bilaterally HEART: S1 S2 regular rate and rhythm , ABDOMEN: Soft , no tenderness EXTREMITIES: No edema feet - Labs CBC & Chem 7: 06/24/23 07:30 06/24/23 07:30 Labs: Abnormal Lab Results - Last 24 Hours (Table) 06/22/23 Range/Units 08:03 Hemoglobin A1c 6.8 H (<=6.0) % Microbiology - Last 24 Hours (Table) 06/19/23 15:45 Blood Culture - Preliminary Blood 06/19/23 16:00 Blood Culture - Preliminary Blood 06/19/23 23:40 Gram Stain - Preliminary Sputum Sputum Culture - Preliminary Escherichia coli Assessment and Plan (1) Pseudomonas pneumonia Status: Acute Code(s): J15.1 - PNEUMONIA DUE TO PSEUDOMONAS SNOMED Code(s): 77371775 Plan: 1patient presented to hospital with increasing shortness of breath cough with greenish sputum production increasing infiltrate on the chest x-ray patient did have elevated white count with a recent BAL culture positive for Pseudomonas aeruginosa that was resistant to oral Cipro also grew E. coli in the same specimen more likely, date of pneumonia related to this pathogen with COPD exacerbation. 2patient sputum is growing only E. coli during this admission, patient did have a CT with evidence of bronchopneumonia keeping in mind that the patient BAL culture positive for pseudomonas patient has been advised ten-day course of cefepime on discharge the prescription provided with the major case detective Dictation was produced using [employer] dictation software. please excuse any grammatical, word or spelling errors. Time with Patient: Less than 30
--- NOTE | 2023-07-02 15:38 | P.PN ---
Subjective Progress Note Date: 06/24/23 Principal diagnosis: Reason for follow-up is Pseudomonas pneumonia This is a telehealth visit Patient is a 68-year-old female with a past medical history significant for diabetes mellitus COPD CVA TIA hypertension hyperlipidemia in this patient who did have a history of recurrent bronchitis and pneumonia patient recently did have a bronchoscopy with lavage and the cultures did grew Pseudomonas that was resistant to Cipro On today's evaluation that is 06/24/2023, the patient remains to be afebrile and is breathing comfortably on 2 L nasal cannula oxygen, and patient denies chest pain the patient cough has decreased in intensity with occasional sputum production denies abdominal pain no nausea no vomiting and no diarrhea Patient did have a white count is 11.8, creatinine 1.07 sputum is growing E. coli as well as pseudomonas aeruginosa Objective - Vital Signs Vital signs: Vital Signs Temp 97.3 F L 06/24/23 08:00 Pulse 84 06/24/23 08:06 Resp 16 06/24/23 08:00 BP 145/69 06/24/23 08:00 Pulse Ox 96 06/24/23 08:00 FiO2 Intake & Output 06/23/23 06/24/23 06/24/23 18:59 06:59 18:59 Other: # Voids 1 5 - Exam GENERAL DESCRIPTION: An elderly female lying in bed in no distress RESPIRATORY SYSTEM: Unlabored breathing , coarse breath sounds bilaterally HEART: S1 S2 regular rate and rhythm , ABDOMEN: Soft , no tenderness EXTREMITIES: No edema feet Exam completed with the help of [employer] - Labs CBC & Chem 7: 06/24/23 07:30 06/24/23 07:30 Labs: Abnormal Lab Results - Last 24 Hours (Table) 06/23/23 06/23/23 06/24/23 Range/Units 06:03 06:03 07:30 WBC 13.68 H 11.8 H (4.50-10.00) X 10*3/uL RBC 3.95 L (4.10-5.20) X 10*6/uL MCV 100.3 H 100.8 H (80.0-97.0) FL MCHC 31.1 L (32.0-37.0) g/dL Chloride (98-107) mmol/L BUN 31.8 H (9.0-27.0) mg/dL Creatinine (0.52-1.04) mg/dL Est GFR (CKD-EPI) 41 L (>=60) BUN/Creatinine Ratio 22.71 H (12.00-20.00) Ratio Glucose 167 H (70-110) mg/dL 06/24/23 Range/Units 07:30 WBC (4.50-10.00) X 10*3/uL RBC (4.10-5.20) X 10*6/uL MCV (80.0-97.0) FL MCHC (32.0-37.0) g/dL Chloride 108 H (98-107) mmol/L BUN 32 H (9.0-27.0) mg/dL Creatinine 1.07 H (0.52-1.04) mg/dL Est GFR (CKD-EPI) (>=60) BUN/Creatinine Ratio (12.00-20.00) Ratio Glucose 155 H (70-110) mg/dL Microbiology - Last 24 Hours (Table) 06/19/23 23:40 Gram Stain - Final Sputum Sputum Culture - Final Escherichia coli Pseudomonas aeruginosa 06/19/23 15:45 Blood Culture - Preliminary Blood 06/19/23 16:00 Blood Culture - Preliminary Blood Assessment and Plan (1) Pseudomonas pneumonia Status: Acute Code(s): J15.1 - PNEUMONIA DUE TO PSEUDOMONAS SNOMED Code(s): 34831537 Plan: 1patient presented to hospital with increasing shortness of breath cough with greenish sputum production increasing infiltrate on the chest x-ray patient did have elevated white count with a recent BAL culture positive for Pseudomonas aeruginosa that was resistant to oral Cipro also grew E. coli in the same specimen more likely, date of pneumonia related to this pathogen with COPD exacerbation. 2patient sputum is growing E. coli as well as pseudomonas aeruginosa, patient did have a CT with evidence of bronchopneumonia keeping in mind that the patient BAL culture positive for pseudomonas , patient seemed to be clinically responding to cefepime to continue to finish a course of therapy currently waiting for outpatient IV antibiotics arrangement Dictation was produced using [employer] dictation software. please excuse any grammatical, word or spelling errors. Time with Patient: Less than 30
--- NOTE | 2023-07-02 15:39 | P.PN ---
Subjective Progress Note Date: 06/25/23 Principal diagnosis: Reason for follow-up is Pseudomonas pneumonia This is a telehealth visit Patient is a 68-year-old female with a past medical history significant for diabetes mellitus COPD CVA TIA hypertension hyperlipidemia in this patient who did have a history of recurrent bronchitis and pneumonia patient recently did have a bronchoscopy with lavage and the cultures did grew Pseudomonas that was resistant to Cipro On today's evaluation that is 06/25/2023, the patient continues to be afebrile and is breathing comfortably on 2 L nasal cannula oxygen, and patient denies chest pain the patient cough has decreased in intensity and no significant sputum, the patient denies abdominal pain no nausea no vomiting and no diarrhea Patient did have a white count is 11.8, creatinine 1.07 as of 06/24/2023 sputum is growing E. coli as well as pseudomonas aeruginosa Objective - Vital Signs Vital signs: Vital Signs Temp 98.0 F 06/25/23 07:16 Pulse 85 06/25/23 09:15 Resp 19 06/25/23 07:16 BP 152/83 06/25/23 07:16 Pulse Ox 96 06/25/23 09:08 FiO2 Intake & Output 06/24/23 06/25/23 06/25/23 18:59 06:59 18:59 Other: Voiding Method Toilet # Voids 4 2 # Bowel Movements 2 - Exam GENERAL DESCRIPTION: An elderly female lying in bed in no distress RESPIRATORY SYSTEM: Unlabored breathing , coarse breath sounds bilaterally HEART: S1 S2 regular rate and rhythm , ABDOMEN: Soft , no tenderness EXTREMITIES: No edema feet Exam completed with the help of [employer]PERVISOR - Labs CBC & Chem 7: 06/24/23 07:30 06/24/23 07:30 Labs: Microbiology - Last 24 Hours (Table) 06/19/23 15:45 Blood Culture - Final Blood 06/19/23 16:00 Blood Culture - Final Blood Assessment and Plan (1) Pseudomonas pneumonia Status: Acute Code(s): J15.1 - PNEUMONIA DUE TO PSEUDOMONAS SNOMED Code(s): 23527766 Plan: 1patient presented to hospital with increasing shortness of breath cough with greenish sputum production increasing infiltrate on the chest x-ray patient did have elevated white count with a recent BAL culture positive for Pseudomonas aeruginosa that was resistant to oral Cipro also grew E. coli in the same s pecimen more likely, date of pneumonia related to this pathogen with COPD exacerbation. 2patient sputum is growing E. coli as well as pseudomonas aeruginosa, patient did have a CT with evidence of bronchopneumonia keeping in mind that the patient BAL culture positive for pseudomonas , patient seemed to be clinically responding to cefepime to continue to finish a course of therapy and monitor clinical course closely Dictation was produced using [employer] dictation software. please excuse any gramm atical, word or spelling errors. Time with Patient: Less than 30
--- NOTE | 2023-07-02 15:40 | P.PN ---
Subjective Progress Note Date: 06/26/23 Principal diagnosis: Reason for follow-up is Pseudomonas pneumonia Patient is a 68-year-old female with a past medical history significant for diabetes mellitus COPD CVA TIA hypertension hyperlipidemia in this patient who did have a history of recurrent bronchitis and pneumonia patient recently did have a bronchoscopy with lavage and the cultures did grew Pseudomonas that was resistant to Cipro On today's evaluation that is 06/26/2023, the patient denies any fever or any chills, the patient is breathing comfortably on 3 L nasal cannula oxygen, and patient denies chest pain the patient cough has decreased in intensity mostly dry in nature, the patient denies abdominal pain no nausea no vomiting and no diarrhea Patient did have a white count is 11.8, creatinine 1.07 as of 06/24/2023 no lab drawn today sputum is growing E. coli as well as pseudomonas aeruginosa Objective - Vital Signs Vital signs: Vital Signs Temp 97.3 F L 06/26/23 07:42 Pulse 84 06/26/23 10:04 Resp 16 06/26/23 07:42 BP 131/73 06/26/23 07:42 Pulse Ox 97 06/26/23 09:48 FiO2 Intake & Output 06/25/23 06/26/23 06/26/23 18:59 06:59 18:59 Intake Total 898 Balance 898 Intake: Oral 898 Other: Voiding Method Toilet # Voids 3 1 1 - Exam GENERAL DESCRIPTION: An elderly female lying in bed in no distress RESPIRATORY SYSTEM: Unlabored breathing , decreased intensity of breath sounds no wheeze HEART: S1 S2 regular rate and rhythm , ABDOMEN: Soft , no tenderness EXTREMITIES: No edema feet - Labs CBC & Chem 7: 06/24/23 07:30 06/24/23 07:30 Assessment and Plan (1) Pseudomonas pneumonia Status: Acute Code(s): J15.1 - PNEUMONIA DUE TO PSEUDOMONAS SNOMED Code(s): 66088142 Plan: 1patient presented to hospital with increasing shortness of breath cough with greenish sputum production increasing infiltrate on the chest x-ray patient did have elevated white count with a recent BAL culture positive for Pseudomonas aeruginosa that was resistant to oral Cipro also grew E. coli in the same specimen more likely, date of pneumonia related to this pathogen with COPD exacerbation. 2patient sputum is growing E. coli as well as pseudomonas aeruginosa, patient did have a CT with evidence of bronchopneumonia 3-plan is to continue with the cefepime to finish a two-week course of therapy and close outpatient follow-up, multiple questions concerned were answered Dictation was produced using [employer] software. please excuse any gram matical, word or spelling errors.
== END 2023-06-26 22:30 | disposition home health service (06) | DRG 177 ==
LOC: EC 12:45 → 4SSUR 17:37
PROVIDERS: ADMIT Hospitalist; ATTEND Hospitalist
PROC: 02HV33Z Insertion of Infusion Device into Superior Vena Cava, Percutaneous Approach (ICD-10-PCS; principal; 2023-06-23 09:00)
DX: J15.5 Pneumonia due to Escherichia coli (principal); J96.21 Acute and chronic respiratory failure with hypoxia; I69.354 Hemiplegia and hemiparesis following cerebral infarction affecting left non-dominant side; Z16.23 Resistance to quinolones and fluoroquinolones; J15.1 Pneumonia due to Pseudomonas; Z77.22 Contact with and (suspected) exposure to environmental tobacco smoke (acute) (chronic); E03.9 Hypothyroidism, unspecified; E66.9 Obesity, unspecified; Z68.34 Body mass index [BMI] 34.0-34.9, adult; I12.9 Hypertensive chronic kidney disease with stage 1 through stage 4 chronic kidney disease, or unspecified chronic kidney disease; J47.9 Bronchiectasis, uncomplicated; K21.9 Gastro-esophageal reflux disease without esophagitis; E11.22 Type 2 diabetes mellitus with diabetic chronic kidney disease; H35.30 Unspecified macular degeneration; H93.8X9 Other specified disorders of ear, unspecified ear; Z11.52 Encounter for screening for COVID-19; N18.30 Chronic kidney disease, stage 3 unspecified; I34.0 Nonrheumatic mitral (valve) insufficiency; J43.9 Emphysema, unspecified; E78.5 Hyperlipidemia, unspecified; M79.7 Fibromyalgia; F41.0 Panic disorder [episodic paroxysmal anxiety]; F31.9 Bipolar disorder, unspecified; N64.89 Other specified disorders of breast; G40.909 Epilepsy, unspecified, not intractable, without status epilepticus; Z79.890 Hormone replacement therapy; Z79.899 Other long term (current) drug therapy; Z87.01 Personal history of pneumonia (recurrent); Z98.1 Arthrodesis status; Z90.11 Acquired absence of right breast and nipple; Z82.49 Family history of ischemic heart disease and other diseases of the circulatory system; Z99.81 Dependence on supplemental oxygen; Z79.52 Long term (current) use of systemic steroids; Z86.19 Personal history of other infectious and parasitic diseases; H57.9 Unspecified disorder of eye and adnexa; M19.90 Unspecified osteoarthritis, unspecified site
CPT/HCPCS: 36415; 36573; 71045; 71046; 71250; 80048; 80053; 83036; 83605; 84145; 84484; 85025; 85027; 85610; 85730; 86140; 87040; 87070; 87077; 87186; 87205; 87449; 87636; 93005; 94640; 94667; 94760; 96365; 99285

== ENCOUNTER → 2024-08-19 | Outpatient (CLI) | payer MEDICARE ==
--- NOTE | 2024-08-19 08:49 | MM ---
Reason for Exam: Clinical finding. Last mammogram was performed 1 year(s) and 3 month(s) ago. Indicated Problems: Lump or thickening of the right side for 4 Day(s). Pain of the right side (Global) for 4 Day(s). Patient History: Menarche at age 15. First Full-Term at age 24. Hysterectomy at age 45. Postmenopausal. Patient has history of breast feeding. Estrogen for 1 year from age 45 until age 46. 1991, Benign Excisional Biopsy on the right side. 08/18/2020, Benign Core Biopsy on the right side. 01/13/2011, Benign Core Biopsy on the left side. 06/26/2020, MG discontinued stereo core RT on the right side. Mother had breast cancer, age 72. Risk Values: Donna 5 year model risk: 4.8%. NCI Lifetime model risk: 15.8%. Prior Study Comparison: 01/13/2011 Left Diagnostic Mammogram, [facility]. 02/28/2019 Screening Mammogram, Unknown. 05/06/2020 Screening Mammogram, Unknown. 02/19/2021 Right Diagnostic Mammogram, [facility]. 05/10/2021 Bilateral Screening Mammogram, [facility]. 05/27/2022 Bilateral MG 3D screening mammo w/cad, [facility]. 06/10/2022 Right MG 3D work up w/cad RT, [facility]. 06/10/2022 Right US breast workup limited RT, [facility]. 12/09/2022 Right MG 3D diag mammo w/cad RT, [facility]. Tissue Density: The breasts are heterogeneously dense, which may obscure small masses. Findings: Analyzed By CAD. Scattered benign-appearing round calcifications bilaterally are redemonstrated. Stable distortion from prior excisional biopsy in the right breast. Overall Assessment: Incomplete: need additional imaging evaluation, BI-RAD 0 Management: Diagnostic Breast Ultrasound of the right breast. Targeted ultrasound right breast due to painful palpable abnormality. Results were given to the patient verbally at the time of exam. Patient should continue monthly self-breast exams. A clinical breast exam by your physician is recommended on an annual basis. This exam should not preclude additional follow-up of suspicious palpable abnormalities. Note on Donna scores and lifetime risk: 1. A Donna score greater than 3% is considered moderate risk. If this is the case, consider specialist referral to assess eligibility for a risk reducing agent. 2. If overall lifetime risk for the development of breast cancer is 20% or higher, the patient may qualify for future screening with alternating mammogram and breast MRI. [facility], , 08/19/2024 8:46 AM. Electronically signed and approved by: Vinay Rodrigez M.D.
--- NOTE | 2024-08-19 09:22 | USB ---
Reason for Exam: Clinical finding. Patient History: Menarche at age 15. First Full-Term at age 24. Hysterectomy at age 45. Postmenopausal. Patient has history of breast feeding. Estrogen for 1 year from age 45 until age 46. 1991, Benign Excisional Biopsy on the right side. 08/18/2020, Benign Core Biopsy on the right side. 01/13/2011, Benign Core Biopsy on the left side. 06/26/2020, MG discontinued stereo core RT on the right side. Mother had breast cancer, age 72. Risk Values: Donna 5 year model risk: 4.8%. NCI Lifetime model risk: 15.8%. Technique: Method: Targeted. Prior Study Comparison: 06/10/2022 Right MG 3D work up w/cad RT, [facility]. 12/09/2022 Right MG 3D diag mammo w/cad RT, [facility]. 06/12/2023 Bilateral MG 3D screening mammo w/cad, [facility]. Findings: The upper outer quadrant of the right breast, the area of palpable concern of the right breast, the axilla of the right breast and the retroareolar of the right breast were scanned. Thyroid ultrasound right breast shows heterogeneous ill-defined area at the 11 and 12:00 position extending towards the nipple where there is persistent irregular marginated thin-walled fluid collection. Minimal vascularity is present. Findings when correlated with mammogram favor scar tissue unchanged from 2021 mammogram. Overall Assessment: Probably benign, BI-RAD 3 Management: Diagnostic Breast Ultrasound of the right breast in 6 months. Precautionary short-term follow-up diagnostic ultrasound. If the patient feels the area becomes larger than repeat imaging before 6 months time would be advised. A clinical breast exam by your physician is recommended on an annual basis and results should be correlated with mammographic findings. This exam should not preclude additional follow-up of suspicious palpable abnormalities. Results were given to the patient verbally at the time of exam. [facility], , 08/19/2024 9:18 AM. Electronically signed and approved by: Vinay Rodrigez M.D.
== END | disposition home or self-care (01) ==
LOC: RADMAMWWP 08:20
PROVIDERS: ATTEND Internal Medicine
DX: Z29.9 Encounter for prophylactic measures, unspecified (principal); R92.333 Mammographic heterogeneous density, bilateral breasts; Z78.0 Asymptomatic menopausal state; Z80.3 Family history of malignant neoplasm of breast
CPT/HCPCS: 77062; 77066

== ENCOUNTER → 2025-01-27 | Outpatient (CLI) | payer MEDICARE ==
--- NOTE | 2025-01-27 15:33 | USB ---
Reason for Exam: Follow-up at short interval from prior study. Patient History: Menarche at age 15. First Full-Term at age 24. Hysterectomy at age 45. Postmenopausal. Patient has history of breast feeding. Estrogen for 1 year from age 45 until age 46. 1991, Benign Excisional Biopsy on the right side. 08/18/2020, Benign Core Biopsy on the right side. 01/13/2011, Benign Core Biopsy on the left side. 06/26/2020, MG discontinued stereo core RT on the right side. Mother had breast cancer, age 72. Risk Values: Donna 5 year model risk: 4.8%. NCI Lifetime model risk: 15.8%. Technique: Method: Targeted. Prior Study Comparison: 12/09/2022 Right MG 3D diag mammo w/cad RT, [facility]. 06/12/2023 Bilateral MG 3D screening mammo w/cad, [facility]. 08/19/2024 Bilateral MG 3D diag mammo w/cad [place], [facility]. Findings: The lateral section of the breast of the right breast, the axilla of the right breast and the retroareolar of the right breast were scanned. A complete US of all four quadrants of the breast and retro-areolar region were reviewed. Prominent ducts are redemonstrated some of which contain internal debris. No distinct evidence for mass. Slight improvement suggested. Overall Assessment: Benign, BI-RAD 2 Management: Screening Mammogram of both breasts in 6 months. A clinical breast exam by your physician is recommended on an annual basis and results should be correlated with mammographic findings. This exam should not preclude additional follow-up of suspicious palpable abnormalities. Results were given to the patient verbally at the time of exam. [facility], , 01/27/2025 3:29 PM. Electronically signed and approved by: Rufus Quinn M.D. [facility]
== END | disposition home or self-care (01) ==
LOC: RADUSWWP 15:00
PROVIDERS: ATTEND Internal Medicine
DX: R92.8 Other abnormal and inconclusive findings on diagnostic imaging of breast (principal); Z80.3 Family history of malignant neoplasm of breast; Z78.0 Asymptomatic menopausal state